=== PATIENT | male | born 1970 | race Caucasian/White ===

== ENCOUNTER 2024-05-25 15:14 | Inpatient (IN) ==
--- NOTE | 2024-05-25 15:32 | ED Triage Note ---
Date of Service May 25, 2024 Provider in Triage Author: Lona Jauregui History of Present Illness This patient was briefly evaluated while in triage. An abbreviated physical exam was performed. This patient is a 53-year-old Male who presents to the ED for evaluation of lightheadedness, and SOB. Pt. feels that his heart is racing. Symptoms started approximately 5 days ago. States symptoms haven't worsened, but haven't gone away. Does have history of HTN. Physical Exam VITALS: Vitals are noted on the nurse's note and reviewed by myself. GENERAL: This is a 53 year old male, in no acute distress, nondiaphoretic, well-developed well-nourished. SKIN: No obvious rashes, edema, erythema HEAD: Normocephalic atraumatic. EYES: Conjunctivae without injection, sclerae without icterus. NECK: No JVD. LUNGS: No retractions or accessory muscle use. MUSCULOSKELETAL: Normal gait. NEURO: Patient was alert and oriented to person place and time. No focal neurological deficits. Initial orders for labs and / or imaging were placed and patient was placed in the waiting area until a bed is available. Please see further documentation for the full ED course.
--- NOTE | 2024-05-25 15:47 | Emergency Department Note ---
Impression & Plan SOB (shortness of breath), CHF (congestive heart failure), Atrial fibrillation with rapid ventricular response, Acute hyperglycemia, Elevated troponin ED Provider Note NAME: CORDELL WINCHESTER AGE: 53 SEX: M : 1970 ARRIVES VIA: Walk-In INFORMANT: [Patient] ED PROVIDER(S): [Reynold Chávez MD] CHIEF COMPLAINT: Short of breath HISTORY OF PRESENT ILLNESS: The patient is a 53-year-old male who states for 4 days, he has felt short of breath. He has dyspnea with any exertion. He has some nausea and some epigastric upset. The patient has not had cough. No fever. He has no known coronary or lung disease. He has never felt this way before. The patient thinks he may feel his heart racing. PMHx/PSHx/Social Hx: See Below PHYSICAL EXAM: GENERAL: Patient is in no acute distress. HEENT: No acute trauma, normocephalic atraumatic, mucous membranes moist, no nasal congestion. NECK: No stridor, no adenopathy, no meningismus, trachea is midline. LUNGS: Clear to auscultation bilaterally, no wheeze, no rhonchi, breath sounds equal. HEART: Tachycardic, irregular rhythm, no obvious murmur. ABDOMEN: Soft, somewhat tender in the epigastrium, there is some abdominal distention noted. EXTREMITIES: No cyanosis, full range of motion of all the joints without pain or difficulty. NEUROLOGIC: Oriented x 3, no acute motor or sensory deficits, no focal weakness. SKIN: No jaundice, no diaphoresis. DIFFERENTIAL DIAGNOSIS: Dysrhythmia, A-fib or a flutter, SVT, UT, angina, pneumonia, CHF, among others. EMERGENCY DEPARTMENT PROCEDURES: MEDICAL DECISION MAKING: There is no leukocytosis or worrisome anemia. There is a normal platelet count. No coagulopathy. VBG does not show acidosis or significant CO2 retention. Renal panel testing shows a high sugar at 322. No worrisome liver enzyme elevation. BNP was elevated consistent with fluid overload/CHF. No evidence for pancreatitis by our testing. The patient appeared to be in a euthyroid state. ECG showed rapid atrial fibrillation without acute ST elevation. Cardiac enzyme testing x 1 is slightly elevated. This troponin elevation could be secondary to cardiac injury or potentially just mismatch from his tachycardia and dyspnea. Urinalysis shows glucose, no obvious infection. Chest x-ray shows some mild CHF, no pneumonia. On exam, patient was not toxic, he was not tachycardic. The patient was aggressively managed given his presentation and findings. He was given IV Phenergan, IV insulin. He received IV Lasix, 40 mg. He was given IV Pepcid. He received an IV diltiazem bolus and was placed on a diltiazem drip. Patient's heart rate has decreased with the above interventions. He does seem a bit more comfortable. Given his findings, given his presentation, hospitalization is warranted. I spoke with the patient and case management, the on-call hospitalist was consulted. Prior/Outside records/notes reviewed: None ECG per my interpretation: Indication was tachycardia. The ECG shows atrial fibrillation with a rate of 147. There is diffuse nonspecific ST change. No ST elevation, no PVCs. The QTc is 532. Continuous Cardiac Monitoring per my interpretation: An order was placed for continuous cardiac monitoring. The monitor shows a rate of 151 with atrial fibrillation. Imaging/x-ray results per my interpretation: Chest x-ray shows some mild CHF, no pneumonia. Chronic Medical/Social conditions affecting care: None Care/Management discussed with: Case management, the on-call hospitalist. Level of care consideration(s): After review of the information above and other included data: --I believe the patient requires escalation of care to admission Critical Care Note: I have personally spent 53 minutes of critical care time in the direct management of this patient. This includes bedside care, interpretation of diagnostic studies, and testing, discussion with consultants, patient, and family members, and other required patient management activities. This 53 minutes is in excess of all separately billable procedures. DISPOSITION: Admission Past Med/Surg History Problem List Elevated troponin (Acute) Acute hyperglycemia (Acute) Atrial fibrillation with rapid ventricular response (Acute) CHF (congestive heart failure) (Acute) SOB (shortness of breath) (Acute) Atrial fibrillation Depression (Chronic) Chest pain (Acute 05/20/13) Elevated troponin I level (Acute) Mood disorder (Acute) Medical History Hypertension Social History Smoking Status: Current every day smoker Tobacco Type: Cigarettes Cigarettes Per Day: 15; Second Hand Exposure: No; Do You Dip or Chew Tobacco: No; Hx Alcohol Use: Yes Alcohol type: beer and hard liquor Hx Substance Use: No Preferred Language: German Communication Ability: Effective Nuclear Operations Specialist Required: No Beliefs That Will Affect Care: None Current Living Situation: Alone Current Living Situation Comment: lives at home alone Feels Safe at Home: Yes Assistive Devices: Glasses Allergies Allergies Allergy/AdvReac Type Severity Reaction Status Date / Time No Known Allergies Allergy Unverified 05/19/13 23:19 Home Meds Home Medications Medication Instructions Recorded Confirmed hydralazine 25 mg tablet 25 mg PO TID 05/25/24 05/25/24 losartan 100 mg tablet 100 mg PO DAILY 05/25/24 05/25/24 metformin 1,000 mg tablet 1,000 mg PO BID 05/25/24 05/25/24 semaglutide 2 mg/dose (8 mg/3 mL) 2 mg subcut USEASDIRECTD 05/25/24 05/25/24 subcutaneous pen injector (Ozempic) Previous Rx's Medication Instructions Recorded AMLODIPINE BESYLATE (NORVASC) 7.5 mg PO QAM 30 days #0 tabs 05/24/13 HYDROCHLOROTHIAZIDE (HCTZ) 12.5 mg PO QAM 30 days #0 tabs 05/24/13 Metoprolol Tartrate (Lopressor) 50 mg PO BID 30 days #0 tabs 05/24/13 (Lopressor) Results & Data (ED) Vital Signs Vital Signs - 24 hr 05/25/24 15:30 05/25/24 15:32 05/25/24 15:42 Temperature 36.9 C Temperature Source Temporal Artery Scan Pulse Rate 76 159 H Pulse Rate [Apical] Pulse Rate from SpO2 Sensor Respiratory Rate 24 Respiratory Effort / Characteristics Non-Labored Spontaneous Respiratory Depth Normal Blood Pressure 198/123 H Blood Pressure [Left Arm] Blood Pressure Mean 148 Blood Pressure Mean [Left Arm] Blood Pressure Position [Left Arm] Pulse Oximetry 97 Oxygen Delivery Method Room Air Room Air Sepsis Recent Fever Within 48 Hours No Sepsis New/Unexplained Change in Mental Status No Sepsis Action Taken by Nursing No Action Required 05/25/24 15:44 05/25/24 16:10 05/25/24 16:14 Temperature Temperature Source Pulse Rate 142 H Pulse Rate [Apical] Pulse Rate from SpO2 Sensor 103 H Respiratory Rate 25 H Respiratory Effort / Characteristics Short of Breath Respiratory Depth Blood Pressure 133/99 Blood Pressure [Left Arm] Blood Pressure Mean 109 Blood Pressure Mean [Left Arm] Blood Pressure Position [Left Arm] Pulse Oximetry 93 Oxygen Delivery Method Room Air Room Air Sepsis Recent Fever Within 48 Hours Sepsis New/Unexplained Change in Mental Status Sepsis Action Taken by Nursing 05/25/24 16:25 Temperature Temperature Source Pulse Rate Pulse Rate [Apical] 119 H Pulse Rate from SpO2 Sensor Respiratory Rate 27 H Respiratory Effort / Characteristics Respiratory Depth Blood Pressure Blood Pressure [Left Arm] 135/89 Blood Pressure Mean Blood Pressure Mean [Left Arm] 104 Blood Pressure Position [Left Arm] Semi-fowlers Pulse Oximetry 96 Oxygen Delivery Method Room Air Sepsis Recent Fever Within 48 Hours Sepsis New/Unexplained Change in Mental Status Sepsis Action Taken by Skilled Nursing Medications Current Medication List: was personally reviewed by me Laboratory Data Attestation: I reviewed the patient's lab results. 05/25/24 15:45 05/25/24 15:45 Lab Results 05/25/24 05/25/24 05/25/24 Range/Units 15:45 15:51 16:54 WBC 9.30 (4.8-10.8) K/ul RBC 4.53 L (4.70-6.10) M/uL Hgb 14.6 (14.0-18.0) g/dl Hct 39.1 L (42.0-52.0) % MCV 86.3 (80.0-100.0) fL MCH 32.2 (25.0-34.0) pg MCHC 37.3 H (32.0-36.0) g/dL RDW Std Deviation 38.5 (36.4-46.3) fL RDW Coeff of Katherine 12.4 (11.5-14.5) % Plt Count 243 (130-400) K/uL MPV 10.5 (9.4-12.4) fL Immature Gran % (Auto) 0.6 % Neut % (Auto) 75.2 % Lymph % (Auto) 16.6 % [place] % (Auto) 5.3 % Eos % (Auto) 1.9 % Baso % (Auto) 0.4 % Neut # (Auto) 6.99 H (1.40-6.50) K/uL Lymph # (Auto) 1.54 (1.20-3.40) K/uL [place] # (Auto) 0.49 (0.11-0.59) K/uL Eos # (Auto) 0.18 (0.00-0.50) K/uL Baso # (Auto) 0.04 (0.00-0.20) K/uL Immature Gran # (Auto) 0.06 (0.01-0.20) K/uL PT 11.6 (9.0-12.0) Seconds INR 1.1 (0.9-1.1) APTT 27 (21-31) Seconds PTT Ratio 1.0 VBG pH 7.47 H (7.36-7.41) VBG pCO2 34 L (38-50) mmHg VBG pO2 44 mmHg VBG HCO3 25 mmol/L VBG O2 Saturation 78.0 % VBG Base Excess 1.5 mEq/L Sodium 139 (136-145) mmol/L Potassium 3.6 (3.5-5.1) mmol/L Chloride 106 (98-107) mmol/L Carbon Dioxide 23 (21-32) mmol/L Anion Gap 10 (3-11) BUN 9 (6-23) mg/dl Creatinine 1.03 (0.6-1.4) mg/dl Est Cr Clr Drug Dosing 112.5 ml/min eGFR 87.95 BUN/Creatinine Ratio 8.7 L (10-20) Glucose 322 H* (70-99(Fasting)) mg/dl Calcium 9.3 (8.6-10.3) mg/dl Magnesium 1.8 (1.7-2.4) mg/dl Total Bilirubin 1.6 H (0.2-1.0) mg/dl AST 19 (13-39) U/L ALT 33 (7-52) U/L Alkaline Phosphatase 50 (34-104) U/L Troponin I High Sens 23.2 H (0-20) pg/ml B-Natriuretic Peptide 229 H (0-100) pg/ml Total Protein 6.9 (6.0-8.3) gm/dl Albumin 3.9 (3.4-5.0) gm/dl Globulin 3.0 (2.5-4.0) gm/dl Albumin/Globulin Ratio 1.3 (0.9-2) Lipase 18 (11-82) U/L TSH 1.573 (0.300-4.500) uIu/ml Urine Color Yellow Urine Appearance Clear (Clear) Urine pH 6.5 (4.5-7.5) Ur Specific [place] 1.009 (1.000-1.030) Urine Protein Negative (Negative) Urine Glucose (UA) 3+ H (Negative) Urine Ketones Negative (Negative) Urine Blood 1+ H (Negative) Urine Nitrite Negative (Negative) Urine Bilirubin Negative (Negative) Urine Urobilinogen Negative (Negative) Ur Leukocyte Esterase Negative (Negative) Urine WBC (Auto) 0-5 (0-5) /hpf Urine RBC (Auto) 6-10 H (0-2) /hpf U Hyaline Cast (Auto) 0-2 (0-2) /lpf U Epithel Cells (Auto) 0-2 (0-2) /hpf Urine Bacteria (Auto) None Seen (None Seen) 05/25/24 Range/Units 17:33 WBC (4.8-10.8) K/ul RBC (4.70-6.10) M/uL Hgb (14.0-18.0) g/dl Hct (42.0-52.0) % MCV (80.0-100.0) fL MCH (25.0-34.0) pg MCHC (32.0-36.0) g/dL RDW Std Deviation (36.4-46.3) fL RDW Coeff of Katherine (11.5-14.5) % Plt Count (130-400) K/uL MPV (9.4-12.4) fL Immature Gran % (Auto) % Neut % (Auto) % Lymph % (Auto) % [place] % (Auto) % Eos % (Auto) % Baso % (Auto) % Neut # (Auto) (1.40-6.50) K/uL Lymph # (Auto) (1.20-3.40) K/uL [place] # (Auto) (0.11-0.59) K/uL Eos # (Auto) (0.00-0.50) K/uL Baso # (Auto) (0.00-0.20) K/uL Immature Gran # (Auto) (0.01-0.20) K/uL PT (9.0-12.0) Seconds INR (0.9-1.1) APTT (21-31) Seconds PTT Ratio VBG pH (7.36-7.41) VBG pCO2 (38-50) mmHg VBG pO2 mmHg VBG HCO3 mmol/L VBG O2 Saturation % VBG Base Excess mEq/L Sodium (136-145) mmol/L Potassium (3.5-5.1) mmol/L Chloride (98-107) mmol/L Carbon Dioxide (21-32) mmol/L Anion Gap (3-11) BUN (6-23) mg/dl Creatinine (0.6-1.4) mg/dl Est Cr Clr Drug Dosing ml/min eGFR BUN/Creatinine Ratio (10-20) Glucose (70-99(Fasting)) mg/dl Calcium (8.6-10.3) mg/dl Magnesium (1.7-2.4) mg/dl Total Bilirubin (0.2-1.0) mg/dl AST (13-39) U/L ALT (7-52) U/L Alkaline Phosphatase (34-104) U/L Troponin I High Sens 24.2 H (0-20) pg/ml B-Natriuretic Peptide (0-100) pg/ml Total Protein (6.0-8.3) gm/dl Albumin (3.4-5.0) gm/dl Globulin (2.5-4.0) gm/dl Albumin/Globulin Ratio (0.9-2) Lipase (11-82) U/L TSH (0.300-4.500) uIu/ml Urine Color Urine Appearance (Clear) Urine pH (4.5-7.5) Ur Specific [place] (1.000-1.030) Urine Protein (Negative) Urine Glucose (UA) (Negative) Urine Ketones (Negative) Urine Blood (Negative) Urine Nitrite (Negative) Urine Bilirubin (Negative) Urine Urobilinogen (Negative) Ur Leukocyte Esterase (Negative) Urine WBC (Auto) (0-5) /hpf Urine RBC (Auto) (0-2) /hpf U Hyaline Cast (Auto) (0-2) /lpf U Epithel Cells (Auto) (0-2) /hpf Urine Bacteria (Auto) (None Seen) Administered Medications Diltiazem HCl 125 mg/ Dextrose 125 mls @ 15 mls/hr IV .[id number] JADEN; Protocol Stop: 06/24/24 15:44 Last Titration: 05/25/24 19:01 Dose: 15 mg/hr, 15 mls/hr Documented By: EP Co-signed By: LAVERNE Titration: 05/25/24 17:30 Dose: 10 mg/hr, 10 mls/hr Documented By: CEF Co-signed By: GENE Admin: 05/25/24 16:10 Dose: 5 mg/hr, 5 mls/hr Documented By: COLLEEN Co-signed By: OTTO Heparin Sodium/Dextrose (Heparin Sodium/Dextrose) 25,000 units in 500 mls @ 33 mls/hr IV .[id number] [facility]; Protocol Stop: 06/24/24 20:44 Last Admin: 05/25/24 21:03 Dose: 1,650 units/hr, 33 mls/hr Documented By: LAVERNE Co-signed By: DENIS Insulin Aspart (Insulin Aspart Per Unit Charge) 0 units SC ACHS [facility] Stop: 06/24/24 20:59 Last Admin: 05/25/24 21:02 Dose: 4 units Documented By: LAVERNE Co-signed By: DENIS Metoprolol Tartrate (Metoprolol Tartrate 25 Mg Tab) 25 mg PO QID [facility] Stop: 06/24/24 20:59 Last Admin: 05/25/24 21:01 Dose: 25 mg Documented By: LAVERNE Discontinued Medications Diltiazem HCl (Diltiazem Hcl 5 Mg/Ml 5 Ml Vial) 15 mg IV NOW STA Stop: 05/25/24 15:43 Last Admin: 05/25/24 15:49 Dose: 15 mg Documented By: GENE Co-signed By: CEF Furosemide (Furosemide 40 Mg/4 Ml Vial) 40 mg IV ONE ONE Stop: 05/25/24 16:33 Last Admin: 05/25/24 16:37 Dose: 40 mg Documented By: CEF Famotidine (Pepcid 20mg Iv Push) 20 mg in 5 mls @ 2.5 mls/min IV NOW STA Stop: 05/25/24 15:43 Last Admin: 05/25/24 15:49 Dose: 2.5 mls/min Documented By: GENE Promethazine HCl (Phenergan) 6.25 mg in 50.25 mls @ 201 mls/hr IV NOW STA Stop: 05/25/24 15:56 Last Infusion: 05/25/24 16:21 Dose: Infused Documented By: Admin: 05/25/24 15:48 Dose: 201 mls/hr Documented By: GENE Insulin Human Regular (Novolin-R Insulin Per Unit Charge) 8 units IV NOW STA Stop: 05/25/24 16:39 Last Admin: 05/25/24 16:47 Dose: 8 units Documented By: JOSEF Co-signed By: Ioversol (Optiray 320 100ml) 94 ml IV ONCE ONE Stop: 05/25/24 18:40 Last Admin: 05/25/24 18:39 Dose: 94 ml Documented By: GES Imaging Data Radiologist's Impression: Chest X-Ray 05/25/24 15:32 Clinical History: Chest pain and shortness of breath Technique: A frontal view of the chest was obtained Findings: There is diffuse interstitial prominence, concerning for pulmonary edema. The heart size is at the upper limit of normal. No pleural effusion or pneumothorax is seen. There is linear to let us is in the left upper lobe No fracture is noted. No foreign body is seen Impression: Suspected mild pulmonary edema Electronically signed by Santosh Rose 05-25-2024 4:10 PM Discharge Plan Visit Data Chief Complaint: Shortness of Breath/Dyspnea Stated Complaint: SOB, DIZZY, ABD PAIN ED Provider: Reynold Chávez Discharge Problem: SOB (shortness of breath), CHF (congestive heart failure), Atrial fibrillation with rapid ventricular response, Acute hyperglycemia, Elevated troponin Patient Disposition: Admitted As Inpatient Condition: Serious Discharge Instructions Interventions: ED Discharge Assessment Last Done: 05/25/24 18:30 Discharge Problem: CHF (congestive heart failure) Qualifiers: Heart failure type: unspecified Heart failure chronicity: acute Qualified Code(s): I50.9 - Heart failure, unspecified
[2024-05-25] MEDS: PROMETHAZINE 6.25 MG/50.25 ML BAG IV STA (15:48)
[2024-05-25] MEDS: dilTIAZem HCl 5 MG/ML 5 ML VIAL IV STA (15:49)
[2024-05-25] MEDS: FAMOTIDINE 20MG IV PUSH 20 MG/5 ML SYR IV STA (15:49)
[2024-05-25] MEDS: dilTIAZem HCL 125 MG in DEXTROSE 5% 100 ML IV SCH (16:10)
--- NOTE | 2024-05-25 16:11 | XRay Report ---
Clinical History: Chest pain and shortness of breath Technique: A frontal view of the chest was obtained Findings: There is diffuse interstitial prominence, concerning for pulmonary edema. The heart size is at the upper limit of normal. No pleural effusion or pneumothorax is seen. There is linear to let us is in the left upper lobe No fracture is noted. No foreign body is seen Impression: Suspected mild pulmonary edema Electronically signed by Santosh Rose 05-25-2024 4:10 PM
[2024-05-25 16:14] LABS: Base Excess VBG 1.5 mEq/L; HCO3 VBG 25 mmol/L; PCO2 VBG 34 mmHg (38-50); PO2 VBG 44 mmHg; pH VBG 7.47 (7.36-7.41)
[2024-05-25 16:18] LABS: Basophils # (auto) 0.04 K/uL (0.00-0.20); Basophils % (auto) 0.4 %; Eosinophils # (auto) 0.18 K/uL (0.00-0.50); Eosinophils % (auto) 1.9 %; Hematocrit (blood only) 39.1 % (42.0-52.0); Hemoglobin 14.6 g/dl (14.0-18.0); Immature Granulocytes # (auto) 0.06 K/uL (0.01-0.20); Immature Granulocytes % (auto) 0.6 %; Lymphocytes # (auto) 1.54 K/uL (1.20-3.40); Lymphocytes % (auto) 16.6 %; Mean Corpuscular Hemoglobin 32.2 pg (25.0-34.0); Mean Corpuscular Hgb Conc 37.3 g/dL (32.0-36.0); Mean Corpuscular Volume 86.3 fL (80.0-100.0); Mean Platelet Volume 10.5 fL (9.4-12.4); Monocytes # (auto) 0.49 K/uL (0.11-0.59); Monocytes % (auto) 5.3 %; Neutrophils # (auto) 6.99 K/uL (1.40-6.50); Neutrophils % (auto) 75.2 %; Platelet Count 243 K/uL (130-400); RDW Coefficient of Variation 12.4 % (11.5-14.5); RDW Standard Deviation 38.5 fL (36.4-46.3); Red Blood Count 4.53 M/uL (4.70-6.10)
[2024-05-25 16:32] LABS: Albumin Globulin Ratio 1.3 (0.9-2); Albumin Level 3.9 gm/dl (3.4-5.0); BUN Creatinine Ratio 8.7 (10-20); Bilirubin,Total 1.6 mg/dl (0.2-1.0); Calcium 9.3 mg/dl (8.6-10.3); Creatinine Clr Calc Pharmacy 112.5 ml/min; Magnesium 1.8 mg/dl (1.7-2.4); Potassium 3.6 mmol/L (3.5-5.1); Total Protein 6.9 gm/dl (6.0-8.3); Troponin I High Sensitivity 23.2 pg/ml (0-20)
[2024-05-25 16:34] LABS: INR 1.1 (0.9-1.1); Partial Thromboplastin Time 27 Seconds (21-31); Prothrombin Time 11.6 Seconds (9.0-12.0)
[2024-05-25] MEDS: FUROSEMIDE 40 MG/4 ML VIAL IV ONE (16:37)
[2024-05-25 16:38] LABS: Thyroid Stimulating Hormone 1.573 uIu/ml (0.300-4.500)
[2024-05-25] MEDS: NovoLIN-R INSULIN PER UNIT CHARGE IV STA (16:47)
--- NOTE | 2024-05-25 17:47 | History & Physical Report ---
Date of Service May 25, 2024 Assessment & Plan (1) Hypertension: (2) Depression: (3) Hypertensive crisis: (4) Mood disorder: (5) Atrial fibrillation: Plan Assessment and plan: Rapid atrial fibrillation: Initial rates in the 140s on arrival to the ED, now in the 120s Continue to titrate Cardizem as able, consult cardiology Start IV heparin drip, telemetry monitoring, check echo LUQ abdominal pain: Stat CT A/P ordered to rule out acute infectious process Hold off starting IV heparin until CT scan results Differential Dx: Colitis, diverticulitis, appendicitis, ascites/fluid overload Pulmonary congestion, suspected CHF: Received 1 dose of IV Lasix in ED, no hypoxia noted Daily weights strict I&O, hold off on further Lasix at this time Hx HTN: Hold metoprolol/losartan/HCTZ/hydralazine while on diltiazem drip May resume as needed Tobacco use: Smoking cessation strongly recommended A total of 60 minutes was spent on chart review/reviewing diagnostic data/facilitating plan of care/discussion with consultants Full code DVT prophylaxis: Heparin drip History of Present Illness Chief Complaint: Shortness of breath, fatigue Primary Care Provider: Monster Payne The patient is a 53-year-old male with a past medical history of HTN, current smoker, depression who presents to the ED on 05/15/2024 with complaints of shortness of breath and feeling fatigued. Reports feeling like "he was running a marathon while resting "no known history of atrial fibrillation. 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 He reports his job is strenuous. He reports barely being able to get up and move the past few days because his stomach is so distended. Also reports some shortness of breath. And feeling like his heart is beating out of his chest. Does also report diarrhea. Denies any nausea/vomiting. Reports that shortness of breath has not improved On arrival to the ED, labs remarkable for pH 7.47, CO2 34, glucose 322, total bili 1.6, BNP 229, initial troponin mildly elevated at 23 Patient reports being recently diagnosed with possible diabetes and following his PCP for this. Chest x-ray showed pulmonary congestion EKG on arrival showed A-fib with RVR rates in the 140s The patient be admitted for further management Allergies Allergy/AdvReac Type Severity Reaction Status Date / Time No Known Allergies Allergy Unverified 11/12/13 23:19 Home Medications Medication Instructions Recorded Confirmed Type AMLODIPINE BESYLATE (NORVASC) 7.5 mg PO QAM 30 days #0 tabs 05/24/13 05/25/24 Rx HYDROCHLOROTHIAZIDE (HCTZ) 12.5 mg PO QAM 30 days #0 tabs 05/24/13 05/25/24 Rx Metoprolol Tartrate (Lopressor) 50 mg PO BID 30 days #0 tabs 05/24/13 05/25/24 Rx (Lopressor) hydralazine 25 mg tablet 25 mg PO TID 05/25/24 05/25/24 History losartan 100 mg tablet 100 mg PO DAILY 05/25/24 05/25/24 History metformin 1,000 mg tablet 1,000 mg PO BID 05/25/24 05/25/24 History semaglutide 2 mg/dose (8 mg/3 mL) 2 mg subcut USEASDIRECTD 05/25/24 05/25/24 History subcutaneous pen injector (Ozempic) Past Med/Surg History Problem List (Updated 05/25/24 @ 17:42 by BONI Arroyo) Atrial fibrillation Hypertension (Chronic) Depression (Chronic) Chest pain (Acute 05/20/13) Elevated troponin I level (Acute) Mood disorder (Acute) Social History Smoking Status: Current every day smoker Tobacco Type: Cigarettes Cigarettes Per Day: 15; Second Hand Exposure: No; Do You Dip or Chew Tobacco: No; Tobacco Cessation Education Requested by Patient: No Hx Alcohol Use: Yes Alcohol type: beer and hard liquor Hx Substance Use: No Preferred Language: Wolof Communication Ability: Effective Leaf Tinner Required: No Beliefs That Will Affect Care: None Current Living Situation: Alone Current Living Situation Comment: lives at home alone Other Information That Helps Us Care for You: No Feels Safe at Home: Yes Safety Concerns: Feels Safe At This Time Assistive Devices: Glasses Physical Exam Constitutional: WD/WN, vitals as above Eyes: PERRL, conjunctivae normal, anicteric sclerae ENMT: external ear and nose normal, oropharynx normal Neck: trachea midline, no thyromegaly Respiratory: normal respiratory effort, lungs clear to auscultation Cardiovascular: RRR, no murmur, no edema Gastrointestinal (Abdomen): normal bowel sounds, soft, nontender, no hepatosplenomegaly Inspection/Auscultation: + abdomen distended and + abdominal edema Percussion/Palpation: + abdomen tender and + guarding Musculoskeletal: no cyanosis or clubbing, extremities motor strength 5/5 Skin: no rashes, warm and dry Neurologic: PERRL, EOMI, accommodation nl, no face palsy, no dysarthria Psychiatric: A+Ox3, euthymic affect Lymphatic: no cervical or axillary lymphadenopathy Results & Data Results & Data Vital Signs (Past 12 Hours) Vital Signs Temp Pulse Pulse Resp BP BP Pulse Ox 05/25/24 16:25 119 H 27 H 135/89 96 05/25/24 16:14 05/25/24 16:10 142 H 25 H 133/99 93 05/25/24 15:42 159 H 05/25/24 15:32 05/25/24 15:30 36.9 C 76 24 198/123 H 97 O2 Del Method 05/25/24 16:25 Room Air 05/25/24 16:14 Room Air 05/25/24 16:10 Room Air 05/25/24 15:42 05/25/24 15:32 Room Air 05/25/24 15:30 Room Air Diagnostic Findings Laboratory Results WBC 9.30 K/ul (4.8-10.8) 05/25/24 15:45 RBC 4.53 M/uL (4.70-6.10) L 05/25/24 15:45 Hgb 14.6 g/dl (14.0-18.0) 05/25/24 15:45 Hct 39.1 % (42.0-52.0) L 05/25/24 15:45 MCV 86.3 fL (80.0-100.0) 05/25/24 15:45 MCH 32.2 pg (25.0-34.0) 05/25/24 15:45 MCHC 37.3 g/dL (32.0-36.0) H 05/25/24 15:45 RDW Std Deviation 38.5 fL (36.4-46.3) 05/25/24 15:45 RDW Coeff of Katherine 12.4 % (11.5-14.5) 05/25/24 15:45 Plt Count 243 K/uL (130-400) 05/25/24 15:45 MPV 10.5 fL (9.4-12.4) 05/25/24 15:45 Immature Gran % (Auto) 0.6 % 05/25/24 15:45 Neut % (Auto) 75.2 % 05/25/24 15:45 Lymph % (Auto) 16.6 % 05/25/24 15:45 Crockett % (Auto) 5.3 % 05/25/24 15:45 Eos % (Auto) 1.9 % 05/25/24 15:45 Baso % (Auto) 0.4 % 05/25/24 15:45 Neut # (Auto) 6.99 K/uL (1.40-6.50) H 05/25/24 15:45 Lymph # (Auto) 1.54 K/uL (1.20-3.40) 05/25/24 15:45 Crockett # (Auto) 0.49 K/uL (0.11-0.59) 05/25/24 15:45 Eos # (Auto) 0.18 K/uL (0.00-0.50) 05/25/24 15:45 Baso # (Auto) 0.04 K/uL (0.00-0.20) 05/25/24 15:45 Immature Gran # (Auto) 0.06 K/uL (0.01-0.20) 05/25/24 15:45 PT 11.6 Seconds (9.0-12.0) 05/25/24 15:45 INR 1.1 (0.9-1.1) 05/25/24 15:45 APTT 27 Seconds (21-31) 05/25/24 15:45 PTT Ratio 1.0 05/25/24 15:45 VBG pH 7.47 (7.36-7.41) H 05/25/24 15:51 VBG pCO2 34 mmHg (38-50) L 05/25/24 15:51 VBG pO2 44 mmHg 05/25/24 15:51 VBG HCO3 25 mmol/L 05/25/24 15:51 VBG O2 Saturation 78.0 % 05/25/24 15:51 VBG Base Excess 1.5 mEq/L 05/25/24 15:51 Sodium 139 mmol/L (136-145) 05/25/24 15:45 Potassium 3.6 mmol/L (3.5-5.1) 05/25/24 15:45 Chloride 106 mmol/L (98-107) 05/25/24 15:45 Carbon Dioxide 23 mmol/L (21-32) 05/25/24 15:45 Anion Gap 10 (3-11) 05/25/24 15:45 BUN 9 mg/dl (6-23) 05/25/24 15:45 Creatinine 1.03 mg/dl (0.6-1.4) 05/25/24 15:45 Est Cr Clr Drug Dosing 112.5 ml/min 05/25/24 15:45 eGFR 87.95 05/25/24 15:45 BUN/Creatinine Ratio 8.7 (10-20) L 05/25/24 15:45 Glucose 322 mg/dl (70-99(Fasting)) H* 05/25/24 15:45 Calcium 9.3 mg/dl (8.6-10.3) 05/25/24 15:45 Magnesium 1.8 mg/dl (1.7-2.4) 05/25/24 15:45 Total Bilirubin 1.6 mg/dl (0.2-1.0) H 05/25/24 15:45 AST 19 U/L (13-39) 05/25/24 15:45 ALT 33 U/L (7-52) 05/25/24 15:45 Alkaline Phosphatase 50 U/L (34-104) 05/25/24 15:45 Troponin I High Sens 23.2 pg/ml (0-20) H 05/25/24 15:45 B-Natriuretic Peptide 229 pg/ml (0-100) H 05/25/24 15:45 Total Protein 6.9 gm/dl (6.0-8.3) 05/25/24 15:45 Albumin 3.9 gm/dl (3.4-5.0) 05/25/24 15:45 Globulin 3.0 gm/dl (2.5-4.0) 05/25/24 15:45 Albumin/Globulin Ratio 1.3 (0.9-2) 05/25/24 15:45 Lipase 18 U/L (11-82) 05/25/24 15:45 TSH 1.573 uIu/ml (0.300-4.500) 05/25/24 15:45 Impressions Chest X-Ray 05/25/24 15:32 Clinical History: Chest pain and shortness of breath Technique: A frontal view of the chest was obtained Findings: There is diffuse interstitial prominence, concerning for pulmonary edema. The heart size is at the upper limit of normal. No pleural effusion or pneumothorax is seen. There is linear to let us is in the left upper lobe No fracture is noted. No foreign body is seen Impression: Suspected mild pulmonary edema Electronically signed by Santosh Rose 05-25-2024 4:10 PM Code Status & VTE Plan VTE Prophylaxis Plan VTE Prophylaxis will be ordered: Yes Supervising Physician Co-Signing Physician Notes Chart and data reviewed. Pt seen at bedside in his hospital room. Nursing is present. Patient presents with abdominal pain and new onset atrial fibrillation with rapid ventricular response. Cardiology consulted, continue IV heparin and IV diltiazem. Trend troponins. CT scan of the abdomen has been ordered. Results are pending. Most of his pain is epigastric. Will add a PPI. Lipase is normal. I agree with the MILANA's assessment and plan of care. A total of 25 minutes spent in the care and care collaboration for this patient.
[2024-05-25] MEDS: OPTIRAY 320 100ml IV ONE (18:39)
[2024-05-25 18:47] LABS: Appearance Urine Clear (Clear); Bacteria Urine Automated None Seen (None Seen); Bilirubin Urine Negative (Negative); Blood Urine 1+ (Negative); Cast Urine Automated 0-2 /lpf (0-2); Color Urine Yellow; Epithelial Cell Urine Auto 0-2 /hpf (0-2); Glucose Urine UA 3+ (Negative); Ketones Urine Negative (Negative); Leukocyte Esterase Urine Negative (Negative); Nitrite Urine Negative (Negative); Protein Urine Negative (Negative); Specific Gravity Urine 1.009 (1.000-1.030); Urobilinogen Urine Negative (Negative); WBC Urine Automated 0-5 /hpf (0-5); pH Urine 6.5 (4.5-7.5)
[2024-05-25] MEDS ORDERED: GLUCOSE 10 TAB/TUBE PO PRN (18:53)
[2024-05-25] MEDS ORDERED: GLUCOSE 40% GEL 15 GM TUBE PO PRN (18:53)
[2024-05-25] MEDS ORDERED: PHARMACY GLYCEMIC MGMT CONSULT PRN (18:53)
[2024-05-25] MEDS ORDERED: GLUCAGON FOR INJ 1 MG VIAL SQ PRN (18:53)
[2024-05-25] MEDS ORDERED: CARBOHYDRATES FOR HYPOGLYCEMIA PO PRN (18:53)
[2024-05-25] MEDS ORDERED: DEXTROSE 50% 50 ML SYRINGE IV PRN (18:53)
--- NOTE | 2024-05-25 19:53 | CT Scan Report ---
EXAM: CT abd pelvis IV con only CLINICAL HISTORY: tenderness - guarding on exam 94 cc opti 320 TECHNIQUE: Contrast-enhanced CT of the abdomen and pelvis was performed, with the following protocol: axial images with, and reconstructed coronal and sagittal images. Intravenous contrast 94 cc Optiray 320 was administered. One of the following dose reduction techniques was utilized for this exam: Automated exposure control, adjustment of the mA and/or kV according to patient size, and use of iterative reconstruction. COMPARISON: Prior 04/27/2024. FINDINGS: Abdomen: Liver: Stable enlarged liver with fatty CT density. No focal lesions, cysts, or masses were identified. Hepatic vasculature and biliary ducts are unremarkable. Gallbladder and Biliary System: Post cholecystectomy status. Pancreas: Pancreatic head, body, and tail are visualized and appear normal in size and density. No pancreatic masses or calcifications were noted. The pancreatic duct is not dilated. Spleen: Stable enlarged homogeneous spleen. Kidneys and Adrenal Glands: OBX.5.1OBX.5.1.1 Still seen left hydroureteronephrosis owing to left mid ureteric stone measuring 5.5 mm /OBX.5.1.1OBX.5.1.2 354 HU which is seen at a lower level than the last study./OBX.5.1.2/OBX.5.1 Right lower calyceal gravel, measures 2 mm. The rest of the bilateral renal stones are no longer demonstrated. Both kidneys are normal in size, shape, and position. Cortical thickness is within normal limits. No right renal hydronephrosis. Adrenal glands are unremarkable with no evidence of masses or hyperplasia. Pelvis: Urinary Bladder: Normal in contour and wall thickness. No intraluminal lesions identified. Prostate: Enlarged in size with calcific foci and preserved contour. No focal lesions or masses identified. Rectum and Sigmoid Colon: Normal wall thickness and no evidence of mass. Peritoneal and Retroperitoneal Structures: Stable mild mesenteric fat planes smudging with reactionary lymphadenopathies, likely mild inflammatory sequel. No free fluid or abnormal fluid collections were identified within the abdomen or pelvis. No lymphadenopathy was noted. Bowel: The visualized bowel loops are normal in caliber and appearance. No evidence of bowel obstruction or wall thickening. Bones and Soft Tissues: Stable pelvic phleboli. Pelvic bones and soft tissues are unremarkable. No fractures or abnormal masses were identified. Bilateral mild pleural effusions, more on the right side. (new finding) IMPRESSION: OBX.5.1OBX.5.1.11. Still seen left hydroureteronephrosis owing to left mid ureteric stone measures 5.5 mm /OBX.5.1.1OBX.5.1.2 354 HU which is seen at lower level than the last study./OBX.5.1.2/OBX.5.1 2. Right lower calyceal gravel, measures 2 mm. The rest of the bilateral renal stones are no longer demonstrated. 3. Stable fatty hepatomegaly and splenomegaly. 4. Stable mild mesenteric fat planes smudging with reactionary lymphadenopathies, likely mild inflammatory sequel. 5. Stable enlarged prostate with calcific foci and no suspicious focal lesions. 6. Bilateral mild pleural effusions, more on the right side. (new finding) Electronically signed by Martínez Peterson 05-25-2024 7:52 PM
[2024-05-25] MEDS ORDERED: ALUMINUM/MAGNESIUM/SIMETH (MAALOX MAX) 30 ML UDC PO PRN (20:04)
[2024-05-25] MEDS: METOPROLOL TARTRATE 25 MG TAB PO SCH (21:01)
[2024-05-25] MEDS: INSULIN ASPART PER UNIT CHARGE SC SCH (21:02)
[2024-05-25] MEDS: HEPARIN SODIUM/DEXTROSE 25,000 UNITS/500 ML BAG IV SCH (21:03)
--- NOTE | 2024-05-25 21:20 | Electrocardiogram Report ---
Test Reason : Blood Pressure : */* mmHG Vent. Rate : 147 BPM Atrial Rate : * BPM P-R Int : * ms QRS Dur : 114 ms QT Int : 340 ms P-R-T Axes : * -33 -14 degrees QTcB Int : 532 ms Atrial fibrillation with rapid ventricular response Left axis deviation Abnormal ECG When compared with ECG of 21-May-2013 07:20, Atrial fibrillation has replaced Sinus rhythm Vent. rate has increased by 59 bpm Confirmed by Song Ruth ([id number]) on 05/25/2024 9:20:03 PM Referred By: Confirmed By: Song Ruth
--- NOTE | 2024-05-25 21:46 | Communication Note ---
Date of Service: May 25, [address] abdomen pelvis result. 1. Still seen left hydroureteronephrosis owing to left mid ureteric stone measures 5.5 mm /OBX.5.1.1OBX.5.1.2 354 HU which is seen at lower level than the last study./OBX.5.1.2/OBX.5.1 2. Right lower calyceal gravel, measures 2 mm. The rest of the bilateral renal stones are no longer demonstrated. 3. Stable fatty hepatomegaly and splenomegaly. 4. Stable mild mesenteric fat planes smudging with reactionary lymphadenopathies, likely mild inflammatory sequel. 5. Stable enlarged prostate with calcific foci and no suspicious focal lesions. 6. Bilateral mild pleural effusions, more on the right side. (new finding) AP Urolithiasis, obstructive uropathy No sepsis for now, kidney function stable Flomax Strain urine Urology consult
[2024-05-25] MEDS: TAMSULOSIN HCL 0.4 MG CAP PO SCH (23:12)
[2024-05-25] MEDS: STAT IV Infusion **Titration per Protocol STA (23:13)
[2024-05-25] MEDS: Heparin IV Adult Wt-Based Standard *NO* INITIAL Bolus Protocol IV STA (23:13)
--- NOTE | 2024-05-25 23:16 | Urology Consultation ---
Date of Consultation May 25, 2024 Assessment & Plan (1) Nephrolithiasis: Patient has been admitted on the hospitalist service: The patient is currently being managed for new onset atrial fibrillation along with suspected congestive heart failure we will defer management of these conditions to the primary service Patient does have right-sided abdominal pain at the time I examined the CT scan of his abdomen pelvis does not have any findings that would delineate the cause of this pain From urologic perspective we recommend the following: Provide analgesics as needed At the present time the patient is nontoxic-appearing. He is afebrile and noted be normotensive. He does not have acute kidney injury and his urinalysis is not indicative of infection Would recommend continued observation patient's kidney stone for the present time Would be preferable to have patient's underlying cardiovascular issues optimized prior to entertaining any intervention for his kidney stone Consideration to be given to initiating Flomax for maximal expulsive therapy Would monitor the patient for signs of urinary retention and if so straight catheterization can be employed Additional recommendations be forthcoming based on his clinical course as it unfolds History of Present Illness Reason for Consultation: Obstructive uropathy Attending Physician: Laci Phillips DO History of Present Illness This is a 53-year-old male who presented to the emergency department today secondary to shortness of breath. Patient says that he has been having dyspnea exertion. He also notes that he has been having nausea and some epigastric upset. He notes that his nausea and epigastric symptoms have been markedly limiting his oral activity and he also notes that he feels as though he has to belch after he eats. He notes that this is only been going on for several days. He denies any fevers, shakes, or chills. He currently denies any left flank pain or any back pain. He denies any dysuria but has noted some intermittent hematuria. He notes that he can empty his bladder completely. He notes that he currently does not follow with a urologist. Today in the emergency department the patient did have labs and imaging which I independently reviewed. The patient did have a CT scan of the abdomen pelvis performed today which showed the patient had a 5 mm kidney stone in the left mid ureter resulting in left hydronephrosis. The interpreting radiologist felt that this was at a lower level than what was noted during study he had on 04/27/2024 (this will be delineated below). A chest x-ray today showed patient had mild pulmonary edema. Labs today include a CBC with a white blood cell count and hemoglobin were normal. His platelet count was normal and his hematocrit was 39.1. Coagulation studies were normal. Chemistry profile showed sodium and potassium as well as the BUN and creatinine were normal. Lactic acid level was not elevated. A urinalysis was not indicative of infection. This patient was seen in the emergency department on 04/27/2024 secondary to left flank pain. With this pain he was having some intermittent nausea but he was not having any urinary symptoms at that time. This during the patient's visit on 04/27/[address] he [address] a [address] scan of the abdomen pelvis. This showed the patient had a 5 mm obstructing kidney stone in the mid to distal ureter resulting in left hydronephrosis. During this visit the patient also had labs where CBC revealed white blood cell count and h emoglobin as well as the platelet count were normal. His hematocrit is 40.5. Chemistry profile showed sodium and potassium as well as the BUN and creatinine were normal. Urinalysis at that time was not indicative of infection. Allergies Allergy/AdvReac Type Severity Reaction Status Date / Time No Known Allergies Allergy Unverified 05/19/13 23:19 Home Medications Medication Instructions Recorded Confirmed Type AMLODIPINE BESYLATE (NORVASC) 7.5 mg PO QAM 30 days #0 tabs 05/24/13 05/25/24 Rx HYDROCHLOROTHIAZIDE (HCTZ) 12.5 mg PO QAM 30 days #0 tabs 05/24/13 05/25/24 Rx Metoprolol Tartrate (Lopressor) 50 mg PO BID 30 days #0 tabs 05/24/13 05/25/24 Rx (Lopressor) hydralazine 25 mg tablet 25 mg PO TID 05/25/24 05/25/24 History losartan 100 mg tablet 100 mg PO DAILY 05/25/24 05/25/24 History metformin 1,000 mg tablet 1,000 mg PO BID 05/25/24 05/25/24 History semaglutide 2 mg/dose (8 mg/3 mL) 2 mg subcut USEASDIRECTD 05/25/24 05/25/24 History subcutaneous pen injector (Ozempic) Patient History Medical History Hypertension Social History Smoking Status: Current every day smoker Tobacco Type: Cigarettes Cigarettes Per Day: 15; Second Hand Exposure: No; Do You Dip or Chew Tobacco: No; Hx Alcohol Use: Yes Alcohol type: beer and hard liquor Hx Substance Use: No Preferred Language: Kiswahili Communication Ability: Effective Speech Writer Required: No Beliefs That Will Affect Care: None Current Living Situation: Alone Current Living Situation Comment: lives at home alone Feels Safe at Home: Yes Assistive Devices: Glasses Review of Systems Review of Systems: All systems reviewed & are unremarkable except as noted in HPI & below Physical Exam Constitutional: WD/WN, vitals as above Eyes: no conjunctival abnormality ENMT: Ears: no hearing impairment and no external ear abnormality Mouth: no oropharynx abnormality Neck: trachea midline Respiratory: normal respiratory effort; no respiratory distress and no labored breathing Cardiovascular: Rate/Rhythm: regular rate and regular rhythm Gastrointestinal (Abdomen): Abdomen is soft and nonrigid. Patient did have pain with palpation on the right side of his abdomen without rebound tenderness or guarding. There is no pain noted on the left. Musculoskeletal: No calf tenderness Skin: no rashes Neurologic: moves all extremities Psychiatric: A+Ox3, euthymic affect Genitourinary: No CVA tenderness noted with percussion bilaterally Results & Data Vital Signs (Past 12 Hours) Vital Signs Temp Pulse Pulse Resp BP BP Pulse Ox 05/25/24 23:04 37.0 C 68 20 125/79 95 05/25/24 22:42 131 H 19 98 05/25/24 20:30 113 H 26 H 05/25/24 19:33 36.4 C L 136 H 20 130/76 93 05/25/24 18:17 137 H 27 H 111/80 91 05/25/24 16:25 119 H 27 H 135/89 96 05/25/24 16:14 05/25/24 16:10 142 H 25 H 133/99 93 05/25/24 15:42 159 H 05/25/24 15:32 05/25/24 15:30 36.9 C 76 24 198/123 H 97 O2 Del Method 05/25/24 23:04 CPAP 05/25/24 22:42 05/25/24 20:30 05/25/24 19:33 Room Air 05/25/24 18:17 Room Air 05/25/24 16:25 Room Air 05/25/24 16:14 Room Air 05/25/24 16:10 Room Air 05/25/24 15:42 05/25/24 15:32 Room Air 05/25/24 15:30 Room Air PG Care Time/CCT Total # of Minutes Spent Total Time Spent with Patient: Total time spent is greater than 50% in coordination of care (as documented) at patient's floor/unit and/or counseling patient: Coding Level of Care Code 79649 IN/OBS CONSULT LVL 5,80M Diagnoses Nephrolithiasis N20.0
[2024-05-26] MEDS: MAGNESIUM SULFATE / D5W 1 GM/100 ML BAG IV ONE (00:58)
[2024-05-26] MEDS: INSULIN ASPART PER UNIT CHARGE SC ONE (02:22)
[2024-05-26 03:56] LABS: Hematocrit (blood only) 38.3 % (42.0-52.0); Hemoglobin 13.8 g/dl (14.0-18.0); Mean Corpuscular Hemoglobin 31.1 pg (25.0-34.0); Mean Corpuscular Volume 86.3 fL (80.0-100.0); Mean Platelet Volume 10.1 fL (9.4-12.4); Platelet Count 239 K/uL (130-400); RDW Coefficient of Variation 12.8 % (11.5-14.5); RDW Standard Deviation 39.7 fL (36.4-46.3); Red Blood Count 4.44 M/uL (4.70-6.10); White Blood Count 7.41 K/ul (4.8-10.8)
[2024-05-26 04:13] LABS: Albumin Globulin Ratio 1.3 (0.9-2); Albumin Level 3.8 gm/dl (3.4-5.0); Bilirubin,Total 1.3 mg/dl (0.2-1.0); Creatinine Clr Calc Pharmacy 123.9 ml/min; Globulin 2.9 gm/dl (2.5-4.0); Potassium 3.2 mmol/L (3.5-5.1); Total Protein 6.7 gm/dl (6.0-8.3)
[2024-05-26 04:19] LABS: Troponin I High Sensitivity 23.5 pg/ml (0-20)
[2024-05-26 04:21] LABS: ANTI-Xa, UFH(UnfractionatedHep < 0.10 IU/ml (0.3-0.7)
[2024-05-26] MEDS: HEPARIN SOD (PORCINE) 1000 UNIT/ML IV ONE ×3 (04:45→21:04)
[2024-05-26] MEDS: INSULIN ASPART PER UNIT CHARGE SC SCH ×2 (05:56→17:09)
[2024-05-26] MEDS: LANTUS PER UNIT CHARGE SC ONE (05:57)
[2024-05-26] MEDS: PANTOprazole 40 MG TAB PO SCH (08:04)
--- NOTE | 2024-05-26 08:38 | Electrocardiogram Report ---
Test Reason : Blood Pressure : */* mmHG Vent. Rate : 106 BPM Atrial Rate : 91 BPM P-R Int : * ms QRS Dur : 122 ms QT Int : 436 ms P-R-T Axes : * 96 6 degrees QTcB Int : 579 ms Atrial fibrillation with rapid ventricular response Rightward axis Non-specific intra-ventricular conduction delay Abnormal ECG When compared with ECG of 25-May-2024 15:38, QRS axis Shifted right Nonspecific T wave abnormality now evident in Lateral leads Confirmed by Song Ruth ([id number]) on 05/26/2024 8:38:21 AM Referred By: REFERRED SELF Confirmed By: Song Ruth
--- NOTE | 2024-05-26 08:57 | Urology Progress Note ---
Date of Service May 26, 2024 Assessment & Plan (1) Left ureteral stone: Plan 53-year-old male admitted for new onset atrial fibrillation and CHF. He was recently diagnosed with a left ureteral stone on 04/27/24. CTAP 05/25/2024 shows left hydroureteronephrosis secondary to left mid ureteral stone measuring approximately 5.5 mm, which has migrated distally when compared to previous study. Patient afebrile Lab work reviewedcreatinine 0.92, no leukocytosis Urinalysis on arrival was not suggestive of infection CT reviewed and shows persistent left ureteral stone measuring approximately 5 mm, which has migrated distally since previous imaging He is currently asymptomatic from stone standpoint Given new onset of atrial fibrillation and CHF, will defer intervention at this time while acute issues are optimized Okay to have diet today from perspective Recommend medical expulsive therapy for now, addition of Tamsulosin if okay from medical/cardiology standpoint Will arrange outpatient follow-up with our service to discuss definitive stone management Continue supportive care medical management per hospital medicine service Please consult our service urgently if patient develops fever >101F, intractable pain or nausea, as this will necessitate urgent surgical intervention will follow peripherally, please contact our service with any questions or changes in status Admission and Anticipated Discharge Date Admission Date: May 25, 2024 Subjective Patient seen and examined at bedside this morning. He is resting in bed, arouses easily to speech. Denies flank pain. No nausea, vomiting, fever or chills. Voiding spontaneously without difficulty. No dysuria or hematuria. Review of Systems Constitutional: as per Subjective / HPI Genitourinary: + as per Subjective / HPI Physical Exam Constitutional: well developed and well nourished; no acute distress Respiratory: normal respiratory effort; no respiratory distress and no labored breathing Gastrointestinal (Abdomen): Inspection/Auscultation: abdomen normal to inspection Musculoskeletal: Head/Neck/Chest: normocephalic Neurologic: moves all extremities and awake Psychiatric: Orientation: alert and oriented x 3 Results & Data Vital Signs (Past 12 Hours) Vital Signs Temp Pulse Pulse Resp BP Pulse Ox O2 Del Method 05/26/24 07:28 36.6 C 97 H 20 123/72 96 CPAP 05/26/24 07:00 104 H 05/26/24 03:11 36.8 C 84 20 123/87 93 CPAP 05/26/24 02:38 118 H 19 97 05/25/24 23:04 37.0 C 68 20 125/79 95 CPAP 05/25/24 22:42 131 H 19 98 PG Care Time/CCT Total # of Minutes Spent Total Time Spent with Patient: Total time spent is greater than 50% in coordination of care (as documented) at patient's floor/unit and/or counseling patient: Coding Level of Care Code 07791 SUB INP/OBS CARE 08/01MIN Diagnoses Left ureteral stone N20.1
--- NOTE | 2024-05-26 09:35 | Cardiology Consultation ---
Date of Consultation May 26, 2024 Assessment & Plan (1) New onset atrial fibrillation: (2) Elevated troponin: (3) CHF (congestive heart failure): (4) SOB (shortness of breath): (5) Hypertension: (6) Coronary atherosclerosis of [place] coronary artery: Plan New onset symptomatic atrial fibrillation with a rapid ventricular response. Duration probably 4 to 5 days. [id number] Score 4 points (hypertension, CHF, atherosclerosis on CT imaging, diabetes) * Increase metoprolol, switching to succinate formulation * Wean off diltiazem * IV heparin to Eliquis anticoagulation * Resting echocardiography pending * Possible KATERYNA and cardioversion discussed. Elevated troponin. Suspect secondary to the above. Personal review of the abdominal CT this admission notable for multivessel coronary artery atherosclerosis. Recommend addition of statin therapy. Recommend future ref erral for stress testing. Acute decompensated, presumably diastolic, congestive heart failure. Improved following 40 mg of IV furosemide yesterday. Correct hypokalemia prior to prior to additional IV diuresis. Hypertension. Initial blood pressure was 198/123. Blood pressures thereafter have been well-controlled, ranging from 111/82 to a high of 135/89 thus far. Follow Supervising Physician Co-Signing Physician Notes Attending attestation: Case reviewed with the advanced practitioner. I have personally performed a history and physical examination on the patient. I have reviewed the advanced practitioner's documentation on the date of service referenced in note, and I agree with, and take responsibility for the plan of care. Patient remains in atrial fibrillation despite diltiazem infusion and oral metoprolol. Given severity of symptoms, rhythm control strategy preferred. Patient agreeable to KATERYNA guided direct current cardioversion. Will arrange for later today or tomorrow depending on anesthesia availability. Keep NPO until timing determined. Blane Mohamud DO History of Present Illness Reason for Consultation: Atrial fibrillation Requesting Physician: Salvador MckeonistPuneet Attending Physician: Dr. Zechariah Morales MD History of Present Illness Bernabe Melendez is a 53-year-old male who began to feel unwell Saturday afternoon after changing the tires on his [place]. Patient describes sudden onset shortness of breath, fatigue, intermittent palpitations, reduced exercise tolerance, "overall sick and miserable." Saturday when attempting to go up to the bedroom he was significantly dyspneic and near syncopal. Notes nausea and epigastric discomfort resulting in reduced intake, eructation. Ozempic, prescribed about a year ago, was increased two weeks ago. Patient describes sitting around and taking it easy, trying to drink fluids, Saturday and Saturday. On Saturday, he presented to the [facility] ER for further evaluation and treatment. EKG on presentation revealed atrial fibrillation with a rapid ventricular response (147 bpm). High-sensitivity troponin minimally elevated, flat (23.2 -> 24.2-> 23.7 -> 23.5) Chest x-ray was interpreted by the radiologist as suspected mild pulmonary edema. Telemetry reveals atrial fibrillation with heart rates in the 80s to 130s. Resting echocardiography pending. In the ER patient received IV Phenergan, IV insulin, 40 mg IV Lasix, IV Pepcid, was ultimately started on a diltiazem drip. Prior to arrival patient was prescribed metoprolol to tartrate 50 mg twice per day. Up until Saturday patient was feeling well. Prior to Saturday he had no activity related chest discomfort or shortness of breath. No palpitations. No dizziness or syncope. No fevers or chills. No melena or hematochezia. Past Medical and Surgical History Hypertension Dyslipidemia Type 2 diabetes mellitus Obstructive sleep apnea, CPAP therapy Kidney stones Chronic tobacco use Depression Cholecystectomy Right knee reconstruction Family History: Mother with an DE at 74. Father is alive and well without cardiac issue. Sister with spina bifida. Another sister without issues. Social History: Prior smokeless tobacco user until 2019. Smoker, three-quarter pack per day, for the past 5 years. Alcohol: 2 beers per week. + Marijuana. 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 . 3 grown sons. Allergies Allergy/AdvReac Type Severity Reaction Status Date / Time No Known Allergies Allergy Unverified 05/19/13 23:19 Home Medications Medication Instructions Recorded Confirmed Type AMLODIPINE BESYLATE (NORVASC) 7.5 mg PO QAM 30 days #0 tabs 05/24/13 05/25/24 Rx HYDROCHLOROTHIAZIDE (HCTZ) 12.5 mg PO QAM 30 days #0 tabs 05/24/13 05/25/24 Rx Metoprolol Tartrate (Lopressor) 50 mg PO BID 30 days #0 tabs 05/24/13 05/25/24 Rx (Lopressor) hydralazine 25 mg tablet 25 mg PO TID 05/25/24 05/25/24 History losartan 100 mg tablet 100 mg PO DAILY 05/25/24 05/25/24 History metformin 1,000 mg tablet 1,000 mg PO BID 05/25/24 05/25/24 History semaglutide 2 mg/dose (8 mg/3 mL) 2 mg subcut USEASDIRECTD 05/25/24 05/25/24 History subcutaneous pen injector (Ozempic) Patient History Medical History Hypertension Social History Smoking Status: Current every day smoker Tobacco Type: Cigarettes Cigarettes Per Day: 15; Second Hand Exposure: No; Do You Dip or Chew Tobacco: No; Hx Alcohol Use: Yes Alcohol type: beer and hard liquor Hx Substance Use: No Preferred Language: [place] Communication Ability: Effective Oil Field Technician Required: No Beliefs That Will Affect Care: None Current Living Situation: Alone Current Living Situation Comment: lives at home alone Feels Safe at Home: Yes Assistive Devices: None Review of Systems Review of Systems: Complete Review of Systems is as stated above, negative, or noncontributory. Physical Exam Physical Exam: General: A&Ox3. NAD. Elevated BMI HENT: Normocephalic. Atraumatic. Eyes: PER. Conjunctiva pink, sclera clear. Neck: No JVD. Heart: Irregularly irregular. No murmur. Lungs: Clear to auscultation. Abdomen: +BS. Soft. Nontender. No masses or organomegaly. Extremities: No clubbing, cyanosis, or significant edema. Limited neurological examination is without focal deficits. Pulses: radial=2/4, posterior tibial=2/4. Results & Data Vital Signs (Past 12 Hours) Vital Signs Temp Pulse Pulse Resp BP Pulse Ox O2 Del Method 05/26/24 08:15 Room Air 05/26/24 07:28 36.6 C 97 H 20 123/72 96 CPAP 05/26/24 07:00 104 H 05/26/24 03:11 36.8 C 84 20 123/87 93 CPAP 05/26/24 02:38 118 H 19 97 05/25/24 23:04 37.0 C 68 20 125/79 95 CPAP 05/25/24 22:42 131 H 19 98 Laboratory Results Cardiac Enzymes 05/25/24 05/25/24 05/25/24 Range/Units 15:45 17:33 19:10 AST 19 (13-39) U/L Troponin I High Sens 23.2 H 24.2 H 23.7 H (0-20) pg/ml B-Natriuretic Peptide 229 H (0-100) pg/ml 05/26/24 Range/Units 03:28 AST 15 (13-39) U/L Troponin I High Sens 23.5 H (0-20) pg/ml B-Natriuretic Peptide (0-100) pg/ml Coagulation 05/25/24 Range/Units 15:45 PT 11.6 (9.0-12.0) Seconds APTT 27 (21-31) Seconds B-Natriuretic Peptide 229 H (0-100) pg/ml Lipids 05/26/24 Range/Units 03:28 Triglycerides 112 (0-150) mg/dl Cholesterol 127 (0-200) mg/dl HDL Cholesterol 32 mg/dl Cholesterol/HDL Ratio 4.0 (0-5) CBC 05/25/24 05/26/24 Range/Units 15:45 03:28 WBC 9.30 7.41 (4.8-10.8) K/ul RBC 4.53 L 4.44 L (4.70-6.10) M/uL Hgb 14.6 13.8 L (14.0-18.0) g/dl Hct 39.1 L 38.3 L (42.0-52.0) % Plt Count 243 239 (130-400) K/uL Neut # (Auto) 6.99 H (1.40-6.50) K/uL Lymph # (Auto) 1.54 (1.20-3.40) K/uL [place] # (Auto) 0.49 (0.11-0.59) K/uL Eos # (Auto) 0.18 (0.00-0.50) K/uL Baso # (Auto) 0.04 (0.00-0.20) K/uL Comprehensive Metabolic Panel 05/25/24 05/26/24 Range/Units 15:45 03:28 Sodium 139 137 (136-145) mmol/L Potassium 3.6 3.2 L (3.5-5.1) mmol/L Chloride 106 104 (98-107) mmol/L Carbon Dioxide 23 25 (21-32) mmol/L BUN 9 11 (6-23) mg/dl Creatinine 1.03 0.92 (0.6-1.4) mg/dl Glucose 322 H* 204 H (70-99(Fasting)) mg/dl Calcium 9.3 9.0 (8.6-10.3) mg/dl AST 19 15 (13-39) U/L ALT 33 29 (7-52) U/L Alkaline Phosphatase 50 45 (34-104) U/L Total Protein 6.9 6.7 (6.0-8.3) gm/dl Albumin 3.9 3.8 (3.4-5.0) gm/dl Intake and Output 05/25/24 05/26/24 05/26/24 22:59 06:59 14:59 Intake Total 222.084 / 663.184 441.10 / 663.184 187.30 / 187.30 Output Total 300 / 300 550 / 550 Balance -77.916 / 363.184 441.10 / 363.184 -362.70 / -362.70 Intake: IV 72.084 / 513.184 441.10 / 513.184 187.30 / 187.30 Heparin Sodium/Dextrose 25,000 251.35 / 251.35 95.55 / 95.55 units In 500 ml @ 1,950 UNITS/ HR 39 mls/hr IV .[id number] [facility] Rx #:[id number] Magnesium Sulfate / D5w 1 gm In 100 / 100 100 ml @ 50 mls/hr IV ONE ONE Rx#:[id number] Promethazine 6.25 mg In 50.25 50.25 / 50.25 ml @ 201 mls/hr IV NOW [facility] Rx#: [id number] dilTIAZem HCL 125 mg In 21.834 / 111.584 89.75 / 111.584 91.75 / 91.75 Dextrose 5% 100 ml @ 15 MG/HR 15 mls/hr IV .[id number] [facility] Rx#: [id number] Oral 150 / 150 Output: Urine 300 / 300 550 / 550 Other: Other Intake Source Patient is NPO Weight 128 kg 128.3 kg Weight Measurement Method [facility] (3) CHF (congestive heart failure) Heart failure chronicity: acute Heart failure type: unspecified Qualified Code(s): I50.9 - Heart failure, unspecified
[2024-05-26] MEDS: POTASSIUM CHLORIDE CRTAB 20 MEQ TABCR PO STA (10:38)
[2024-05-26 11:16] LABS: ANTI-Xa, UFH(UnfractionatedHep 0.27 IU/ml (0.3-0.7)
[2024-05-26 11:55] LABS: Adenovirus PCR Not Detected (NotDetected); Bordetella parapertussis PCR Not Detected (NotDetected); Bordetella pertussis PCR Not Detected (NotDetected); Chlamydia pneumoniae PCR Not Detected (NotDetected); Coronavirus 229E PCR Not Detected (NotDetected); Coronavirus CoV-2 (COVID19)PCR Not Detected (NotDetected); Coronavirus HKU1 PCR Not Detected (NotDetected); Coronavirus NL63 PCR Not Detected (NotDetected); Coronavirus OC43PCR Not Detected (NotDetected); Human Metapneumovirus PCR Not Detected (NotDetected); Influenza A PCR Not Detected (NotDetected); Influenza B PCR Not Detected (NotDetected); Mycoplasma pneumoniae PCR Not Detected (NotDetected); Parainfluenza Virus 1 PCR Not Detected (NotDetected); Parainfluenza Virus 2 PCR Not Detected (NotDetected); Parainfluenza Virus 3 PCR Not Detected (NotDetected); Parainfluenza Virus 4 PCR Not Detected (NotDetected); Respiratory Syncytial VirusPCR Not Detected (NotDetected); Rhinovirus/Enterovirus PCR Not Detected (NotDetected)
[2024-05-26 12:12] LABS: Partial Thromboplastin Ratio 1.3; Partial Thromboplastin Time 36 Seconds (21-31)
--- NOTE | 2024-05-26 12:25 | Anesthesiology Consultation ---
Date of Service May 26, 2024 Assessment & Plan Chart Review Chart Review: Acceptable Risk for Surgery and Patient NOT seen in Pre Admission Testing Consults Requested none History Surgery Operation Date: 05/26/24 12:00 Proposed Procedures p Transesophageal Echo - Blane Mohamud DO s Cardioversion - Blane Mohamud DO Height/Weight Height: 5 ft 8 in Weight: 128.3 kg Allergies Allergy/AdvReac Type Severity Reaction Status Date / Time No Known Allergies Allergy Unverified 05/19/13 23:19 Medications Home Medications Medication Instructions Recorded Confirmed Last Taken AMLODIPINE BESYLATE (NORVASC) 7.5 mg PO QAM 30 days #0 tabs 05/24/13 05/25/24 Unknown HYDROCHLOROTHIAZIDE (HCTZ) 12.5 mg PO QAM 30 days #0 tabs 05/24/13 05/25/24 Unknown Metoprolol Tartrate (Lopressor) 50 mg PO BID 30 days #0 tabs 05/24/13 05/25/24 Unknown (Lopressor) hydralazine 25 mg tablet 25 mg PO TID 05/25/24 05/25/24 Unknown losartan 100 mg tablet 100 mg PO DAILY 05/25/24 05/25/24 Unknown metformin 1,000 mg tablet 1,000 mg PO BID 05/25/24 05/25/24 Unknown semaglutide 2 mg/dose (8 mg/3 mL) 2 mg subcut USEASDIRECTD 05/25/24 05/25/24 Unknown subcutaneous pen injector (Ozempic) Active Medications Generic Name Dose Route Start Last Admin Trade Name Freq PRN Reason Stop Dose Admin Diltiazem HCl 125 mg/ Dextrose 125 mls @ 10 mls/hr 05/25/24 15:45 05/26/24 10:38 IV 06/24/24 15:44 10 mg/hr .[id number] JADEN 10 mls/hr Administration Protocol 10 MG/HR Heparin Sodium/Dextrose 25,000 units in 500 mls @ 41 mls/hr 05/25/24 20:45 05/26/24 11:26 Heparin Sodium/Dextrose IV 06/24/24 20:44 2,050 units/hr .[id number] JADEN 41 mls/hr Titration Protocol 2,050 UNITS/HR Insulin Aspart 0 units 05/26/24 06:00 05/26/24 11:53 Insulin Aspart Per Unit Charge SC 12/19/24 05:59 4 units Q6 JADEN Administration Metoprolol Tartrate 25 mg 05/25/24 21:00 05/26/24 08:04 Metoprolol Tartrate 25 Mg Tab PO 06/24/24 20:59 25 mg QID JADEN Administration Pantoprazole Sodium 40 mg 05/26/24 09:00 05/26/24 08:04 Pantoprazole 40 Mg Tab PO 06/25/24 08:59 40 mg DAILY JADEN Administration Tamsulosin HCl 0.4 mg 05/25/24 21:50 05/25/24 23:12 Tamsulosin Hcl 0.4 Mg Cap PO 06/24/24 21:49 0.4 mg HS JADEN Administration Past Medical History Medical History Hypertension Social History Smoking Status: Current every day smoker Smoking cigarettes per day: 15 Do You Dip or Chew Tobacco: No Hx Alcohol Use: Yes Alcohol type: beer and hard liquor alcohol intake frequency: a few times a week Alcohol Intake Frequency Comment: drinks 2x/week Hx Substance Use: No substance use type: does not use Physical Exam Vital Signs Last Vital Signs Temp 36.2 C L 05/26/24 11:29 Pulse 73 05/26/24 11:29 Resp 20 05/26/24 11:29 BP 124/89 05/26/24 11:29 Pulse Ox 92 05/26/24 11:29 O2 Del Method Room Air 05/26/24 11:29 Testing Laboratory Results 05/26/24 03:28 05/26/24 03:28 PT 11.6 Seconds (9.0-12.0) 05/25/24 15:45 INR 1.1 (0.9-1.1) 05/25/24 15:45 APTT 36 Seconds (21-31) H 05/26/24 10:40 Urine Color Yellow 05/25/24 16:54 Urine Appearance Clear (Clear) 05/25/24 16:54 Urine pH 6.5 (4.5-7.5) 05/25/24 16:54 Ur Specific [place] 1.009 (1.000-1.030) 05/25/24 16:54 Urine Protein Negative (Negative) 05/25/24 16:54 Urine Glucose (UA) 3+ (Negative) H 05/25/24 16:54 Urine Ketones Negative (Negative) 05/25/24 16:54 Urine Nitrite Negative (Negative) 05/25/24 16:54 Ur Leukocyte Esterase Negative (Negative) 05/25/24 16:54 Urine WBC (Auto) 0-5 /hpf (0-5) 05/25/24 16:54 Urine RBC (Auto) 6-10 /hpf (0-2) H 05/25/24 16:54 U Hyaline Cast (Auto) 0-2 /lpf (0-2) 05/25/24 16:54 U Epithel Cells (Auto) 0-2 /hpf (0-2) 05/25/24 16:54 Urine Bacteria (Auto) None Seen (None Seen) 05/25/24 16:54 05/26/24 05/26/24 05/26/24 11:26 07:26 05:49 POC Glucose 202 H 174 H 210 H 05/26/24 02:16 POC Glucose 205 H
[2024-05-26 12:35] LABS: INR 1.1 (0.9-1.1); Prothrombin Time 11.8 Seconds (9.0-12.0)
[2024-05-26] MEDS: BENZOCAINE/TETRACAIN/BUTAM 50 APPLN/5 GM CAN EXT ONE (12:42)
--- NOTE | 2024-05-26 12:56 | Post Operative Brief Note ---
Cardiology Brief Post Op Date of Surgery May 26, 2024 Pre & Post Diagnosis Operation Date: 05/26/24 12:00 Procedure Preprocedure diagnosis: Rule out left atrial appendage thrombus, symptomatic atrial fibrillation Postprocedure diagnosis: No left atrial appendage thrombus, successful conversion to sinus rhythm Direct-current cardioversion procedure: The patient's vital signs were monitored according to the standard fashion. After informed consent was obtained and a timeout was performed the patient was sedated with the assistance of the anesthesia service. A focused, goal-directed transesophageal echocardiogram was performed for restratification revealing no left atrial appendage thrombus. The patient then underwent direct-current cardioversion receiving 200 J biphasic energy x 1 with successful conversion to sinus rhythm. Plan: Continue heparin. Await repeat PTT results. Future considerations include transitioning to Eliquis Continue metoprolol. Discontinue diltiazem infusion. Rn Peritoneal Dialysis Blane Mohamud DO Library Director CELESTINO Aguila, Mery Carson, BHARGAV Estimated Blood Loss 0 Findings Consistent with Post-Op Diagnosis as noted Anesthesia Type MAC Complications none
--- NOTE | 2024-05-26 12:56 | Anesthesiology Progress Note ---
Date of Service May 26, 2024 Anesthesia Post Procedure Vital Signs Vital Signs: Temp Pulse Pulse Resp BP BP Pulse Ox 05/26/24 11:29 36.2 C L 73 20 124/89 92 05/26/24 08:15 05/26/24 07:28 36.6 C 97 H 20 123/72 96 05/26/24 07:00 104 H 05/26/24 03:11 36.8 C 84 20 123/87 93 05/26/24 02:38 118 H 19 97 05/25/24 23:04 37.0 C 68 20 125/79 95 05/25/24 22:42 131 H 19 98 05/25/24 20:30 113 H 26 H 05/25/24 20:00 05/25/24 19:33 36.4 C L 136 H 20 130/76 93 05/25/24 18:17 137 H 27 H 111/80 91 05/25/24 16:25 119 H 27 H 135/89 96 05/25/24 16:14 05/25/24 16:10 142 H 25 H 133/99 93 05/25/24 15:42 159 H 05/25/24 15:32 05/25/24 15:30 36.9 C 76 24 198/123 H 97 O2 Del Method 05/26/24 11:29 Room Air 05/26/24 08:15 Room Air 05/26/24 07:28 CPAP 05/26/24 07:00 05/26/24 03:11 CPAP 05/26/24 02:38 05/25/24 23:04 CPAP 05/25/24 22:42 05/25/24 20:30 05/25/24 20:00 Room Air 05/25/24 19:33 Room Air 05/25/24 18:17 Room Air 05/25/24 16:25 Room Air 05/25/24 16:14 Room Air 05/25/24 16:10 Room Air 05/25/24 15:42 05/25/24 15:32 Room Air 05/25/24 15:30 Room Air Pain Intensity Upper Abdomen: Pain Intensity: 6 Transfer of Care Handoff Completed per policy Notes Mental Status: alert / awake / arousable Patient Amnestic to Procedure: Yes Nausea / Vomiting: adequately controlled Pain: adequately controlled Airway Patency, RR, SpO2: stable & adequate BP & HR: stable & adequate Hydration State: stable & adequate Anesthetic Complications: no major complications apparent and Pt Satisfied with anesthetic care
[2024-05-26 13:09] LABS: ANTI-Xa, UFH(UnfractionatedHep 0.19 IU/ml (0.3-0.7)
--- NOTE | 2024-05-26 13:16 | Communication Note ---
Date of Service: May 26, 2024 Post procedure EKG reveals sinus rhythm at 62 bpm with first-degree AV block, AK interval 220 ms, occasional PACs, nonspecific T wave abnormality in the lateral leads I, aVL, and V5 and V6. Compared to the previous tracing performed when the patient was in sinus rhythm dated 05/21/2013, nonspecific T wave abnormality was present in leads I and aVL at that time, slightly more prominent in V5 and V6.
[2024-05-26] MEDS: LIDOCAINE 2% 2 ML VIAL/AMP(20MG/ML) INFIL ONE ×2 (14:21→14:22)
[2024-05-26] MEDS: PROPOFOL IV EMULSION 10 MG/ML 20 ML VIAL IV ONE (14:22)
--- NOTE | 2024-05-26 14:22 | Communication Note ---
Date of Service: May 26, 2024 Patient's Anti-Xa levels are below goal. Discussed with nursing. Increase heparin infusion per protocol. Will plan to transition to Eliquis this evening at 2100. Remain in hospital for medication adjustment (metoprolol adjustment and heparin to Eliquis).
--- NOTE | 2024-05-26 15:30 | Hospitalist Progress Note ---
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 He denied sore throat or cough or nausea or vomiting or diarrhea or pain or burning while passing urine. He reports appetite being his usual and good. He denies any fever. He denies any new skin rashes. He is being managed for the following: A-fib RVR: New onset, TSH WNL. Initially on Cardizem drip, currently on metoprolol, status post cardioversion with successful conversion to sinus rhythm 05/26. Plan to transition IV heparin to Eliquis tonight per cardiology. Patient was given education regarding different forms of anticoagulation, he chose to go with Eliquis if his insurance supports. Eliquis has been sent for cost assessment. currently heart rate under control. Monitor and replete electrolytes. Myalgia: Patient complains of weakness/fatigue and muscle pain over the calf and thigh and abdomen. CPK WNL, respiratory pathogen panel negative. Tickborne serology pending. Admitting CTAP reviewed, no acute finding. Prior left mid ureteric stone noted. Likely viral illness, continue to monitor. Patient reports already improving pain. Pulmonary congestion: Admitting CXR positive for pulmonary congestion, echo with EF of 55%/left ventricular wall motion is normal/no regional wall motion abnormality and LV. Likely secondary to A-fib RVR, expect to improve with improvement in heart rate control. Patient with improving shortness of breath. Left ureteral stone: Urology was consulted given patient's complaint of severe abdominal pain at presentation iso admitting CTAP suggestive of left renal stone. Patient denies any pain or burning while passing urine. UA negative for UTI. No plan for intervention for now, patient to follow-up with urology as an outpatient. Hx HTN: Resume blood pressure medications, continue to monitor. Tobacco use: Smoking cessation strongly recommended, smokes 1 packs a day, nicotine patch while in hospital. A total of 55 minutes was spent on chart review/reviewing diagnostic data/facilitating plan of care/discussion with consultants Full code DVT prophylaxis: Heparin drip, eliquis from evening. Admission and Anticipated Discharge Date Admission Date: May 25, 2024 Subjective Patient was seen and examined at bedside. Patient was lying in bed, on room air, NAD, resting comfortably. Patient reports generalized muscle pain including muscles over the calf and thi gh and abdomen. Patient reports improving muscle pain. Patient denies sore throat or cough or flulike illness in the recent past. Patient is n.p.o. today until cardiology eval, can resume diet after cardioversion. Patient denies any nausea/vomiting/diarrhea. Patient reports appetite being at his baseline until last evening. Patient denies any new skin rashes. 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 Patient denies any pain or burning with passing urine. Physical Exam Physical Exam: GENERAL: Alert and oriented x3. NAD, on RA. Obese class III. HEENT: No pallor, no icterus. Pupils equal, round and reactive to light. Oral mucosa moist. NECK: No JVD, no neck masses. HEART: S1 and S2 heard. irregular rate and rhythm. HR in 80s. No murmur, no gallop. RESPIRATORY SYSTEM: Normal AP diameter. No accessory muscle use. No wheezing, no crackles. ABDOMEN: Soft, bowel sounds present, generalized tenderness x mild, no distention. CENTRAL NERVOUS SYSTEM: No facial droop. Speech is clear. Obeys simple commands. Moves extremities. EXTREMITIES: No edema, no erythema seen. Results & Data Results & Data Vital Signs (Past 12 Hours) Vital Signs Temp Pulse Pulse Resp BP Pulse Ox O2 Del Method 05/26/24 13:53 36.5 C 68 18 141/94 H 93 Room Air 05/26/24 13:10 58 L 16 128/93 91 Room Air 05/26/24 12:55 68 16 134/89 91 Room Air 05/26/24 11:29 36.2 C L 73 20 124/89 92 Room Air 05/26/24 08:15 Room Air 05/26/24 07:28 36.6 C 97 H 20 123/72 96 CPAP 05/26/24 07:00 104 H
[2024-05-26] MEDS: NICOTINE 21 MG/24 HR TDSY TD SCH (16:24)
[2024-05-26] MEDS ORDERED: Nursing to Pharmacy Communication SCH (16:30)
--- NOTE | 2024-05-26 18:14 | Electrocardiogram Report ---
Test Reason : Blood Pressure : */* mmHG Vent. Rate : 62 BPM Atrial Rate : 62 BPM P-R Int : 220 ms QRS Dur : 122 ms QT Int : 468 ms P-R-T Axes : 18 -32 106 degrees QTcB Int : 475 ms Sinus rhythm with 1st degree A-V block with Premature supraventricular complexes Left axis deviation Non-specific intra-ventricular conduction delay T wave abnormality, consider lateral ischemia Abnormal ECG When compared with ECG of 26-May-2024 04:17, Sinus rhythm has replaced Atrial fibrillation T wave inversion now evident in Lateral leads Confirmed by Song Ruth ([id number]) on 05/26/2024 6:13:50 PM Referred By: REFERRED SELF Confirmed By: Song Ruth
[2024-05-26 18:16] LABS: Estimated Average Glucose 189 mg/dl; Hemoglobin A1C 8.2 % (4.5-5.6)
[2024-05-26 18:23] LABS: ANTI-Xa, UFH(UnfractionatedHep 0.19 IU/ml (0.3-0.7)
[2024-05-26] MEDS: METOPROLOL SUCC 25MG EXT REL TAB PO SCH (20:46)
[2024-05-26] MEDS: APIXABAN 5 MG TABLET PO SCH (20:47)
[2024-05-26] MEDS: STOP HEPARIN ONE (20:51)
[2024-05-27 07:08] LABS: Hematocrit (blood only) 37.5 % (42.0-52.0); Hemoglobin 13.5 g/dl (14.0-18.0); Mean Corpuscular Hemoglobin 31.3 pg (25.0-34.0); Mean Corpuscular Volume 86.8 fL (80.0-100.0); Mean Platelet Volume 10.1 fL (9.4-12.4); Platelet Count 247 K/uL (130-400); RDW Coefficient of Variation 12.5 % (11.5-14.5); Red Blood Count 4.32 M/uL (4.70-6.10); White Blood Count 6.53 K/ul (4.8-10.8)
[2024-05-27 07:19] LABS: BUN Creatinine Ratio 13.6 (10-20); Creatinine Clr Calc Pharmacy 129.7 ml/min; Magnesium 1.9 mg/dl (1.7-2.4); Phosphorus 3.8 mg/dl (2.5-4.9); Potassium 3.6 mmol/L (3.5-5.1)
--- NOTE | 2024-05-27 07:39 | Electrocardiogram Report ---
Test Reason : Blood Pressure : */* mmHG Vent. Rate : 68 BPM Atrial Rate : 68 BPM P-R Int : 226 ms QRS Dur : 124 ms QT Int : 478 ms P-R-T Axes : 76 -2 56 degrees QTcB Int : 508 ms Sinus rhythm with 1st degree A-V block Non-specific intra-ventricular conduction delay Nonspecific T wave abnormality Prolonged QT Abnormal ECG When compared with ECG of 26-May-2024 13:04, Premature supraventricular complexes are no longer Present Confirmed by Song Ruth ([id number]) on 05/27/2024 7:39:28 AM Referred By: REFERRED SELF Confirmed By: Song Ruth
[2024-05-27 07:47] VITALS: BP 150/100; RESP 20; TEMP 97.7; O2SAT 97
[2024-05-27] MEDS: LOSARTAN POTASSIUM 50 MG TAB PO SCH (08:37)
[2024-05-27] MEDS: hydroCHLOROthiazide 25 MG TAB PO SCH (08:37)
--- NOTE | 2024-05-27 08:53 | Cardiology Progress Note ---
Date of Service May 27, 2024 Assessment & Plan (1) New onset atrial fibrillation: (2) Elevated troponin: (3) CHF (congestive heart failure): (4) SOB (shortness of breath): (5) Hypertension: (6) Coronary atherosclerosis of [place] coronary artery: Plan Presentation with new onset symptomatic atrial fibrillation with a rapid ventricular response [id number] Score 4 points (hypertension, CHF, atherosclerosis on CT imaging, diabetes) Status post May 26, 2024 KATERYNA guided direct-current cardioversion, receiving 200 J biphasic shock with successful conversion to sinus rhythm by Dr. Mohamud without clinical sequelae. May 27, 2024 EKG: Sinus rhythm at 68 bpm with a first-degree AV block, nonspecific interventricular conduction delay, nonspecific T wave abnormality. QTc 508 ms. Metoprolol tartrate (50 mg BID) changed to metoprolol succinate 75 mg twice per day this admission. IV heparin transitioned to Eliquis anticoagulation 5 mg twice per day. Anticoagulation must be continued without interruption for at least the next 4 weeks noting cardioversion on May 26, 2024. Acute decompensated, presumably diastolic, congestive heart failure on presentation. Received 40 mg of IV furosemide on 05/26/2024 with improvement. Volume status is compensated. Potassium borderline low today; oral supplementation ordered. Elevated troponin. Suspect secondary atrial fibrillation with RVR. CT imaging this admission notable for multivessel coronary artery atherosclerosis. Recommend outpatient ischemic workup; this should not delay kidney stone treatment if needed however Eliquis must be continued without interruption for at least the next 4 weeks. Dyslipidemia. Recommend targeting an LDL cholesterol goal of less than 55 mg/dL given the type 2 diabetes mellitus and observed atherosclerosis. Atorvastatin 10 mg/day discussed. Hypertension. Initial blood pressure was 198/123. Improved. Beta-jaime dosing increased as above. Resume amlodipine. Continue losartan and hydrochlorothiazide. Outpatient cardiology follow-up within the next month. Office aware, will contact patient. Admission and Anticipated Discharge Date Admission Date: May 25, 2024 Supervising Physician Co-Signing Physician Notes Attending attestation: Case reviewed with the advanced practitioner. I have personally performed a history and physical examination on the patient. I have reviewed the advanced practitioner's documentation on the date of service referenced in note, and I agree with, and take responsibility for the plan of care. Request for outpatient cardiology appointment made in [facility] chart. Patient feeling well. Eager for discharge. Pt counseled with regards to the importance of not missing Eliquis. Received rebate card. Blane Mohamud, Subjective Patient seen and examined. Chart, medications, and telemetry reviewed. Status post May 26, 2024 KATERYNA revealing no left atrial appendage thrombus, undergoing direct-current cardioversion thereafter, receiving 200 J biphasic shock with successful conversion to sinus rhythm by Dr. Mohamud without clinical sequelae. Patient feels significantly improved this morning. No shortness of breath. No chest pain. No palpitations. No unilateral complaints to suggest TIA. Review of Systems Review of Systems: Complete Review of Systems is as stated above, negative, or noncontributory. Physical Exam Physical Exam: General: A&Ox3. NAD. Elevated BMI HENT: Normocephalic. Atraumatic. Eyes: PER. Conjunctiva pink, sclera clear. Neck: No JVD. Heart: Irregularly irregular. No murmur. Lungs: Clear to auscultation. Abdomen: +BS. Soft. Nontender. No masses or organomegaly. Extremities: No clubbing, cyanosis, or significant edema. Limited neurological examination is without focal deficits. Pulses: radial=2/4, posterior tibial=2/4. Results & Data Vital Signs (Past 12 Hours) Vital Signs Temp Pulse Pulse Resp BP Pulse Ox O2 Del Method 05/27/24 07:46 36.5 C 78 20 150/100 H 97 Room Air 05/27/24 07:00 67 05/27/24 03:10 103 H 19 96 05/27/24 03:06 36.6 C 61 16 132/89 96 CPAP 05/26/24 23:45 16 97 05/26/24 22:50 36.7 C 71 16 148/87 H 98 CPAP 05/26/24 22:12 71 Laboratory Results Coagulation 05/26/24 Range/Units 10:40 PT 11.8 (9.0-12.0) Seconds APTT 36 H (21-31) Seconds CBC 05/27/24 Range/Units 06:11 WBC 6.53 (4.8-10.8) K/ul RBC 4.32 L (4.70-6.10) M/uL Hgb 13.5 L (14.0-18.0) g/dl Hct 37.5 L (42.0-52.0) % Plt Count 247 (130-400) K/uL Comprehensive Metabolic Panel 05/27/24 Range/Units 06:11 Sodium 139 (136-145) mmol/L Potassium 3.6 (3.5-5.1) mmol/L Chloride 105 (98-107) mmol/L Carbon Dioxide 26 (21-32) mmol/L BUN 12 (6-23) mg/dl Creatinine 0.88 (0.6-1.4) mg/dl Glucose 157 H (70-99(Fasting)) mg/dl Calcium 9.0 (8.6-10.3) mg/dl Intake and Output 05/26/24 05/27/24 05/27/24 22:59 06:59 14:59 Intake Total 693.850 / 1773.783 300 / 1773.783 Output Total 300 / 850 Balance 393.850 / 923.783 300 / 923.783 Intake: IV 393.850 / 813.783 Heparin Sodium/Dextrose 25,000 393.850 / 650.950 units In 500 ml @ 2,250 UNITS/ HR 45 mls/hr IV .[id number] FORMERLY [facility], 1928–1983 Rx# :[id number] Oral 300 / 960 300 / 960 Output: Urine 300 / 850 Other: Weight 128.3 kg Weight Measurement Method Built in [facility] Diagnostic Findings May 27, 2024 EKG: Sinus rhythm at 68 bpm with a first-degree AV block, nonspecific interventricular conduction delay, nonspecific T wave abnormality. QTc 408 ms. Telemetry: Maintaining sinus rhythm since cardioversion, heart rates in the 60s and 70s. (3) CHF (congestive heart failure) Heart failure chronicity: acute Heart failure type: unspecified Qualified Code(s): I50.9 - Heart failure, unspecified
[2024-05-27] MEDS: LANTUS PER UNIT CHARGE SC SCH (08:57)
[2024-05-27] MEDS: POTASSIUM CHLORIDE 10 MEQ TABCR PO STA (09:46)
[2024-05-27 11:47] VITALS: PULSE 68
--- NOTE | 2024-05-27 13:09 | Pharmacy Report ---
Pharmacy Glycemic Short Note 2 - Date of Service May 27, 2024 - Glycemic Short BSG Results (Last 24 hours): 05/26/24 05/26/24 05/26/24 13:49 16:11 20:31 Glucose POC Glucose 172 H 169 H 128 H 05/27/24 05/27/24 05/27/24 06:11 07:19 11:13 Glucose 157 H POC Glucose 152 H 166 H OUTPATIENT ANTIDIABETIC REGIMEN: * METFORMIN 100MG BID * OZEMPIC ASSESSMENT: * 05/27 Lantus 15 units sq daily NovoLog CF 15 mg/dl/unit, carb ratio 8g/unit * 05/26 patient received a total of 26 units of insulin ( 15 basal and 11 bolus) PLAN FOR INPATIENT GLYCEMIC CONTROL: * Hold outpatient oral diabetes medications * Basal insulin * Lantus 15 units SQ daily * Bolus insulin * NovoLog per scale ACHS or Q6hrs while NPO * Goal Range: Low 110 mg/dL - High 140 mg/dL * Correction Factor: 15 mg/dL/unit * Nutritional / Prandial insulin per carb ratio of 1 unit per 8 grams CHO consumed
--- NOTE | 2024-05-28 15:58 | Discharge Summary ---
Date of Service May 27, 2024 Admission HPI Per Admitting Provider The patient is a 53-year-old male with a past medical history of HTN, current smoker, depression who presents to the ED on 05/15/2024 with complaints of shortness of breath and feeling fatigued. Reports feeling like "he was running a marathon while resting "no known history of atrial fibrillation. 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 He reports his job is strenuous. He reports barely being able to get up and move the past few days because his stomach is so distended. Also reports some shortness of breath. And feeling like his heart is beating out of his chest. Does also report diarrhea. Denies any nausea/vomiting. Reports that shortness of breath has not improved On arrival to the ED, labs remarkable for pH 7.47, CO2 34, glucose 322, total bili 1.6, BNP 229, initial troponin mildly elevated at 23 Patient reports being recently diagnosed with possible diabetes and following his PCP for this. Chest x-ray showed pulmonary congestion EKG on arrival showed A-fib with RVR rates in the 140s The patient be admitted for further management Admission Exam Per Admitting Provider Constitutional: WD/WN, vitals as above Eyes: PERRL, conjunctivae normal, anicteric sclerae ENMT: external ear and nose normal, oropharynx normal Neck: trachea midline, no thyromegaly Respiratory: normal respiratory effort, lungs clear to auscultation Cardiovascular: RRR, no murmur, no edema Gastrointestinal (Abdomen): normal bowel sounds, soft, nontender, no hepatosplenomegaly Inspection/Auscultation: + abdomen distended and + abdominal edema Percussion/Palpation: + abdomen tender and + guarding Musculoskeletal: no cyanosis or clubbing, extremities motor strength 5/5 Skin: no rashes, warm and dry Neurologic: PERRL, EOMI, accommodation nl, no face palsy, no dysarthria Psychiatric: A+Ox3, euthymic affect Lymphatic: no cervical or axillary lymphadenopathy Principal Diagnosis A.fib with RVR Discharge Exam Constitutional: Alert oriented x 3; not in distress. Respiratory: Bilateral vesicular breath sound Cardiovascular: RRR, no murmur, no edema Vessels: no JVD or carotid bruit Chest: normal inspection of chest Abdomen: normal bowel sounds, soft, nontender, no hepatosplenomegaly Musculoskeletal: no cyanosis or clubbing, extremities motor strength 5/5 Skin: no rashes, warm and dry normal turgor Neurologic: PERRL, EOMI, accommodation nl, no face palsy, no dysarthria CN's II- XI intact bilaterally and moves all extremities Psychiatric: A+Ox3, euthymic affect Discharge Data Allergies Allergy/AdvReac Type Severity Reaction Status Date / Time No Known Allergies Allergy Unverified 05/19/13 23:19 Consultations 05/25/24 17:35 ED Decision to Admit Stat 05/25/24 18:53 Consult Cardiology Routine 05/25/24 22:51 Consult Urology Routine 05/26/24 11:20 Consult Anesthesiology Routine Procedures Performed Operation Date: 05/26/24 12:00 Actual Procedures p Echo Transesophageal - DO brianna Barclay Cardioversion - DO brianna Barclay Doppler Echo Limited/Follow Up - Blane Mohamud DO Ordered Studies 05/25/24 18:22 CT Abd and Pelvis [CT abd pelvis IV con only] Stat Hospital Course (1) New onset atrial fibrillation: Plan 53-year-old male with PMH of HTN, current smoker [1 packs a day], depression presented to the ED 05/25 with complaint of feeling fatigued/tired/weak and shortness of breath since 3 days ago [employer]. A-fib RVR: New onset, TSH WNL. Initially on Cardizem drip and transition off to metopolol status post cardioversion with successful conversion to sinus rhythm 05/26. Echocardiogram showed EF of 55%; no regional wall motion abnormalities. Concentric LVH Patient was discharged on metoprolol and Eliquis. Discussed importance of compliance with the patient; patient verbalized understanding. Patient to follow-up with PCP and cardiology as outpatient Left ureteral stone: Urology was consulted given patient's complaint of severe abdominal pain at presentation iso admitting CTAP suggestive of left renal stone. Patient denies any pain or burning while passing urine. UA negative for UTI. No plan for intervention for now, patient to follow-up with urology as an outpatient. Prescribed tamsulosin and oxycodone at discharge Please note the above document was generated using voice recognition software. It may contain grammatical, syntax or spelling errors. Any formal questions or concerns about the content, text or information contained within the body of this dictation should be directly addressed to the provider for clarification Total Time Total Time Spent Total Time Spent (In Minutes): 45 Total Time Includes: Examination of the Patient, Discharge Planning, Medication Reconciliation, Communication With Other Providers and Other Discharge Plan Discharge Items Patient Disposition: Home - Self-Care Reason For Visit: RAPID AF Discharge Diagnosis: A-fib with RVR Left ureteral stone Condition on Discharge: Good Activity: Resume your previous activity Non-emergency contact: Primary Care Provider Call non-emergency contact if: you have any medication questions and your symptoms worsen Follow-up/Referrals: Monster Payne D.O. [Primary Care Provider] - 06/02/24 2:45 pm (Hospital follow up scheduled June 02 at 2:45) Diet: Regular Addtl Attending Provider Instructions: You were admitted to the hospital due to irregular heart rhythm called atrial fibrillation. You underwent cardioversion by cardiology on 05/26. They recommend following medications; Take metoprolol succinate 75 mg twice a day Take Eliquis 5 mg twice a day Take Lipitor 10 mg once a day. Stop taking hydralazine, metoprolol tartrate. You are also found to have left-sided ureteral stone. You were seen by urology during the hospitalization; they recommend you to start taking tamsulosin 0.4 mg at night. Keep yourself hydrated with 2 L of water every day. For pain control, take Tylenol 650 mg every 6 hours as needed. If the pain is very severe, you can take oxycodone. Follow-up with urology as outpatient. Follow-up with cardiology and primary care doctor. Pending Studies at Discharge: No Stand-Alone Forms: My [facility] [employer], Work/School Release, Smoking Cessation Medications and DC Order Prescriptions: New Eliquis 5 mg Tablet 5 mg PO BID Qty: 60 0RF tamsulosin 0.4 mg Capsule 0.4 mg PO HS Qty: 30 0RF metoprolol succinate 50 mg tablet extended release 24 hr 75 mg PO BID Qty: 90 0RF atorvastatin [Lipitor] 10 mg tablet 10 mg PO DAILY Qty: 60 0RF oxycodone 5 mg tablet 5 mg PO DAILY PRN (Reason: pain) Qty: 10 0RF Continued AMLODIPINE BESYLATE (NORVASC) 5 MG tablet 7.5 mg PO QAM 30 Days Qty: 0 0RF HYDROCHLOROTHIAZIDE (HCTZ) 25 MG tablet 12.5 mg PO QAM 30 Days Qty: 0 0RF metformin 1,000 mg Tablet 1,000 mg PO BID losartan 100 mg Tablet 100 mg PO DAILY Ozempic 2 mg/dose (8 mg/3 mL) Pen Injector 2 mg SUBCUT USEASDIRECTD Discontinued Metoprolol Tartrate (Lopressor) (Lopressor) 50 MG tablet 50 mg PO BID 30 Days Qty: 0 0RF hydralazine 25 mg Tablet 25 mg PO TID Discharge Orders: Discharge Order (Routine); Ordered 05/27/24 Ordered By: Damien Sommers Admission Data Admit Date/Time: 05/25/24 17:34 Attending Provider: Damien Sommers Admit Provider: Laci Phillips Primary Care Provider: Monster Payne Other Providers: Blane Mohamud; Giancarlo Blackman. Other Interventions: Discharge Summary Assessment (RN) Last Done: 05/27/24 13:27
== END 2024-05-27 13:15 | disposition home or self-care (01) | DRG 308 ==
LOC: ED 15:14 → SUATTDRO 17:34 → 2S 17:34
DX: Z79.85 Long-term (current) use of injectable non-insulin antidiabetic drugs; I44.0 Atrioventricular block, first degree; N13.2 Hydronephrosis with renal and ureteral calculous obstruction; I48.91 Unspecified atrial fibrillation; F17.210 Nicotine dependence, cigarettes, uncomplicated; R10.12 Left upper quadrant pain; E11.65 Type 2 diabetes mellitus with hyperglycemia; R79.89 Other specified abnormal findings of blood chemistry; M79.18 Myalgia, other site; I50.33 Acute on chronic diastolic (congestive) heart failure; Z79.84 Long term (current) use of oral hypoglycemic drugs; Z82.49 Family history of ischemic heart disease and other diseases of the circulatory system; I16.9 Hypertensive crisis, unspecified; I25.10 Atherosclerotic heart disease of native coronary artery without angina pectoris; I11.0 Hypertensive heart disease with heart failure; F32.A Depression, unspecified

== ENCOUNTER 2025-04-06 00:18 | Inpatient (IN) ==
--- NOTE | 2025-04-06 01:15 | Emergency Department Note ---
Impression & Plan Rapid atrial fibrillation Admission ED Provider Note HPI: History obtained from patient. The patient is a 55-year-old gentleman who presents to the emergency department with chief complaint of diffuse abdominal pain, noted to be in atrial fibrillation with RVR on arrival.Patient states that he has had severe pain all over his abdomen but it seems to be a little bit worse on the right side. Patient states the pain has been getting worse since last night. Patient states he has also had some vomiting. Patient denies any chest pain, states he does have some mild shortness of breath. On arrival here to the ED the patient is tachycardic on my initial assessment in the 160s, blood pressure stable, patient is saturating well on room air. ROS: - Per HPI Differential Diagnosis: Acute gastritis, acute pancreatitis, choledocholithiasis, duodenitis, small bowel obstruction, diverticulitis flare, perforated viscus, intra-abdominal abscess, amongst other potential pathologies. *Outpatient medications and allergy history reviewed. 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: (As interpreted by myself): - An order was placed for continuous cardiac monitoring - Patient was noted to be in Atrial fibrillation with a rate of 158 EKG: (As interpreted by myself): Rate: 168 Rhythm: Atrial fibrillation with RVR Intervals: Within normal limits ST changes: No ST elevation Time: 0100 Chest x-ray: (As interpreted by myself): No acute disease Interventions provided in ED: -IV diltiazem, IV fluid bolus, IV metoprolol, IV diltiazem drip, IV morphine Medical Decision Making: IV was established and lab work obtained, patient was placed on cardiac technologist.Lab work shows no leukocytosis, hemoglobin is normal, platelet count is normal, CMP does not show any evidence of any critical findings. Glucose is moderately elevated at 341. Magnesium is normal, troponin is elevated at 73.8, patient denies any chest pain, EKG shows atrial fibrillation with RVR without any obvious acute ischemic changes.Chest x-ray does not show any evidence of any acute disease. CT imaging of the abdomen pelvis was obtained and there is some nonspecific fat stranding noted to the right side of the abdomen and surrounding the duodenum without duodenal wall thickening. Unclear source for the patient's discomfort at this time, lipase is normal therefore low suspicion for acute pancreatitis. Patient's pain is mostly in the upper abdomen on my exam therefore he was placed on Protonix bolus and drip in case this does represent gastritis. In regards to his atrial fibrillation with RVR, he has a history of atrial fibrillation that previously required a cardioversion, he is not currently on any anticoagulation. Patient was placed on a diltiazem drip. Rates were improved from previous in the 120s but he did remain tachycardic. I discussed admission with the patient, he is in agreement for admission, case was discussed with the on-call hospitalist, Dr. Osorio, and the patient was placed for admission in stable condition for cardiology consultation and further care. Consultants/Discussions held with other healthcare providers: -Hospitalist, Dr. Osorio Disposition discussion held by myself with: -Patient * CRITICAL CARE TIME: ( 39 ) minutes -Management of patient with tachyarrhythmia/atrial fibrillation with RVR ultimately requiring IV diltiazem drip for rate control, time spent at the bedside, interpretation of diagnostic studies, discussion with other physicians and arrangement of admission. Diagnosis: 1.Atrial fibrillation with RVR, acute 2.Upper abdominal pain, acute, nonspecific 2.Elevated high-sensitivity troponin, acute Disposition: Admission Jaison Hyde DO Emergency Medicine Past Med/Surg History Problem List (Updated 04/06/25 @ 05:27 by Jaison Hyde DO) Rapid atrial fibrillation (Acute) New onset atrial fibrillation Nephrolithiasis Elevated troponin (Acute) Acute hyperglycemia (Acute) SOB (shortness of breath) (Acute) Atrial fibrillation Chest pain (Acute 05/20/13) Elevated troponin I level (Acute) Medical History Coronary atherosclerosis of [place] coronary artery Atrial fibrillation with rapid ventricular response CHF (congestive heart failure) Mood disorder Depression Left ureteral stone Hypertension Surgical History History of cholecystectomy Social History Smoking Status: Current every day smoker Tobacco Type: Cigarettes Cigarettes Per Day: 15; Second Hand Exposure: No; Do You Dip or Chew Tobacco: No; Hx Alcohol Use: Yes Alcohol type: beer and hard liquor Hx Substance Use: No Preferred Language: [place] African Communication Ability: Effective Promotion Officer Required: No Beliefs That Will Affect Care: None Current Living Situation: Alone Current Living Situation Comment: lives at home alone Feels Safe at Home: Yes Assistive Devices: None Allergies Allergies Allergy/AdvReac Type Severity Reaction Status Date / Time No Known Allergies Allergy Unverified 04/06/25 00:58 Home Meds Home Medications Medication Instructions Recorded Confirmed losartan 100 mg tablet 100 mg PO QPM 05/25/24 04/06/25 metformin 1,000 mg tablet 1,000 mg PO BID 05/25/24 04/06/25 amlodipine 5 mg tablet 5 mg PO QAM 04/06/25 04/06/25 benzonatate 200 mg capsule 200 mg PO TID PRN Cough 04/06/25 04/06/25 hydrochlorothiazide 12.5 mg tablet 12.5 mg PO QAM 04/06/25 04/06/25 metoprolol succinate 50 mg 50 mg PO AMHS 04/06/25 04/06/25 tablet,extended release 24 hr sildenafil 100 mg tablet 100 mg PO DAILY PRN Erectile 04/06/25 04/06/25 Dysfunction Results & Data (ED) Vital Signs Vital Signs - 24 hr 04/06/25 00:24 04/06/25 00:29 04/06/25 00:54 Temperature 36.9 C 36.8 C Temperature Source Temporal Artery Scan Oral Pulse Rate 73 166 H Pulse Rate [Right Finger] 72 Pulse Rate from SpO2 Sensor 88 Pulse Rhythm Regular Pulse Rhythm [Right Finger] Regular Pulse Strength Normal Pulse Strength [Right Finger] Normal Respiratory Rate 20 18 25 H Respiratory Effort / Characteristics Non-Labored Spontaneous Non-Labored Spontaneous Respiratory Depth Normal Normal Respiratory Pattern Regular Blood Pressure 127/92 Blood Pressure [Right Arm] 144/101 H Blood Pressure Mean 103 Blood Pressure Mean [Right Arm] 115 Blood Pressure Position Sitting Blood Pressure Position [Right Arm] Lying Pulse Oximetry 95 98 94 Oxygen Delivery Method Room Air Room Air Sepsis Recent Fever Within 48 Hours No Sepsis New/Unexplained Change in Mental Status No Sepsis Action Taken by Nursing No Action Required 04/06/25 01:11 04/06/25 01:16 04/06/25 01:25 Temperature Temperature Source Pulse Rate 166 H Pulse Rate [Right Finger] 133 H Pulse Rate from SpO2 Sensor Pulse Rhythm Pulse Rhythm [Right Finger] Irregular Pulse Strength Pulse Strength [Right Finger] Respiratory Rate 24 Respiratory Effort / Characteristics Non-Labored Respiratory Depth Normal Respiratory Pattern Regular Blood Pressure 121/98 Blood Pressure [Right Arm] 121/98 Blood Pressure Mean 102 Blood Pressure Mean [Right Arm] 105 Blood Pressure Position Blood Pressure Position [Right Arm] Lying Pulse Oximetry 94 Oxygen Delivery Method Room Air Sepsis Recent Fever Within 48 Hours Sepsis New/Unexplained Change in Mental Status Sepsis Action Taken by Nursing 04/06/25 01:47 04/06/25 01:47 04/06/25 01:57 Temperature Temperature Source Pulse Rate 143 H Pulse Rate [Right Finger] Pulse Rate from SpO2 Sensor Pulse Rhythm Pulse Rhythm [Right Finger] Pulse Strength Pulse Strength [Right Finger] Respiratory Rate Respiratory Effort / Characteristics Respiratory Depth Respiratory Pattern Blood Pressure 136/100 136/100 136/100 Blood Pressure [Right Arm] Blood Pressure Mean 104 104 Blood Pressure Mean [Right Arm] Blood Pressure Position Blood Pressure Position [Right Arm] Pulse Oximetry Oxygen Delivery Method Sepsis Recent Fever Within 48 Hours Sepsis New/Unexplained Change in Mental Status Sepsis Action Taken by Nursing 04/06/25 02:00 04/06/25 02:00 04/06/25 02:00 Temperature Temperature Source Pulse Rate 149 H Pulse Rate [Right Finger] Pulse Rate from SpO2 Sensor 116 H Pulse Rhythm Pulse Rhythm [Right Finger] Pulse Strength Pulse Strength [Right Finger] Respiratory Rate Respiratory Effort / Characteristics Respiratory Depth Respiratory Pattern Blood Pressure 129/88 129/88 Blood Pressure [Right Arm] Blood Pressure Mean 93 93 Blood Pressure Mean [Right Arm] Blood Pressure Position Blood Pressure Position [Right Arm] Pulse Oximetry 94 Oxygen Delivery Method Sepsis Recent Fever Within 48 Hours Sepsis New/Unexplained Change in Mental Status Sepsis Action Taken by Nursing 04/06/25 02:12 04/06/25 02:20 04/06/25 02:20 Temperature Temperature Source Pulse Rate 121 H Pulse Rate [Right Finger] Pulse Rate from SpO2 Sensor 92 H Pulse Rhythm Pulse Rhythm [Right Finger] Pulse Strength Pulse Strength [Right Finger] Respiratory Rate Respiratory Effort / Characteristics Respiratory Depth Respiratory Pattern Blood Pressure 110/77 110/77 Blood Pressure [Right Arm] Blood Pressure Mean 95 95 Blood Pressure Mean [Right Arm] Blood Pressure Position Blood Pressure Position [Right Arm] Pulse Oximetry 95 Oxygen Delivery Method Sepsis Recent Fever Within 48 Hours Sepsis New/Unexplained Change in Mental Status Sepsis Action Taken by Nursing 04/06/25 02:24 04/06/25 02:36 04/06/25 02:42 Temperature Temperature Source Pulse Rate 131 H 140 H 128 H Pulse Rate [Right Finger] Pulse Rate from SpO2 Sensor 86 85 66 Pulse Rhythm Pulse Rhythm [Right Finger] Pulse Strength Pulse Strength [Right Finger] Respiratory Rate 26 H 27 H 22 Respiratory Effort / Characteristics Respiratory Depth Respiratory Pattern Blood Pressure Blood Pressure [Right Arm] Blood Pressure Mean Blood Pressure Mean [Right Arm] Blood Pressure Position Blood Pressure Position [Right Arm] Pulse Oximetry 96 97 91 Oxygen Delivery Method Sepsis Recent Fever Within 48 Hours Sepsis New/Unexplained Change in Mental Status Sepsis Action Taken by Nursing 04/06/25 03:00 04/06/25 03:13 04/06/25 05:00 Temperature Temperature Source Pulse Rate 134 H Pulse Rate [Right Finger] 135 H 134 H Pulse Rate from SpO2 Sensor Pulse Rhythm Pulse Rhythm [Right Finger] Irregular Irregular Pulse Strength Pulse Strength [Right Finger] Normal Respiratory Rate 18 16 Respiratory Effort / Characteristics Non-Labored Spontaneous Non-Labored Spontaneous Respiratory Depth Normal Normal Respiratory Pattern Regular Regular Blood Pressure 118/85 Blood Pressure [Right Arm] 118/85 129/89 Blood Pressure Mean Blood Pressure Mean [Right Arm] 96 102 Blood Pressure Position Blood Pressure Position [Right Arm] Lying Pulse Oximetry 95 95 Oxygen Delivery Method Room Air Room Air Sepsis Recent Fever Within 48 Hours Sepsis New/Unexplained Change in Mental Status Sepsis Action Taken by Nursing 04/06/25 05:03 Temperature Temperature Source Pulse Rate 115 H Pulse Rate [Right Finger] Pulse Rate from SpO2 Sensor Pulse Rhythm Pulse Rhythm [Right Finger] Pulse Strength Pulse Strength [Right Finger] Respiratory Rate Respiratory Effort / Characteristics Respiratory Depth Respiratory Pattern Blood Pressure Blood Pressure [Right Arm] Blood Pressure Mean Blood Pressure Mean [Right Arm] Blood Pressure Position Blood Pressure Position [Right Arm] Pulse Oximetry Oxygen Delivery Method Sepsis Recent Fever Within 48 Hours Sepsis New/Unexplained Change in Mental Status Sepsis Action Taken by Nursing Laboratory Data 04/06/25 01:04 04/06/25 01:04 Lab Results 04/06/25 04/06/25 04/06/25 Range/Units 01:04 01:07 03:02 WBC 9.98 (4.8-10.8) K/ul RBC 4.97 (4.70-6.10) M/uL Hgb 15.2 (14.0-18.0) g/dl POC Hgb 15.0 (14.0-18.0) g/dl Hct 42.7 (42.0-52.0) % POC Hct 44 (42-52) % MCV 85.9 (80.0-100.0) fL MCH 30.6 (25.0-34.0) pg MCHC 35.6 (32.0-36.0) g/dL RDW Std Deviation 38.6 (36.4-46.3) fL RDW Coeff of Katherine 12.6 (11.5-14.5) % Plt Count 296 (130-400) K/uL MPV 9.8 (9.4-12.4) fL Immature Gran % (Auto) 0.4 % Neut % (Auto) 65.6 % Lymph % (Auto) 24.7 % [place] % (Auto) 6.5 % Eos % (Auto) 2.5 % Baso % (Auto) 0.3 % Neut # (Auto) 6.54 H (1.40-6.50) K/uL Lymph # (Auto) 2.47 (1.20-3.40) K/uL [place] # (Auto) 0.65 H (0.11-0.59) K/uL Eos # (Auto) 0.25 (0.00-0.50) K/uL Baso # (Auto) 0.03 (0.00-0.20) K/uL Immature Gran # (Auto) 0.04 (0.01-0.20) K/uL POC Sodium 134 L (135-144) mmol/L Sodium 133 L (136-145) mmol/L POC Potassium 3.3 (3.3-5.0) mmol/L Potassium 3.4 L (3.5-5.1) mmol/L POC Chloride 97 L (101-112) mmol/L Chloride 98 (98-107) mmol/L Carbon Dioxide 25 (21-32) mmol/L POC Total CO2 24 (24-31) mmol/L Anion Gap 10 (3-11) POC Anion Gap 17.0 (16-25) mmol/L POC BUN 15 (7-18) mg/dl BUN 16 (6-23) mg/dl Creatinine 0.83 (0.6-1.4) mg/dl POC Creatinine 0.8 (0.6-1.3) mg/dl Est Cr Clr Drug Dosing 132.2 ml/min eGFR 105.31 BUN/Creatinine Ratio 19.3 (10-20) Glucose 341 H* (70-99(Fasting)) mg/dl POC Glucose (other) 336 H (70-99) mg/dl Calcium 9.0 (8.6-10.3) mg/dl POC Ioniz Calcium Trang 1.12 (1.12-1.32) mmol/l Phosphorus 3.2 (2.5-4.9) mg/dl Magnesium 1.8 (1.7-2.4) mg/dl Total Bilirubin 1.2 H (0.2-1.0) mg/dl AST 23 (13-39) U/L ALT 43 (7-52) U/L Alkaline Phosphatase 52 (34-104) U/L Troponin I High Sens 73.8 H* 79.1 H* (0-20) pg/ml Total Protein 6.6 (6.0-8.3) gm/dl Albumin 3.7 (3.4-5.0) gm/dl Globulin 2.9 (2.5-4.0) gm/dl Albumin/Globulin Ratio 1.3 (0.9-2) Lipase 14 (11-82) U/L TSH 2.122 (0.300-4.500) uIu/ml Adenovirus (PCR) Not Detected (NotDetected) B. pertussis DNA (PCR) Not Detected (NotDetected) B.parapertussis DNA PCR Not Detected (NotDetected) C. pneumoniae DNA (PCR) Not Detected (NotDetected) Coronavirus OC43 (PCR) Not Detected (NotDetected) Coronavirus HKU1 (PCR) Not Detected (NotDetected) Coronavirus 229E (PCR) Not Detected (NotDetected) SARS-CoV-2 (PCR) Not Detected (NotDetected) Coronavirus NL63 (PCR) Not Detected (NotDetected) Human Metapneumovir PCR Not Detected (NotDetected) Influenza Type A (PCR) Not Detected (NotDetected) Influenza Type B (PCR) Not Detected (NotDetected) M. pneumoniae (PCR) Not Detected (NotDetected) Parainfluenza 1 (PCR) Not Detected (NotDetected) Parainfluenza 2 (PCR) Not Detected (NotDetected) Parainfluenza 3 (PCR) Not Detected (NotDetected) Parainfluenza 4 (PCR) Not Detected (NotDetected) RSV (PCR) Not Detected (NotDetected) Entero/Rhino (PCR) Not Detected (NotDetected) Administered Medications Diltiazem HCl 125 mg/ Dextrose 125 mls @ 10 mls/hr IV .[id number] JADEN; Protocol Stop: 05/06/25 02:59 Last Titration: 04/06/25 05:11 Dose: 15 mg/hr, 15 mls/hr Documented By: JUDSON Co-signed By: LÓPEZ Titration: 04/06/25 04:30 Dose: 10 mg/hr, 10 mls/hr Documented By: ERNESTO Co-signed By: TIM Admin: 04/06/25 03:20 Dose: 5 mg/hr, 5 mls/hr Documented By: JAXSON Co-signed By: MATT Pantoprazole Sodium 40 mg/ (Dextrose) 100 mls @ 20 mls/hr IV Q5H JADEN Stop: 05/06/25 03:14 Last Admin: 04/06/25 03:46 Dose: 8 mg/hr, 20 mls/hr Documented By: ERNESTO Discontinued Medications Diltiazem HCl (Diltiazem Hcl 5 Mg/Ml 5 Ml Vial) 10 mg IV NOW STA Stop: 04/06/25 01:16 Last Admin: 04/06/25 01:17 Dose: 10 mg Documented By: JAXSON Co-signed By: MATT Sodium Chloride (Nss) 1,000 mls @ 999 mls/hr IV .[id number] ONE Stop: 04/06/25 02:14 Last Infusion: 04/06/25 01:45 Dose: Infused Documented By: Admin: 04/06/25 01:18 Dose: 999 mls/hr Documented By: JAXSON Pantoprazole Sodium 80 mg/ (Dextrose) 120 mls @ 480 mls/hr IV NOW ONE Stop: 04/06/25 03:09 Last Infusion: 04/06/25 03:46 Dose: Infused Documented By: Admin: 04/06/25 03:21 Dose: 480 mls/hr Documented By: JAXSON Ioversol (Optiray 320 100ml) 92 ml IV ONCE ONE Stop: 04/06/25 01:41 Last Admin: 04/06/25 01:40 Dose: 92 ml Documented By: LEOLA Metoprolol Tartrate (Metoprolol Tartrate 1 Mg/Ml Vial) 5 mg IV NOW STA Stop: 04/06/25 01:53 Last Admin: 04/06/25 01:57 Dose: 5 mg Documented By: JAXSON Miscellaneous (Stat Iv Infusion Titration Per Protocol) 1 each N/A NOW STA Stop: 04/06/25 02:55 Last Admin: 04/06/25 05:07 Dose: Not Given Documented By: JUDSON Morphine Sulfate (Morphine Sulfate 4 Mg/Ml 1 Ml Carp\Vial) 4 mg IV NOW STA Stop: 04/06/25 02:41 Last Admin: 04/06/25 02:57 Dose: 4 mg Documented By: JAXSON Pantoprazole Sodium (Pantoprazole Bolus/Drip) 1 each IV NOW STA Stop: 04/06/25 02:56 Last Admin: 04/06/25 05:07 Dose: Not Given Documented By: JUDSON Imaging Data Radiologist's Impression: Abdomen/Pelvis CT 04/06/25 01:13 EXAM: CT abd pelvis IV con only CLINICAL HISTORY: mid abd pain. TECHNIQUE: Multiple contiguous axial images were obtained from the level of the diaphragm to the pubic symphysis. This study was acquired after the IV administration of iodinated contrast material, given the patient's indications for the examination. If IV contrast material had not been administered, the likelihood of detecting abnormalities relevant to the patient's condition would have been substantially decreased. Coronal and sagittal reformatted images were generated and reviewed to improve anatomic localization and optimize lesion detection. CT scan was performed according to ALARA (as low as reasonably achievable). COMPARISON: 06/07/2024. FINDINGS: ABDOMEN/PELVIS: The liver is normal in size and attenuation. No focal liver lesions are seen. There is no intrahepatic or extrahepatic biliary ductal dilatation. Hepatic vasculature is patent. The gallbladder is surgically absent, with mild prominence of the common bile duct, which is stable. The spleen, pancreas, and adrenal glands are unremarkable. There is a 12 mm nodule near the splenic hilum, likely a splenule, which is stable. The kidneys are normal in size and attenuation. There is no hydronephrosis or perinephric fat stranding. There is a stable right lower pole microlith. The ureters are normal in caliber, and no ureteral calculi are seen. The bladder is normal in contour. No evidence of focal or diffuse bowel wall thickening or evidence of bowel obstruction is seen. The appendix is visualized in the right lower quadrant and appears within normal limits. No adenopathy. Minimal free fluid in the pelvis. The aorta is normal in caliber. Mesenteric fat stranding is seen in the right quadrants, starting near the duodenum, along the right paraaortic area, and continuing to the aortic bifurcation. No duodenal thickening. No aggressive-appearing osseous lesions are identified. Minimal right pleural effusion. IMPRESSION: 1. Mesenteric fat stranding is seen in the right upper quadrant, around the duodenum, along the right paraaortic area, continuing to the aortic bifurcation; new onset, likely mesenteric panniculitis. 2. Stable right renal calculus. 3. Stable fatty hepatomegaly and splenomegaly. 4. Minimal right pleural effusion; new onset. Electronically signed by Juan Daniel Morse 04-06-2025 02:47 AM Chest X-Ray 04/06/25 02:54 EXAM: XR chest 1V portable CLINICAL HISTORY: Cough. TECHNIQUE: An X-ray image of the chest was obtained in the AP projection. COMPARISON: 05/25/2024. FINDINGS: Pulmonary Parenchyma: The lungs are clear bilaterally. There is no evidence of consolidation, collapse, or focal opacities. No pulmonary nodules are identified. There is no evidence of pleural effusion or pleural thickening. Heart and Mediastinum: The heart size and shape are normal. There is no mediastinal widening or masses. No hilar or mediastinal lymphadenopathy is identified. Bony Thorax: The bony thorax appears intact without fractures or deformities. Soft Tissues: The soft tissues overlying the chest wall are unremarkable. IMPRESSION: 1. No acute cardiopulmonary abnormalities are identified. 2. No significant changes compared to 05/25/2024 Electronically signed by Billy Buenrostro 04-06-2025 04:12 AM Discharge Plan Visit Data Chief Complaint: Abdominal Pain Stated Complaint: ABD PAIN, SOB ED Provider: Jaison Hyde Discharge Problem: Rapid atrial fibrillation Patient Disposition: Admitted As Inpatient Condition: Fair Forms Stand Alone Forms: My [facility] Prescriptions Prescriptions: No Action metformin 1,000 mg Tablet 1,000 mg PO BID losartan 100 mg Tablet 100 mg PO QPM amlodipine 5 mg tablet 5 mg PO QAM Rx Instructions: ordered 7.5mg but pt take only 5mg sildenafil 100 mg tablet 100 mg PO DAILY PRN (Reason: Erectile Dysfunction) hydrochlorothiazide 12.5 mg tablet 12.5 mg PO QAM benzonatate 200 mg capsule 200 mg PO TID PRN (Reason: Cough) metoprolol succinate 50 mg tablet extended release 24 hr 50 mg PO AMHS Referrals Referrals: Monster Payne D.O. [Primary Care Provider] -
[2025-04-06 01:18] LABS: Hematocrit (blood only) 42.7 % (42.0-52.0); Hemoglobin 15.2 g/dl (14.0-18.0); Immature Granulocytes # (auto) 0.04 K/uL (0.01-0.20); Immature Granulocytes % (auto) 0.4 %; Mean Corpuscular Hemoglobin 30.6 pg (25.0-34.0); Mean Corpuscular Volume 85.9 fL (80.0-100.0); Platelet Count 296 K/uL (130-400); RDW Standard Deviation 38.6 fL (36.4-46.3); Red Blood Count 4.97 M/uL (4.70-6.10); White Blood Count 9.98 K/ul (4.8-10.8)
[2025-04-06] MEDS: SODIUM CHLORIDE 0.9% 1,000 ML IV ONE (01:18)
[2025-04-06] MEDS: OPTIRAY 320 100ml IV ONE (01:40)
[2025-04-06 01:47] LABS: Alanine Aminotransferase 43.0 U/L (7-52); Albumin Globulin Ratio 1.3 (0.9-2); Albumin Level 3.7 gm/dl (3.4-5.0); Alkaline Phosphatase 52.0 U/L (34-104); Anion Gap 10.0 (3-11); Bilirubin,Total 1.2 mg/dl (0.2-1.0); Blood Urea Nitrogen 16.0 mg/dl (6-23); Calcium 9.0 mg/dl (8.6-10.3); Carbon Dioxide 25.0 mmol/L (21-32); Chloride 98.0 mmol/L (98-107); Creatinine Clr Calc Pharmacy 132.2 ml/min; Globulin 2.9 gm/dl (2.5-4.0); Glucose 341.0 mg/dl (70-99(Fasting)); Magnesium 1.8 mg/dl (1.7-2.4); Potassium 3.4 mmol/L (3.5-5.1); Sodium 133.0 mmol/L (136-145); Total Protein 6.6 gm/dl (6.0-8.3)
[2025-04-06 01:55] LABS: Thyroid Stimulating Hormone 2.122 uIu/ml (0.300-4.500)
[2025-04-06] MEDS: METOPROLOL TARTRATE 1 MG/ML VIAL IV STA ×2 (01:57→20:18)
--- NOTE | 2025-04-06 02:47 | CT Scan Report ---
EXAM: CT abd pelvis IV con only CLINICAL HISTORY: mid abd pain. TECHNIQUE: Multiple contiguous axial images were obtained from the level of the diaphragm to the pubic symphysis. This study was acquired after the IV administration of iodinated contrast material, given the patient's indications for the examination. If IV contrast material had not been administered, the likelihood of detecting abnormalities relevant to the patient's condition would have been substantially decreased. Coronal and sagittal reformatted images were generated and reviewed to improve anatomic localization and optimize lesion detection. CT scan was performed according to ALARA (as low as reasonably achievable). COMPARISON: 06/07/2024. FINDINGS: ABDOMEN/PELVIS: The liver is normal in size and attenuation. No focal liver lesions are seen. There is no intrahepatic or extrahepatic biliary ductal dilatation. Hepatic vasculature is patent. The gallbladder is surgically absent, with mild prominence of the common bile duct, which is stable. The spleen, pancreas, and adrenal glands are unremarkable. There is a 12 mm nodule near the splenic hilum, likely a splenule, which is stable. The kidneys are normal in size and attenuation. There is no hydronephrosis or perinephric fat stranding. There is a stable right lower pole microlith. The ureters are normal in caliber, and no ureteral calculi are seen. The bladder is normal in contour. No evidence of focal or diffuse bowel wall thickening or evidence of bowel obstruction is seen. The appendix is visualized in the right lower quadrant and appears within normal limits. No adenopathy. Minimal free fluid in the pelvis. The aorta is normal in caliber. Mesenteric fat stranding is seen in the right quadrants, starting near the duodenum, along the right paraaortic area, and continuing to the aortic bifurcation. No duodenal thickening. No aggressive-appearing osseous lesions are identified. Minimal right pleural effusion. IMPRESSION: 1. Mesenteric fat stranding is seen in the right upper quadrant, around the duodenum, along the right paraaortic area, continuing to the aortic bifurcation; new onset, likely mesenteric panniculitis. 2. Stable right renal calculus. 3. Stable fatty hepatomegaly and splenomegaly. 4. Minimal right pleural effusion; new onset. Electronically signed by Juan Daniel Morse 04-06-2025 02:47 AM
[2025-04-06] MEDS: MoRPHine SULFATE 4 MG/ML 1 ML CARP\\VIAL IV STA (02:57)
[2025-04-06 03:01] LABS: Lipase 14.0 U/L (11-82)
[2025-04-06] MEDS: PANTOprazole 40 MG in DEXTROSE 5% MINI-B 100 ML IV SCH (03:46)
--- NOTE | 2025-04-06 04:13 | XRay Report ---
EXAM: XR chest 1V portable CLINICAL HISTORY: Cough. TECHNIQUE: An X-ray image of the chest was obtained in the AP projection. COMPARISON: 05/25/2024. FINDINGS: Pulmonary Parenchyma: The lungs are clear bilaterally. There is no evidence of consolidation, collapse, or focal opacities. No pulmonary nodules are identified. There is no evidence of pleural effusion or pleural thickening. Heart and Mediastinum: The heart size and shape are normal. There is no mediastinal widening or masses. No hilar or mediastinal lymphadenopathy is identified. Bony Thorax: The bony thorax appears intact without fractures or deformities. Soft Tissues: The soft tissues overlying the chest wall are unremarkable. IMPRESSION: 1. No acute cardiopulmonary abnormalities are identified. 2. No significant changes compared to 05/25/2024 Electronically signed by Billy Buenrostro 04-06-2025 04:12 AM
--- NOTE | 2025-04-06 04:18 | History & Physical Report ---
Date of Service April 06, 2025 Assessment & Plan (1) Rapid atrial fibrillation: Plan: 54-year-old male with past medical history significant for hypertension, depression, ongoing tobacco use, history of atrial fibrillation, history of kidney stones comes because of abdominal pain and also in the ER found to be in rapid A-fib. Patient says since last Saturday is having abdominal pain mostly in the right upper side. Associated with nausea. Tonight he had episode of vomiting.. He was also sweating, feeling hot and cold which made him come to the hospital. In the ER he went into rapid A-fib. received IV Lopressor and Currently started on Cardizem drip. Denies any chest pain. Yesterday was feeling short of breath but currently no shortness of breath. No headache. No runny nose or sore throat. Since last 1 week he is having cough. In May 2024 was admitted for new onset rapid A-fib and left ureteral stone. He was discharged on metoprolol succinate and Eliquis. Patient says he no longer taking Eliquis and didn't followed up with cardiology. Rapid atrial fibrillation ER gave IV Lopressor and started on Cardizem drip Will place him on IV Lopressor prn. Continue home metoprolol succinate IV heparin N.p.o. 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 Elevated troponin Initial troponin 73 and repeat is 79 Mostly demand ischemia Will follow serial enzymes and echo Hyperglycemia Diabetes Hold metformin sliding scale glycemic pharmacy consult Will monitor Will follow HbA1c levels Obstructive sleep apnea CPAP nightly Hypertension On hydrochlorothiazide, amlodipine, losartan and metoprolol succinate Will monitor DVT prophylaxis IV heparin Disposition Telemetry Full code. History of Present Illness Chief Complaint: Abdominal pain and rapid A-fib Primary Care Provider: Monster Payne 54-year-old male with past medical history significant for hypertension, depression, ongoing tobacco use, history of atrial fibrillation, history of kidney stones comes because of abdominal pain and also in the ER found to be in rapid A-fib. Patient says since last Saturday is having abdominal pain mostly in the right upper side. Associated with nausea. Tonight he had episode of vomiting.. He was also sweating, feeling hot and cold which made him come to the hospital. In the ER he went into rapid A-fib. received IV Lopressor and Currently started on Cardizem drip. Denies any chest pain. Yesterday was feeling short of breath but currently no shortness of breath. No headache. No runny nose or sore throat. Since last 1 week he is having cough. In May 2024 was admitted for new onset rapid A-fib and left ureteral stone. He was discharged on metoprolol succinate and Eliquis. Patient says he no longer taking Eliquis and didn't followed up with cardiology. Past medical history. As mentioned above Past surgical history. Cholecystectomy. Knee repair. Social history. Smokes half pack a day for many years. Alcohol occasional. Occasional marijuana. Family history. Significant for diabetes, heart disease and cancer Allergies Allergy/AdvReac Type Severity Reaction Status Date / Time No Known Allergies Allergy Unverified 04/06/25 00:58 Home Medications Medication Instructions Recorded Confirmed Type losartan 100 mg tablet 100 mg PO QPM 05/25/24 04/06/25 History metformin 1,000 mg tablet 1,000 mg PO BID 05/25/24 04/06/25 History amlodipine 5 mg tablet 5 mg PO QAM 04/06/25 04/06/25 History benzonatate 200 mg capsule 200 mg PO TID PRN Cough 04/06/25 04/06/25 History hydrochlorothiazide 12.5 mg tablet 12.5 mg PO QAM 04/06/25 04/06/25 History metoprolol succinate 50 mg 50 mg PO AMHS 04/06/25 04/06/25 History tablet,extended release 24 hr sildenafil 100 mg tablet 100 mg PO DAILY PRN Erectile 04/06/25 04/06/25 History Dysfunction Past Med/Surg History Problem List (Updated 04/06/25 @ 05:27 by Jaison Hyde DO) Rapid atrial fibrillation (Acute) New onset atrial fibrillation Nephrolithiasis Elevated troponin (Acute) Acute hyperglycemia (Acute) SOB (shortness of breath) (Acute) Atrial fibrillation Chest pain (Acute 05/20/13) Elevated troponin I level (Acute) Medical History Coronary atherosclerosis of [place] coronary artery Atrial fibrillation with rapid ventricular response CHF (congestive heart failure) Mood disorder Depression Left ureteral stone Hypertension Surgical History History of cholecystectomy Social History Smoking Status: Current every day smoker Tobacco Type: Cigarettes Cigarettes Per Day: 1/2 pack day; Second Hand Exposure: No; Do You Dip or Chew Tobacco: No; Hx Alcohol Use: Yes Alcohol type: beer and hard liquor Hx Substance Use: Yes Preferred Language: Faroese Communication Ability: Effective Sales And Leasing Agent Required: No Beliefs That Will Affect Care: None Current Living Situation: Alone Current Living Situation Comment: lives at home alone Feels Safe at Home: Yes Safety Concerns: Feels Safe At This Time Assistive Devices: CPAP and Glasses Review of Systems Review of Systems: All systems reviewed & are unremarkable except as noted in HPI & below Physical Exam Physical Exam: General- Not in distress Head- atraumatic Eyes- PERRL. ENT- oropharynx clear Neck- supple, no JVD. Lungs- clear to auscultation no wheezing or crackles Heart- irregular rhythm;tachycardia, no murmur, no gallop. Abdomen- normal bowel sounds, soft, diffuse tenderness and guarding present, no distension Extremities- no pretibial edema, no erythema seen. Neuro- alert, oriented ; PERRL, no facial palsy; no dysarthria; moves extremities Results & Data Results & Data Vital Signs (Past 12 Hours) Vital Signs Temp Pulse Pulse Resp BP BP Pulse Ox 04/06/25 03:13 134 H 118/85 04/06/25 03:00 135 H 18 118/85 95 04/06/25 02:42 128 H 22 91 04/06/25 02:36 140 H 27 H 97 04/06/25 02:24 131 H 26 H 96 04/06/25 02:20 110/77 04/06/25 02:20 110/77 04/06/25 02:12 121 H 95 04/06/25 02:00 149 H 94 04/06/25 02:00 129/88 04/06/25 02:00 129/88 04/06/25 01:57 143 H 136/100 04/06/25 01:47 136/100 04/06/25 01:47 136/100 04/06/25 01:25 133 H 24 121/98 94 04/06/25 01:16 121/98 04/06/25 01:11 166 H 04/06/25 00:54 166 H 25 H 94 04/06/25 00:29 36.8 C 72 18 144/101 H 98 04/06/25 00:24 36.9 C 73 20 127/92 95 O2 Del Method 04/06/25 03:13 04/06/25 03:00 Room Air 04/06/25 02:42 04/06/25 02:36 04/06/25 02:24 04/06/25 02:20 04/06/25 02:20 04/06/25 02:12 04/06/25 02:00 04/06/25 02:00 04/06/25 02:00 04/06/25 01:57 04/06/25 01:47 04/06/25 01:47 04/06/25 01:25 Room Air 04/06/25 01:16 04/06/25 01:11 04/06/25 00:54 04/06/25 00:29 Room Air 04/06/25 00:24 Room Air Diagnostic Findings Laboratory Results WBC 9.98 K/ul (4.8-10.8) 04/06/25 01:04 RBC 4.97 M/uL (4.70-6.10) 04/06/25 01:04 Hgb 15.2 g/dl (14.0-18.0) 04/06/25 01:04 POC Hgb 15.0 g/dl (14.0-18.0) 04/06/25 01:07 Hct 42.7 % (42.0-52.0) 04/06/25 01:04 POC Hct 44 % (42-52) 04/06/25 01:07 MCV 85.9 fL (80.0-100.0) 04/06/25 01:04 MCH 30.6 pg (25.0-34.0) 04/06/25 01:04 MCHC 35.6 g/dL (32.0-36.0) 04/06/25 01:04 RDW Std Deviation 38.6 fL (36.4-46.3) 04/06/25 01:04 RDW Coeff of Katherine 12.6 % (11.5-14.5) 04/06/25 01:04 Plt Count 296 K/uL (130-400) 04/06/25 01:04 MPV 9.8 fL (9.4-12.4) 04/06/25 01:04 Immature Gran % (Auto) 0.4 % 04/06/25 01:04 Neut % (Auto) 65.6 % 04/06/25 01:04 Lymph % (Auto) 24.7 % 04/06/25 01:04 Lake % (Auto) 6.5 % 04/06/25 01:04 Eos % (Auto) 2.5 % 04/06/25 01:04 Baso % (Auto) 0.3 % 04/06/25 01:04 Neut # (Auto) 6.54 K/uL (1.40-6.50) H 04/06/25 01:04 Lymph # (Auto) 2.47 K/uL (1.20-3.40) 04/06/25 01:04 Lake # (Auto) 0.65 K/uL (0.11-0.59) H 04/06/25 01:04 Eos # (Auto) 0.25 K/uL (0.00-0.50) 04/06/25 01:04 Baso # (Auto) 0.03 K/uL (0.00-0.20) 04/06/25 01:04 Immature Gran # (Auto) 0.04 K/uL (0.01-0.20) 04/06/25 01:04 POC Sodium 134 mmol/L (135-144) L 04/06/25 01:07 Sodium 133 mmol/L (136-145) L 04/06/25 01:04 POC Potassium 3.3 mmol/L (3.3-5.0) 04/06/25 01:07 Potassium 3.4 mmol/L (3.5-5.1) L 04/06/25 01:04 POC Chloride 97 mmol/L (101-112) L 04/06/25 01:07 Chloride 98 mmol/L (98-107) 04/06/25 01:04 Carbon Dioxide 25 mmol/L (21-32) 04/06/25 01:04 POC Total CO2 24 mmol/L (24-31) 04/06/25 01:07 Anion Gap 10 (3-11) 04/06/25 01:04 POC Anion Gap 17.0 mmol/L (16-25) 04/06/25 01:07 POC BUN 15 mg/dl (7-18) 04/06/25 01:07 BUN 16 mg/dl (6-23) 04/06/25 01:04 Creatinine 0.83 mg/dl (0.6-1.4) 04/06/25 01:04 POC Creatinine 0.8 mg/dl (0.6-1.3) 04/06/25 01:07 Est Cr Clr Drug Dosing 132.2 ml/min 04/06/25 01:04 eGFR 105.31 04/06/25 01:04 BUN/Creatinine Ratio 19.3 (10-20) 04/06/25 01:04 Glucose 341 mg/dl (70-99(Fasting)) H* 04/06/25 01:04 POC Glucose (other) 336 mg/dl (70-99) H 04/06/25 01:07 Calcium 9.0 mg/dl (8.6-10.3) 04/06/25 01:04 POC Ioniz Calcium Trang 1.12 mmol/l (1.12-1.32) 04/06/25 01:07 Phosphorus 3.2 mg/dl (2.5-4.9) 04/06/25 01:04 Magnesium 1.8 mg/dl (1.7-2.4) 04/06/25 01:04 Total Bilirubin 1.2 mg/dl (0.2-1.0) H 04/06/25 01:04 AST 23 U/L (13-39) 04/06/25 01:04 ALT 43 U/L (7-52) 04/06/25 01:04 Alkaline Phosphatase 52 U/L (34-104) 04/06/25 01:04 Troponin I High Sens 79.1 pg/ml (0-20) H* 04/06/25 03:02 Total Protein 6.6 gm/dl (6.0-8.3) 04/06/25 01:04 Albumin 3.7 gm/dl (3.4-5.0) 04/06/25 01:04 Globulin 2.9 gm/dl (2.5-4.0) 04/06/25 01:04 Albumin/Globulin Ratio 1.3 (0.9-2) 04/06/25 01:04 Lipase 14 U/L (11-82) 04/06/25 01:04 TSH 2.122 uIu/ml (0.300-4.500) 04/06/25 01:04 Impressions Abdomen/Pelvis CT 04/06/25 01:13 EXAM: CT abd pelvis IV con only CLINICAL HISTORY: mid abd pain. TECHNIQUE: Multiple contiguous axial images were obtained from the level of the diaphragm to the pubic symphysis. This study was acquired after the IV administration of iodinated contrast material, given the patient's indications for the examination. If IV contrast material had not been administered, the likelihood of detecting abnormalities relevant to the patient's condition would have been substantially decreased. Coronal and sagittal reformatted images were generated and reviewed to improve anatomic localization and optimize lesion detection. CT scan was performed according to ALARA (as low as reasonably achievable). COMPARISON: 06/07/2024. FINDINGS: ABDOMEN/PELVIS: The liver is normal in size and attenuation. No focal liver lesions are seen. There is no intrahepatic or extrahepatic biliary ductal dilatation. Hepatic vasculature is patent. The gallbladder is surgically absent, with mild prominence of the common bile duct, which is stable. The spleen, pancreas, and adrenal glands are unremarkable. There is a 12 mm nodule near the splenic hilum, likely a splenule, which is stable. The kidneys are normal in size and attenuation. There is no hydronephrosis or perinephric fat stranding. There is a stable right lower pole microlith. The ureters are normal in caliber, and no ureteral calculi are seen. The bladder is normal in contour. No evidence of focal or diffuse bowel wall thickening or evidence of bowel obstruction is seen. The appendix is visualized in the right lower quadrant and appears within normal limits. No adenopathy. Minimal free fluid in the pelvis. The aorta is normal in caliber. Mesenteric fat stranding is seen in the right quadrants, starting near the duodenum, along the right paraaortic area, and continuing to the aortic bifurcation. No duodenal thickening. No aggressive-appearing osseous lesions are identified. Minimal right pleural effusion. IMPRESSION: 1. Mesenteric fat stranding is seen in the right upper quadrant, around the duodenum, along the right paraaortic area, continuing to the aortic bifurcation; new onset, likely mesenteric panniculitis. 2. Stable right renal calculus. 3. Stable fatty hepatomegaly and splenomegaly. 4. Minimal right pleural effusion; new onset. Electronically signed by Juan Daniel Morse 04-06-2025 02:47 AM Chest X-Ray 04/06/25 02:54 EXAM: XR chest 1V portable CLINICAL HISTORY: Cough. TECHNIQUE: An X-ray image of the chest was obtained in the AP projection. COMPARISON: 05/25/2024. FINDINGS: Pulmonary Parenchyma: The lungs are clear bilaterally. There is no evidence of consolidation, collapse, or focal opacities. No pulmonary nodules are identified. There is no evidence of pleural effusion or pleural thickening. Heart and Mediastinum: The heart size and shape are normal. There is no mediastinal widening or masses. No hilar or mediastinal lymphadenopathy is identified. Bony Thorax: The bony thorax appears intact without fractures or deformities. Soft Tissues: The soft tissues overlying the chest wall are unremarkable. IMPRESSION: 1. No acute cardiopulmonary abnormalities are identified. 2. No significant changes compared to 05/25/2024 Electronically signed by Billy Buenrostro 04-06-2025 04:12 AM ECG Additional Comments: ECG. Atrial fibrillation with rapid ventricular response rate 168. Rightward axis. QTc 484 Code Status & VTE Plan VTE Prophylaxis Plan VTE Prophylaxis will be ordered: Yes
[2025-04-06 04:19] LABS: Chlamydia pneumoniae PCR Not Detected (NotDetected); Coronavirus 229E PCR Not Detected (NotDetected); Coronavirus CoV-2 (COVID19)PCR Not Detected (NotDetected); Coronavirus HKU1 PCR Not Detected (NotDetected); Coronavirus NL63 PCR Not Detected (NotDetected); Coronavirus OC43PCR Not Detected (NotDetected); Human Metapneumovirus PCR Not Detected (NotDetected); Parainfluenza Virus 1 PCR Not Detected (NotDetected); Parainfluenza Virus 2 PCR Not Detected (NotDetected); Parainfluenza Virus 3 PCR Not Detected (NotDetected); Parainfluenza Virus 4 PCR Not Detected (NotDetected); Respiratory Syncytial VirusPCR Not Detected (NotDetected); Rhinovirus/Enterovirus PCR Not Detected (NotDetected)
[2025-04-06] MEDS: PANTOPRAZOLE BOLUS/DRIP IV STA (05:07)
[2025-04-06] MEDS: STAT IV Infusion **Titration per Protocol STA (05:07)
[2025-04-06] MEDS ORDERED: GLUCOSE 10 TAB/TUBE PO PRN (06:14)
[2025-04-06] MEDS ORDERED: CARBOHYDRATES FOR HYPOGLYCEMIA PO PRN (06:14)
[2025-04-06] MEDS ORDERED: NITROGLYCERIN SL 0.4 MG/TAB TAB SL PRN (06:14)
[2025-04-06] MEDS ORDERED: GLUCOSE 40% GEL 15 GM TUBE PO PRN (06:14)
[2025-04-06] MEDS ORDERED: GLUCAGON FOR INJ 1 MG VIAL SQ PRN (06:14)
[2025-04-06] MEDS ORDERED: PHARMACY GLYCEMIC MGMT CONSULT PRN (06:14)
[2025-04-06] MEDS ORDERED: HYDROmorphone INJ 0.5 MG/0.5 ML SYR IV PRN (06:14)
[2025-04-06] MEDS: SODIUM CHLORIDE 0.9% 1,000 ML IV SCH (06:51)
[2025-04-06] MEDS: Heparin IV Adult Wt-Based Standard *NO* INITIAL Bolus Protocol IV STA (06:52)
[2025-04-06 07:12] LABS: Hematocrit (blood only) 41.5 % (42.0-52.0); Hemoglobin 15.5 g/dl (14.0-18.0); Immature Granulocytes # (auto) 0.05 K/uL (0.01-0.20); Immature Granulocytes % (auto) 0.5 %; Mean Corpuscular Hemoglobin 31.9 pg (25.0-34.0); Mean Corpuscular Volume 85.4 fL (80.0-100.0); Platelet Count 275 K/uL (130-400); RDW Standard Deviation 38.1 fL (36.4-46.3); Red Blood Count 4.86 M/uL (4.70-6.10); White Blood Count 9.58 K/ul (4.8-10.8)
[2025-04-06] MEDS ORDERED: INSULIN ASPART PER UNIT CHARGE SC SCH (07:30)
[2025-04-06 07:35] LABS: Anion Gap 9.0 (3-11); Blood Urea Nitrogen 16.0 mg/dl (6-23); Calcium 8.7 mg/dl (8.6-10.3); Carbon Dioxide 24.0 mmol/L (21-32); Chloride 100.0 mmol/L (98-107); Creatinine Clr Calc Pharmacy 161.4 ml/min; Glucose 302.0 mg/dl (70-99(Fasting)); Magnesium 1.8 mg/dl (1.7-2.4); Potassium 3.4 mmol/L (3.5-5.1); Sodium 133.0 mmol/L (136-145)
[2025-04-06] MEDS: HEPARIN 25000 UNIT/500 ML D5W 25,000 UNITS/500 ML BAG IV SCH (07:37)
[2025-04-06 07:39] LABS: INR 1.1 (0.9-1.1); Partial Thromboplastin Time 27 Seconds (21-31); Prothrombin Time 11.8 Seconds (9.0-12.0)
[2025-04-06] MEDS: PANTOprazole 40 MG/10 ML SYR IV SCH (08:08)
[2025-04-06] MEDS: METOPROLOL SUCC 50MG EXT REL TAB PO SCH (08:08)
[2025-04-06] MEDS: POTASSIUM CHLORIDE CRTAB 20 MEQ TABCR PO STA ×2 (08:08→23:33)
[2025-04-06] MEDS: hydroCHLOROthiazide 25 MG TAB PO SCH (08:09)
[2025-04-06] MEDS: INSULIN ASPART PER UNIT CHARGE SC SCH (08:09)
[2025-04-06] MEDS: NICOTINE 14 MG/24 HR PATCH TD SCH (08:14)
--- NOTE | 2025-04-06 09:17 | Cardiology Consultation ---
Date of Consultation April 06, 2025 Assessment & Plan (1) Rapid atrial fibrillation: (2) Abdominal pain: (3) Elevated troponin I level: (4) Acute hyperglycemia: Plan Patient is a 54 year old male who was admitted for acute abdominal pain, starting yesterday with associated nausea and vomting. 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 Also found to have recurrent afib RVR in the 160's on admission. Afib RVR -initially started on IV diltiazem with mildly improved rates -Transitioned to oral metoprolol 50 mg BID this morning. (Patient reports he was likely NOT taking this at home) -Rates remain elevated and dose increased to 75 mg BID this morning -Continue IV heparin for anticoagulation/stroke prophylaxis -Duration of afib is uncertain -Ongoing rate control recommended for now -Once abdominal pain/GI workup is complete - could consider KATERYNA/CV if rates are difficult to manage VS outpatient cardioversion after 4 weeks of anticoagulation therapy -Supplement magnesium and potassium Mildly elevated troponin in setting afib RVR -73 on admission - Peaked at 79 and then 61 this morning -Type II demand ischemia secondary to afib and acute GI illness. -EKG on admission without ischemic changes -No chest pain/SOB reported -Repeat EKG this morning - ordered and pending -Echo pending -continue IV heparin and beta jaime -Lipid panel in AM - will need statin -Consider outpatient stress test once acute GI illness and afib improves Hypertension -Continue home dose amlodipine, losartan, and hctz -Metoprolol added at 75 mg BID Mesenteric Panniculitis and ongoing abdominal pain. -GI consulted -remains NPO currently Case discussed with Dr. Abreu I spent a total of 60 minutes on the date of service in preparation, delivery, and documentation of the care provided to this patient, excluding any time spent in the performance of separately billed services. Mel Curtis PA-C Department of Cardiology, [facility] This chart was completed in part utilizing Speech Voice Recognition Software. Grammatical errors, random word insertions, pronoun errors, and incomplete sentences are an occasional consequence of this system due to software limitations, ambient noise, and hardware issues. Any formal questions or concerns about the content, text, or information contained within the body of this dictation should be directly addressed to the provider for clarification. Supervising Physician Co-Signing Physician Notes Patient was seen and personally examined. Care and management as outlined by advanced provider as above. Personally discussed and endorsed. 54-year-old male with paroxysmal atrial fibrillation presenting with 2 to 3 days of abdominal pain and distention. Found to be in atrial fibrillation on ER visit with elevated ventricular sponsor rate. Patient uncertain as to the total duration of atrial arrhythmias. Heart rate is slowing on medication since admission. Abdominal pain still present Not on anticoagulation chronically. Exam: Thick neck but no distinct jugular venous distention. Lungs are clear to auscultation Irregular irregular with rapid response but no audible murmur Abdominal distention with tenderness and guarding right upper quadrant extremities with trace edema Echocardiogram Borderline left hypertrophy with mild to moderate diffuse hypokinesis EF 40%, moderate mitral insufficiency No evidence of pulmonary hypertension Impression: Paroxysmal atrial fibrillation with lapsed into atrial fibrillation with rapid response possibly incited by acute abdominal complaints. Continue anticoagulation with heparin Increase metoprolol succinate to 75 mg twice per day Cardiology will follow-up with ultimate plans for management of arrhythmia as well as newly observed cardiomyopathy History of Present Illness Reason for Consultation: Afib RVR; Abdominal pain Requesting Physician: Salvador Jacobs Attending Physician: Dr. Abreu History of Present Illness Patient is a 54 year old male who presented to [facility] yesterday morning with complaints of abdominal pain, nausea, vomiting starting yesterday morning. Also found to have afib RVR. He believes afib started yesterday morning as well, but duration is uncertain. EKG demonstrating afib with rapid ventricular response in the 160's. He was started on IV diltiazem and IV metoprolol for rate control. Started on IV heparin for anticoagulation therapy Patient has a history of PAF requiring KATERYNA/CV in May 2024 in setting of left ureteral stone. He failed to keep cardiology f/u appt as outpatient and stopped his metoprolol and eliquis after "refills ran out". He had abdominal CT scan completed in ER demonstrating possible mesenteric panniculitis. GI consulted. At time of consult, patient resting in bed. He reports ongoing diffuse abdominal pain, but improved from admission. No recurrent nausea or vomiting. No chest pain or SOB. He is unaware of the palpitations. Remains in afib with elevated rates this morning. IV diltiazem was discontinued. Started on metoprolol succinate 50 mg BID this morning. Echo pending. History includes: 1. HTN 2. SOLO 3. PAF s/p KATERYNA/CV in May 2024 4. Chronic tobacco abuse 5. DM Allergies Allergy/AdvReac Type Severity Reaction Status Date / Time No Known Allergies Allergy Unverified 04/06/25 00:58 Home Medications Medication Instructions Recorded Confirmed Type losartan 100 mg tablet 100 mg PO QPM 05/25/24 04/06/25 History metformin 1,000 mg tablet 1,000 mg PO BID 05/25/24 04/06/25 History amlodipine 5 mg tablet 5 mg PO QAM 04/06/25 04/06/25 History benzonatate 200 mg capsule 200 mg PO TID PRN Cough 04/06/25 04/06/25 History hydrochlorothiazide 12.5 mg tablet 12.5 mg PO QAM 04/06/25 04/06/25 History metoprolol succinate 50 mg 50 mg PO AMHS 04/06/25 04/06/25 History tablet,extended release 24 hr sildenafil 100 mg tablet 100 mg PO DAILY PRN Erectile 04/06/25 04/06/25 History Dysfunction Patient History Medical History Coronary atherosclerosis of [place] coronary artery Atrial fibrillation with rapid ventricular response CHF (congestive heart failure) Mood disorder Depression Left ureteral stone Hypertension Surgical History History of cholecystectomy Social History Smoking Status: Current every day smoker Tobacco Type: Cigarettes Cigarettes Per Day: 1/2 pack day; Second Hand Exposure: No; Do You Dip or Chew Tobacco: No; Hx Alcohol Use: Yes Alcohol type: beer and hard liquor Hx Substance Use: Yes Preferred Language: Croatian Communication Ability: Effective Sales And Marketing Intern Required: No Beliefs That Will Affect Care: None Current Living Situation: Alone Current Living Situation Comment: lives at home alone Feels Safe at Home: Yes Safety Concerns: Feels Safe At This Time Assistive Devices: CPAP Review of Systems Review of Systems: All systems reviewed & are unremarkable except as noted in HPI & below Physical Exam Constitutional: WD/WN, vitals as above + obese; no acute distress Neck: trachea midline, no thyromegaly + thick neck Respiratory: normal respiratory effort, lungs clear to auscultation Cardiovascular: Rate/Rhythm: + tachycardic and + irregularly irregular Heart Sounds: no murmur Vessels: no JVD Extremities: + edema (trace b/l edema) Gastrointestinal (Abdomen): Inspection/Auscultation: + abdomen distended and normal bowel sounds Percussion/Palpation: abdomen soft; abdomen nontender Neurologic: PERRL, EOMI, accommodation nl, no face palsy, no dysarthria Results & Data Vital Signs (Past 12 Hours) Vital Signs Temp Pulse Pulse Resp BP BP Pulse Ox 04/06/25 08:02 100 H 16 94 04/06/25 07:54 36.3 C L 64 18 132/96 94 04/06/25 06:10 36.7 C 119 H 16 124/85 91 04/06/25 05:53 116 H 18 127/89 97 04/06/25 05:03 115 H 04/06/25 05:00 134 H 16 129/89 95 04/06/25 03:13 134 H 118/85 04/06/25 03:00 135 H 18 118/85 95 04/06/25 02:42 128 H 22 91 04/06/25 02:36 140 H 27 H 97 04/06/25 02:24 131 H 26 H 96 04/06/25 02:20 110/77 04/06/25 02:20 110/77 04/06/25 02:12 121 H 95 04/06/25 02:00 149 H 94 04/06/25 02:00 129/88 04/06/25 02:00 129/88 04/06/25 01:57 143 H 136/100 04/06/25 01:47 136/100 04/06/25 01:47 136/100 04/06/25 01:25 133 H 24 121/98 94 04/06/25 01:16 121/98 04/06/25 01:11 166 H 04/06/25 00:54 166 H 25 H 94 04/06/25 00:29 36.8 C 72 18 144/101 H 98 04/06/25 00:24 36.9 C 73 20 127/92 95 O2 Del Method 04/06/25 08:02 04/06/25 07:54 Room Air 04/06/25 06:10 Room Air 04/06/25 05:53 Room Air 04/06/25 05:03 04/06/25 05:00 Room Air 04/06/25 03:13 04/06/25 03:00 Room Air 04/06/25 02:42 04/06/25 02:36 04/06/25 02:24 04/06/25 02:20 04/06/25 02:20 04/06/25 02:12 04/06/25 02:00 04/06/25 02:00 04/06/25 02:00 04/06/25 01:57 04/06/25 01:47 04/06/25 01:47 04/06/25 01:25 Room Air 04/06/25 01:16 04/06/25 01:11 04/06/25 00:54 04/06/25 00:29 Room Air 04/06/25 00:24 Room Air Laboratory Results Cardiac Enzymes 04/06/25 04/06/25 04/06/25 Range/Units 01:04 03:02 06:54 AST 23 (13-39) U/L Troponin I High Sens 73.8 H* 79.1 H* 61.1 H* D (0-20) pg/ml Coagulation 04/06/25 Range/Units 06:58 PT 11.8 (9.0-12.0) Seconds APTT 27 (21-31) Seconds CBC 04/06/25 04/06/25 Range/Units 01:04 06:54 WBC 9.98 9.58 (4.8-10.8) K/ul RBC 4.97 4.86 (4.70-6.10) M/uL Hgb 15.2 15.5 (14.0-18.0) g/dl Hct 42.7 41.5 L (42.0-52.0) % Plt Count 296 275 (130-400) K/uL Neut # (Auto) 6.54 H 6.52 H (1.40-6.50) K/uL Lymph # (Auto) 2.47 2.12 (1.20-3.40) K/uL Lamb # (Auto) 0.65 H 0.58 (0.11-0.59) K/uL Eos # (Auto) 0.25 0.26 (0.00-0.50) K/uL Baso # (Auto) 0.03 0.05 (0.00-0.20) K/uL Comprehensive Metabolic Panel 04/06/25 04/06/25 Range/Units 01:04 06:54 Sodium 133 L 133 L (136-145) mmol/L Potassium 3.4 L 3.4 L (3.5-5.1) mmol/L Chloride 98 100 (98-107) mmol/L Carbon Dioxide 25 24 (21-32) mmol/L BUN 16 16 (6-23) mg/dl Creatinine 0.83 0.68 (0.6-1.4) mg/dl Glucose 341 H* 302 H* (70-99(Fasting)) mg/dl Calcium 9.0 8.7 (8.6-10.3) mg/dl AST 23 (13-39) U/L ALT 43 (7-52) U/L Alkaline Phosphatase 52 (34-104) U/L Total Protein 6.6 (6.0-8.3) gm/dl Albumin 3.7 (3.4-5.0) gm/dl Intake and Output 04/05/25 04/06/25 04/06/25 22:59 06:59 14:59 Intake Total 1132.666 / 1132.666 126.667 / 126.667 Balance 1132.666 / 1132.666 126.667 / 126.667 Intake: IV 1132.666 / 1132.666 126.667 / 126.667 PANTOprazole 40 mg In Dextrose 84.667 / 84.667 5% Mini-B 100 ml @ 8 MG/HR 20 mls/hr IV Q5H [facility] Rx#:[id number] PANTOprazole 80 mg In Dextrose 120 / 120 5% 100 ml @ 480 mls/hr IV NOW ONE Rx#:[id number] Sodium Chloride 0.9% 1,000 ml @ 1000 / 1000 999 mls/hr IV .Q1H1M [facility] Rx#: [id number] dilTIAZem HCL 125 mg In 12.666 / 12.666 42 / 42 Dextrose 5% 100 ml @ 5 MG/HR 5 mls/hr IV .Q24H [facility] Rx#: [id number] Other: Weight 121.9 kg Weight Measurement Method Built in [facility] Diagnostic Findings Telemetry reviewed: Afib with variable rates ranging 100-120's. EKG on admission reviewed: Afib RVR at [address]/T wave abnormality Rightward axis deviation Compared with prior EKG in 2023 - afib has replaced NSR Echo pending from this morning Abdomen/Pelvis CT 04/06/25 01:13 EXAM: CT abd pelvis IV con only CLINICAL HISTORY: mid abd pain. TECHNIQUE: Multiple contiguous axial images were obtained from the level of the diaphragm to the pubic symphysis. This study was acquired after the IV administration of iodinated contrast material, given the patient's indications for the examination. If IV contrast material had not been administered, the likelihood of detecting abnormalities relevant to the patient's condition would have been substantially decreased. Coronal and sagittal reformatted images were generated and reviewed to improve anatomic localization and optimize lesion detection. CT scan was performed according to ALARA (as low as reasonably achievable). COMPARISON: 06/07/2024. FINDINGS: ABDOMEN/PELVIS: The liver is normal in size and attenuation. No focal liver lesions are seen. There is no intrahepatic or extrahepatic biliary ductal dilatation. Hepatic vasculature is patent. The gallbladder is surgically absent, with mild prominence of the common bile duct, which is stable. The spleen, pancreas, and adrenal glands are unremarkable. There is a 12 mm nodule near the splenic hilum, likely a splenule, which is stable. The kidneys are normal in size and attenuation. There is no hydronephrosis or perinephric fat stranding. There is a stable right lower pole microlith. The ureters are normal in caliber, and no ureteral calculi are seen. The bladder is normal in contour. No evidence of focal or diffuse bowel wall thickening or evidence of bowel obstruction is seen. The appendix is visualized in the right lower quadrant and appears within normal limits. No adenopathy. Minimal free fluid in the pelvis. The aorta is normal in caliber. Mesenteric fat stranding is seen in the right quadrants, starting near the duodenum, along the right paraaortic area, and continuing to the aortic bifurcation. No duodenal thickening. No aggressive-appearing osseous lesions are identified. Minimal right pleural effusion. IMPRESSION: 1. Mesenteric fat stranding is seen in the right upper quadrant, around the duodenum, along the right paraaortic area, continuing to the aortic bifurcation; new onset, likely mesenteric panniculitis. 2. Stable right renal calculus. 3. Stable fatty hepatomegaly and splenomegaly. 4. Minimal right pleural effusion; new onset. Electronically signed by Juan Daniel Morse 04-06-2025 02:47 AM Chest X-Ray 04/06/25 02:54 EXAM: XR chest 1V portable CLINICAL HISTORY: Cough. TECHNIQUE: An X-ray image of the chest was obtained in the AP projection. COMPARISON: 05/25/2024. FINDINGS: Pulmonary Parenchyma: The lungs are clear bilaterally. There is no evidence of consolidation, collapse, or focal opacities. No pulmonary nodules are identified. There is no evidence of pleural effusion or pleural thickening. Heart and Mediastinum: The heart size and shape are normal. There is no mediastinal widening or masses. No hilar or mediastinal lymphadenopathy is identified. Bony Thorax: The bony thorax appears intact without fractures or deformities. Soft Tissues: The soft tissues overlying the chest wall are unremarkable. IMPRESSION: 1. No acute cardiopulmonary abnormalities are identified. 2. No significant changes compared to 05/25/2024 Electronically signed by Billy Buenrostro 04-06-2025 04:12 AM Prior studies reviewed: KATERYNA report reviewed dated 05/2024: No evidence of thrombus in the KAY echo report reviewed dated May 2024: Afib with RVR present during the study Moderate concentric LVH No wall motion abnormalities Normal LVEF at 55% Mild to moderate MR Medications Administered Current Inpatient Medications Acetaminophen (Acetaminophen 325 Mg Tab) 650 mg PO Q4H PRN PRN Reason: Pain or Fever Stop: 05/06/25 06:13 Amlodipine Besylate (Amlodipine Besylate 5 Mg Tab) 5 mg PO QAM JADEN Stop: 05/06/25 08:59 Last Admin: 04/06/25 08:08 Dose: 5 mg Benzonatate (Benzonatate 100 Mg Capsule) 200 mg PO TID PRN PRN Reason: Cough Stop: 05/06/25 06:13 Dextrose (Dextrose 50% 50 Ml Syringe) 25 - 50 ml IV UD PRN; Protocol PRN Reason: Hypoglycemia Protocol Stop: 05/06/25 06:13 Glucagon (Glucagon For Inj 1 Mg Vial) 1 mg SQ UD PRN; Protocol PRN Reason: Hypoglycemia Protocol Stop: 05/06/25 06:13 Glucose (Glucose 40% Gel 15 Gm Tube) 15 - 30 gm PO UD PRN; Protocol PRN Reason: Hypoglycemia Protocol Stop: 05/06/25 06:13 Glucose (Glucose 10 Tab/Tube) 4 - 8 tab PO UD PRN; Protocol PRN Reason: Hypoglycemia Protocol Stop: 05/06/25 06:13 Hydrochlorothiazide (Hydrochlorothiazide 25 Mg Tab) 12.5 mg PO QAM [facility] Stop: 05/06/25 08:59 Last Admin: 04/06/25 08:09 Dose: 12.5 mg Hydromorphone HCl (Hydromorphone Inj 0.5 Mg/0.5 Ml Syr) 0.25 mg IV Q4H PRN PRN Reason: Moderate Pain (Scale 4, 5, 6) Stop: 04/20/25 06:13 Hydromorphone HCl (Hydromorphone Inj 0.5 Mg/0.5 Ml Syr) 0.5 mg IV Q4H PRN PRN Reason: Severe Pain (Scale 7, 8, 9,10) Stop: 04/20/25 06:13 Heparin Sodium/Dextrose (Heparin 87125 Unit/500 Ml D5w) 25,000 units in 500 mls @ 32 mls/hr IV .[id number] [facility]; Protocol Stop: 05/06/25 06:13 Last Admin: 04/06/25 07:37 Dose: 1,600 units/hr, 32 mls/hr Sodium Chloride (Nss) 1,000 mls @ 100 mls/hr IV .Q10H [facility] Stop: 04/07/25 02:13 Last Admin: 04/06/25 06:51 Dose: 100 mls/hr Pantoprazole Sodium (Protonix) 40 mg in 10 mls @ 5 mls/min IV BID [facility] Stop: 05/06/25 08:59 Last Admin: 04/06/25 08:08 Dose: 5 mls/min Insulin Aspart (Insulin Aspart Per Unit Charge) 0 units SC Q6 [facility] Stop: 05/06/25 07:29 Last Admin: 04/06/25 08:09 Dose: 8 units Losartan Potassium (Losartan Potassium 50 Mg Tab) 100 mg PO QPM [facility] Stop: 05/06/25 20:59 Metoprolol Succinate (Metoprolol Succ 50mg Ext Rel Tab) 50 mg PO AMHS [facility] Stop: 05/06/25 08:59 Last Admin: 04/06/25 08:08 Dose: 50 mg Metoprolol Tartrate (Metoprolol Tartrate 1 Mg/Ml Vial) 5 mg IV Q6 PRN PRN Reason: Tachycardia Stop: 05/06/25 06:13 Miscellaneous (Carbohydrates For Hypoglycemia ) 15 - 30 gm PO UD PRN PRN Reason: Hypoglycemia Protocol Stop: 05/06/25 06:13 Miscellaneous (Remove Nicoderm Patch) 1 each N/A DAILY@0859 [facility] Stop: 05/06/25 08:58 Miscellaneous Information (Pharmacy Glycemic Mgmt Consult) 1 each N/A UD PRN PRN Reason: Consult Stop: 05/06/25 06:13 Nicotine (Nicotine 14 Mg/24 Hr Patch) 1 patch TD QAM [facility] Stop: 05/06/25 08:59 Last Admin: 04/06/25 08:14 Dose: 1 patch Nitroglycerin (Nitroglycerin Sl 0.4 Mg/Tab Tab) 0.4 mg SL Q5M PRN PRN Reason: Chest Pain Stop: 05/06/25 06:13 Ondansetron HCl (Ondansetron Inj 2 Mg/Ml 2 Ml Vial) 4 mg IV Q6H PRN PRN Reason: Nausea Stop: 05/06/25 06:13 PG Care Time/CCT Total # of Minutes Spent Total Time Spent with Patient: Total time spent is greater than 50% in coordination of care (as documented) at patient's floor/unit and/or counseling patient: 60 minutes Coding Level of Care Code 34503 OFFICE CONSULT LVL M Diagnoses Rapid atrial fibrillation I48.91 Generalized abdominal pain R10.84 Abdominal location: generalized Elevated troponin I level R74.8 Acute hyperglycemia R73.9 (2) Abdominal pain Abdominal location: generalized Qualified Code(s): R10.84 - Generalized abdominal pain
[2025-04-06] MEDS: REMOVE NICODERM PATCH SCH (09:29)
[2025-04-06] MEDS: LANTUS PER UNIT CHARGE SC ONE (09:36)
[2025-04-06] MEDS: MAGNESIUM SULFATE / D5W 1 GM/100 ML BAG IV SCH (09:59)
[2025-04-06] MEDS: METOPROLOL SUCC 25MG EXT REL TAB PO ONE (09:59)
--- NOTE | 2025-04-06 10:42 | Pharmacy Report ---
Pharmacy Glycemic Short Note 2 - Date of Service April 06, 2025 - Glycemic Short BSG Results (Last 24 hours): 04/06/25 04/06/25 04/06/25 01:04 01:07 06:30 Glucose 341 H* POC Glucose 293 H POC Glucose (other) 336 H 04/06/25 06:54 Glucose 302 H* POC Glucose POC Glucose (other) OUTPATIENT ANTIDIABETIC REGIMEN: * metformin 1 gm bid ASSESSMENT: * 54 year old admitted with afib/abdominal pain. NPO this AM - pending GI workup. Started on heparin drip. BSGs>300 this AM - will start novolog SSI for now and 0.2 units/kg (adj bw) Lantus - 15 units x 1. A1c ordered for tomorrow AM. If diet started, may consider additional Lantus this evening. PLAN FOR INPATIENT GLYCEMIC CONTROL: * Hold outpatient oral diabetes medications * Basal insulin * Lantus 15 units x 1 * Bolus insulin * NovoLog per scale ACHS or Q6hrs while NPO * Goal Range: Low 110 mg/dL - High 140 mg/dL * Correction Factor: 20 mg/dL/unit * Nutritional / Prandial insulin per carb ratio of 1 unit per 8 grams CHO consumed
[2025-04-06] MEDS: METOPROLOL TARTRATE 1 MG/ML VIAL IV PRN (12:02)
--- NOTE | 2025-04-06 12:34 | Hospitalist Progress Note ---
Date of Service April 06, 2025 Assessment & Plan (1) Rapid atrial fibrillation: Plan: 54-year-old male with past medical history significant for hypertension, depression, ongoing tobacco use, history of atrial fibrillation, history of kidney stones comes because of abdominal pain and also in the ER found to be in rapid A-fib. Patient says since last Saturday is having abdominal pain mostly in the right upper side. Associated with nausea. Tonight he had episode of vomiting.. He was also sweating, feeling hot and cold which made him come to the hospital. In the ER he went into rapid A-fib. received IV Lopressor and Currently started on Cardizem drip. Denies any chest pain. Yesterday was feeling short of breath but currently no shortness of breath. No headache. No runny nose or sore throat. Since last 1 week he is having cough. In May 2024 was admitted for new onset rapid A-fib and left ureteral stone. He was discharged on metoprolol succinate and Eliquis. Patient says he no longer taking Eliquis and didn't followed up with cardiology. Rapid atrial fibrillation ER gave IV Lopressor and started on Cardizem drip Will place him on IV Lopressor prn. 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 N.p.o., IV fluids, pain control, IV antiemetics as needed Abdominal distention and pain is persisting History of appendix surgery in the past may be the triggering factor for panniculitis The cause of mesenteric panniculitis remains unknown for now and will observe Awaiting GI evaluation Hyperglycemia Diabetes Hold metformin Continue sliding scale Appreciate glycemic pharmacy consult Blood sugar remains elevated Hemoglobin A1c will be checked tomorrow morning Obstructive sleep apnea CPAP nightly Hypertension On hydrochlorothiazide, amlodipine, losartan and metoprolol succinate Blood pressure remains stable DVT prophylaxis IV heparin Disposition Telemetry Full code. Admission and Anticipated Discharge Date Admission Date: April 06, 2025 Subjective 04/06/2025 The patient was seen and examined in telemetry unit He has been complaining of abdominal distention and pain with nausea but no vomiting Denies any palpitation or chest pain Denies any shortness of breath Review of Systems Review of Systems: All systems reviewed and are unremarkable except as noted below Physical Exam Physical Exam: Lying in bed with distress due to abdominal distention and discomfort/pain Constitutional: well developed, well nourished, + ill appearing and + obese Eyes: PERRL, conjunctivae normal, anicteric sclerae ENMT: external ear and nose normal, oropharynx normal Neck: trachea midline, no thyromegaly Respiratory: no respiratory distress Auscultation: lungs clear to auscultation bilaterally Cardiovascular: Rate/Rhythm: + tachycardic and + irregularly irregular Heart Sounds: normal S1 and normal S2; no murmur Extremities: + edema (Trace edema bilaterally) Gastrointestinal (Abdomen): Inspection/Auscultation: + abdomen distended and normal bowel sounds (Decreased) Percussion/Palpation: + abdomen tender (Mildly tender all over and more on the right upper quadrant) and abdomen soft Musculoskeletal: No acute arthritis involving any of the joint Neurologic: normal touch/pain/proprioception and moves all extremities; no focal motor deficits Lymphatic: no cervical or axillary lymphadenopathy Results & Data Results & Data Vital Signs (Past 12 Hours) Vital Signs Temp Pulse Pulse Resp BP BP Pulse Ox 04/06/25 12:02 132 H 131/85 04/06/25 11:17 36.4 C L 79 18 154/107 H 96 04/06/25 09:00 122 H 04/06/25 09:00 04/06/25 08:02 100 H 16 94 04/06/25 07:54 36.3 C L 64 18 132/96 94 04/06/25 06:10 36.7 C 119 H 16 124/85 91 04/06/25 05:53 116 H 18 127/89 97 04/06/25 05:03 115 H 04/06/25 05:00 134 H 16 129/89 95 04/06/25 03:13 134 H 118/85 04/06/25 03:00 135 H 18 118/85 95 04/06/25 02:42 128 H 22 91 04/06/25 02:36 140 H 27 H 97 04/06/25 02:24 131 H 26 H 96 04/06/25 02:20 110/77 04/06/25 02:20 110/77 04/06/25 02:12 121 H 95 04/06/25 02:00 149 H 94 04/06/25 02:00 129/88 04/06/25 02:00 129/88 04/06/25 01:57 143 H 136/100 04/06/25 01:47 136/100 04/06/25 01:47 136/100 04/06/25 01:25 133 H 24 121/98 94 04/06/25 01:16 121/98 04/06/25 01:11 166 H 04/06/25 00:54 166 H 25 H 94 04/06/25 00:29 36.8 C 72 18 144/101 H 98 O2 Del Method 04/06/25 12:02 04/06/25 11:17 Room Air 04/06/25 09:00 04/06/25 09:00 Room Air, CPAP 04/06/25 08:02 04/06/25 07:54 Room Air 04/06/25 06:10 Room Air 04/06/25 05:53 Room Air 04/06/25 05:03 04/06/25 05:00 Room Air 04/06/25 03:13 04/06/25 03:00 Room Air 04/06/25 02:42 04/06/25 02:36 04/06/25 02:24 04/06/25 02:20 04/06/25 02:20 04/06/25 02:12 04/06/25 02:00 04/06/25 02:00 04/06/25 02:00 04/06/25 01:57 04/06/25 01:47 04/06/25 01:47 04/06/25 01:25 Room Air 04/06/25 01:16 04/06/25 01:11 04/06/25 00:54 04/06/25 00:29 Room Air Laboratory Results Short CBC 04/06/25 04/06/25 Range/Units 01:04 06:54 WBC 9.98 9.58 (4.8-10.8) K/ul Hgb 15.2 15.5 (14.0-18.0) g/dl Hct 42.7 41.5 L (42.0-52.0) % Plt Count 296 275 (130-400) K/uL BMP 04/06/25 04/06/25 01:04 06:54 Sodium 133 L 133 L Potassium 3.4 L 3.4 L Chloride 98 100 Carbon Dioxide 25 24 BUN 16 16 Creatinine 0.83 0.68 Glucose 341 H* 302 H* Calcium 9.0 8.7 Liver Function 04/06/25 Range/Units 01:04 Total Bilirubin 1.2 H (0.2-1.0) mg/dl AST 23 (13-39) U/L ALT 43 (7-52) U/L Alkaline Phosphatase 52 (34-104) U/L Albumin 3.7 (3.4-5.0) gm/dl She was already established with her Medications Administered Current Inpatient Medications Acetaminophen (Acetaminophen 325 Mg Tab) 650 mg PO Q4H PRN PRN Reason: Pain or Fever Stop: 05/06/25 06:13 Amlodipine Besylate (Amlodipine Besylate 5 Mg Tab) 5 mg PO [facility] Stop: 05/06/25 08:59 Last Admin: 04/06/25 08:08 Dose: 5 mg Benzonatate (Benzonatate 100 Mg Capsule) 200 mg PO TID PRN PRN Reason: Cough Stop: 05/06/25 06:13 Dextrose (Dextrose 50% 50 Ml Syringe) 25 - 50 ml IV UD PRN; Protocol PRN Reason: Hypoglycemia Protocol Stop: 05/06/25 06:13 Glucagon (Glucagon For Inj 1 Mg Vial) 1 mg SQ UD PRN; Protocol PRN Reason: Hypoglycemia Protocol Stop: 05/06/25 06:13 Glucose (Glucose 40% Gel 15 Gm Tube) 15 - 30 gm PO UD PRN; Protocol PRN Reason: Hypoglycemia Protocol Stop: 05/06/25 06:13 Glucose (Glucose 10 Tab/Tube) 4 - 8 tab PO UD PRN; Protocol PRN Reason: Hypoglycemia Protocol Stop: 05/06/25 06:13 Hydrochlorothiazide (Hydrochlorothiazide 25 Mg Tab) 12.5 mg PO [facility] Stop: 05/06/25 08:59 Last Admin: 04/06/25 08:09 Dose: 12.5 mg Hydromorphone HCl (Hydromorphone Inj 0.5 Mg/0.5 Ml Syr) 0.25 mg IV Q4H PRN PRN Reason: Moderate Pain (Scale 4, 5, 6) Stop: 04/20/25 06:13 Hydromorphone HCl (Hydromorphone Inj 0.5 Mg/0.5 Ml Syr) 0.5 mg IV Q4H PRN PRN Reason: Severe Pain (Scale 7, 8, 9,10) Stop: 04/20/25 06:13 Heparin Sodium/Dextrose (Heparin 97883 Unit/500 Ml D5w) 25,000 units in 500 mls @ 32 mls/hr IV .[id number] [facility]; Protocol Stop: 05/06/25 06:13 Last Admin: 04/06/25 07:37 Dose: 1,600 units/hr, 32 mls/hr Sodium Chloride (Nss) 1,000 mls @ 100 mls/hr IV .Q10H [facility] Stop: 04/07/25 02:13 Last Admin: 04/06/25 06:51 Dose: 100 mls/hr Pantoprazole Sodium (Protonix) 40 mg in 10 mls @ 5 mls/min IV BID [facility] Stop: 05/06/25 08:59 Last Admin: 04/06/25 08:08 Dose: 5 mls/min Magnesium Sulfate/Dextrose (Magnesium Sulfate / D5w) 1 gm in 100 mls @ 50 mls/hr IV Q2H [facility] Stop: 04/06/25 13:44 Last Admin: 04/06/25 12:00 Dose: 50 mls/hr Insulin Aspart (Insulin Aspart Per Unit Charge) 0 units SC Q6 [facility] Stop: 05/06/25 07:29 Last Admin: 04/06/25 08:09 Dose: 8 units Insulin Glargine (Lantus Per Unit Charge) 0 units SC HS [facility]; Protocol Stop: 05/06/25 20:59 Losartan Potassium (Losartan Potassium 50 Mg Tab) 100 mg PO QPM [facility] Stop: 05/06/25 20:59 Metoprolol Succinate (Metoprolol Succ 25mg Ext Rel Tab) 75 mg PO AMHS [facility] Stop: 05/06/25 20:59 Metoprolol Tartrate (Metoprolol Tartrate 1 Mg/Ml Vial) 5 mg IV Q6 PRN PRN Reason: Tachycardia Stop: 05/06/25 06:13 Last Admin: 04/06/25 12:02 Dose: 5 mg Miscellaneous (Carbohydrates For Hypoglycemia ) 15 - 30 gm PO UD PRN PRN Reason: Hypoglycemia Protocol Stop: 05/06/25 06:13 Miscellaneous (Remove Nicoderm Patch) 1 each N/A DAILY@0859 [facility] Stop: 05/06/25 08:58 Last Admin: 04/06/25 09:29 Dose: Not Given Miscellaneous Information (Pharmacy Glycemic Mgmt Consult) 1 each N/A UD PRN PRN Reason: Consult Stop: 05/06/25 06:13 Nicotine (Nicotine 14 Mg/24 Hr Patch) [facility] [place]: 05/06/25 08:59 Last Admin: 04/06/25 08:14 Dose: 1 patch Nitroglycerin (Nitroglycerin Sl 0.4 Mg/Tab Tab) 0.4 mg SL Q5M PRN PRN Reason: Chest Pain Stop: 05/06/25 06:13 Ondansetron HCl (Ondansetron Inj 2 Mg/Ml 2 Ml Vial) 4 mg IV Q6H PRN PRN Reason: Nausea Stop: 05/06/25 06:13
--- NOTE | 2025-04-06 14:54 | Gastrointestinal Consultation ---
Date of Consultation April 06, 2025 Assessment & Plan (1) Abdominal pain: -Continue Pantoprazole -Will try corticosteroids for possible mesenteric panniculitis and monitor response -Further recommendations to be forthcoming Supervising Physician Co-Signing Physician Notes Patient with rapid atrial fibrillation also having abdominal pain. Eating food when evaluated. Does not appear in any acute or severe distress though c ontinues to note midepigastric abdominal pain. Imaging suggested possible mesenteric panniculitis. This was with IV contrast. No suggestion for mesenteric vein thrombosis. He is on IV heparin at present for his atrial fibrillation. Will give him some prednisone. I will review further with radiology tomorrow the diagnosis of mesenteric panniculitis and look for findings to suggest an alternative diagnosis the differential diagnosis of mesenteric panniculitis can include vascular issues, lymphoma carcinoids melanoma tuberculosis Crohn's disease. Other than the vascular issues this would appear less likely due to the sudden onset of action. May consider repeat CT scan tomorrow if symptoms persist or not improving History of Present Illness Reason for Consultation: abd pain, mesenteric panniculitis Attending Physician: Andi Irizarry MD History of Present Illness Patient is a 54 yo male with PMH of HTN, depression, ongoing tobacco use, A fib, & kidney stones who presented to the ED due to sweating and chills. He notes he had an upper respiratory infection earlier in the week and was coughing a lot. He thought he pulled a muscle in his abdomen because it hurt. He developed n/v before coming to the hospital. He was noted in the ED to have an elevated troponin. He was in rapid afib. He received IV Lopressor and was started on a Cardizem drip. A CT scan was performed and findings were as follows: IMPRESSION: 1. Mesenteric fat stranding is seen in the right upper quadrant, around the duodenum, along the right paraaortic area, continuing to the aortic bifurcation; new onset, likely mesenteric panniculitis. 2. Stable right renal calculus. 3. Stable fatty hepatomegaly and splenomegaly. 4. Minimal right pleural effusion; new onset. Allergies Allergy/AdvReac Type Severity Reaction Status Date / Time No Known Allergies Allergy Unverified 04/06/25 00:58 Home Medications Medication Instructions Recorded Confirmed Type losartan 100 mg tablet 100 mg PO QPM 05/25/24 04/06/25 History metformin 1,000 mg tablet 1,000 mg PO BID 05/25/24 04/06/25 History amlodipine 5 mg tablet 5 mg PO QAM 04/06/25 04/06/25 History benzonatate 200 mg capsule 200 mg PO TID PRN Cough 04/06/25 04/06/25 History hydrochlorothiazide 12.5 mg tablet 12.5 mg PO QAM 04/06/25 04/06/25 History metoprolol succinate 50 mg 50 mg PO AMHS 04/06/25 04/06/25 History tablet,extended release 24 hr sildenafil 100 mg tablet 100 mg PO DAILY PRN Erectile 04/06/25 04/06/25 History Dysfunction Patient History Medical History Coronary atherosclerosis of [place] coronary artery Atrial fibrillation with rapid ventricular response CHF (congestive heart failure) Mood disorder Depression Left ureteral stone Hypertension Surgical History History of cholecystectomy Social History Smoking Status: Current every day smoker Tobacco Type: Cigarettes Cigarettes Per Day: 1/2 pack day; Second Hand Exposure: No; Do You Dip or Chew Tobacco: No; Hx Alcohol Use: Yes Alcohol type: beer and hard liquor Hx Substance Use: Yes Preferred Language: [place]ian Communication Ability: Effective Academic Computing Director Required: No Beliefs That Will Affect Care: None Current Living Situation: Alone Current Living Situation Comment: lives at home alone Feels Safe at Home: Yes Safety Concerns: Feels Safe At This Time Assistive Devices: CPAP Review of Systems Constitutional: + chills Respiratory: no cough and no dyspnea Gastrointestinal: + abdominal pain Physical Exam Constitutional: well developed Respiratory: normal respiratory effort Gastrointestinal (Abdomen): Inspection/Auscultation: abdomen normal to inspection Percussion/Palpation: + abdomen tender and abdomen soft Psychiatric: Orientation: alert and oriented x 3 Results & Data Vital Signs (Past 12 Hours) Vital Signs Temp Pulse Pulse Resp BP BP Pulse Ox 04/06/25 12:02 132 H 131/85 04/06/25 11:17 36.4 C L 79 18 154/107 H 96 04/06/25 09:00 122 H 04/06/25 09:00 04/06/25 08:02 100 H 16 94 04/06/25 07:54 36.3 C L 64 18 132/96 94 04/06/25 06:10 36.7 C 119 H 16 124/85 91 04/06/25 05:53 116 H 18 127/89 97 04/06/25 05:03 115 H 04/06/25 05:00 134 H 16 129/89 95 04/06/25 03:13 134 H 118/85 04/06/25 03:00 135 H 18 118/85 95 O2 Del Method 04/06/25 12:02 04/06/25 11:17 Room Air 04/06/25 09:00 04/06/25 09:00 Room Air, CPAP 04/06/25 08:02 04/06/25 07:54 Room Air 04/06/25 06:10 Room Air 04/06/25 05:53 Room Air 04/06/25 05:03 04/06/25 05:00 Room Air 04/06/25 03:13 04/06/25 03:00 Room Air PG Care Time/CCT Total # of Minutes Spent Total Time Spent with Patient: Total time spent is greater than 50% in coordination of care (as documented) at patient's floor/unit and/or counseling patient: Coding Level of Care Code 26872 IN/OBS CONSULT LVL 4,60M Diagnoses Generalized abdominal pain R10.84 Abdominal location: generalized (1) Abdominal pain Abdominal location: generalized Qualified Code(s): R10.84 - Generalized abdominal pain
[2025-04-06 15:18] LABS: ANTI-Xa, UFH(UnfractionatedHep 0.10 IU/ml (0.3-0.7)
[2025-04-06] MEDS: HEPARIN SOD (PORCINE) 1000 UNIT/ML IV STA (17:14)
--- NOTE | 2025-04-06 18:20 | Electrocardiogram Report ---
Test Reason : Blood Pressure : */* mmHG Vent. Rate : 168 BPM Atrial Rate : * BPM P-R Int : * ms QRS Dur : 110 ms QT Int : 290 ms P-R-T Axes : * 103 -26 degrees QTcB Int : 484 ms Atrial fibrillation with rapid ventricular response Rightward axis Low voltage QRS Abnormal ECG When compared with ECG of 05-Jun-2024 14:18, Atrial fibrillation has replaced Sinus rhythm Vent. rate has increased by 101 bpm QRS axis Shifted right Confirmed by Jagdish Coley ([id number]) on 04/06/2025 6:19:56 PM Referred By: REFERRED SELF Confirmed By: Jagdish Coley
[2025-04-06] MEDS: LOSARTAN POTASSIUM 50 MG TAB PO SCH (21:04)
[2025-04-06] MEDS: METOPROLOL SUCC 25MG EXT REL TAB PO SCH (21:04)
[2025-04-06] MEDS: LANTUS PER UNIT CHARGE SC SCH (21:16)
[2025-04-06] MEDS: DIGOXIN 125 MCG in SYRINGE 9.5 ML IV STA (23:31)
[2025-04-06 23:55] LABS: Magnesium 2.1 mg/dl (1.7-2.4); Potassium 3.9 mmol/L (3.5-5.1)
[2025-04-07 00:03] LABS: ANTI-Xa, UFH(UnfractionatedHep 0.23 IU/ml (0.3-0.7)
[2025-04-07] MEDS: DIGOXIN 250 MCG in SYRINGE 9 ML IV STA (00:20)
[2025-04-07] MEDS: DIGOXIN 125 MCG in SYRINGE 9.5 ML IV STA (01:39)
[2025-04-07] MEDS: HYDROmorphone INJ 0.5 MG/0.5 ML SYR IV PRN (06:20)
[2025-04-07] MEDS: BENZONATATE 100 MG CAPSULE PO PRN (06:20)
[2025-04-07 07:10] LABS: Hematocrit (blood only) 43.0 % (42.0-52.0); Hemoglobin 15.4 g/dl (14.0-18.0); Immature Granulocytes # (auto) 0.08 K/uL (0.01-0.20); Immature Granulocytes % (auto) 0.6 %; Mean Corpuscular Hemoglobin 30.7 pg (25.0-34.0); Mean Corpuscular Volume 85.7 fL (80.0-100.0); Platelet Count 279 K/uL (130-400); RDW Standard Deviation 39.0 fL (36.4-46.3); Red Blood Count 5.02 M/uL (4.70-6.10); White Blood Count 12.43 K/ul (4.8-10.8)
[2025-04-07 07:25] LABS: Alanine Aminotransferase 45.0 U/L (7-52); Albumin Globulin Ratio 1.4 (0.9-2); Albumin Level 3.9 gm/dl (3.4-5.0); Alkaline Phosphatase 56.0 U/L (34-104); Anion Gap 8.0 (3-11); Bilirubin,Total 0.8 mg/dl (0.2-1.0); Blood Urea Nitrogen 18.0 mg/dl (6-23); Calcium 9.0 mg/dl (8.6-10.3); Carbon Dioxide 23.0 mmol/L (21-32); Chloride 102.0 mmol/L (98-107); Cholesterol 162.0 mg/dl (0-200); Creatinine Clr Calc Pharmacy 138.9 ml/min; Globulin 2.7 gm/dl (2.5-4.0); Glucose 310.0 mg/dl (70-99(Fasting)); HDL Cholesterol 44.0 mg/dl; Magnesium 2.1 mg/dl (1.7-2.4); Potassium 4.2 mmol/L (3.5-5.1); Sodium 133.0 mmol/L (136-145); Total Protein 6.6 gm/dl (6.0-8.3); Triglycerides 111.0 mg/dl (0-150)
[2025-04-07 07:27] LABS: ANTI-Xa, UFH(UnfractionatedHep 0.22 IU/ml (0.3-0.7)
--- NOTE | 2025-04-07 07:33 | Pharmacy Report ---
Pharmacy Glycemic Short Note 2 - Date of Service April 07, 2025 - Glycemic Short BSG Results (Last 24 hours): 04/06/25 04/06/25 04/06/25 06:54 11:59 16:00 Glucose 302 H* POC Glucose 240 H 187 H 04/06/25 04/06/25 04/07/25 20:20 20:22 00:25 Glucose POC Glucose 367 H* 333 H* 388 H* 04/07/25 04/07/25 06:13 06:38 Glucose 310 H* POC Glucose 349 H* OUTPATIENT ANTIDIABETIC REGIMEN: * metformin 1 gm bid ASSESSMENT: 04/07 * Patient received total of 67 units of insulin yesterday, of which 25 units were basal insulin. BSGs trending up last evening, however was ordered a one time dose of solumedrol last evening. Continues NPO status this AM, will give Lantus 25 units x 1 now and tighten novolog scale 04/06 * 54 year old admitted with afib/abdominal pain. NPO this AM - pending GI workup. Started on heparin drip. BSGs>300 this AM - will start novolog SSI for now and 0.2 units/kg (adj bw) Lantus - 15 units x 1. A1c ordered for tomorrow AM. If diet started, may consider additional Lantus this evening. PLAN FOR INPATIENT GLYCEMIC CONTROL: * Hold outpatient oral diabetes medications * Basal insulin * Lantus 25 units x 1 now * Bolus insulin * NovoLog per scale ACHS or Q6hrs while NPO * Goal Range: Low 110 mg/dL - High 140 mg/dL * Correction Factor: 12 mg/dL/unit * Nutritional / Prandial insulin per carb ratio of 1 unit per 5 grams CHO consumed
[2025-04-07 08:37] LABS: Hemoglobin A1C 10.2 % (4.5-5.6)
[2025-04-07] MEDS: LANTUS PER UNIT CHARGE SC ONE (08:42)
--- NOTE | 2025-04-07 10:38 | Cardiology Progress Note ---
Date of Service April 07, 2025 Assessment & Plan (1) Rapid atrial fibrillation: (2) Abdominal pain: (3) Elevated troponin I level: (4) Acute hyperglycemia: (5) Moderate left ventricular systolic dysfunction (LVSD): (6) Tachycardia induced cardiomyopathy: Plan Patient is a 54 year old male who was admitted for acute abdominal pain, starting yesterday with associated nausea and vomting. 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 Also found to have recurrent afib RVR in the 160's on admission. Afib RVR -Duration unknown but given moderate LV dysfunciton and moderately dilated LA, likely present for several weeks/months. -initially started on IV diltiazem with mildly improved rates -Metoprolol succinate increased to 75 mg BID -Continue IV heparin for anticoagulation/stroke prophylaxis, will then transition to oral anticoagulation with Eliquis 5 mg BID -Once abdominal pain/GI status has improved - will consider KATERYNA/CV, possible / -Supplement magnesium and potassium - improved this morning Mildly elevated troponin in setting afib RVR -73 on admission - Peaked at 79 and then 61 this morning -Type II demand ischemia secondary to afib and acute GI illness. -EKG on admission without ischemic changes -No chest pain/SOB reported -Echo with global hypokinesis - LVEF 35-40%, likely tachyinduced cardiomyopathy -continue IV heparin and beta jaime -add statin given DM and cardiac risk factors - LDL goal is < 70. atorvastatin 20 mg daily added Likely Tachy induced cardiomyopathy with LV systolic dysfunction -EF 35% with global hypokinesis -Continue GDMT - losartan and metoprolol succinate -would benefit from KATERYNA/CV prior to discharge - keep NPO at midnight. -May benefit from outpatient nuclear stress test as well Hypertension -Continue home dose amlodipine, losartan, and hctz -Metoprolol added at 75 mg BID Mesenteric Panniculitis and ongoing abdominal pain. -GI consulted -Corticosteroids added. SOLO - continue CPAP Case discussed with Dr. Brady Caballero spent a total of 40 minutes on the date of service in preparation, delivery, and documentation of the care provided to this patient, excluding any time spent in the performance of separately billed services. Mel Curtis PA-C Department of Cardiology, [facility] This chart was completed in part utilizing Speech Voice Recognition Software. Grammatical errors, random word insertions, pronoun errors, and incomplete sentences are an occasional consequence of this system due to software limitations, ambient noise, and hardware issues. Any formal questions or concerns about the content, text, or information contained within the body of this dictation should be directly addressed to the provider for clarification. Admission and Anticipated Discharge Date Admission Date: April 06, 2025 Supervising Physician Co-Signing Physician Notes Patient was seen and personally examined. Full assessment and plan as outlined by advanced provider. Care management discussed and personally endorsed 54-year-old male presenting with abdominal pain and discomfort. Found to be in atrial fibrillation with rapid response. Heart rates variable since admission with increased beta-jaime therapy. Echocardiogram as noted demonstrates reduced ejection fraction global fashion. Findings did not suggest acute coronary syndrome but suspicious for tachycardia mediated cardiomyopathy. Plan tentative KATERYNA guided cardioversion in a.m., n.p.o. after midnight Subjective Patient resting in bed, feeling slightly better. Still having abdominal pain but not as severe as yesterday. No nausea or vomiting. No chest pain or SOB. Palpitations also improved. He remains in atrial fibrillation with variable rates. Review of Systems Review of Systems: All systems reviewed & are unremarkable except as noted in HPI & below Physical Exam Constitutional: WD/WN, vitals as above + obese; no acute distress Neck: trachea midline, no thyromegaly + thick neck Respiratory: normal respiratory effort, lungs clear to auscultation Cardiovascular: Rate/Rhythm: + tachycardic and + irregularly irregular Heart Sounds: no murmur Vessels: no JVD Extremities: + edema (trace b/l edema) Gastrointestinal (Abdomen): Inspection/Auscultation: + abdomen distended and normal bowel sounds Percussion/Palpation: + abdomen tender (epigastric region) and abdomen soft Neurologic: PERRL, EOMI, accommodation nl, no face palsy, no dysarthria Results & Data Vital Signs (Past 12 Hours) Vital Signs Temp Pulse Pulse Resp BP BP Pulse Ox 04/07/25 09:26 04/07/25 09:25 131 H 04/07/25 06:56 36.7 C 105 H 18 121/86 94 04/07/25 03:30 120 H 133/88 04/07/25 03:15 99 H 22 94 04/07/25 02:48 36.5 C 122 H 22 122/81 96 04/07/25 02:43 130 H 122/81 10/01/25 01:39 132 H 04/06/25 23:47 150 H 04/06/25 23:31 135 H 04/06/25 23:08 36.4 C L 85 20 146/110 H 96 O2 Del Method 04/07/25 09:26 Room Air 04/07/25 09:25 04/07/25 06:56 Room Air 04/07/25 03:30 04/07/25 03:15 04/07/25 02:48 BiPAP 04/07/25 02:43 04/07/25 01:39 04/06/25 23:47 04/06/25 23:31 04/06/25 23:08 BiPAP Laboratory Results Cardiac Enzymes 04/06/25 04/06/25 04/07/25 Range/Units 13:58 19:32 06:38 AST 22 (13-39) U/L Troponin I High Sens 63.0 H* 40.2 H D (0-20) pg/ml Lipids 04/07/25 Range/Units 06:38 Triglycerides 111 (0-150) mg/dl Cholesterol 162 (0-200) mg/dl HDL Cholesterol 44 mg/dl Cholesterol/HDL Ratio 3.7 (0-5) CBC 04/07/25 04/07/25 04/07/25 Range/Units 06:38 06:38 06:38 WBC Cancelled 12.43 H RBC Cancelled 5.02 Hgb Cancelled Hct Plt Count Neut # (Auto) Lymph # (Auto) Grayson # (Auto) Eos # (Auto) Baso # (Auto) 04/07/25 04/07/25 04/07/25 Range/Units 06:38 06:38 06:38 WBC RBC Hgb 15.4 Hct Cancelled 43.0 Plt Count Cancelled 279 Neut # (Auto) Cancelled Lymph # (Auto) Grayson # (Auto) Eos # (Auto) Baso # (Auto) 04/07/25 04/07/25 04/07/25 Range/Units 06:38 06:38 06:38 WBC RBC Hgb Hct Plt Count Neut # (Auto) 10.74 H Lymph # (Auto) Cancelled 1.04 L Grayson # (Auto) Cancelled 0.53 Eos # (Auto) Cancelled Baso # (Auto) 04/07/25 04/07/25 Range/Units 06:38 06:38 WBC RBC Hgb Hct Plt Count Neut # (Auto) Lymph # (Auto) Grayson # (Auto) Eos # (Auto) 0.02 Baso # (Auto) Cancelled 0.02 Comprehensive Metabolic Panel 04/06/25 04/07/25 Range/Units 22:52 06:38 Sodium 133 L (136-145) mmol/L Potassium 3.9 4.2 (3.5-5.1) mmol/L Chloride 102 (98-107) mmol/L Carbon Dioxide 23 (21-32) mmol/L BUN 18 (6-23) mg/dl Creatinine 0.79 (0.6-1.4) mg/dl Glucose 310 H* (70-99(Fasting)) mg/dl Calcium 9.0 (8.6-10.3) mg/dl AST 22 (13-39) U/L ALT 45 (7-52) U/L Alkaline Phosphatase 56 (34-104) U/L Total Protein 6.6 (6.0-8.3) gm/dl Albumin 3.9 (3.4-5.0) gm/dl Intake and Output 04/06/25 04/07/25 04/07/25 22:59 06:59 14:59 Intake Total 1590.0 / 2845.467 1028.8 / 2845.467 276.767 / 276.767 Balance 1590.0 / 2845.467 1028.8 / 2845.467 276.767 / 276.767 Intake: IV 1590.0 / 2345.467 528.8 / 2345.467 276.767 / 276.767 Heparin 81373 Unit/500 ml D5w 500.0 / 528.8 28.8 / 528.8 276.767 / 276.767 25,000 units In 500 ml @ 1,900 UNITS/HR 38 mls/hr IV .[id number] JADEN Rx#:[id number] Magnesium Sulfate / D5w 1 gm In 100 / 200 100 ml @ 50 mls/hr IV Q2H JADEN Rx#:[id number] Sodium Chloride 0.9% 1,000 ml @ 990 / 1490 500 / 1490 100 mls/hr IV .Q10H JADEN Rx#: [id number] Oral 0 / 500 500 / 500 Other: Other Intake Source Patient is NPO Weight 121.8 kg Weight Measurement Method Built in [facility] Diagnostic Findings Telemetry reviewed: Persistent afib with variable rates ranging 90's overnight and now 110-120 while awake EKG reviewed from this morning: Afib with RVR at 130 bmp Non specific T wave abnormality Echo completed yesterday: Mild to moderate global hypokinesis with LVEF 35-40% Mild LVH LA is moderately dilated Moderate MR Medications Administered Current Inpatient Medications Acetaminophen (Acetaminophen 325 Mg Tab) 650 mg PO Q4H PRN PRN Reason: Pain or Fever Stop: 05/06/25 06:13 Amlodipine Besylate (Amlodipine Besylate 5 Mg Tab) 5 mg PO QAM JADEN Stop: 05/06/25 08:59 Last Admin: 04/07/25 08:43 Dose: 5 mg Benzonatate (Benzonatate 100 Mg Capsule) 200 mg PO TID PRN PRN Reason: Cough Stop: 05/06/25 06:13 Last Admin: 04/07/25 06:20 Dose: 200 mg Dextrose (Dextrose 50% 50 Ml Syringe) 25 - 50 ml IV UD PRN; Protocol PRN Reason: Hypoglycemia Protocol Stop: 05/06/25 06:13 Glucagon (Glucagon For Inj 1 Mg Vial) 1 mg SQ UD PRN; Protocol PRN Reason: Hypoglycemia Protocol Stop: 05/06/25 06:13 Glucose (Glucose 40% Gel 15 Gm Tube) 15 - 30 gm PO UD PRN; Protocol PRN Reason: Hypoglycemia Protocol Stop: 05/06/25 06:13 Glucose (Glucose 10 Tab/Tube) 4 - 8 tab PO UD PRN; Protocol PRN Reason: Hypoglycemia Protocol Stop: 05/06/25 06:13 Hydrochlorothiazide (Hydrochlorothiazide 25 Mg Tab) 12.5 mg PO QAM JADEN Stop: 05/06/25 08:59 Last Admin: 04/07/25 08:43 Dose: 12.5 mg Hydromorphone HCl (Hydromorphone Inj 0.5 Mg/0.5 Ml Syr) 0.25 mg IV Q4H PRN PRN Reason: Moderate Pain (Scale 4, 5, 6) Stop: 04/20/25 06:13 Hydromorphone HCl (Hydromorphone Inj 0.5 Mg/0.5 Ml Syr) 0.5 mg IV Q4H PRN PRN Reason: Severe Pain (Scale 7, 8, 9,10) Stop: 04/20/25 06:13 Last Admin: 04/07/25 06:20 Dose: 0.5 mg Heparin Sodium/Dextrose (Heparin 63716 Unit/500 Ml D5w) 25,000 units in 500 mls @ 40 mls/hr IV .[id number] [facility]; Protocol Stop: 05/06/25 06:13 Last Titration: 04/07/25 07:37 Dose: 2,000 units/hr, 40 mls/hr Pantoprazole Sodium (Protonix) 40 mg in 10 mls @ 5 mls/min IV BID [facility] Stop: 05/06/25 08:59 Last Admin: 04/07/25 08:44 Dose: 5 mls/min Methylprednisolone 40 mg/ (Syringe) 0.64 mls @ 1.5 mls/min IV ONE ONE Stop: 04/07/25 11:01 Insulin Aspart (Insulin Aspart Per Unit Charge) 0 units SC ACHS [facility] Stop: 05/07/25 11:29 Insulin Glargine (Lantus Per Unit Charge) 0 units SC HS [facility]; Protocol Stop: 05/06/25 20:59 Last Admin: 04/06/25 21:16 Dose: 10 units Losartan Potassium (Losartan Potassium 50 Mg Tab) 100 mg PO QPM [facility] Stop: 05/06/25 20:59 Last Admin: 04/06/25 21:04 Dose: 100 mg Metoprolol Succinate (Metoprolol Succ 25mg Ext Rel Tab) 75 mg PO AMHS [facility] Stop: 05/06/25 20:59 Last Admin: 04/07/25 08:44 Dose: 75 mg Metoprolol Tartrate (Metoprolol Tartrate 1 Mg/Ml Vial) 5 mg IV Q6 PRN PRN Reason: Tachycardia Stop: 05/06/25 06:13 Last Admin: 04/07/25 02:43 Dose: 5 mg Miscellaneous (Carbohydrates For Hypoglycemia ) 15 - 30 gm PO UD PRN PRN Reason: Hypoglycemia Protocol Stop: 05/06/25 06:13 Miscellaneous (Remove Nicoderm Patch) 1 each N/A DAILY@0859 [facility] Stop: 05/06/25 08:58 Last Admin: 04/07/25 08:43 Dose: 1 each Miscellaneous Information (Pharmacy Glycemic Mgmt Consult) 1 each N/A UD PRN PRN Reason: Consult Stop: 05/06/25 06:13 Nicotine (Nicotine 14 Mg/24 Hr Patch) 1 patch TD QAM JADEN Stop: 05/06/25 08:59 Last Admin: 04/07/25 08:42 Dose: 1 patch Nitroglycerin (Nitroglycerin Sl 0.4 Mg/Tab Tab) 0.4 mg SL Q5M PRN PRN Reason: Chest Pain Stop: 05/06/25 06:13 Ondansetron HCl (Ondansetron Inj 2 Mg/Ml 2 Ml Vial) 4 mg IV Q6H PRN PRN Reason: Nausea Stop: 05/06/25 06:13 PG Care Time/CCT Total # of Minutes Spent Total Time Spent with Patient: Total time spent is greater than 50% in coordination of care (as documented) at patient's floor/unit and/or counseling patient: 40 minutes Coding Level of Care Code 13100 SUB INP/OBS CARE 3/50MIN Diagnoses Rapid atrial fibrillation I48.91 Generalized abdominal pain R10.84 Abdominal location: generalized Elevated troponin I level R74.8 Acute hyperglycemia R73.9 Moderate left ventricular systolic dysfunction (LVSD) I51.89 Tachycardia induced cardiomyopathy I42.8 (2) Abdominal pain Abdominal location: generalized Qualified Code(s): R10.84 - Generalized abdominal pain
[2025-04-07] MEDS: ATORVASTATIN 20 MG TAB PO SCH (12:32)
[2025-04-07] MEDS: INSULIN ASPART PER UNIT CHARGE SC SCH (12:33)
--- NOTE | 2025-04-07 13:23 | Gastroenterology Progress Note ---
Date of Service April 07, 2025 Assessment & Plan (1) Abdominal pain: Plan: Patient's abdominal pain has improved. Can have another dose of IV steroids for possible mesenteric panniculitis, but due to atypical presentation we will plan to review imaging studies with the radiologist. Please refer to Dr. Alanis's attending physician statement once available for further details. Admission and Anticipated Discharge Date Admission Date: April 06, 2025 Supervising Physician Co-Signing Physician Notes Patient seems to be feeling better. Reviewed CTA with Dr. Ivey. There is poor delayed visualization of the mesenteric vessels. There appeared to be some edema and swelling around the pancreatic head. Note that his lipase was normal on admission. There was no duodenal wall thickening suggest peptic ulcer disease. As per presentation my previous note not entirely convinced that this is mesenteric panniculitis. Patient has significant diabetes high hemoglobin A1c prednisone may be not in his best interest going forward unless there is a definitive diagnosis. I think we should revisualize the mesenteric vessels with a CTA. With venous phase. Discussed with patient at the bedside. Agreeable. If the repeat CTA looks good. Inclined to stop his prednisone. Reviewed with patient the importance of anticoagulation and atrial fibrillation and/or mesenteric vessel disease if that played a role in his admission. Subjective Patient is a 54 yo male with abdominal pain. He notes improvement of his abdominal pain. He did receive one dose of IV Solumedrol 40 mg on 04/06/25. He denies other GI symptoms. He is very hungry. He denies other issues at present. Review of Systems Gastrointestinal: no abdominal pain (improved) Physical Exam Constitutional: well developed Gastrointestinal (Abdomen): normal bowel sounds, soft, nontender, no hepatosplenomegaly Psychiatric: Orientation: alert and oriented x 3 Results & Data Results & Data Vital Signs (Past 12 Hours) Vital Signs Temp Pulse Pulse Pulse Resp BP BP 04/07/25 11:51 36.4 C L 109 H 18 104/74 04/07/25 09:26 04/07/25 09:25 131 H 04/07/25 06:56 36.7 C 105 H 18 04/07/25 03:30 120 H 133/88 04/07/25 03:15 99 H 22 04/07/25 02:48 36.5 C 122 H 22 04/07/25 02:43 130 H 122/81 04/07/25 01:39 132 H BP Pulse Ox O2 Del Method 04/07/25 11:51 96 Room Air 04/07/25 09:26 Room Air 04/07/25 09:25 04/07/25 06:56 121/86 94 Room Air 04/07/25 03:30 04/07/25 03:15 94 04/07/25 02:48 122/81 96 BiPAP 04/07/25 02:43 04/07/25 01:39 PG Care Time/CCT Total # of Minutes Spent Total Time Spent with Patient: Total time spent is greater than 50% in coordination of care (as documented) at patient's floor/unit and/or counseling patient: Coding Level of Care Code 57423 SUB INP/OBS CARE 2/35MIN Diagnoses Generalized abdominal pain R10.84 Abdominal location: generalized (1) Abdominal pain Abdominal location: generalized Qualified Code(s): R10.84 - Generalized abdominal pain
[2025-04-07 14:28] LABS: ANTI-Xa, UFH(UnfractionatedHep 0.26 IU/ml (0.3-0.7)
[2025-04-07] MEDS: ACETAMINOPHEN 325 MG TAB PO PRN (14:49)
[2025-04-07] MEDS: OPTIRAY 320 125ml IV ONE (16:16)
--- NOTE | 2025-04-07 16:24 | Hospitalist Progress Note ---
Date of Service April 07, 2025 Assessment & Plan (1) Rapid atrial fibrillation: Plan: 54-year-old male with past medical history significant for hypertension, depression, ongoing tobacco use, history of atrial fibrillation, history of kidney stones comes because of abdominal pain and also in the ER found to be in rapid A-fib. Patient says since last Saturday is having abdominal pain mostly in the right upper side. Associated with nausea. Tonight he had episode of vomiting.. He was also sweating, feeling hot and cold which made him come to the hospital. In the ER he went into rapid A-fib. received IV Lopressor and Currently started on Cardizem drip. Denies any chest pain. Yesterday was feeling short of breath but currently no shortness of breath. No headache. No runny nose or sore throat. Since last 1 week he is having cough. In May 2024 was admitted for new onset rapid A-fib and left ureteral stone. He was discharged on metoprolol succinate and Eliquis. Patient says he no longer taking Eliquis and didn't followed up with cardiology. Atrial fibrillation with rapid ventricular response --ECHO: Borderline concentric LVH. Mild to moderate global hypokinesis of left ventricle. EF 35 to 40%. Left atrium moderately dilated. Moderate mitral regurgitation. Trace tricuspid regurgitation. 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 Stable right renal calculus. Stable fatty hepatomegaly and splenomegaly. -- Received IV Solu-Medrol Diet as tolerated Appreciate GI input Repeat CT abdomen pending Uncontrolled diabetes mellitus HbA1c 10.2 Hold metformin Continue sliding scale Appreciate glycemic pharmacy consult Monitor blood glucose levels Obstructive sleep apnea CPAP nightly Hypertension On hydrochlorothiazide, amlodipine, losartan and metoprolol succinate Monitor and adjust medications as needed Obesity BMI 40.8 DVT Px: IV heparin CODE STATUS Full code Disposition Expect to discharge home when stable Scripts needed on discharge: 1.) Lantus Solostar Pen. (Likely 25-30 units daily) 2.) Pen Needle 32 gauge x 5/32- to inject 1x/day. Admission and Anticipated Discharge Date Admission Date: April 06, 2025 Subjective Patient is seen and examined at bedside Abdominal pain slightly better Palpitations improved Also states that chest congestion slowly improving No other new complaints today Tolerating current diet Review of Systems Review of Systems: All systems reviewed & are unremarkable except as noted in Subjective Physical Exam Physical Exam: Physical Exam: Vitals signs as noted above General Appearance:Obese, no apparent distress Head: normocephalic, Atraumatic Eyes: normal inspection, EOMI Neck: supple, Trachea midline Respiratory/Chest: Normal breath sounds, CTA, No accessory muscle use Cardiovascular: Irregularly irregular, tachycardic, No murmur Abdomen/GI:Soft, mild tender, Bowel sounds present Extremities/Musculoskeletal:normal inspection, Trace edema Neurologic/Psych:AAOX3, grossly no focal neurological deficits Skin: normal color, warm Results & Data Results & Data Vital Signs (Past 12 Hours) Vital Signs Temp Pulse Pulse Pulse Resp BP BP 04/07/25 15:00 114 H 04/07/25 11:51 36.4 C L 109 H 18 104/74 04/07/25 09:26 04/07/25 09:25 131 H 04/07/25 06:56 36.7 C 105 H 18 121/86 Pulse Ox O2 Del Method 04/07/25 15:00 04/07/25 11:51 96 Room Air 04/07/25 09:26 Room Air 04/07/25 09:25 04/07/25 06:56 94 Room Air Laboratory Results Short CBC 04/07/25 04/07/25 04/07/25 Range/Units 06:38 06:38 06:38 WBC Cancelled 12.43 H Hgb Cancelled 15.4 Hct Cancelled Plt Count 04/07/25 04/07/25 Range/Units 06:38 06:38 WBC Hgb Hct 43.0 Plt Count Cancelled 279 BMP 04/06/25 04/07/25 22:52 06:38 Sodium 133 L Potassium 3.9 4.2 Chloride 102 Carbon Dioxide 23 BUN 18 Creatinine 0.79 Glucose 310 H* Calcium 9.0 Liver Function 04/07/25 Range/Units 06:38 Total Bilirubin 0.8 (0.2-1.0) mg/dl AST 22 (13-39) U/L ALT 45 (7-52) U/L Alkaline Phosphatase 56 (34-104) U/L Albumin 3.9 (3.4-5.0) gm/dl
--- NOTE | 2025-04-07 16:57 | CT Scan Report ---
EXAMINATION: CT angiogram of the abdomen and pelvis performed after the administration of IV contrast TECHNIQUE: Helical CT images from the lung bases through the symphysis pubis were obtained with contrast. Coronal and sagittal reformatted images were generated at a workstation for further assessment. Dose reduction techniques were achieved by using automatic exposure control and/or adjustment of mA and/or kV according to patient size and/or use of iterative reconstruction technique. COMPARISON: 04/06/2025 HISTORY: Abdominal pain FINDINGS: Normal abdominal aorta and iliac arteries. The major branch vessels and, including the celiac and mesenteric arteries as well as the renal arteries are all widely patent without evidence for thrombosis. The liver is normal in size and attenuation. No focal liver lesions are seen. There is no intrahepatic or extrahepatic biliary ductal dilatation. Hepatic vasculature is patent. The gallbladder is surgically absent, with mild prominence of the common bile duct, which is stable. The spleen, pancreas, and adrenal glands are unremarkable. There is a 12 mm nodule near the splenic hilum, likely a splenule, which is stable. The kidneys are normal in size and attenuation. There is no hydronephrosis or perinephric fat stranding. Renal contrast excretion, which further limits evaluation. The bladder is normal in contour. No evidence of focal or diffuse bowel wall thickening or evidence of bowel obstruction is seen. The appendix is visualized in the right lower quadrant and appears within normal limits. No adenopathy. Minimal free fluid in the pelvis. The aorta is normal in caliber. Increased free fluid and mesenteric fat stranding seen in the right quadrants, starting near the duodenum, along the right paraaortic area, and continuing to the aortic bifurcation. No duodenal thickening. Ascites is seen in all 4 quadrants, some of which is new from prior. No aggressive-appearing osseous lesions are identified. A small right pleural effusion has increased. IMPRESSION: No evidence for mesenteric vein thrombosis. Interval increase in mesenteric fat stranding, as well as ascites, again possibly related to mesenteric panniculitis Electronically signed by Jagdish Carmichael 04-07-2025 4:57 PM
[2025-04-07] MEDS: METOPROLOL TARTRATE 1 MG/ML VIAL IV STA (18:15)
--- NOTE | 2025-04-07 18:25 | Electrocardiogram Report ---
Test Reason : Blood Pressure : */* mmHG Vent. Rate : 130 BPM Atrial Rate : * BPM P-R Int : * ms QRS Dur : 110 ms QT Int : 348 ms P-R-T Axes : * 17 58 degrees QTcB Int : 512 ms Atrial fibrillation with rapid ventricular response with premature ventricular or aberrantly conducte d complexes Low voltage QRS Nonspecific T wave abnormality Abnormal ECG When compared with ECG of 06-Apr-2025 01:00, Nonspecific T wave abnormality, worse in Lateral leads Confirmed by Jagdish Coley ([id number] on 04/07/2025 6:25:33 PM Referred By: REFERRED SELF Confirmed By: Jagdish Coley
[2025-04-07 21:13] LABS: ANTI-Xa, UFH(UnfractionatedHep 0.29 IU/ml (0.3-0.7)
[2025-04-07] MEDS: ONDANSETRON INJ 2 MG/ML 2 ML VIAL IV PRN (21:13)
[2025-04-08 03:48] LABS: Hematocrit (blood only) 41.4 % (42.0-52.0); Hemoglobin 14.5 g/dl (14.0-18.0); Mean Corpuscular Hemoglobin 30.6 pg (25.0-34.0); Mean Corpuscular Volume 87.3 fL (80.0-100.0); Platelet Count 265 K/uL (130-400); RDW Standard Deviation 40.2 fL (36.4-46.3); Red Blood Count 4.74 M/uL (4.70-6.10); White Blood Count 15.80 K/ul (4.8-10.8)
[2025-04-08 04:05] LABS: Anion Gap 7.0 (3-11); Blood Urea Nitrogen 19.0 mg/dl (6-23); Calcium 9.0 mg/dl (8.6-10.3); Carbon Dioxide 26.0 mmol/L (21-32); Chloride 101.0 mmol/L (98-107); Creatinine Clr Calc Pharmacy 115.5 ml/min; Glucose 170.0 mg/dl (70-99(Fasting)); Magnesium 2.1 mg/dl (1.7-2.4); Potassium 3.9 mmol/L (3.5-5.1); Sodium 134.0 mmol/L (136-145)
[2025-04-08 04:26] LABS: ANTI-Xa, UFH(UnfractionatedHep 0.40 IU/ml (0.3-0.7)
--- NOTE | 2025-04-08 07:40 | Anesthesiology Consultation ---
Date of Service April 08, 2025 Assessment & Plan Chart Review Chart Review: Acceptable Risk for Surgery and Patient NOT seen in Pre Admission Testing Consults Requested none History Surgery Operation Date: 04/08/25 07:30 Proposed Procedures p Transesophageal Echo w/Anesthesia - Yobani Abreu MD s Cardioversion w/Anesthesia Sedation - Yobani Abreu MD Height/Weight Height: 5 ft 8 in Weight: 120 kg Allergies Allergy/AdvReac Type Severity Reaction Status Date / Time No Known Allergies Allergy Unverified 04/06/25 00:58 Medications Home Medications Medication Instructions Recorded Confirmed Last Taken losartan 100 mg tablet 100 mg PO QPM 05/25/24 04/06/25 04/04/25 metformin 1,000 mg tablet 1,000 mg PO BID 05/25/24 04/06/25 04/05/25 amlodipine 5 mg tablet 5 mg PO QAM 04/06/25 04/06/25 04/05/25 benzonatate 200 mg capsule 200 mg PO TID PRN Cough 04/06/25 04/06/25 Unknown hydrochlorothiazide 12.5 mg tablet 12.5 mg PO QAM 04/06/25 04/06/25 04/05/25 metoprolol succinate 50 mg 50 mg PO AMHS 04/06/25 04/06/25 04/05/25 tablet,extended release 24 hr am dose only sildenafil 100 mg tablet 100 mg PO DAILY PRN Erectile 04/06/25 04/06/25 Unknown Dysfunction Active Medications Generic Name Dose Route Start Last Admin Trade Name Freq PRN Reason Stop Dose Admin Acetaminophen 650 mg 04/06/25 06:14 04/07/25 14:49 Acetaminophen 325 Mg Tab PO 05/06/25 06:13 650 mg Q4H PRN Administration Pain or Fever Amlodipine Besylate 5 mg 04/06/25 09:00 04/07/25 08:43 Amlodipine Besylate 5 Mg Tab PO 05/06/25 08:59 5 mg QAM JADEN Administration Atorvastatin Calcium 20 mg 04/07/25 11:00 04/07/25 12:32 Atorvastatin 20 Mg Tab PO 05/07/25 10:59 20 mg QAM JADEN Administration Benzonatate 200 mg 04/06/25 06:14 04/07/25 21:06 Benzonatate 100 Mg Capsule PO 05/06/25 06:13 200 mg TID PRN Administration Cough Hydrochlorothiazide 12.5 mg 04/06/25 09:00 04/07/25 08:43 Hydrochlorothiazide 25 Mg Tab PO 05/06/25 08:59 12.5 mg QAM JADEN Administration Hydromorphone HCl 0.5 mg 04/06/25 06:14 04/07/25 21:06 Hydromorphone Inj 0.5 Mg/0.5 Ml Syr IV 04/20/25 06:13 0.5 mg Q4H PRN Administration Severe Pain (Scale 7, 8, 9,10) Heparin Sodium/Dextrose 25,000 units in 500 mls @ 44 mls/hr 04/06/25 06:14 04/08/25 07:07 Heparin 71543 Unit/500 Ml D5w IV 05/06/25 06:13 2,200 units/hr .[id number] JADEN 44 mls/hr Titration Protocol 2,200 UNITS/HR Pantoprazole Sodium 40 mg in 10 mls @ 5 mls/min 04/06/25 09:00 04/07/25 21:07 Protonix IV 05/06/25 08:59 5 mls/min BID JADEN Administration Insulin Aspart 0 units 04/07/25 11:30 04/08/25 06:48 Insulin Aspart Per Unit Charge SC 05/07/25 11:29 4 units ACHS JADNE Administration Insulin Glargine 0 units 04/06/25 21:00 04/07/25 21:10 Lantus Per Unit Charge SC 05/06/25 20:59 10 units HS JADEN Administration Protocol Losartan Potassium 100 mg 04/06/25 21:00 04/07/25 21:08 Losartan Potassium 50 Mg Tab PO 05/06/25 20:59 100 mg QPM JADEN Administration Metoprolol Succinate 75 mg 04/06/25 21:00 04/07/25 21:07 Metoprolol Succ 25mg Ext Rel Tab PO 05/06/25 20:59 75 mg AMHS JADEN Administration Metoprolol Tartrate 5 mg 04/06/25 06:14 04/07/25 17:04 Metoprolol Tartrate 1 Mg/Ml Vial IV 05/06/25 06:13 5 mg Q6 PRN Administration Tachycardia Miscellaneous 1 each 04/06/25 08:59 04/07/25 08:43 Remove Nicoderm Patch N/A 05/06/25 08:58 1 each DAILY@0859 JADEN Administration Nicotine 1 patch 04/06/25 09:00 04/07/25 08:42 Nicotine 14 Mg/24 Hr Patch TD 05/06/25 08:59 1 patch QAM JADEN Administration Ondansetron HCl 4 mg 04/06/25 06:14 04/07/25 21:13 Ondansetron Inj 2 Mg/Ml 2 Ml Vial IV 05/06/25 06:13 4 mg Q6H PRN Administration Nausea Past Medical History Medical History Coronary atherosclerosis of [place] coronary artery Atrial fibrillation with rapid ventricular response CHF (congestive heart failure) Mood disorder Depression Left ureteral stone Hypertension Past Surgical History Surgical History History of cholecystectomy Social History Smoking Status: Current every day smoker Smoking cigarettes per day: 1/2 pack day Do You Dip or Chew Tobacco: No Hx Alcohol Use: Yes Alcohol type: beer and hard liquor alcohol intake frequency: a few times a week Hx Substance Use: Yes substance use type: marijuana Physical Exam Vital Signs Last Vital Signs Temp 36.4 C L 04/08/25 03:33 Pulse 79 04/08/25 03:33 Resp 16 04/08/25 03:33 BP 119/95 04/08/25 03:33 Pulse Ox 96 04/08/25 03:33 O2 Del Method CPAP 04/08/25 03:33 Testing Laboratory Results 04/08/25 03:27 04/08/25 03:27 PT 11.8 Seconds (9.0-12.0) 04/06/25 06:58 INR 1.1 (0.9-1.1) 04/06/25 06:58 APTT 27 Seconds (21-31) 04/06/25 06:58 Hemoglobin A1c 10.2 % (4.5-5.6) H 04/07/25 06:38 04/08/25 04/07/25 06:39 20:32 POC Glucose 178 H 295 H
--- NOTE | 2025-04-08 08:14 | Cardioversion ---
Date of Service April 08, 2025 PG Electrical Cardioversion Rp Electrical Cardioversion Report KATERYNA guided synchronized electrical cardioversion procedure and risks explained in detail, informed consent obtained. Patient sedated via anesthesia consult with continuos O2, HR, BP, endtidal CO2 monitoring Transesophageal echo performed ( report) No contraindications to cardioversion Synchronized biphasic cardioversion performed using single 200J shock with successful conversion to sinus rhythm. Transient hypotension, hypoventilation with sedation Aroused without complaint Coding Level of Care Code 19234 CARDIOVERSION, ELECTIVE Additional Codes Electrical Cardioversion Report ([id number])
--- NOTE | 2025-04-08 08:17 | Anesthesiology Progress Note ---
Date of Service April 08, 2025 Anesthesia Post Procedure Vital Signs Vital Signs: Temp Pulse Pulse Pulse Pulse Resp BP 04/08/25 08:15 53 L 16 04/08/25 08:01 57 L 18 115/84 04/08/25 07:49 103 H 14 66/39 L 04/08/25 07:38 105 H 14 04/08/25 03:33 36.4 C L 79 16 04/08/25 03:06 20 04/07/25 23:16 04/07/25 22:24 36.5 C 115 H 18 04/07/25 22:04 131 H 04/07/25 19:33 159 H 04/07/25 19:15 36.4 C L 125 H 18 04/07/25 18:45 120 H 97/78 L 04/07/25 18:15 142 H 101/62 04/07/25 17:49 110 H 04/07/25 17:20 132 H 101/62 04/07/25 17:04 138 H 101/70 04/07/25 16:00 36.7 C 102 H 102 H 18 04/07/25 15:00 114 H 04/07/25 11:51 36.4 C L 109 H 18 04/07/25 09:26 04/07/25 09:25 131 H BP BP Pulse Ox O2 Del Method O2 Flow Rate 04/08/25 08:15 116/89 95 Room Air 04/08/25 08:01 95 Room Air 0 04/08/25 07:49 98 Oxymask 8 04/08/25 07:38 95/81 L 94 Room Air 04/08/25 03:33 119/95 96 CPAP 04/08/25 03:06 95 04/07/25 23:16 Nasal CPAP 04/07/25 22:24 127/98 96 Room Air 04/07/25 22:04 04/07/25 19:33 04/07/25 19:15 130/95 95 Room Air 04/07/25 18:45 04/07/25 18:15 04/07/25 17:49 101/62 04/07/25 17:20 04/07/25 17:04 04/07/25 16:00 101/70 95 Room Air 04/07/25 15:00 04/07/25 11:51 104/74 96 Room Air 04/07/25 09:26 Room Air 04/07/25 09:25 Pain Intensity Right Abdomen: Pain Intensity: 4 Transfer of Care Handoff Completed per policy Notes Mental Status: alert / awake / arousable Patient Amnestic to Procedure: Yes Nausea / Vomiting: adequately controlled Pain: adequately controlled Airway Patency, RR, SpO2: stable & adequate BP & HR: stable & adequate Hydration State: stable & adequate Anesthetic Complications: no major complications apparent and Pt Satisfied with anesthetic care
[2025-04-08] MEDS ORDERED: PROPOFOL IV EMULSION 10 MG/ML 20 ML VIAL IV ONE (08:47)
[2025-04-08] MEDS ORDERED: PHENYLEPHRINE 100MCG/ML 5ML SYR ONE (08:47)
[2025-04-08] MEDS ORDERED: LIDOCAINE 2% 2 ML VIAL/AMP(20MG/ML) INFIL ONE (08:47)
[2025-04-08] MEDS: ATROPINE SULFATE 0.1 MG/ML 10ML SYR IV ONE ×2 (09:30→11:31)
[2025-04-08] MEDS: PHENYLEPHRINE 100MCG/ML 5ML SYR ONE (09:34)
[2025-04-08] MEDS: NOREPINEPHRINE/D5W 4 MG/250 ML IV ONE (09:40)
[2025-04-08] MEDS: DOPamine 400MG / 250ML D5W IV ONE (09:43)
[2025-04-08] MEDS: PROPOFOL IV EMULSION 10 MG/ML 100 ML VIAL (CATH LAB USE ONLY) IV ONE (10:13)
[2025-04-08] MEDS: MIDAZOLAM HCL 5 MG/ML 1 ML VIAL ONE (10:17)
[2025-04-08] MEDS: FUROSEMIDE 40 MG/4 ML VIAL IV ONE (10:20)
[2025-04-08] MEDS ORDERED: STAT IV Infusion **Titration per Protocol STA ×5 (10:23→14:04)
[2025-04-08] MEDS ORDERED: PROPOFOL BOLUS FROM BAG IV PRN (10:23)
[2025-04-08] MEDS ORDERED: FUROSEMIDE 40 MG/4 ML VIAL IV ONE (10:24)
[2025-04-08] MEDS: fentaNYL citrate 2,500 MCG/250 ML BAG IV ONE (10:30)
--- NOTE | 2025-04-08 10:34 | Cardiology Progress Note ---
Date of Service April 08, 2025 Assessment & Plan (1) Rapid atrial fibrillation: (2) Abdominal pain: (3) Elevated troponin I level: (4) Acute hyperglycemia: (5) Moderate left ventricular systolic dysfunction (LVSD): (6) Tachycardia induced cardiomyopathy: Plan Patient is a 54 year old male who was admitted for acute abdominal pain, starting yesterday with associated nausea and vomting. 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 Also found to have recurrent afib RVR in the 160's on admission. Afib RVR -Duration unknown but given moderate LV dysfunciton and moderately dilated LA, likely present for several weeks/months. -initially started on IV diltiazem with mildly improved rates -Metoprolol succinate increased to 75 mg BID -Continue IV heparin for anticoagulation/stroke prophylaxis, will then transition to oral anticoagulation with Eliquis 5 mg BID -Once abdominal pain/GI status has improved - will consider KATERYNA/CV, possible 04/08 -Supplement magnesium and potassium - improved this morning Mildly elevated troponin in setting afib RVR -73 on admission - Peaked at 79 and then 61 this morning -Type II demand ischemia secondary to afib and acute GI illness. -EKG on admission without ischemic changes -No chest pain/SOB reported -Echo with global hypokinesis - LVEF 35-40%, likely tachyinduced cardiomyopathy -continue IV heparin and beta jaime -add statin given DM and cardiac risk factors - LDL goal is < 70. atorvastatin 20 mg daily added Likely Tachy induced cardiomyopathy with LV systolic dysfunction -EF 35% with global hypokinesis -Continue GDMT - losartan and metoprolol succinate -would benefit from KATERYNA/CV prior to discharge - keep NPO at midnight. -May benefit from outpatient nuclear stress test as well Hypertension -Continue home dose amlodipine, losartan, and hctz -Metoprolol added at 75 mg BID Mesenteric Panniculitis and ongoing abdominal pain. -GI consulted -Corticosteroids added. SOLO - continue CPAP 04/08/2025 Complex patient underwent synchronized electrical cardioversion for atrial fibrillation with rapid response, reduced ejection fraction. Post procedure had hemodynamic compromise with nausea vomiting hypotension and moderate hypoxia suspect significant volume overload as component. Was referred for diagnostic coronary angiography without obstructive disease after intubation and hemodynamic stabilization with pressors. 1. Diffuse cardiomyopathy nonischemic question tachycardia mediated 2. Atrial fibrillation with rapid response currently maintaining sinus rhythm post cardioversion 3. Acute systolic heart failure, hypotension post cardioversion 4. Presenting complaint of abdominal pain: Consider abdominal CT follow-up Patient referred for ICU management will continue to follow and aid. If no clinical response with new onset cardiomyopathy borderline hemodynamics consider tertiary referral Admission and Anticipated Discharge Date Admission Date: April 06, 2025 Subjective Patient referred for KATERYNA guided cardioversion this am. Procedure notable for hypotension hypoxia, decreased EF on KATERYNA Cardioversion successful to sinus Initial post procedure followed by nausea, retching persistent hypotension transient bradycardia. Patient uncomfortable diaphoretic, nauseated Pressor support initiated with IV norepinephrine, dopamine. Referred for intubation for airway control. Patient sedation IV Diprivan, Fentanyl Ekg Sinus w IVCD t wave inversion laterally Stabilized for planned emergent cath/coronary angiography Review of Systems Review of Systems: All systems reviewed & are unremarkable except as noted in Subjective and Unobtainable due to endotracheal tube Physical Exam Constitutional: + ill appearing and + obese Eyes: PERRL, conjunctivae normal, anicteric sclerae ENMT: external ear and nose normal, oropharynx normal Neck: trachea midline, no thyromegaly Respiratory: symmetric chest movement Auscultation: + crackles Cardiovascular: Rate/Rhythm: regular rate and regular rhythm (Post cardioversion) Vessels: + JVD Extremities: + edema (1+) Gastrointestinal (Abdomen): Inspection/Auscultation: + abdomen distended Percussion/Palpation: + abdomen tender (Left upper quad) and abdomen soft Musculoskeletal: no cyanosis or clubbing, extremities motor strength 5/5 Results & Data Vital Signs (Past 12 Hours) Vital Signs Temp Pulse Pulse Pulse Resp BP BP 04/08/25 09:15 51 L 18 79/57 L 04/08/25 09:00 53 L 18 84/68 L 04/08/25 08:56 52 L 18 83/66 L 04/08/25 08:41 53 L 16 04/08/25 08:15 53 L 16 116/89 04/08/25 08:01 57 L 18 115/84 04/08/25 07:49 103 H 14 66/39 L 04/08/25 07:38 105 H 14 04/08/25 03:33 36.4 C L 79 16 04/08/25 03:06 20 04/07/25 23:16 BP Pulse Ox O2 Del Method O2 Flow Rate 04/08/25 09:15 97 Oxymask 2 04/08/25 09:00 97 Oxymask 2 04/08/25 08:56 96 Oxymask 6 04/08/25 08:41 82/67 L 98 Room Air 04/08/25 08:15 95 Room Air 04/08/25 08:01 95 Room Air 0 04/08/25 07:49 98 Oxymask 8 04/08/25 07:38 95/81 L 94 Room Air 04/08/25 03:33 119/95 96 CPAP 04/08/25 03:06 95 04/07/25 23:16 Nasal CPAP Laboratory Results Laboratory Results - last 24 hr 04/07/25 04/07/25 04/07/25 11:45 12:03 16:35 WBC RBC Hgb Hct MCV MCH MCHC RDW Std Deviation RDW Coeff of Katherine Plt Count MPV Heparin Anti-Xa, Unfract 0.26 L Sodium Potassium Chloride Carbon Dioxide Anion Gap BUN Creatinine Est Cr Clr Drug Dosing eGFR BUN/Creatinine Ratio Glucose POC Glucose 139 H 256 H Calcium Magnesium 04/07/25 04/07/25 04/08/25 20:20 20:32 03:27 WBC 15.80 H RBC 4.74 Hgb 14.5 Hct 41.4 L MCV 87.3 MCH 30.6 MCHC 35.0 RDW Std Deviation 40.2 RDW Coeff of Katherine 12.9 Plt Count 265 MPV 10.7 Heparin Anti-Xa, Unfract 0.29 L 0.40 Sodium 134 L Potassium 3.9 Chloride 101 Carbon Dioxide 26 Anion Gap 7 BUN 19 Creatinine 0.95 Est Cr Clr Drug Dosing 115.5 eGFR 96.31 BUN/Creatinine Ratio 20.0 Glucose 170 H POC Glucose 295 H Calcium 9.0 Magnesium 2.1 04/08/25 06:39 WBC RBC Hgb Hct MCV MCH MCHC RDW Std Deviation RDW Coeff of Katherine Plt Count MPV Heparin Anti-Xa, Unfract Sodium Potassium Chloride Carbon Dioxide Anion Gap BUN Creatinine Est Cr Clr Drug Dosing eGFR BUN/Creatinine Ratio Glucose POC Glucose 178 H Calcium Magnesium PG Care Time/CCT Total # of Minutes Spent Total Time Spent with Patient: Total time spent is greater than 50% in coordination of care (as documented) at patient's floor/unit and/or counseling patient: Coding Level of Care Code 68550 SUB INP/OBS CARE 3/50MIN Diagnoses Rapid atrial fibrillation I48.91 Generalized abdominal pain R10.84 Abdominal location: generalized Elevated troponin I level R74.8 Acute hyperglycemia R73.9 Moderate left ventricular systolic dysfunction (LVSD) I51.89 Tachycardia induced cardiomyopathy I42.8 (2) Abdominal pain Abdominal location: generalized Qualified Code(s): R10.84 - Generalized abdominal pain
--- NOTE | 2025-04-08 10:37 | Procedure Note ---
Procedure Note Date of Service April 08, 2025 Note Called from the ER to the cardiac Computer Peripheral Equipment Operator holding area to evaluate the patient. Patient holding bed 6 Dr. Abreu at bedside as well as nursing staff. Patient evidently had a KATERYNA and cardioversion for rapid A-fib this morning with Dr. Abreu. Is been in the hospital several days and having some abdominal discomfort as well. After his KATERYNA/cardioversion with depressed EF to noted worsened today, started on Levophed and dopamine and was having respiratory problems and desaturating. Patient was given some Zofran and placed on oxygen. Advised that they wish for the patient to be intubated so they can proceed with further care here given his nausea and diaphoresis and respiratory issues. Discussed with the patient is agreeable with this plan. Denies significant pulmonary history or dental history. Respiratory was at bedside. ED Intubation Indication hypoxia, cardiogenic shock Before perception verbal consent from the patient and discussion with the bedside cardiology care team. The patient was on 100% oxygen via NRB prior to the procedure. Suction, airway equipment, RSI drugs, respiratory equipment, and appropriate personnel were prepared prior to the initiation of the procedure. A time out was taken. Induction was performed with 20 mg of etomidate 100 mg succinylcholine. After observing the clinical benefit of the medications, the airway was easily visualized utilizing a S4 glide scope. A 7.5 size ETT tube was placed atraumatically to 25 cm using standard technique. The cuff inflated without signs of malfunction. There were bilateral breath sounds, positive colormetric change, and no gastric sounds. No hypotension or significant arrhythmia. Did have transient desaturation into the 70s with pulse ox and then improved into the low 90s. Post intubation sedation was administered using propofol drip, fentanyl drip, IV Versed and he was somewhat initially difficult to maintain appropriate sedation. Intubated on ventilator and left in care of cardiology team with plan for card iac catheterization and ICU care. Coding
[2025-04-08] MEDS ORDERED: SUCCINYLCHOLINE CHLORIDE 20 MG/ML 10 ML VIAL IV ONE (11:01)
[2025-04-08] MEDS ORDERED: ETOMIDATE 2 MG/ML 20 ML VIAL IV ONE (11:01)
--- NOTE | 2025-04-08 11:24 | XRay Report ---
XR chest 1V portable CLINICAL HISTORY: Post intubation,NG COMPARISON STUDY: 04/06/2025 FINDINGS: Endotracheal tube tip is just below the thoracic inlet. Nasogastric tube tip is in the prox imal stomach. There is stable cardiomegaly with increased pulmonary vascular congestion. There is inc reased pulmonary interstitial prominence and faint patchy pulmonary opacities. No pleural effusion or pneumothorax. IMPRESSION: 1. Endotracheal tube tip is just below the thoracic inlet. 2. CHF. 3. Increased pulmonary opacities could represent pulmonary edema or early pneumonia. ACT 112: Negative or not required by law. Electronically signed by: Mikael Ivey M.D. 04/08/2025 11:23 AM
[2025-04-08] MEDS: FUROSEMIDE INJ 20 MG/2 ML VIAL IV ONE (11:31)
[2025-04-08] MEDS: RAPID SEQUENCE INDUCTION BAG ONE (11:36)
[2025-04-08] MEDS: NOREPINEPHRINE/D5W 4 MG/250 ML PLCT IV SCH (11:38)
[2025-04-08] MEDS: fentaNYL citrate 2,500 MCG/250 ML BAG IV SCH (11:38)
--- NOTE | 2025-04-08 11:58 | Gastroenterology Progress Note ---
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 Would not advise ongoing steroid use for this issue (HA1C >10). Would advise repeat CT abd/pelvis in 2-3 months as an outpatient. He can follow- up in our office after discharge to arrange for this. Refer to Dr. Alanis's attending physician statement after rounds this afternoon for further recommendations. Admission and Anticipated Discharge Date Admission Date: April 06, 2025 Supervising Physician Co-Signing Physician Notes Reviewed events of today. Patient with hypotension nausea vomiting retching following cardioversion KATERYNA. Patient had cath. Reviewing notes from last night. His abdominal pain was reported as improved by nursing staff. Patient also been eating better. The radiology reports reads mesenteric panniculitis though this presentation is atypical for that. He also has some fluid or ascites. This is quite uncommon and I would say rare for mesenteric panniculitis. More concerning with this picture was potential for vascular event prompting the repeat CT scan (was to look for mesenteric vein thrombosis which was not present). From the original presentation there was some fluid around the pancreatic head but without duodenal wall thickening. Lipase is always been normal. Patient CMP from 2:00 in the morning did show normal BUN and creatinine normal lactate. He did have a slight elevation in his white count though this may reflect that the prednisone given on admission for mesenteric panniculitis. On exam he is intubated in the ICU. Pressures 95 on 64. His abdomen is fairly benign. Soft nondistended not tympanic. No guarding or rebound no rigidity. Bowel sounds are decreased. Not clear that he is abdomen is a cause for his deterioration. However I think we need to look into this abdominal ascites. Potentially an EGD to evaluate the duodenum and area of fluid and stranding. Exclude a process such as peptic ulcer disease lymphoma or neoplasm. This would probably be best done with him intubated. Reviewed with at the bedside. Plan reassess tomorrow. Potential EGD based on clinical stability. Continue IV Protonix. Subjective Patient off floor for cardioversion during my rounds this morning. CTA a/p returned negative for mesenteric ischemia and again questioned mesenteric panniculitis. Results & Data Results & Data Vital Signs (Past 12 Hours) Vital Signs Temp Pulse Pulse Pulse Resp BP BP 04/08/25 11:40 53 L 19 04/08/25 10:15 22 04/08/25 09:15 51 L 18 79/57 L 04/08/25 09:00 53 L 18 84/68 L 04/08/25 08:56 52 L 18 83/66 L 04/08/25 08:41 53 L 16 04/08/25 08:15 53 L 16 116/89 04/08/25 08:01 57 L 18 115/84 04/08/25 07:49 103 H 14 66/39 L 04/08/25 07:38 105 H 14 04/08/25 03:33 36.4 C L 79 16 04/08/25 03:06 20 BP Pulse Ox O2 Del Method O2 Flow Rate FiO2 04/08/25 11:40 97 60 04/08/25 10:15 100 04/08/25 09:15 97 Oxymask 2 04/08/25 09:00 97 Oxymask 2 04/08/25 08:56 96 Oxymask 6 04/08/25 08:41 82/67 L 98 Room Air 04/08/25 08:15 95 Room Air 04/08/25 08:01 95 Room Air 0 04/08/25 07:49 98 Oxymask 8 04/08/25 07:38 95/81 L 94 Room Air 04/08/25 03:33 119/95 96 CPAP 04/08/25 03:06 95 PG Care Time/CCT Total # of Minutes Spent Total Time Spent with Patient: Total time spent is greater than 50% in coordination of care (as documented) at patient's floor/unit and/or counseling patient: Coding Level of Care Code 26131 SUB INP/OBS CARE 08/01MIN Diagnoses Generalized abdominal pain R10.84 Abdominal location: generalized (1) Abdominal pain Abdominal location: generalized Qualified Code(s): R10.84 - Generalized abdominal pain
[2025-04-08] MEDS: EPINEPHrine/NSS 4 MG/254 ML BAG IV SCH (12:18)
[2025-04-08 12:23] LABS: Hematocrit (blood only) 40.5 % (42.0-52.0); Hemoglobin 14.1 g/dl (14.0-18.0); Immature Granulocytes # (auto) 0.14 K/uL (0.01-0.20); Immature Granulocytes % (auto) 0.9 %; Mean Corpuscular Hemoglobin 30.3 pg (25.0-34.0); Mean Corpuscular Volume 86.9 fL (80.0-100.0); Platelet Count 307 K/uL (130-400); RDW Standard Deviation 40.4 fL (36.4-46.3); Red Blood Count 4.66 M/uL (4.70-6.10); White Blood Count 14.92 K/ul (4.8-10.8)
--- NOTE | 2025-04-08 12:30 | Procedure Note ---
Procedure Note Date of Service April 08, 2025 CENTRAL LINE PROCEDURE NOTE: Procedure: Central Line Placement Provider: Marcelo Parra MD Indication: Central Drug Administration, Poor Venous Access, Multiple Lab Draws Necessary, etc. Anesthesia: 5 cc 1% lidocaine locally Site: Left subclavian Procedure was emergent. Patient unable to provide consent. No family immediately available A time-out was completed verifying correct patient, procedure, site, positioning, and implants(s) or special equipment if applicable. Patients left neck was cleansed and draped in the typical sterile fashion using Chloraprep. Skin and subcutaneous tissues were anesthetized using 1% lidocaine. Using an 18-gauge needle, the left subclavian vein was accessed on the first attempt. Good venous blood return was maintained prior to removal of syringe from introducer needle. Using Seldinger Technique, a guide wire was advanced through the introducer needle without resistance. The introducer needle was removed. A small incision was made in penetrating fashion at the guide wire insertion site utilizing an 11 blade scalpel. The dilator was advanced to the vessel without resistance. The dilator was exchanged for the triple lumen catheter which was advanced into the vessel without resistance. The guide wire was removed intact from the catheter without issue. Claves were placed on each catheter tip with confirmation of good blood flow from each lumen. Each port was easily flushed with sterile saline. The catheter was placed at the hub and sutured in place. BioPatch was applied to the catheter and a sterile Tegaderm dressing was applied over the catheter with careful attention to sterility. Patient tolerated procedure well. No immediate complications were met. Post procedure x-ray was ordered [facility] [place] Procedure Codes (Charges) Tubes, Drains, and Vasc Access Procedure 1: Tubes, Drains, and Vasc Access: [id number] Place catheter in vein superior or inferior vena cava Coding CPT Codes Tubes, Drains, and Vasc Access - Tubes, Drains, and Vasc Access: [id number] Place catheter in vein superior or inferior vena cava ([id number]) Additional Codes Date of Service ([facility].SURGERY)
[2025-04-08 12:41] LABS: Alanine Aminotransferase 50.0 U/L (7-52); Albumin Globulin Ratio 1.3 (0.9-2); Albumin Level 3.3 gm/dl (3.4-5.0); Alkaline Phosphatase 47.0 U/L (34-104); Anion Gap 9.0 (3-11); Bilirubin,Total 1.0 mg/dl (0.2-1.0); Blood Urea Nitrogen 21.0 mg/dl (6-23); Calcium 8.5 mg/dl (8.6-10.3); Carbon Dioxide 20.0 mmol/L (21-32); Chloride 104.0 mmol/L (98-107); Creatinine Clr Calc Pharmacy 82.4 ml/min; Globulin 2.5 gm/dl (2.5-4.0); Glucose 203.0 mg/dl (70-99(Fasting)); Lipase 7.0 U/L (11-82); Potassium 4.3 mmol/L (3.5-5.1); Sodium 133.0 mmol/L (136-145); Total Protein 5.8 gm/dl (6.0-8.3)
--- NOTE | 2025-04-08 12:43 | XRay Report ---
XR chest 1V portable CLINICAL HISTORY: cxr ett placement COMPARISON STUDY: 04/08/2025 FINDINGS: Endotracheal tube tip is at the thoracic inlet. Nasogastric tube tip is in the proximal sto mach. Left central catheter tip is in the SVC. There is no pneumothorax. Stable cardiomegaly with pul monary vascular congestion. Stable pulmonary interstitial prominence. IMPRESSION: No pneumothorax. ACT 112: Negative or not required by law. Electronically signed by: Mikael Ivey M.D. 04/08/2025 12:42 PM
[2025-04-08] MEDS ORDERED: LANTUS PER UNIT CHARGE SC ONE (13:00)
--- NOTE | 2025-04-08 13:06 | Pharmacy Report ---
Pharmacy Glycemic Short Note 2 - Date of Service April 08, 2025 - Glycemic Short BSG Results (Last 24 hours): 04/07/25 04/07/25 04/08/25 16:35 20:32 03:27 Glucose 170 H POC Glucose 256 H 295 H 04/08/25 04/08/25 06:39 12:10 Glucose 203 H POC Glucose 178 H OUTPATIENT ANTIDIABETIC REGIMEN: * metformin 1 gm bid ASSESSMENT: 04/08 * Patient received total of 87 units of insulin yesterday, of which 35 units were basal insulin. * Fasting BSG 170 mg/dL - did receive another dose of iv solumedrol yesterday morning. NPO this AM for cardioversion. Patient hypotensive/hypoxic post procedure and was transferred to ICU and intubated. Did not receive any Lantus this AM for NPO status, lunch BSG trending upward 203 mg/dL - will give ~50% of Lantus dose x 1 now and start novolog q6 checks 04/07 * Patient received total of 67 units of insulin yesterday, of which 25 units were basal insulin. BSGs trending up last evening, however was ordered a one time dose of solumedrol last evening. Continues NPO status this AM, will give Lantus 25 units x 1 now and tighten novolog scale 04/06 * 54 year old admitted with afib/abdominal pain. NPO this AM - pending GI workup. Started on heparin drip. BSGs>300 this AM - will start novolog SSI for now and 0.2 units/kg (adj bw) Lantus - 15 units x 1. A1c ordered for tomorrow AM. If diet started, may consider additional Lantus this evening. PLAN FOR INPATIENT GLYCEMIC CONTROL: * Hold outpatient oral diabetes medications * Basal insulin * Lantus 15 units x 1 * Bolus insulin * NovoLog per scale ACHS or Q6hrs while NPO * Goal Range: Low 110 mg/dL - High 140 mg/dL * Correction Factor: 15 mg/dL/unit * Nutritional / Prandial insulin per carb ratio of 1 unit per 5 grams CHO consumed
[2025-04-08 13:09] LABS: INR 1.2 (0.9-1.1); Prothrombin Time 12.3 Seconds (9.0-12.0)
--- NOTE | 2025-04-08 13:09 | Critical Care Consultation ---
Date of Consultation April 08, 2025 Assessment & Plan (1) Abdominal pain: (2) New onset atrial fibrillation: (3) Lactic acidosis: (4) Sepsis with encephalopathy and septic shock: (5) Renal insufficiency, mild: Plan Impression: 54-year-old male with obesity diabetes admitted with abdominal pain. He developed A-fib with RVR and required cardioversion. During the course that he developed nausea vomiting abdominal pain and retching and required intubation. Cardiac catheterization showed no significant coronary disease but his ejection fraction was reduced. He was transferred to the ICU on norepinephrine and mechanical ventilator. Recommendations: 1. Neurologic: Patient currently sedated with fentanyl and propofol. Continue for now. Sedation break in AM. 2. Cardiovascular: A-fib with RVR status post cardioversion. Now mildly hypotensive and bradycardic. Holding antihypertensives and beta-jaime. Anticoagulated on heparin. Currently on epinephrine and appears to be responding appropriately. Lactic acid level is elevated and will be trended. Appears adequately volume resuscitated currently and will hold on additional fluids. Unclear if the current episode could have been related to medications for his cardioversion or potential microaspiration. 3. Pulmonary: Intubated due to retching and hemodynamic instability. Minimal vent settings currently. Continue for now. Probable SBT in a.m. patient with likely sleep disordered breathing and may need to be extubated to BiPAP. Outpatient polysomnography may be recommended. 4. GI: Patient presented with abdominal pain. He has been given an presumptive diagnosis of mesenteric panniculitis although there seems to be some question about that diagnosis given his clinical presentation. He did have fat stranding in the abdomen. Discussed with GI and will hold off on additional imaging st udies at this point in time pending their recommendations. Lipase is normal. LFTs unremarkable. Transient mesenteric ischemia would be on the differential 5. Endocrine: Reported history of diabetes: Pharmacy consult for glycemic management. 6. Renal: Patient had increase in serum creatinine this morning from baseline. Acid-base status demonstrates compensated mixed picture. Electrolytes are stable. Will continue to follow and hopefully serum creatinine will improve over time. 7. Heme-onc: No current issues. DVT prophylaxis warranted. 8. ID: Mild leukocytosis of unclear etiology. The patient did receive steroids empirically. Will check procalcitonin. Patient is critically ill at this point in time with multiorgan system dysfunction and significant possibility of clinical decline and/or . A total of 55 minutes in critical care time exclusive of procedures was spent in evaluation management stabilization of this patient including discussion with subspecialist. Family was updated at bedside History of Present Illness Attending Physician: Cisco Bradley MD History of Present Illness Asked by cardiology and the hospitalist to assist in evaluation management this patient intubated in the [facility] for airway protection and hypotension with bradycardia. History is obtained from discussion with the girlfriend at the bedside, discussion with cardiology, and review the electronic medical record. The patient is a 54-year-old obese male with a history of chronic alcohol use who presented to the emergency room with a several day history of abdominal pain and diarrhea. He had CT scans performed which were possibly suggestive of mesenteric panniculitis. He was seen in consultation by GI. He developed atrial fibrillation with a rapid ventricular response as well and cardiology consultation was obtained. He was taken to the [facility] today for a KATERYNA and with sedation became hypotensive and bradycardic. He also had episodes of retching and increasing abdominal pain. He was intubated for respiratory protection and had to be initiated on norepinephrine. He was taken to the [facility] and had coronary angiography performed which demonstrated no acute occlusions, only some chronic disease. He was brought to the ICU intubated and hypotensive on norepinephrine. I assessed the patient on arrival to the ICU. A central line was rapidly placed. We transition his norepinephrine to epinephrine given his bradycardia and hypotension. This was effective in improving his heart rate and blood pressure. He is making some urine. His exam reveals a relatively soft abdomen. No rigidity rebound or guarding although he is sedated on propofol and fentanyl. Additional history is obtained from his girlfriend at the bedside. She reports that he does drink alcohol both whiskey and beer on a fairly regular basis. He works at [employer]. No occupational exposures. He works in the IT department. She believes that there may have been a few other coworkers with similar GI issues. He did complete a course of antibiotics recently for bronchitis. Allergies Allergy/AdvReac Type Severity Reaction Status Date / Time No Known Allergies Allergy Unverified 04/06/25 00:58 Home Medications Medication Instructions Recorded Confirmed Type losartan 100 mg tablet 100 mg PO QPM 05/25/24 04/06/25 History metformin 1,000 mg tablet 1,000 mg PO BID 05/25/24 04/06/25 History amlodipine 5 mg tablet 5 mg PO QAM 04/06/25 04/06/25 History benzonatate 200 mg capsule 200 mg PO TID PRN Cough 04/06/25 04/06/25 History hydrochlorothiazide 12.5 mg tablet 12.5 mg PO QAM 04/06/25 04/06/25 History metoprolol succinate 50 mg 50 mg PO AMHS 04/06/25 04/06/25 History tablet,extended release 24 hr sildenafil 100 mg tablet 100 mg PO DAILY PRN Erectile 04/06/25 04/06/25 History Dysfunction Patient History Medical History Coronary atherosclerosis of [place] coronary artery Atrial fibrillation with rapid ventricular response CHF (congestive heart failure) Mood disorder Depression Left ureteral stone Hypertension Surgical History History of cholecystectomy Social History Smoking Status: Current every day smoker Tobacco Type: Cigarettes Cigarettes Per Day: 1/2 pack day; Second Hand Exposure: No; Do You Dip or Chew Tobacco: No; Hx Alcohol Use: Yes Alcohol type: beer and hard liquor Hx Substance Use: Yes Preferred Language: Chinese Communication Ability: Effective Pizza Delivery Driver Required: No Beliefs That Will Affect Care: None Current Living Situation: Alone Current Living Situation Comment: lives at home alone Feels Safe at Home: Yes Safety Concerns: Feels Safe At This Time Assistive Devices: CPAP Review of Systems Review of Systems: Unobtainable due to endotracheal tube Physical Exam Constitutional: + obese and + mechanically ventilated; n o acute distress Neck: trachea midline, no thyromegaly Respiratory: normal respiratory effort, lungs clear to auscultation Cardiovascular: RRR, no murmur, no edema Gastrointestinal (Abdomen): normal bowel sounds, soft, nontender, no hepatosplenomegaly Musculoskeletal: Extremities: extremities normal to inspection Skin: no rashes, warm and dry Neurologic: Sedated on propofol and fentanyl Lymphatic: no cervical lymphadenopathy Results & Data Results & Data Vital Signs (Past 12 Hours) Vital Signs Temp Pulse Pulse Pulse Resp BP BP 04/08/25 12:14 16 04/08/25 11:40 53 L 19 04/08/25 10:15 22 04/08/25 10:00 57 L 18 133/97 04/08/25 09:45 60 18 78/57 L 04/08/25 09:30 26 L 18 93/67 L 04/08/25 09:15 51 L 18 79/57 L 04/08/25 09:00 53 L 18 84/68 L 04/08/25 08:56 52 L 18 83/66 L 04/08/25 08:41 53 L 16 04/08/25 08:15 53 L 16 116/89 04/08/25 08:01 57 L 18 115/84 04/08/25 07:49 103 H 14 66/39 L 04/08/25 07:38 105 H 14 04/08/25 03:33 36.4 C L 79 16 04/08/25 03:06 20 BP Pulse Ox O2 Del Method O2 Flow Rate FiO2 04/08/25 12:14 50 04/08/25 11:40 97 60 04/08/25 10:15 100 04/08/25 10:00 89 L Oxymask 6 04/08/25 09:45 94 Oxymask 2 04/08/25 09:30 95 Oxymask 2 04/08/25 09:15 97 Oxymask 2 04/08/25 09:00 97 Oxymask 2 04/08/25 08:56 96 Oxymask 6 04/08/25 08:41 82/67 L 98 Room Air 04/08/25 08:15 95 Room Air 04/08/25 08:01 95 Room Air 0 04/08/25 07:49 98 Oxymask 8 04/08/25 07:38 95/81 L 94 Room Air 04/08/25 03:33 119/95 96 CPAP 04/08/25 03:06 95 Critical Care Results & Data Vital Signs (Past 12 Hours) Vital Signs Temp Pulse Pulse Pulse Resp BP BP 04/08/25 12:14 16 04/08/25 11:40 53 L 19 04/08/25 10:15 22 04/08/25 10:00 57 L 18 133/97 04/08/25 09:45 60 18 78/57 L 04/08/25 09:30 26 L 18 93/67 L 04/08/25 09:15 51 L 18 79/57 L 04/08/25 09:00 53 L 18 84/68 L 04/08/25 08:56 52 L 18 83/66 L 04/08/25 08:41 53 L 16 04/08/25 08:15 53 L 16 116/89 04/08/25 08:01 57 L 18 115/84 04/08/25 07:49 103 H 14 66/39 L 04/08/25 07:38 105 H 14 04/08/25 03:33 36.4 C L 79 16 04/08/25 03:06 20 BP Pulse Ox O2 Del Method O2 Flow Rate FiO2 04/08/25 12:14 50 04/08/25 11:40 97 60 04/08/25 10:15 100 04/08/25 10:00 89 L Oxymask 6 04/08/25 09:45 94 Oxymask 2 04/08/25 09:30 95 Oxymask 2 04/08/25 09:15 97 Oxymask 2 04/08/25 09:00 97 Oxymask 2 04/08/25 08:56 96 Oxymask 6 04/08/25 08:41 82/67 L 98 Room Air 04/08/25 08:15 95 Room Air 04/08/25 08:01 95 Room Air 0 04/08/25 07:49 98 Oxymask 8 04/08/25 07:38 95/81 L 94 Room Air 04/08/25 03:33 119/95 96 CPAP 04/08/25 03:06 95 Lab & Micro Results (Past 24 Hours) RBC 4.66 M/uL (4.70-6.10) L 04/08/25 WBC 14.92 K/ul (4.8-10.8) H 04/08/25 Hgb 14.1 g/dl (14.0-18.0) 04/08/25 Hct 40.5 % (42.0-52.0) L 04/08/25 MCV 86.9 fL (80.0-100.0) 04/08/25 MCH 30.3 pg (25.0-34.0) 04/08/25 MCHC 34.8 g/dL (32.0-36.0) 04/08/25 RDW Standard Deviation 40.4 fL (36.4-46.3) 04/08/25 RDW Coefficient of Variation 13.2 % (11.5-14.5) 04/08/25 Plt Count 307 K/uL (130-400) 04/08/25 MPV 10.7 fL (9.4-12.4) 04/08/25 Neutrophils (%) (Auto) 78.3 % 04/08/25 Lymphocytes (%) (Auto) 15.1 % 04/08/25 Monocytes # (Auto) 0.79 K/uL (0.11-0.59) H 04/08/25 Eosinophils # (Auto) 0.02 K/uL (0.00-0.50) 04/08/25 Immature Granulocyte % (Auto) 0.9 % 04/08/25 Neutrophils # (Auto) 11.67 K/uL (1.40-6.50) H 04/08/25 Lymphocytes # (Auto) 2.26 K/uL (1.20-3.40) 04/08/25 Monocytes # (Auto) 0.79 K/uL (0.11-0.59) H 04/08/25 Eosinophils # (Auto) 0.02 K/uL (0.00-0.50) 04/08/25 Basophils # (Auto) 0.04 K/uL (0.00-0.20) 04/08/25 Immature Granulocyte # (Auto) 0.14 K/uL (0.01-0.20) 5 Na 133 mmol/L (136-145) L 04/08/25 K 4.3 mmol/L (3.5-5.1) 04/08/25 Cl 104 mmol/L (98-107) 04/08/25 CO2 20 mmol/L (21-32) L 04/08/25 Anion Gap 9 (3-11) 04/08/25 BUN 21 mg/dl (6-23) 04/08/25 Creatinine 1.32 mg/dl (0.6-1.4) 04/08/25 BUN/Creatinine Ratio 15.9 (10-20) 04/08/25 Glu 203 mg/dl (70-99(Fasting)) H 04/08/25 Ca 8.5 mg/dl (8.6-10.3) L 04/08/25 Total Bilirubin 1.0 mg/dl (0.2-1.0) 04/08/25 AST 31 U/L (13-39) 04/08/25 ALT 50 U/L (7-52) 04/08/25 Alkaline Phosphatase 47 U/L (34-104) 04/08/25 TP 5.8 gm/dl (6.0-8.3) L 04/08/25 Albumin 3.3 gm/dl (3.4-5.0) L 04/08/25 Globulin 2.5 gm/dl (2.5-4.0) 04/08/25 Albumin/Globulin Ratio 1.3 (0.9-2) 04/08/25 Mg 2.1 mg/dl (1.7-2.4) 04/08/25 03:27 Calcium Level 8.5 mg/dl (8.6-10.3) L 04/08/25 12:10 Prothromb Time International Ratio 1.2 (0.9-1.1) H 04/08/25 12 :22 Diagnostic Findings (Past 24 Hours) Abdomen/Pelvis CTA 04/07/25 15:05 EXAMINATION: CT angiogram of the abdomen and pelvis performed after the administration of IV contrast TECHNIQUE: Helical CT images from the lung bases through the symphysis pubis were obtained with contrast. Coronal and sagittal reformatted images were generated at a workstation for further assessment. Dose reduction techniques were achieved by using automatic exposure control and/or adjustment of mA and/or kV according to patient size and/or use of iterative reconstruction technique. COMPARISON: 04/06/2025 HISTORY: Abdominal pain FINDINGS: Normal abdominal aorta and iliac arteries. The major branch vessels and, including the celiac and mesenteric arteries as well as the renal arteries are all widely patent without evidence for thrombosis. The liver is normal in size and attenuation. No focal liver lesions are seen. There is no intrahepatic or extrahepatic biliary ductal dilatation. Hepatic vasculature is patent. The gallbladder is surgically absent, with mild prominence of the common bile duct, which is stable. The spleen, pancreas, and adrenal glands are unremarkable. There is a 12 mm nodule near the splenic hilum, likely a splenule, which is stable. The kidneys are normal in size and attenuation. There is no hydronephrosis or perinephric fat stranding. Renal contrast excretion, which further limits evaluation. The bladder is normal in contour. No evidence of focal or diffuse bowel wall thickening or evidence of bowel obstruction is seen. The appendix is visualized in the right lower quadrant and appears within normal limits. No adenopathy. Minimal free fluid in the pelvis. The aorta is normal in caliber. Increased free fluid and mesenteric fat stranding seen in the right quadrants, starting near the duodenum, along the right paraaortic area, and continuing to the aortic bifurcation. No duodenal thickening. Ascites is seen in all 4 quadrants, some of which is new from prior. No aggressive-appearing osseous lesions are identified. A small right pleural effusion has increased. IMPRESSION: No evidence for mesenteric vein thrombosis. Interval increase in mesenteric fat stranding, as well as ascites, again possibly related to mesenteric panniculitis Electronically signed by Jagdish Carmichael 04-07-2025 4:57 PM Chest X-Ray 04/08/25 10:27 XR chest 1V portable CLINICAL HISTORY: Post intubation,NG COMPARISON STUDY: 04/06/2025 FINDINGS: Endotracheal tube tip is just below the thoracic inlet. Nasogastric tube tip is in the proximal stomach. There is stable cardiomegaly with increased pulmonary vascular congestion. There is increased pulmonary interstitial prominence and faint patchy pulmonary opacities. No pleural effusion or pneumothorax. IMPRESSION: 1. Endotracheal tube tip is just below the thoracic inlet. 2. CHF. 3. Increased pulmonary opacities could represent pulmonary edema or early pneumonia. ACT 112: Negative or not required by law. Electronically signed by: Mikael Ivey M.D. 04/08/2025 11:23 AM Chest X-Ray 04/08/25 12:31 XR chest 1V portable CLINICAL HISTORY: cxr ett placement COMPARISON STUDY: 04/08/2025 FINDINGS: Endotracheal tube tip is at the thoracic inlet. Nasogastric tube tip is in the proximal stomach. Left central catheter tip is in the SVC. There is no pneumothorax. Stable cardiomegaly with pulmonary vascular congestion. Stable pulmonary interstitial prominence. IMPRESSION: No pneumothorax. ACT 112: Negative or not required by law. Electronically signed by: Mikael Ivey M.D. 04/08/2025 12:42 PM I & O Totals 24 Hours 04/07/25 04/08/25 04/09/25 06:59 06:59 06:59 Intake Total 2845.467 / 2845.467 1211.200 / 1211.200 321.158 / 321.158 Balance 2845.467 / 2845.467 1211.200 / 1211.200 321.158 / 321.158 Cumulative 04/06/25 00:18 thru 04/08/25 12:48 Intake Total 5510.491 Balance 5510.491 RT Ventilator Mngmt (Last Documented) Ventilator Ordered Settings Ventilator Support Mode Assist Control 04/08/25 12:14 Respiratory Rate 16 04/08/25 12:14 Ventilator Tidal Volume 480 04/08/25 11:40 Setting Minute Ventilation 8 04/08/25 11:40 Positive End Expiratory 10 04/08/25 11:40 Pressure Fraction of Inspired Oxygen 50 04/08/25 12:14 Ventilator - PT Measurements Respiratory Rate 16 Exhaled Tidal Volume 425 Minute Ventilation 8 Peak Inspiratory Airway 34 Pressure Respiratory Cycle Inspiratory: 1:3.8 Expiratory Ratio Inspiratory Phase Time 0.7 End-Tidal CO2 35 Dynamic Lung Compliance 17.71 Normal Static Lung Compliance 45.00 Patient Measurements Comment RR decreased to [address] Parra and FiO2 decreased to 50% at this time. RN made aware. Coding Level of Care Code 45769 CRITICAL CARE 1ST 30-74M Diagnoses Generalized abdominal pain R10.84 Abdominal location: generalized New onset atrial fibrillation I48.91 Lactic acidosis E87.20 Sepsis with encephalopathy and septic shock A41.9; R65.21; G93.41 Renal insufficiency, mild N28.9 (1) Abdominal pain Abdominal location: generalized Qualified Code(s): R10.84 - Generalized abdominal pain
--- NOTE | 2025-04-08 13:36 | Hospitalist Progress Note ---
Date of Service April 08, 2025 Assessment & Plan (1) Rapid atrial fibrillation: Plan: 54-year-old male with past medical history significant for hypertension, depression, ongoing tobacco use, history of atrial fibrillation, history of kidney stones comes because of abdominal pain and also in the ER found to be in rapid A-fib. Patient says since last Saturday is having abdominal pain mostly in the right upper side. Associated with nausea. Tonight he had episode of vomiting.. He was also sweating, feeling hot and cold which made him come to the hospital. In the ER he went into rapid A-fib. received IV Lopressor and Currently started on Cardizem drip. Denies any chest pain. Yesterday was feeling short of breath but currently no shortness of breath. No headache. No runny nose or sore throat. Since last 1 week he is having cough. In May 2024 was admitted for new onset rapid A-fib and left ureteral stone. He was discharged on metoprolol succinate and Eliquis. Patient says he no longer taking Eliquis and didn't followed up with cardiology. Atrial fibrillation with rapid ventricular response Bradycardia --ECHO: Borderline concentric LVH. Mild to moderate global hypokinesis of left ventricle. EF 35 to 40%. Left atrium moderately dilated. Moderate mitral regurgitation. Trace tricuspid regurgitation. --Normal TSH --S/P KATERYNA Cardioversion on 04/08/25 Developed bradycardia post cardioversion Hold metoprolol Currently on dopamine drip Appreciate cardiology, critical care input On IV heparin for anticoagulation>> eventually transition to Eliquis as able Monitor and replete electrolytes as needed Shock Likely multifactorial due to sepsis/cardiogenic S/P Intubation on 04/08/25 for airway protection ? Fluid overload/aspiration KATERYNA ECHO: No evidence of left atrial or left atrial appendage thrombus. Left atrium mildly dilated. LV systolic function with global hypokinesis. 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 Stable right renal calculus. Stable fatty hepatomegaly and splenomegaly. --ABD CTA:No evidence for mesenteric vein thrombosis. Interval increase in mesenteric fat stranding, as well as ascites, again possibly related to mesenteric panniculitis -- Received IV Solu-Medrol Appreciate GI input Uncontrolled diabetes mellitus HbA1c 10.2 Hold metformin Continue sliding scale Appreciate glycemic pharmacy consult Monitor blood glucose levels Obstructive sleep apnea CPAP nightly Hypertension Currently hypotensive Hold hydrochlorothiazide, amlodipine, losartan and metoprolol succinate for now Monitor blood pressure close Obesity BMI 40.8 DVT Px: IV heparin CODE STATUS Full code Admission and Anticipated Discharge Date Admission Date: April 06, 2025 Subjective Patient is seen and examined at bedside Patient had KATERYNA cardioversion this morning Postprocedure, patient developed hypotension, bradycardia and was intubated for airway protection Patient had cardiac cath which did not show any blockages Currently patient is sedated and intubated, unable to obtain any history Updated patient's significant other at bedside Also discussed with immigration manager today Patient is transferred to ICU for further management. Review of Systems Review of Systems: Unobtainable due to endotracheal tube Physical Exam Physical Exam: Physical Exam: Vitals signs as noted above General Appearance:Obese, no apparent distress,+ intubated Head: normocephalic, Atraumatic Eyes: normal inspection, EOMI Neck: supple, Trachea midline Respiratory/Chest: Coarse breath sounds, No accessory muscle use Cardiovascular: S1, S2, bradycardia, No murmur Abdomen/GI:Soft, mild tender, Bowel sounds present Extremities/Musculoskeletal:normal inspection, Trace edema Neurologic/Psych: Sedated and intubated Skin: normal color, warm Results & Data Results & Data Vital Signs (Past 12 Hours) Vital Signs Temp Pulse Pulse Pulse Resp BP BP 04/08/25 12:14 16 04/08/25 11:40 53 L 19 04/08/25 10:15 22 04/08/25 10:00 57 L 18 133/97 04/08/25 09:45 60 18 78/57 L 04/08/25 09:30 26 L 18 93/67 L 04/08/25 09:15 51 L 18 79/57 L 04/08/25 09:00 53 L 18 84/68 L 04/08/25 08:56 52 L 18 83/66 L 04/08/25 08:41 53 L 16 04/08/25 08:15 53 L 16 116/89 04/08/25 08:01 57 L 18 115/84 04/08/25 07:49 103 H 14 66/39 L 04/08/25 07:38 105 H 14 04/08/25 03:33 36.4 C L 79 16 04/08/25 03:06 20 BP Pulse Ox O2 Del Method O2 Flow Rate FiO2 04/08/25 12:14 50 04/08/25 11:40 97 60 04/08/25 10:15 100 04/08/25 10:00 89 L Oxymask 6 04/08/25 09:45 94 Oxymask 2 04/08/25 09:30 95 Oxymask 2 04/08/25 09:15 97 Oxymask 2 04/08/25 09:00 97 Oxymask 2 04/08/25 08:56 96 Oxymask 6 04/08/25 08:41 82/67 L 98 Room Air 04/08/25 08:15 95 Room Air 04/08/25 08:01 95 Room Air 0 04/08/25 07:49 98 Oxymask 8 04/08/25 07:38 95/81 L 94 Room Air 04/08/25 03:33 119/95 96 CPAP 04/08/25 03:06 95 Laboratory Results Short CBC 04/08/25 04/08/25 Range/Units 03:27 12:10 WBC 15.80 H 14.92 H (4.8-10.8) K/ul Hgb 14.5 14.1 (14.0-18.0) g/dl Hct 41.4 L 40.5 L (42.0-52.0) % Plt Count 265 307 (130-400) K/uL BMP 04/08/25 04/08/25 03:27 12:10 Sodium 134 L 133 L Potassium 3.9 4.3 Chloride 101 104 Carbon Dioxide 26 20 L BUN 19 21 Creatinine 0.95 1.32 D Glucose 170 H 203 H Calcium 9.0 8.5 L Liver Function 04/08/25 Range/Units 12:10 Total Bilirubin 1.0 (0.2-1.0) mg/dl AST 31 (13-39) U/L ALT 50 (7-52) U/L Alkaline Phosphatase 47 (34-104) U/L Albumin 3.3 L (3.4-5.0) gm/dl
[2025-04-08] MEDS: INSULIN ASPART PER UNIT CHARGE SC SCH (13:55)
[2025-04-08] MEDS: LANTUS PER UNIT CHARGE SC ONE (13:55)
[2025-04-08] MEDS: BENZOCAINE/TETRACAIN/BUTAM 50 APPLN/5 GM CAN EXT ONE (13:57)
[2025-04-08] MEDS: HEPARIN (PORCINE) 1000 UNIT/ML 10 ML (CATH LAB USE ONLY) ONE (14:00)
[2025-04-08] MEDS: OPTIRAY 350 ONE (14:01)
[2025-04-08] MEDS: NITROGLYCERIN/D5W 100MCG/ML 20ML SYR ONE (14:01)
[2025-04-08 15:27] LABS: iSTAT Art Bld Gas Base Excess -7.0 mmol/L (-9-1.8); iSTAT Art Bld Gas pCO2 Correct 26 mmHg (35-46); iSTAT Art Bld Gas pH Corrected 7.435 (7.35-7.45); iSTAT Arterial Blood Gas pO2 C 141
--- NOTE | 2025-04-08 18:09 | Electrocardiogram Report ---
Test Reason : Blood Pressure : */* mmHG Vent. Rate : 89 BPM Atrial Rate : * BPM P-R Int : * ms QRS Dur : 120 ms QT Int : 386 ms P-R-T Axes : * 12 32 degrees QTcB Int : 469 ms Atrial fibrillation with premature ventricular or aberrantly conducted complexes Nonspecific T wave abnormality Abnormal ECG When compared with ECG of 07-Apr-2025 06:10, Nonspecific T wave abnormality now evident in Inferior leads Confirmed by Jagdish Coley ([id number]) on 04/08/2025 6:09:14 PM Referred By: REFERRED SELF Confirmed By: Jagdish Coley
--- NOTE | 2025-04-08 18:09 | Electrocardiogram Report ---
Test Reason : Blood Pressure : */* mmHG Vent. Rate : 52 BPM Atrial Rate : 52 BPM P-R Int : 212 ms QRS Dur : 124 ms QT Int : 454 ms P-R-T Axes : 60 25 118 degrees QTcB Int : 422 ms Sinus bradycardia with 1st degree A-V block Non-specific intra-ventricular conduction delay T wave abnormality, consider lateral ischemia Abnormal ECG When compared with ECG of 08-Apr-2025 06:38, (unconfirmed) Sinus rhythm has replaced Atrial fibrillation Vent. rate has decreased by 37 bpm Nonspecific T wave abnormality, improved in Inferior leads Confirmed by Jagdish Coley ([id number]) on 04/08/2025 6:09:26 PM Referred By: REFERRED SELF Confirmed By: Jagdish Coley
--- NOTE | 2025-04-08 18:12 | Electrocardiogram Report ---
Test Reason : Blood Pressure : */* mmHG Vent. Rate : 52 BPM Atrial Rate : 52 BPM P-R Int : 218 ms QRS Dur : 120 ms QT Int : 484 ms P-R-T Axes : 59 35 155 degrees QTcB Int : 450 ms Poor data quality, interpretation may be adversely affected Sinus bradycardia with 1st degree A-V block T wave abnormality, consider anterolateral ischemia Abnormal ECG When compared with ECG of 08-Apr-2025 08:31, (unconfirmed) No significant change was found Confirmed by Jagdish Coley ([id number]) on 04/08/2025 6:12:17 PM Referred By: REFERRED SELF Confirmed By: Jagdish Coley
--- NOTE | 2025-04-08 18:19 | Electrocardiogram Report ---
Test Reason : Blood Pressure : */* mmHG Vent. Rate : 53 BPM Atrial Rate : 53 BPM P-R Int : 208 ms QRS Dur : 128 ms QT Int : 472 ms P-R-T Axes : 86 54 121 degrees QTcB Int : 442 ms Sinus bradycardia Non-specific intra-ventricular conduction block T wave abnormality, consider lateral ischemia Abnormal ECG When compared with ECG of 08-Apr-2025 08:30, (unconfirmed) No significant change was found Confirmed by Jagdish Coley ([id number]) on 04/08/2025 6:19:32 PM Referred By: REFERRED SELF Confirmed By: Jagdish Coley
[2025-04-08] MEDS: METOPROLOL SUCC 25MG EXT REL TAB PO SCH (19:18)
[2025-04-08 20:05] LABS: Anion Gap 18.0 (3-11); Blood Urea Nitrogen 23.0 mg/dl (6-23); Calcium 8.4 mg/dl (8.6-10.3); Carbon Dioxide 17.0 mmol/L (21-32); Chloride 101.0 mmol/L (98-107); Creatinine Clr Calc Pharmacy 75.1 ml/min; Glucose 300.0 mg/dl (70-99(Fasting)); Magnesium 1.8 mg/dl (1.7-2.4); Potassium 2.8 mmol/L (3.5-5.1); Sodium 136.0 mmol/L (136-145)
[2025-04-08 20:20] LABS: ANTI-Xa, UFH(UnfractionatedHep 0.30 IU/ml (0.3-0.7)
[2025-04-08 20:25] LABS: iSTAT Art Bld Gas Base Excess -13.0 mmol/L (-9-1.8); iSTAT Art Bld Gas pCO2 Correct 32 mmHg (35-46); iSTAT Art Bld Gas pH Corrected 7.264 (7.35-7.45); iSTAT Arterial Blood Gas pO2 C 120
[2025-04-08] MEDS: POTASSIUM CHLORIDE / WTR 20 MEQ/100 ML PLCT IV SCH (20:37)
[2025-04-08] MEDS: MAGNESIUM SULFATE / D5W 1 GM/100 ML BAG IV SCH (20:37)
[2025-04-08] MEDS: POTASSIUM CHLORIDE 20 MEQ/15 ML UDC PO STA (20:37)
[2025-04-08] MEDS ORDERED: LOSARTAN POTASSIUM 50 MG TAB PO SCH (21:00)
[2025-04-08] MEDS: OPTIRAY 320 125ml IV ONE (22:15)
--- NOTE | 2025-04-08 23:47 | CT Scan Report ---
Exam(s): CTA ABDOMEN + PELVIS With Contrast IV Amt: 115 ml [id number] EXAM: CT Angiography Abdomen and Pelvis With Intravenous Contrast CLINICAL HISTORY: Reason for exam: Rule out mesenteric ischemia. TECHNIQUE: Axial computed tomographic angiography images of the abdomen and pelvis with intravenous contrast. Arterial and venous phase imaging is performed. CTDI is 236.86 mGy and DLP is 1722.63 mGy-cm. Automated exposure control was utilized for the study. A dose lowering technique was utilized adhering to the principles of ALARA. MIP reconstructed images were created and reviewed. CONTRAST: Patient received 115 ml [id number] of IV contrast COMPARISON: CT abdomen and pelvis 04/07/2025 FINDINGS: VASCULATURE: Aorta: No acute findings. No aortic aneurysm or dissection. Celiac trunk and mesenteric arteries: No acute findings. No occlusion or significant stenosis. Renal arteries: No occlusion or stenosis in the renal arteries. Duplication of the right renal artery. Iliac arteries: No acute findings. No occlusion or significant stenosis. Portal veins: Portal vein, superior mesenteric vein are patent. Lung bases: Bibasilar consolidations increased from prior, with enhancement characteristics of atelectasis. Pleural space: Small right and trace left pleural effusions, increased from prior. ABDOMEN: Liver: Hepatomegaly. Gallbladder and bile ducts: Cholecystectomy. No ductal dilation. Pancreas: Unremarkable. No ductal dilation. No mass. Spleen: Unremarkable. No splenomegaly. Adrenals: Unremarkable. No mass. Kidneys and ureters: No hydronephrosis. Small nonobstructing right kidney lower pole stone. Stomach and bowel: Unremarkable. No mucosal thickening. No bowel obstruction. PELVIS: Appendix: No evidence of appendicitis. Bladder: Urinary bladder decompressed around a Witt catheter. Reproductive: Unremarkable as visualized. ABDOMEN and PELVIS: Intraperitoneal space: Mild ascites. Mesenteric edema. No free air. Bones/joints: L4-L5 disc degeneration. Lower lumbar facet degeneration. No acute fracture or dislocation. Soft tissues: Unremarkable. Lymph nodes: Unremarkable. No enlarged lymph nodes. Tubes, lines and devices: Enteric tube extends to the stomach. Rectal catheter in place. IMPRESSION: 1. Increasing pleural effusions and bibasilar atelectasis. 2. Mild ascites. Mesenteric edema. No free air. These findings are similar to prior. 3. No mesenteric arterial occlusion or significant stenosis. Electronically signed by: Eleazar Díaz M.D. 04/08/25 23:46 PM
[2025-04-09 01:42] LABS: Anion Gap 15.0 (3-11); Blood Urea Nitrogen 18.0 mg/dl (6-23); Calcium 8.6 mg/dl (8.6-10.3); Carbon Dioxide 17.0 mmol/L (21-32); Chloride 102.0 mmol/L (98-107); Creatinine Clr Calc Pharmacy 81.2 ml/min; Glucose 362.0 mg/dl (70-99(Fasting)); Potassium 3.8 mmol/L (3.5-5.1); Sodium 134.0 mmol/L (136-145)
[2025-04-09 03:05] LABS: Appearance Urine Clear (Clear); Bacteria Urine Automated None Seen (None Seen); Cast Urine Automated 0-2 /lpf (0-2); Epithelial Cell Urine Auto 0-2 /hpf (0-2); Glucose Urine UA 3+ (Negative); RBC Urine Automated 0-2 /hpf (0-2); WBC Urine Automated 0-5 /hpf (0-5)
[2025-04-09] MEDS ORDERED: PHARMACY GLYCEMIC MGMT CONSULT PRN (04:12)
[2025-04-09] MEDS ORDERED: STAT IV Infusion **Titration per Protocol STA (04:14)
[2025-04-09] MEDS: INSULIN REGULAR 250 UNITS in SODIUM CHLORIDE 0.9% 247.5 ML IV SCH (04:45)
[2025-04-09] MEDS: NovoLIN-R BOLUS FROM BAG IV ONE (04:48)
[2025-04-09 05:00] LABS: Hematocrit (blood only) 38.5 % (42.0-52.0); Hemoglobin 14.0 g/dl (14.0-18.0); Mean Corpuscular Hemoglobin 31.7 pg (25.0-34.0); Mean Corpuscular Volume 87.1 fL (80.0-100.0); Platelet Count 279 K/uL (130-400); RDW Standard Deviation 40.7 fL (36.4-46.3); Red Blood Count 4.42 M/uL (4.70-6.10); White Blood Count 14.80 K/ul (4.8-10.8)
[2025-04-09 05:17] LABS: Anion Gap 9.0 (3-11); Blood Urea Nitrogen 16.0 mg/dl (6-23); Calcium 8.7 mg/dl (8.6-10.3); Carbon Dioxide 23.0 mmol/L (21-32); Chloride 104.0 mmol/L (98-107); Creatinine Clr Calc Pharmacy 102.7 ml/min; Glucose 264.0 mg/dl (70-99(Fasting)); Magnesium 2.0 mg/dl (1.7-2.4); Potassium 3.6 mmol/L (3.5-5.1); Sodium 136.0 mmol/L (136-145); Triglycerides 113.0 mg/dl (0-150)
[2025-04-09] MEDS: INSULIN PROTOCOL GOAL RANGE ONE (05:19)
[2025-04-09] MEDS: MODERATE STRESS LEVEL ONE (05:19)
[2025-04-09 05:33] LABS: ANTI-Xa, UFH(UnfractionatedHep 0.30 IU/ml (0.3-0.7)
[2025-04-09] MEDS: POTASSIUM CHLORIDE / WTR 20 MEQ/100 ML PLCT IV ONE (05:53)
[2025-04-09] MEDS: INSULIN ASPART PER UNIT CHARGE SC SCH ×3 (07:11→17:08)
--- NOTE | 2025-04-09 08:46 | Critical Care Progress Note ---
Date of Service April 09, 2025 Assessment & Plan (1) Abdominal pain: (2) New onset atrial fibrillation: (3) Lactic acidosis: (4) Sepsis with encephalopathy and septic shock: (5) Renal insufficiency, mild: Plan Impression: 54-year-old male with obesity diabetes admitted with abdominal pain. He developed A-fib with RVR and required cardioversion. During the course that he developed nausea vomiting abdominal pain and retching and required intubation. Cardiac catheterization showed no significant coronary disease but his ejection fraction was reduced. He was transferred to the ICU on norepinephrine and mechanical ventilator. 24-hour events: Patient taken to the [facility] and cardioversion completed. Shortly thereafter he developed nausea vomiting and retching. Was intubated for respiratory protection and vasopressor agents added. Underwent cardiac catheterization revealing nonobstructive coronary disease and brought to the ICU. Central line was placed. He was initiated on epinephrine which has been now been weaned off. Last evening for reasons that are not entirely clear his lactate bumped to 11 but is now back down to 3. He is clinically improved. EGD performed this morning with GI demonstrating only Hunt's esophagus but no other pathology identified. Recommendations: 1. Neurologic: Given his hemodynamic improvement, we will proceed with sedation break and potential SBT. Given his alcohol use, will need to monitor for alcohol withdrawal. Will place on high-dose thiamine and folate. 2. Cardiovascular: A-fib with RVR status post cardioversion. Unclear etiology for his profound shock. Could be related to cardioversion or potential transient intestinal ischemia but no sequela identified and appears to have spontaneously improved. Discussed with cardiology this morning. May consider repeating echocardiogram to evaluate LV function. He remains in sinus rhythm. Continue anticoagulation. Restart metoprolol once hemodynamics allow 3. Pulmonary: Intubated due to retching and hemodynamic instability. Minimal vent settings currently. Will place on SBT for potential vent liberation with sedation break today. Significant sleep apnea and will need CPAP/BiPAP when extubated and as needed when sleeping 4. GI: Patient presented with abdominal pain. Discussed with GI. Unclear etiology at this point in time. Continue to follow clinically. No evidence of mesenteric arterial or venous ischemic changes. Unclear significance of the mesenteric stranding. GI may recommend follow-up CT scan in 6 to 8 weeks. 5. Endocrine: Poorly controlled diabetes: Pharmacy consult for glycemic management. 6. Renal: Creatinine back to normal. Electrolytes and volume status reasonable. 7. Heme-onc: No current issues. DVT prophylaxis warranted. 8. ID: White blood cell count elevated and mild fever however procalcitonin unremarkable. Unclear etiology - GI remains possible no obvious source identified will recheck procalcitonin in a.m. and initiate intra-abdominal coverage Will observe in ICU to ensure hemodynamic stability The patient is critically ill with significant possibility of clinical decline and/or . A total of 42 minutes in critical care time was spent in evaluation management stabilization this patient Admission and Anticipated Discharge Date Admission Date: April 06, 2025 Subjective Patient seen and examined. EMR reviewed. Discussed with overnight critical care MILANA as well as with bedside critical care nurse in a multidisciplinary rounds. Patient is intubated and sedated. He is at significant improvement in his hemodynamics and is now off pressor agents. His lactate cleared. Imaging of the abdomen was unrevealing last night. Review of Systems Review of Systems: Unobtainable due to endotracheal tube Physical Exam Constitutional: + obese and + mechanically ventilated; n o acute distress Neck: trachea midline, no thyromegaly Respiratory: normal respiratory effort, lungs clear to auscultation Cardiovascular: RRR, no murmur, no edema Gastrointestinal (Abdomen): normal bowel sounds, soft, nontender, no hepatosplenomegaly Musculoskeletal: Extremities: extremities normal to inspection Skin: no rashes, warm and dry Lymphatic: no cervical lymphadenopathy Results & Data Results & Data Vital Signs (Past 12 Hours) Vital Signs Temp Pulse Resp BP Pulse Ox FiO2 04/09/25 08:36 38.0 C H 61 19 100 04/09/25 08:18 38.0 C H 64 18 100 04/09/25 08:12 38.0 C H 66 18 100 04/09/25 08:00 104/71 04/09/25 07:42 38.1 C H 62 18 100 04/09/25 07:25 66 18 100 40 04/09/25 07:00 38.2 C H 63 18 100 04/09/25 07:00 96/71 L 04/09/25 06:14 40 04/09/25 06:03 38.2 C H 65 18 100 50 04/09/25 06:00 110/72 04/09/25 05:36 38.2 C H 65 18 100 50 04/09/25 05:03 38.2 C H 66 18 99 50 04/09/25 05:00 111/71 04/09/25 04:57 38.2 C H 63 18 99 50 04/09/25 04:00 103/74 04/09/25 04:00 38.2 C H 61 18 99 50 04/09/25 04:00 61 114/63 04/09/25 03:12 65 19 100 40 04/09/25 03:00 38.2 C H 63 18 100 50 04/09/25 03:00 118/75 04/09/25 02:36 38.2 C H 62 18 98 50 04/09/25 02:14 50 04/09/25 02:00 102/69 04/09/25 01:57 38.1 C H 62 18 99 50 04/09/25 01:50 98/66 L 04/09/25 01:48 38.1 C H 67 18 99 50 04/09/25 01:01 83 19 97 50 04/09/25 01:00 38.1 C H 64 18 98 04/09/25 00:03 38.0 C H 69 18 98 04/09/25 00:00 65 04/09/25 00:00 65 113/57 L 04/08/25 23:12 38.0 C H 79 18 97 04/08/25 23:01 132/73 04/08/25 22:54 38.0 C H 83 21 97 04/08/25 22:00 131/72 04/08/25 22:00 38.0 C H 79 18 96 04/08/25 21:00 135/77 04/08/25 21:00 37.8 C H 79 18 97 Critical Care Results & Data Vital Signs (Past 12 Hours) Vital Signs Temp Pulse Resp BP Pulse Ox FiO2 04/09/25 08:36 38.0 C H 61 19 100 04/09/25 08:18 38.0 C H 64 18 100 04/09/25 08:12 38.0 C H 66 18 100 04/09/25 08:00 104/71 04/09/25 07:42 38.1 C H 62 18 100 04/09/25 07:25 66 18 100 40 04/09/25 07:00 38.2 C H 63 18 100 04/09/25 07:00 96/71 L 04/09/25 06:14 40 04/09/25 06:03 38.2 C H 65 18 100 50 04/09/25 06:00 110/72 04/09/25 05:36 38.2 C H 65 18 100 50 04/09/25 05:03 38.2 C H 66 18 99 50 04/09/25 05:00 111/71 04/09/25 04:57 38.2 C H 63 18 99 50 04/09/25 04:00 103/74 04/09/25 04:00 38.2 C H 61 18 99 50 04/09/25 04:00 61 114/63 04/09/25 03:12 65 19 100 40 04/09/25 03:00 38.2 C H 63 18 100 50 04/09/25 03:00 118/75 04/09/25 02:36 38.2 C H 62 18 98 50 04/09/25 02:14 50 04/09/25 02:00 102/69 04/09/25 01:57 38.1 C H 62 18 99 50 04/09/25 01:50 98/66 L 04/09/25 01:48 38.1 C H 67 18 99 50 04/09/25 01:01 83 19 97 50 04/09/25 01:00 38.1 C H 64 18 98 04/09/25 00:03 38.0 C H 69 18 98 04/09/25 00:00 65 04/09/25 00:00 65 113/57 L 04/08/25 23:12 38.0 C H 79 18 97 04/08/25 23:01 132/73 04/08/25 22:54 38.0 C H 83 21 97 04/08/25 22:00 131/72 04/08/25 22:00 38.0 C H 79 18 96 04/08/25 21:00 135/77 04/08/25 21:00 37.8 C H 79 18 97 Lab & Micro Results (Past 24 Hours) RBC 4.42 M/uL (4.70-6.10) L 04/09/25 WBC 14.80 K/ul (4.8-10.8) H 04/09/25 Hgb 14.0 g/dl (14.0-18.0) 04/09/25 Hct 38.5 % (42.0-52.0) L 04/09/25 MCV 87.1 fL (80.0-100.0) 04/09/25 MCH 31.7 pg (25.0-34.0) 04/09/25 MCHC 36.4 g/dL (32.0-36.0) H 04/09/25 RDW Standard Deviation 40.7 fL (36.4-46.3) 04/09/25 RDW Coefficient of Variation 13.2 % (11.5-14.5) 04/09/25 Plt Count 279 K/uL (130-400) 04/09/25 MPV 10.8 fL (9.4-12.4) 04/09/25 Neutrophils (%) (Auto) 78.3 % 04/08/25 Lymphocytes (%) (Auto) 15.1 % 04/08/25 Monocytes # (Auto) 0.79 K/uL (0.11-0.59) H 04/08/25 Eosinophils # (Auto) 0.02 K/uL (0.00-0.50) 04/08/25 Immature Granulocyte % (Auto) 0.9 % 04/08/25 Neutrophils # (Auto) 11.67 K/uL (1.40-6.50) H 04/08/25 Lymphocytes # (Auto) 2.26 K/uL (1.20-3.40) 04/08/25 Monocytes # (Auto) 0.79 K/uL (0.11-0.59) H 04/08/25 Eosinophils # (Auto) 0.02 K/uL (0.00-0.50) 04/08/25 Basophils # (Auto) 0.04 K/uL (0.00-0.20) 04/08/25 Immature Granulocyte # (Auto) 0.14 K/uL (0.01-0.20) 5 Na 136 mmol/L (136-145) 04/09/25 K 3.6 mmol/L (3.5-5.1) 04/09/25 Cl 104 mmol/L (98-107) 04/09/25 CO2 23 mmol/L (21-32) 04/09/25 Anion Gap 9 (3-11) 04/09/25 BUN 16 mg/dl (6-23) 04/09/25 Creatinine 1.06 mg/dl (0.6-1.4) 04/09/25 BUN/Creatinine Ratio 15.1 (10-20) 04/09/25 Glu 264 mg/dl (70-99(Fasting)) H 04/09/25 Ca 8.7 mg/dl (8.6-10.3) 04/09/25 Phosphorus Level 3.4 mg/dl (2.5-4.9) 04/09/25 Total Bilirubin 1.0 mg/dl (0.2-1.0) 04/08/25 AST 31 U/L (13-39) 04/08/25 ALT 50 U/L (7-52) 04/08/25 Alkaline Phosphatase 47 U/L (34-104) 04/08/25 TP 5.8 gm/dl (6.0-8.3) L 04/08/25 Albumin 3.3 gm/dl (3.4-5.0) L 04/08/25 Globulin 2.5 gm/dl (2.5-4.0) 04/08/25 Albumin/Globulin Ratio 1.3 (0.9-2) 04/08/25 Mg 2.0 mg/dl (1.7-2.4) 04/09/25 04:38 Calcium Level 8.7 mg/dl (8.6-10.3) 04/09/25 04:38 Prothromb Time International Ratio 1.2 (0.9-1.1) H 04/08/25 12 :22 Nash Test NA 04/08/25 20:12 Diagnostic Findings (Past 24 Hours) Chest X-Ray 04/08/25 10:27 XR chest 1V portable CLINICAL HISTORY: Post intubation,NG COMPARISON STUDY: 04/06/2025 FINDINGS: Endotracheal tube tip is just below the thoracic inlet. Nasogastric tube tip is in the proximal stomach. There is stable cardiomegaly with increased pulmonary vascular congestion. There is increased pulmonary interstitial prominence and faint patchy pulmonary opacities. No pleural effusion or pneumothorax. IMPRESSION: 1. Endotracheal tube tip is just below the thoracic inlet. 2. CHF. 3. Increased pulmonary opacities could represent pulmonary edema or early pneumonia. ACT 112: Negative or not required by law. Electronically signed by: Mikael Ivey M.D. 04/08/2025 11:23 AM Chest X-Ray 04/08/25 12:31 XR chest 1V portable CLINICAL HISTORY: cxr ett placement COMPARISON STUDY: 04/08/2025 FINDINGS: Endotracheal tube tip is at the thoracic inlet. Nasogastric tube tip is in the proximal stomach. Left central catheter tip is in the SVC. There is no pneumothorax. Stable cardiomegaly with pulmonary vascular congestion. Stable pulmonary interstitial prominence. IMPRESSION: No pneumothorax. ACT 112: Negative or not required by law. Electronically signed by: Mikael Ivey M.D. 04/08/2025 12:42 PM Abdomen/Pelvis CTA 04/08/25 20:20 Exam(s): CTA ABDOMEN + PELVIS With Contrast IV Amt: 115 ml [id number] EXAM: CT Angiography Abdomen and Pelvis With Intravenous Contrast CLINICAL HISTORY: Reason for exam: Rule out mesenteric ischemia. TECHNIQUE: Axial computed tomographic angiography images of the abdomen and pelvis with intravenous contrast. Arterial and venous phase imaging is performed. CTDI is 236.86 mGy and DLP is 1722.63 mGy-cm. Automated exposure control was utilized for the study. A dose lowering technique was utilized adhering to the principles of ALARA. MIP reconstructed images were created and reviewed. CONTRAST: Patient received 115 ml of IV contrast COMPARISON: CT abdomen and pelvis 04/07/2025 FINDINGS: VASCULATURE: Aorta: No acute findings. No aortic aneurysm or dissection. Celiac trunk and mesenteric arteries: No acute findings. No occlusion or significant stenosis. Renal arteries: No occlusion or stenosis in the renal arteries. Duplication of the right renal artery. Iliac arteries: No acute findings. No occlusion or significant stenosis. Portal veins: Portal vein, superior mesenteric vein are patent. Lung bases: Bibasilar consolidations increased from prior, with enhancement characteristics of atelectasis. Pleural space: Small right and trace left pleural effusions, increased from prior. ABDOMEN: Liver: Hepatomegaly. Gallbladder and bile ducts: Cholecystectomy. No ductal dilation. Pancreas: Unremarkable. No ductal dilation. No mass. Spleen: Unremarkable. No splenomegaly. Adrenals: Unremarkable. No mass. Kidneys and ureters: No hydronephrosis. Small nonobstructing right kidney lower pole stone. Stomach and bowel: Unremarkable. No mucosal thickening. No bowel obstruction. PELVIS: Appendix: No evidence of appendicitis. Bladder: Urinary bladder decompressed around a Witt catheter. Reproductive: Unremarkable as visualized. ABDOMEN and PELVIS: Intraperitoneal space: Mild ascites. Mesenteric edema. No free air. Bones/joints: L4-L5 disc degeneration. Lower lumbar facet degeneration. No acute fracture or dislocation. Soft tissues: Unremarkable. Lymph nodes: Unremarkable. No enlarged lymph nodes. Tubes, lines and devices: Enteric tube extends to the stomach. Rectal catheter in place. IMPRESSION: 1. Increasing pleural effusions and bibasilar atelectasis. 2. Mild ascites. Mesenteric edema. No free air. These findings are similar to prior. 3. No mesenteric arterial occlusion or significant stenosis. Electronically signed by: Eleazar Díaz M.D. 04/08/25 23:46 PM I & O Totals 24 Hours 04/08/25 04/09/25 04/10/25 06:59 06:59 06:59 Intake Total 1211.200 / 1622.640 9817.997 / 3339.997 268.364 / 268.364 Output Total 3390 / 3390 Balance 1211.200 / 1211.200 -50.003 / -50.003 268.364 / 268.364 Cumulative 04/06/25 00:18 thru 04/09/25 08:33 Intake Total 8797.694 Output Total 3390 Balance 5407.694 RT Ventilator Mngmt (Last Documented) Ventilator Ordered Settings Ventilator Support Mode Assist Control 04/09/25 07:25 Respiratory Rate 19 04/09/25 08:36 Ventilator Tidal Volume 450 04/09/25 07:25 Setting Minute Ventilation 7.7 04/09/25 07:25 Positive End Expiratory 8 04/09/25 07:25 Pressure Fraction of Inspired Oxygen 40 04/09/25 07:25 Ventilator - PT Measurements Respiratory Rate 19 Exhaled Tidal Volume 428 Minute Ventilation 7.7 Peak Inspiratory Airway 31 Pressure Plateau Pressure 22 Respiratory Cycle Inspiratory: 1:3.8 Expiratory Ratio Inspiratory Phase Time 0.7 End-Tidal CO2 23 Static Lung Compliance 30.57 Dynamic Lung Compliance 18.61 Normal Static Lung Compliance 45.00 Patient Measurements Comment fio2 decreased to 40% at this time. Coding Level of Care Code 47061 CRITICAL CARE 1ST 30-74M Diagnoses Generalized abdominal pain R10.84 Abdominal location: generalized New onset atrial fibrillation I48.91 Lactic acidosis E87.20 Sepsis with encephalopathy and septic shock A41.9; R65.21; G93.41 Renal insufficiency, mild N28.9 (1) Abdominal pain Abdominal location: generalized Qualified Code(s): R10.84 - Generalized ab dominal pain
[2025-04-09] MEDS: DEXTROSE 50% 50 ML SYRINGE IV PRN (09:26)
--- NOTE | 2025-04-09 09:29 | History & Physical Bridge Note ---
Date of Service April 09, 2025 History & Physical Bridge Note I have examined the patient, reviewed the History & Physical and in the interval since the performance of the History & Physical I have noted the following changes of clinical significance: no changes noted Patient is currently in the ICU intubated and sedated. His deterioration yesterday remains unexplained. Our plan is to move forward with an EGD to evaluate the duodenum and area of fluid and stranding. Exclude a process such as peptic ulcer disease, lymphoma, or neoplasm. This would probably be best done with him intubated so we will proceed at bedside in the ICU this morning. Discussed this with patient's who is agreeable.
--- NOTE | 2025-04-09 10:22 | Cardiology Progress Note ---
Date of Service April 09, 2025 Assessment & Plan (1) Rapid atrial fibrillation: (2) Abdominal pain: (3) Elevated troponin I level: (4) Acute hyperglycemia: (5) Moderate left ventricular systolic dysfunction (LVSD): (6) Tachycardia induced cardiomyopathy: Plan Patient is a 54 year old male who was admitted for acute abdominal pain, starting yesterday with associated nausea and vomting. 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 Also found to have recurrent afib RVR in the 160's on admission. Afib RVR -Duration unknown but given moderate LV dysfunciton and moderately dilated LA, likely present for several weeks/months. -initially started on IV diltiazem with mildly improved rates -Metoprolol succinate increased to 75 mg BID -Continue IV heparin for anticoagulation/stroke prophylaxis, will then transition to oral anticoagulation with Eliquis 5 mg BID -Once abdominal pain/GI status has improved - will consider KATERYNA/CV, possible 04/08 -Supplement magnesium and potassium - improved this morning Mildly elevated troponin in setting afib RVR -73 on admission - Peaked at 79 and then 61 this morning -Type II demand ischemia secondary to afib and acute GI illness. -EKG on admission without ischemic changes -No chest pain/SOB reported -Echo with global hypokinesis - LVEF 35-40%, likely tachyinduced cardiomyopathy -continue IV heparin and beta jaime -add statin given DM and cardiac risk factors - LDL goal is < 70. atorvastatin 20 mg daily added Likely Tachy induced cardiomyopathy with LV systolic dysfunction -EF 35% with global hypokinesis -Continue GDMT - losartan and metoprolol succinate -would benefit from KATERYNA/CV prior to discharge - keep NPO at midnight. -May benefit from outpatient nuclear stress test as well Hypertension -Continue home dose amlodipine, losartan, and hctz -Metoprolol added at 75 mg BID Mesenteric Panniculitis and ongoing abdominal pain. -GI consulted -Corticosteroids added. SOLO - continue CPAP 04/08/2025 Complex patient underwent synchronized electrical cardioversion for atrial fibrillation with rapid response, reduced ejection fraction. Post procedure had hemodynamic compromise with nausea vomiting hypotension and moderate hypoxia suspect significant volume overload as component. Was referred for diagnostic coronary angiography without obstructive disease after intubation and hemodynamic stabilization with pressors. 1. Diffuse cardiomyopathy nonischemic question tachycardia mediated 2. Atrial fibrillation with rapid response currently maintaining sinus rhythm post cardioversion 3. Acute systolic heart failure, hypotension post cardioversion 4. Presenting complaint of abdominal pain: Consider abdominal CT follow-up Patient referred for ICU management will continue to follow and aid. If no clinical response with new onset cardiomyopathy borderline hemodynamics consider tertiary referral 04/09/2025 54-year-old male presenting initially with abdominal pain and newly observed atrial fibrillation with rapid response prior history of atrial fibrillation with rapid response May 2024. Due to persistent elevated heart rates and reduced ejection fraction on echocardiogram possible tachycardia mediated cardiomyopathy patient underwent synchronized electrical cardioversion on 04/08/2025. Post procedure with profound hypotension mixed etiology shock requiring pressors, intubation and ICU transfer. Urgent coronary angiography without obstructive coronary disease Remains mechanically ventilated this morning though hemodynamically stable with pressors being weaned. 1. Profound hypotension with shock. Possible myocardial stunning post synchronized cardioversion. Additional causes under investigation 2. Atrial fibrillation with rapid response status post successful conversion to sinus rhythm 3. Diffuse cardiomyopathy, nonischemic: Question etiology tachycardia versus underlying pathology, EtOH use Recommendations: Repeat echocardiogram limited today to reassess LV systolic function Additional laboratory studies ordered due to cardiomyopathy concerns including iron studies, serum immunoelectrophoresis. Continue anticoagulation Will follow as clinical course progresses, ventilatory weaning Admission and Anticipated Discharge Date Admission Date: April 06, 2025 Subjective Patient was seen and personally examined. Chart medications telemetry reviewed. Care and management discussed with ICU staff and significant other Hemodynamically stable this morning remains sedated and intubated with though with plans for ventricular weaning. Low-grade fever overnight. No atrial fibrillation or further arrhythmias Review of Systems Review of Systems: Unobtainable due to endotracheal tube Physical Exam Constitutional: + obese and + mechanically ventilated Eyes: PERRL, conjunctivae normal, anicteric sclerae ENMT: external ear and nose normal, oropharynx normal Neck: trachea midline, no thyromegaly + thick neck Respiratory: symmetric chest movement Cardiovascular: Rate/Rhythm: regular rate and regular rhythm (Post cardioversion) Extremities: + edema (1+) Gastrointestinal (Abdomen): Inspection/Auscultation: + abdomen distended Percussion/Palpation: + abdomen tender (Left upper quad) and abdomen soft Musculoskeletal: no cyanosis or clubbing, extremities motor strength 5/5 Psychiatric: Sedated, intubated Results & Data Vital Signs (Past 12 Hours) Vital Signs Temp Pulse Pulse Resp BP BP Pulse Ox 04/09/25 09:39 37.8 C H 59 L 18 110/76 97 04/09/25 08:50 65 04/09/25 08:36 38.0 C H 61 19 100 04/09/25 08:18 38.0 C H 64 18 100 04/09/25 08:12 38.0 C H 66 18 100 04/09/25 08:00 104/71 04/09/25 07:42 38.1 C H 62 18 100 04/09/25 07:25 66 18 100 04/09/25 07:00 38.2 C H 63 18 100 04/09/25 07:00 96/71 L 04/09/25 06:14 04/09/25 06:03 38.2 C H 65 18 100 04/09/25 06:00 110/72 04/09/25 05:36 38.2 C H 65 18 100 04/09/25 05:03 38.2 C H 66 18 99 04/09/25 05:00 111/71 04/09/25 04:57 38.2 C H 63 18 99 04/09/25 04:00 103/74 04/09/25 04:00 38.2 C H 61 18 99 04/09/25 04:00 61 114/63 04/09/25 03:12 65 19 100 04/09/25 03:00 38.2 C H 63 18 100 04/09/25 03:00 118/75 04/09/25 02:36 38.2 C H 62 18 98 04/09/25 02:14 04/09/25 02:00 102/69 04/09/25 01:57 38.1 C H 62 18 99 04/09/25 01:50 98/66 L 04/09/25 01:48 38.1 C H 67 18 99 04/09/25 01:01 83 19 97 04/09/25 01:00 38.1 C H 64 18 98 04/09/25 00:03 38.0 C H 69 18 98 04/09/25 00:00 65 04/09/25 00:00 65 113/57 L 04/08/25 23:12 38.0 C H 79 18 97 04/08/25 23:01 132/73 04/08/25 22:54 38.0 C H 83 21 97 O2 Del Method FiO2 04/09/25 09:39 Mechanical Vent 04/09/25 08:50 04/09/25 08:36 04/09/25 08:18 04/09/25 08:12 04/09/25 08:00 04/09/25 07:42 04/09/25 07:25 40 04/09/25 07:00 04/09/25 07:00 04/09/25 06:14 40 04/09/25 06:03 50 04/09/25 06:00 04/09/25 05:36 50 04/09/25 05:03 50 04/09/25 05:00 04/09/25 04:57 50 04/09/25 04:00 04/09/25 04:00 50 04/09/25 04:00 04/09/25 03:12 40 04/09/25 03:00 50 04/09/25 03:00 04/09/25 02:36 50 04/09/25 02:14 50 04/09/25 02:00 04/09/25 01:57 50 04/09/25 01:50 04/09/25 01:48 50 04/09/25 01:01 50 04/09/25 01:00 04/09/25 00:03 04/09/25 00:00 04/09/25 00:00 04/08/25 23:12 04/08/25 23:01 04/08/25 22:54 Laboratory Results Laboratory Results - last 24 hr 04/08/25 04/08/25 04/08/25 12:10 12:11 12:22 WBC 14.92 H RBC 4.66 L Hgb 14.1 POC Hgb 13.3 L Hct 40.5 L POC Hct 39 L MCV 86.9 MCH 30.3 MCHC 34.8 RDW Std Deviation 40.4 RDW Coeff of Katherine 13.2 Plt Count 307 MPV 10.7 Immature Gran % (Auto) 0.9 Neut % (Auto) 78.3 Lymph % (Auto) 15.1 [place] % (Auto) 5.3 Eos % (Auto) 0.1 Baso % (Auto) 0.3 Neut # (Auto) 11.67 H Lymph # (Auto) 2.26 [place] # (Auto) 0.79 H Eos # (Auto) 0.02 Baso # (Auto) 0.04 Immature Gran # (Auto) 0.14 PT 12.3 H INR 1.2 H Heparin Anti-Xa, Unfract Specimen Type Arterial Sample Site Art Line POC pH 7.44 POC pCO2 26 L POC pO2 141 H POC HCO3 18 L POC Total CO2 18 L POC Base Excess -7.0 O2 Sat Pulse Oximetry 100 ABG pH (Temp Correct) 7.435 ABG pCO2 (Temp Corrct 26 L POC ABG pO2 at Pt Temp 141 POC ABG O2 Sat 99.0 H Nash Test NA O2 Delivery Device Ventilator Vent Mode AC POC FiO2 60 End Tidal CO2 POC Sodium 134 L Sodium 133 L POC Potassium 4.2 Potassium 4.3 Chloride 104 Carbon Dioxide 20 L Anion Gap 9 BUN 21 Creatinine 1.32 D Est Cr Clr Drug Dosing 82.4 eGFR 64.90 BUN/Creatinine Ratio 15.9 Glucose 203 H POC Glucose POC Glucose (other) Lactate 2.4 H* Calcium 8.5 L Phosphorus Magnesium Total Bilirubin 1.0 AST 31 ALT 50 Alkaline Phosphatase 47 Total Creatine Kinase Troponin I High Sens 42.9 H C-Reactive Protein Total Protein 5.8 L Albumin 3.3 L Globulin 2.5 Albumin/Globulin Ratio 1.3 Triglycerides Lipase 7 L Procalcitonin 0.18 Urine Color Urine Appearance Urine pH Ur Specific [place] Urine Protein Urine Glucose (UA) Urine Ketones Urine Blood Urine Nitrite Urine Bilirubin Urine Urobilinogen Ur Leukocyte Esterase Urine WBC (Auto) Urine RBC (Auto) U Hyaline Cast (Auto) U Epithel Cells (Auto) Urine Bacteria (Auto) Urine Comment 04/08/25 04/08/25 04/08/25 13:32 18:16 19:25 WBC RBC Hgb POC Hgb Hct POC Hct MCV MCH MCHC RDW Std Deviation RDW Coeff of Katherine Plt Count MPV Immature Gran % (Auto) Neut % (Auto) Lymph % (Auto) [place] % (Auto) Eos % (Auto) Baso % (Auto) Neut # (Auto) Lymph # (Auto) [place] # (Auto) Eos # (Auto) Baso # (Auto) Immature Gran # (Auto) PT INR Heparin Anti-Xa, Unfract 0.30 Specimen Type Sample Site POC pH POC pCO2 POC pO2 POC HCO3 POC Total CO2 POC Base Excess O2 Sat Pulse Oximetry ABG pH (Temp Correct) ABG pCO2 (Temp Corrct POC ABG pO2 at Pt Temp POC ABG O2 Sat Nash Test O2 Delivery Device Vent Mode POC FiO2 End Tidal CO2 POC Sodium Sodium POC Potassium Potassium Chloride Carbon Dioxide Anion Gap BUN Creatinine Est Cr Clr Drug Dosing eGFR BUN/Creatinine Ratio Glucose POC Glucose 178 H 249 H POC Glucose (other) Lactate Calcium Phosphorus Magnesium Total Bilirubin AST ALT Alkaline Phosphatase Total Creatine Kinase Troponin I High Sens C-Reactive Protein Total Protein Albumin Globulin Albumin/Globulin Ratio Triglycerides Lipase Procalcitonin Urine Color Urine Appearance Urine pH Ur Specific [place] Urine Protein Urine Glucose (UA) Urine Ketones Urine Blood Urine Nitrite Urine Bilirubin Urine Urobilinogen Ur Leukocyte Esterase Urine WBC (Auto) Urine RBC (Auto) U Hyaline Cast (Auto) U Epithel Cells (Auto) Urine Bacteria (Auto) Urine Comment 04/08/25 04/08/25 04/08/25 19:29 20:12 21:34 WBC RBC Hgb POC Hgb 13.3 L Hct POC Hct 39 L MCV MCH MCHC RDW Std Deviation RDW Coeff of Katherine Plt Count MPV Immature Gran % (Auto) Neut % (Auto) Lymph % (Auto) [place] % (Auto) Eos % (Auto) Baso % (Auto) Neut # (Auto) Lymph # (Auto) [place] # (Auto) Eos # (Auto) Baso # (Auto) Immature Gran # (Auto) PT INR Heparin Anti-Xa, Unfract Specimen Type Arterial Sample Site R Radial POC pH 7.27 L POC pCO2 31 L POC pO2 116 H POC HCO3 14 L POC Total CO2 15 L POC Base Excess -13.0 L O2 Sat Pulse Oximetry 97 ABG pH (Temp Correct) 7.264 L ABG pCO2 (Temp Corrct 32 L POC ABG pO2 at Pt Temp 120 POC ABG O2 Sat 98.0 H Nash Test NA O2 Delivery Device Ventilator Vent Mode AC POC FiO2 50 End Tidal CO2 31 POC Sodium 138 Sodium 136 POC Potassium 2.6 L Potassium 2.8 L D Chloride 101 Carbon Dioxide 17 L Anion Gap 18 H BUN 23 Creatinine 1.45 H Est Cr Clr Drug Dosing 75.1 eGFR 57.98 BUN/Creatinine Ratio 15.9 Glucose 300 H POC Glucose POC Glucose (other) Lactate 10.3 H* 11.5 H* Calcium 8.4 L Phosphorus Magnesium 1.8 Total Bilirubin AST ALT Alkaline Phosphatase Total Creatine Kinase 19 L Troponin I High Sens C-Reactive Protein 0.76 H Total Protein Albumin Globulin Albumin/Globulin Ratio Triglycerides Lipase Procalcitonin Urine Color Urine Appearance Urine pH Ur Specific [place] Urine Protein Urine Glucose (UA) Urine Ketones Urine Blood Urine Nitrite Urine Bilirubin Urine Urobilinogen Ur Leukocyte Esterase Urine WBC (Auto) Urine RBC (Auto) U Hyaline Cast (Auto) U Epithel Cells (Auto) Urine Bacteria (Auto) Urine Comment 04/09/25 04/09/25 04/09/25 00:03 00:59 02:43 WBC RBC Hgb POC Hgb Hct POC Hct MCV MCH MCHC RDW Std Deviation RDW Coeff of Katherine Plt Count MPV Immature Gran % (Auto) Neut % (Auto) Lymph % (Auto) [place] % (Auto) Eos % (Auto) Baso % (Auto) Neut # (Auto) Lymph # (Auto) [place] # (Auto) Eos # (Auto) Baso # (Auto) Immature Gran # (Auto) PT INR Heparin Anti-Xa, Unfract Specimen Type Sample Site POC pH POC pCO2 POC pO2 POC HCO3 POC Total CO2 POC Base Excess O2 Sat Pulse Oximetry ABG pH (Temp Correct) ABG pCO2 (Temp Corrct POC ABG pO2 at Pt Temp POC ABG O2 Sat Nash Test O2 Delivery Device Vent Mode POC FiO2 End Tidal CO2 POC Sodium Sodium 134 L POC Potassium Potassium 3.8 D Chloride 102 Carbon Dioxide 17 L Anion Gap 15 H BUN 18 Creatinine 1.34 Est Cr Clr Drug Dosing 81.2 eGFR 63.74 BUN/Creatinine Ratio 13.4 Glucose 362 H* POC Glucose POC Glucose (other) 355 H* Lactate 8.7 H* Calcium 8.6 Phosphorus Magnesium Total Bilirubin AST ALT Alkaline Phosphatase Total Creatine Kinase Troponin I High Sens C-Reactive Protein Total Protein Albumin Globulin Albumin/Globulin Ratio Triglycerides Lipase Procalcitonin Urine Color Yellow Urine Appearance Clear Urine pH 5.5 Ur Specific [place] > 1.045 H Urine Protein Trace H Urine Glucose (UA) 3+ H Urine Ketones Negative Urine Blood Negative Urine Nitrite Negative Urine Bilirubin Negative Urine Urobilinogen Negative Ur Leukocyte Esterase Negative Urine WBC (Auto) 0-5 Urine RBC (Auto) 0-2 U Hyaline Cast (Auto) 0-2 U Epithel Cells (Auto) 0-2 Urine Bacteria (Auto) None Seen Urine Comment 04/09/25 04/09/25 04/09/25 04:01 04:38 06:10 WBC 14.80 H RBC 4.42 L Hgb 14.0 POC Hgb Hct 38.5 L POC Hct MCV 87.1 MCH 31.7 MCHC 36.4 H RDW Std Deviation 40.7 RDW Coeff of Katherine 13.2 Plt Count 279 MPV 10.8 Immature Gran % (Auto) Neut % (Auto) Lymph % (Auto) [place] % (Auto) Eos % (Auto) Baso % (Auto) Neut # (Auto) Lymph # (Auto) [place] # (Auto) Eos # (Auto) Baso # (Auto) Immature Gran # (Auto) PT INR Heparin Anti-Xa, Unfract 0.30 Specimen Type Sample Site POC pH POC pCO2 POC pO2 POC HCO3 POC Total CO2 POC Base Excess O2 Sat Pulse Oximetry ABG pH (Temp Correct) ABG pCO2 (Temp Corrct POC ABG pO2 at Pt Temp POC ABG O2 Sat Nash Test O2 Delivery Device Vent Mode POC FiO2 End Tidal CO2 POC Sodium Sodium 136 POC Potassium Potassium 3.6 Chloride 104 Carbon Dioxide 23 Anion Gap 9 BUN 16 Creatinine 1.06 Est Cr Clr Drug Dosing 102.7 eGFR 84.44 BUN/Creatinine Ratio 15.1 Glucose 264 H POC Glucose POC Glucose (other) 279 H 171 H Lactate 3.0 H* Calcium 8.7 Phosphorus 3.4 Magnesium 2.0 Total Bilirubin AST ALT Alkaline Phosphatase Total Creatine Kinase Troponin I High Sens C-Reactive Protein Total Protein Albumin Globulin Albumin/Globulin Ratio Triglycerides 113 Lipase Procalcitonin Urine Color Urine Appearance Urine pH Ur Specific [place] Urine Protein Urine Glucose (UA) Urine Ketones Urine Blood Urine Nitrite Urine Bilirubin Urine Urobilinogen Ur Leukocyte Esterase Urine WBC (Auto) Urine RBC (Auto) U Hyaline Cast (Auto) U Epithel Cells (Auto) Urine Bacteria (Auto) Urine Comment PG Care Time/CCT Total # of Minutes Spent Total Time Spent with Patient: Total time spent is greater than 50% in coordination of care (as documented) at patient's floor/unit and/or counseling patient: Coding Level of Care Code 57796 SUB INP/OBS CARE 3/50MIN Diagnoses Rapid atrial fibrillation I48.91 Generalized abdominal pain R10.84 Abdominal location: generalized Elevated troponin I level R74.8 Acute hyperglycemia R73.9 Moderate left ventricular systolic dysfunction (LVSD) I51.89 Tachycardia induced cardiomyopathy I42.8 (2) Abdominal pain Abdominal location: generalized Qualified Code(s): R10.84 - Generalized abdominal pain
--- NOTE | 2025-04-09 10:42 | Electrocardiogram Report ---
Test Reason : Blood Pressure : */* mmHG Vent. Rate : 80 BPM Atrial Rate : 80 BPM P-R Int : 202 ms QRS Dur : 138 ms QT Int : 382 ms P-R-T Axes : 37 44 -9 degrees QTcB Int : 440 ms Sinus rhythm with Premature supraventricular complexes and with occasional Premature ventricular comp lexes Non-specific intra-ventricular conduction block Nonspecific T wave abnormality Abnormal ECG When compared with ECG of 08-Apr-2025 09:45, Premature ventricular complexes are now Present Premature supraventricular complexes are now Present Vent. rate has increased by 28 bpm Nonspecific T wave abnormality, worse in Inferior leads T wave inversion no longer evident in Anterior leads Confirmed by Jagdish Coley ([id number] on 04/09/2025 10:42:16 AM Referred By: REFERRED SELF Confirmed By: Jagdish Coley
[2025-04-09] MEDS: MULTI VIT W/MINERALS LIQUID 15 ML UDC PO SCH (10:45)
[2025-04-09] MEDS: cefTRIAXone SODIUM 2,000 MG/50 ML BAG IV SCH (11:15)
[2025-04-09] MEDS: metroNIDAZOLE 500 MG/100 ML BAG IV SCH (11:15)
[2025-04-09] MEDS ORDERED: Nursing to Pharmacy Communication SCH (11:15)
[2025-04-09 11:56] LABS: Iron 27 mcg/dl (35-175); Total Iron Binding Cap Calc 342 mcg/dl (250-450); Transferrin 244 mg/dl (200-360); Transferrin (FE) Percent Satur 8 % (20-50)
[2025-04-09] MEDS: THIAMINE HCL 200 MG in SODIUM CHLORIDE 0.9% 50 ML IV SCH (12:07)
[2025-04-09] MEDS: LANTUS PER UNIT CHARGE SC ONE ×2 (12:44→20:05)
--- NOTE | 2025-04-09 14:57 | Hospitalist Progress Note ---
Date of Service April 09, 2025 Assessment & Plan (1) Rapid atrial fibrillation: Plan: 54-year-old male with past medical history significant for hypertension, depression, ongoing tobacco use, history of atrial fibrillation, history of kidney stones comes because of abdominal pain and also in the ER found to be in rapid A-fib. Patient says since last Saturday is having abdominal pain mostly in the right upper side. Associated with nausea. Tonight he had episode of vomiting.. He was also sweating, feeling hot and cold which made him come to the hospital. In the ER he went into rapid A-fib. received IV Lopressor and Currently started on Cardizem drip. Denies any chest pain. Yesterday was feeling short of breath but currently no shortness of breath. No headache. No runny nose or sore throat. Since last 1 week he is having cough. In May 2024 was admitted for new onset rapid A-fib and left ureteral stone. He was discharged on metoprolol succinate and Eliquis. Patient says he no longer taking Eliquis and didn't followed up with cardiology. Atrial fibrillation with rapid ventricular response Bradycardia --ECHO: Borderline concentric LVH. Mild to moderate global hypokinesis of left ventricle. EF 35 to 40%. Left atrium moderately dilated. Moderate mitral regurgitation. Trace tricuspid regurgitation. --Normal TSH --S/P KATERYNA Cardioversion on 04/08/25 --Repeat ECHO: Rhythm sinus. Left ventricle normal in size. Mild concentric LVH. Moderate global hypokinesis of left ventricle. EF 43%. Mild to moderate mitral regurgitation. Developed bradycardia/Hypotension post cardioversion Amiodarone, metoprolol discontinued Appreciate cardiology, critical care input On IV heparin for anticoagulation>> eventually transition to Eliquis as able Monitor and replete electrolytes as needed Plan to resume metoprolol when hemodynamically stable Shock Possible myocardial stunning post synchronized cardioversion Diffuse cardiomyopathy ?? Tachycardia versus alcohol use Rule out sepsis S/P Intubation on 04/08/25 for airway protection ? Fluid overload/aspiration KATERYNA ECHO: No evidence of left atrial or left atrial appendage thrombus. Left atrium mildly dilated. LV systolic function with global hypokinesis. 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 Stable right renal calculus. Stable fatty hepatomegaly and splenomegaly. --ABD CTA:No evidence for mesenteric vein thrombosis. Interval increase in mesenteric fat stranding, as well as ascites, again possibly related to mesenteric panniculitis -- Received IV Solu-Medrol Appreciate GI input Will need repeat CT scan in 6 to 8 weeks Uncontrolled diabetes mellitus HbA1c 10.2 Hold metformin Continue sliding scale Appreciate glycemic pharmacy consult Monitor blood glucose levels Obstructive sleep apnea CPAP nightly Hypertension Hold hydrochlorothiazide, amlodipine, losartan and metoprolol succinate for now Monitor adjust medications as needed Obesity BMI 40.8 DVT Px: IV heparin CODE STATUS Full code Admission and Anticipated Discharge Date Admission Date: April 06, 2025 Subjective Patient is seen and examined at bedside Was having spontaneous breathing trial during my encounter Plan to be extubated today Family at bedside Febrile overnight Discussed with cardiology today No distress on exam Weaned off of pressors Review of Systems Review of Systems: Unobtainable due to endotracheal tube Physical Exam Physical Exam: Physical Exam: Vitals signs as noted above General Appearance:Obese, no apparent distress Head: normocephalic, Atraumatic Eyes: normal inspection, EOMI Neck: supple, Trachea midline Respiratory/Chest: Coarse breath sounds, No accessory muscle use Cardiovascular: S1, S2, No murmur Abdomen/GI:Soft, non tender, Bowel sounds present Extremities/Musculoskeletal:normal inspection, Trace edema Neurologic/Psych: Grossly no focal deficits Skin: normal color, warm Results & Data Results & Data Vital Signs (Past 12 Hours) Vital Signs Temp Pulse Pulse Resp BP BP Pulse Ox 04/09/25 14:33 92 04/09/25 14:03 37.3 C 77 17 95 04/09/25 14:00 117/75 04/09/25 13:48 37.4 C 70 16 92 04/09/25 13:33 37.5 C 77 17 92 04/09/25 13:30 118/71 04/09/25 13:30 118/71 04/09/25 13:30 118/71 04/09/25 13:18 37.4 C 63 25 H 90 04/09/25 13:15 37.4 C 63 24 92 04/09/25 12:33 37.4 C 67 19 94 04/09/25 12:30 106/79 04/09/25 12:21 37.4 C 72 22 94 04/09/25 11:54 37.7 C H 74 23 94 04/09/25 11:54 115/77 04/09/25 11:36 37.7 C H 75 21 95 04/09/25 11:30 120/80 04/09/25 11:30 120/80 04/09/25 11:27 37.8 C H 70 21 94 04/09/25 11:06 37.8 C H 71 22 89 L 04/09/25 11:03 04/09/25 11:00 128/85 04/09/25 11:00 128/85 04/09/25 11:00 76 16 98 04/09/25 10:54 37.8 C H 71 21 96 04/09/25 10:39 37.7 C H 70 15 97 04/09/25 10:30 70 18 99 04/09/25 10:24 37.7 C H 64 18 100 04/09/25 10:15 37.7 C H 59 L 18 98 04/09/25 10:00 37.7 C H 61 18 100 04/09/25 10:00 126/84 04/09/25 10:00 126/84 04/09/25 09:51 37.7 C H 58 L 22 100 04/09/25 09:39 37.8 C H 57 L 22 97 04/09/25 09:39 37.8 C H 59 L 18 110/76 97 04/09/25 09:21 37.8 C H 56 L 19 97 04/09/25 09:12 37.9 C H 57 L 19 98 04/09/25 09:09 37.9 C H 66 19 98 04/09/25 09:00 04/09/25 09:00 110/76 04/09/25 09:00 110/76 04/09/25 08:57 37.9 C H 61 18 98 04/09/25 08:54 37.9 C H 61 18 100 04/09/25 08:50 65 04/09/25 08:42 38.0 C H 60 18 99 04/09/25 08:36 38.0 C H 61 19 100 04/09/25 08:18 38.0 C H 64 18 100 04/09/25 08:12 38.0 C H 66 18 100 04/09/25 08:00 104/71 04/09/25 07:42 38.1 C H 62 18 100 04/09/25 07:25 66 18 100 04/09/25 07:00 38.2 C H 63 18 100 04/09/25 07:00 96/71 L 04/09/25 06:14 04/09/25 06:03 38.2 C H 65 18 100 04/09/25 06:00 110/72 04/09/25 05:36 38.2 C H 65 18 100 04/09/25 05:03 38.2 C H 66 18 99 04/09/25 05:00 111/71 04/09/25 04:57 38.2 C H 63 18 99 04/09/25 04:00 103/74 04/09/25 04:00 38.2 C H 61 18 99 04/09/25 04:00 61 114/63 04/09/25 03:12 65 19 100 04/09/25 03:00 38.2 C H 63 18 100 04/09/25 03:00 118/75 O2 Del Method O2 Flow Rate FiO2 04/09/25 14:33 Nasal Cannula 3 04/09/25 14:03 04/09/25 14:00 04/09/25 13:48 04/09/25 13:33 04/09/25 13:30 04/09/25 13:30 04/09/25 13:30 04/09/25 13:18 04/09/25 13:15 04/09/25 12:33 04/09/25 12:30 04/09/25 12:21 04/09/25 11:54 04/09/25 11:54 04/09/25 11:36 04/09/25 11:30 04/09/25 11:30 04/09/25 11:27 04/09/25 11:06 04/09/25 11:03 40 04/09/25 11:00 04/09/25 11:00 04/09/25 11:00 40 04/09/25 10:54 04/09/25 10:39 04/09/25 10:30 40 04/09/25 10:24 04/09/25 10:15 04/09/25 10:00 04/09/25 10:00 04/09/25 10:00 04/09/25 09:51 04/09/25 09:39 04/09/25 09:39 Mechanical Vent 04/09/25 09:21 04/09/25 09:12 04/09/25 09:09 04/09/25 09:00 Mechanical Vent 50 04/09/25 09:00 04/09/25 09:00 04/09/25 08:57 04/09/25 08:54 04/09/25 08:50 04/09/25 08:42 04/09/25 08:36 04/09/25 08:18 04/09/25 08:12 04/09/25 08:00 04/09/25 07:42 04/09/25 07:25 40 04/09/25 07:00 04/09/25 07:00 04/09/25 06:14 40 04/09/25 06:03 50 04/09/25 06:00 04/09/25 05:36 50 04/09/25 05:03 50 04/09/25 05:00 04/09/25 04:57 50 04/09/25 04:00 04/09/25 04:00 50 04/09/25 04:00 04/09/25 03:12 40 04/09/25 03:00 50 04/09/25 03:00 Laboratory Results Short CBC 04/09/25 Range/Units 04:38 WBC 14.80 H (4.8-10.8) K/ul Hgb 14.0 (14.0-18.0) g/dl Hct 38.5 L (42.0-52.0) % Plt Count 279 (130-400) K/uL BMP 04/08/25 04/09/25 04/09/25 19:29 00:59 04:38 Sodium 136 134 L 136 Potassium 2.8 L D 3.8 D 3.6 Chloride 101 102 104 Carbon Dioxide 17 L 17 L 23 BUN 23 18 16 Creatinine 1.45 H 1.34 1.06 Glucose 300 H 362 H* 264 H Calcium 8.4 L 8.6 8.7 Cardiac Enzymes 04/08/25 Range/Units 21:34 Total Creatine Kinase 19 L (30-223) U/L Urine 04/09/25 Range/Units 02:43 Urine Color Yellow Urine Appearance Clear (Clear) Urine pH 5.5 (4.5-7.5) Ur Specific Ballinger > 1.045 H (1.000-1.030) Urine Protein Trace H (Negative) Urine Glucose (UA) 3+ H (Negative)
--- NOTE | 2025-04-09 15:09 | Communication Note ---
Date of Service: April 09, 2025 Patient seen postextubation. Hoarse but conversant without acute complaint. Respiratory status substantially improved. Maintaining sinus rhythm. Hemodynamically stable currently 1. Paroxysmal atrial fibrillation 2. Newly observed cardiomyopathy with moderate left ventricular dysfunction, nonischemic 3. Acute hypotensive shock multifactorial 4. Obstructive sleep apnea on CPAP Currently stable Recommendations: As blood pressure allows would add Entresto 20/26 mg 1/2 tablet twice per day. Stop losartan Resume low-dose beta-jaime with metoprolol succinate 12.5 mg daily Transition heparin to Eliquis Continue CPAP Tobacco and alcohol cessation CHF instruction
--- NOTE | 2025-04-09 15:16 | Pharmacy Report ---
Pharmacy Glycemic Short Note 2 - Date of Service April 09, 2025 - Glycemic Short BSG Results (Last 24 hours): 04/08/25 04/08/25 04/08/25 13:32 18:16 19:29 Glucose 300 H POC Glucose 178 H 249 H POC Glucose (other) 04/09/25 04/09/25 04/09/25 00:03 00:59 04:01 Glucose 362 H* POC Glucose POC Glucose (other) 355 H* 279 H 04/09/25 04/09/25 04/09/25 04:38 06:10 07:22 Glucose 264 H POC Glucose POC Glucose (other) 171 H 113 H 04/09/25 04/09/25 04/09/25 08:10 09:12 09:16 Glucose POC Glucose 68 L* 79 POC Glucose (other) 92 04/09/25 04/09/25 10:32 12:03 Glucose POC Glucose 85 123 H POC Glucose (other) OUTPATIENT ANTIDIABETIC REGIMEN: * metformin 1 gm bid ASSESSMENT: 04/09 * Patient's BSGs trended upward following cardioversion with complication requiring intubation. No additional steroids. Insulin infusion started overnight. * BSGs trended downward with addition of infusion and insulin infusion was discontinued ~ 0930 when BSGs dropped below 80 mg/dL. Patient had received 15 units of lantus yesterday ~1400 which would still be active at time the infusion was stopped. * Patient was extubated ~1100. Will give conservative lantus dose considering patient will likely remain NPO. Could consider additional dose tonight if BSGs trend upward significantly. * Loosened Novolog coverage as no steroids were given yesterday,expect them to be wearing off. * Continues on heparin infusion. 04/08 * Patient received total of 87 units of insulin yesterday, of which 35 units were basal insulin. * Fasting BSG 170 mg/dL - did receive another dose of iv solumedrol yesterday morning. NPO this AM for cardioversion. Patient hypotensive/hypoxic post procedure and was transferred to ICU and intubated. Did not receive any Lantus this AM for NPO status, lunch BSG trending upward 203 mg/dL - will give ~50% of Lantus dose x 1 now and start novolog q6 checks 04/07 * Patient received total of 67 units of insulin yesterday, of which 25 units were basal insulin. BSGs trending up last evening, however was ordered a one time dose of solumedrol last evening. Continues NPO status this AM, will give Lantus 25 units x 1 now and tighten novolog scale 04/06 * 54 year old admitted with afib/abdominal pain. NPO this AM - pending GI workup. Started on heparin drip. BSGs>300 this AM - will start novolog SSI for now and 0.2 units/kg (adj bw) Lantus - 15 units x 1. A1c ordered for tomorrow AM. If diet started, may consider additional Lantus this evening. PLAN FOR INPATIENT GLYCEMIC CONTROL: * Hold outpatient oral diabetes medications * Basal insulin * Lantus 10 units x 1, scale for additional 5-10 units HS * Bolus insulin * NovoLog per scale ACHS or Q6hrs while NPO * Goal Range: Low 110 mg/dL - High 140 mg/dL * Correction Factor: 20 mg/dL/unit * Nutritional / Prandial insulin per carb ratio of 1 unit per 8 grams CHO consumed
--- NOTE | 2025-04-09 15:18 | Communication Note ---
Date of Service: April 09, 2025 EGD Formed at the bedside but patient intubated. Esophagus appeared to be normal. The stomach had some erythema but not biopsy in this gentleman on heparin. Though does not appear to be significant or likely cause for any symptoms. The duodenum for second of the third part was normal. No explanation for this patient's symptoms found. No evidence of neoplasia peptic ulcer disease. Continue PPI. Observe clinical course. Potential repeat CT scan in 1 to 2 weeks. Would like to see that the fluid and peritoneal stranding is resolved. I would not treat this gentleman with prednisone at this time.
--- NOTE | 2025-04-09 15:22 | GI REPORT ---
[facility] Patient: CORDELL WINCHESTER : 1970 Sex at : Male Age: 54 Years Procedure: Upper GI endoscopy Date: 04/09/2025 Attending Physician: Zay Alanis MD Referring MD: Referred Self Indications: - Epigastric abdominal pain - Abnormal imaging Medications: - Patient intubated and sedated in the intensive care Complications: - No immediate complications. Estimated Blood Loss: - Estimated blood loss: None. Procedure: - The egd scope was introduced through the mouth and advanced to the second part of the duodenum. - The upper GI endoscopy was accomplished without difficulty. - The patient tolerated the procedure well. Findings: - 2 cm segment short segment Hunt's. Not biopsied in this gentleman on heparin - Mild to moderate gastric erythema linear erosions. No blood no obstruction. Some of the changes are related to his NG. - Duodenum normal first second into the proximal aspect of the third part of the duodenum. No obstruction no blockage no neoplasia bile duct opening seen and normal. Impression: - Mild to moderate gastric erythema linear erosions. No blood no obstruction. Some of the changes are related to his NG. - Duodenum normal first second into the proximal aspect of the third part of the duodenum. No obstruction no blockage no neoplasia bile duct opening seen and normal. - Barretts esophagus - No specimens collected. Recommendation: - No cause in the upper GI tract for this patient's presentation or symptoms - EGD in 3 to 6 months for biopsies of Hunt's. Procedure Code(s): - 95110, Esophagogastroduodenoscopy, flexible, transoral; diagnostic, including collection of specimen(s) by brushing or washing, when performed (separate procedure) Diagnosis Code(s): - R10.13, Epigastric pain CPT(R) - 2022 copyright [employer]. All Rights Reserved. The CPT codes, CCI edits and ICD codes generated are intended as suggestions and were generated based on input data. These codes are preliminary and upon oiler helper review may be revised to meet current compliance and payer requirements. The provider is responsible for the final determination of appropriate codes, and modifiers. Zay Alanis MD This document has been electronically signed. Note Initiated:04/09/2025 Note Completed:04/09/2025 3:21 PM [id number]
[2025-04-09] MEDS: ICU ELECTROLYTE REPLACEMENT PROTOCOL SCH (16:23)
--- NOTE | 2025-04-09 18:59 | Electrocardiogram Report ---
Test Reason : Blood Pressure : */* mmHG Vent. Rate : 67 BPM Atrial Rate : 67 BPM P-R Int : 200 ms QRS Dur : 136 ms QT Int : 478 ms P-R-T Axes : 90 60 161 degrees QTcB Int : 505 ms Sinus rhythm with Premature atrial complexes Non-specific intra-ventricular conduction block Minimal voltage criteria for LVH, may be normal variant T wave abnormality, consider lateral ischemia Abnormal ECG When compared with ECG of 08-Apr-2025 09:45, Premature atrial complexes are now Present QT has lengthened Confirmed by Jagdish Coley ([id number] on 04/09/2025 6:59:09 PM Referred By: REFERRED SELF Confirmed By: Jagdish Coley
[2025-04-10 04:28] LABS: Hematocrit (blood only) 38.3 % (42.0-52.0); Hemoglobin 13.1 g/dl (14.0-18.0); Mean Corpuscular Hemoglobin 30.7 pg (25.0-34.0); Mean Corpuscular Volume 89.7 fL (80.0-100.0); Platelet Count 189 K/uL (130-400); RDW Standard Deviation 43.6 fL (36.4-46.3); Red Blood Count 4.27 M/uL (4.70-6.10); White Blood Count 9.68 K/ul (4.8-10.8)
[2025-04-10 04:45] LABS: Anion Gap 7.0 (3-11); Blood Urea Nitrogen 11.0 mg/dl (6-23); Calcium 8.4 mg/dl (8.6-10.3); Carbon Dioxide 27.0 mmol/L (21-32); Chloride 104.0 mmol/L (98-107); Creatinine Clr Calc Pharmacy 129.7 ml/min; Glucose 97.0 mg/dl (70-99(Fasting)); Magnesium 1.9 mg/dl (1.7-2.4); Potassium 3.5 mmol/L (3.5-5.1); Sodium 138.0 mmol/L (136-145)
[2025-04-10 04:59] LABS: ANTI-Xa, UFH(UnfractionatedHep 0.30 IU/ml (0.3-0.7)
[2025-04-10] MEDS: MAGNESIUM OXIDE 400 MG TAB PO SCH (05:59)
[2025-04-10] MEDS: POTASSIUM CHLORIDE CRTAB 20 MEQ TABCR PO SCH ×2 (06:00→14:07)
--- NOTE | 2025-04-10 07:07 | Critical Care Progress Note ---
Date of Service April 10, 2025 Assessment & Plan (1) Abdominal pain: (2) New onset atrial fibrillation: (3) Lactic acidosis: (4) Sepsis with encephalopathy and septic shock: (5) Renal insufficiency, mild: Plan Impression: 54-year-old male with obesity diabetes admitted with abdominal pain. He developed A-fib with RVR and required cardioversion. During the course that he developed nausea vomiting abdominal pain and retching and required intubation. Cardiac catheterization showed no significant coronary disease but his ejection fraction was reduced. He was transferred to the ICU on norepinephrine and mechanical ventilator. 24-hour events: Extubated. Out of bed to chair. Tolerating a diet. Off pressors. Hemodynamically stable. Recommendations: 1. Neurologic: Continue high-dose thiamine and folate. 2. Cardiovascular: A-fib with RVR status post cardioversion. Limited echo yesterday showed EF of about 43%. Resume losartan. Okay to discontinue heparin and start Eliquis 3. Pulmonary: Extubated and doing well. Incentive spirometry and wean oxygen as tolerated. Significant sleep apnea and will need CPAP/BiPAP when extubated and as needed when sleeping 4. GI: Patient presented with abdominal pain. Discussed with GI. Unclear etiology at this point in time. Continue to follow clinically. No evidence of mesenteric arterial or venous ischemic changes. Unclear significance of the mesenteric stranding. GI may recommend follow-up CT scan in 6 to 8 weeks. 5. Endocrine: Poorly controlled diabetes: Pharmacy consult for glycemic management. 6. Renal: Creatinine back to normal. Electrolytes and volume status reasonable. 7. Heme-onc: No current issues. DVT prophylaxis warranted. 8. ID: White blood cell count normalized today and fever resolved. Unclear etiology -complete empiric course of Rocephin and Flagyl for potential GI etiology Patient's critical care issues have resolved. Critical care services will sign off. He can transfer out of the ICU under the care of the hospitalist Admission and Anticipated Discharge Date Admission Date: April 06, 2025 Subjective Patient seen and examined. EMR reviewed. The patient is show just waking up. He is on his BiPAP and used it all night. States he is feeling okay. He is ready to pursue solid foods. He had no nausea, vomiting, or abdominal pain with liquids. He denies chest pain or palpitations. No fevers chills or night sweats. He overall feels that he is doing well. He was up to the chair yesterday without any dizziness or lightheadedness. He has been hemodynamically stable and actually now on the hypertensive side. Review of Systems Review of Systems: All systems reviewed & are unremarkable except as noted in Subjective Physical Exam Constitutional: + obese; no acute distress Neck: trachea midline, no thyromegaly Respiratory: normal respiratory effort, lungs clear to auscultation Cardiovascular: RRR, no murmur, no edema Gastrointestinal (Abdomen): normal bowel sounds, soft, nontender, no hepatosplenomegaly Musculoskeletal: Extremities: extremities normal to inspection Skin: no rashes, warm and dry Lymphatic: no cervical lymphadenopathy Results & Data Results & Data Vital Signs (Past 12 Hours) Vital Signs Temp Pulse Resp BP Pulse Ox O2 Del Method O2 Flow Rate 04/10/25 06:00 146/103 H 04/10/25 06:00 84 15 92 3 04/10/25 06:00 36.5 C 04/10/25 05:00 164/108 H 04/10/25 05:00 85 14 93 3 04/10/25 04:03 101 H 25 H 92 3 04/10/25 04:00 131/93 04/10/25 03:54 83 13 93 3 04/10/25 03:43 82 14 93 3 04/10/25 03:27 81 14 93 3 04/10/25 03:16 151/108 H 04/10/25 03:05 85 13 92 04/10/25 03:02 87 13 94 04/10/25 03:00 146/111 H 04/10/25 02:50 82 14 93 04/10/25 02:14 84 13 92 04/10/25 02:00 138/103 H 04/10/25 01:56 85 13 92 04/10/25 01:14 84 15 95 04/10/25 00:10 146/104 H 04/10/25 00:05 82 14 92 04/10/25 00:00 36.7 C 04/10/25 00:00 81 04/09/25 23:00 139/99 04/09/25 23:00 139/99 04/09/25 23:00 78 16 96 3 04/09/25 22:12 77 19 91 3 04/09/25 22:08 80 16 93 3 04/09/25 22:01 125/92 04/09/25 21:42 81 17 91 3 04/09/25 21:00 76 21 93 3 04/09/25 21:00 105/81 04/09/25 20:15 78 24 90 04/09/25 20:00 36.6 C 04/09/25 20:00 122/84 04/09/25 20:00 Nasal Cannula 3 04/09/25 19:48 74 21 92 FiO2 04/10/25 06:00 04/10/25 06:00 04/10/25 06:00 04/10/25 05:00 04/10/25 05:00 04/10/25 04:03 04/10/25 04:00 04/10/25 03:54 04/10/25 03:43 04/10/25 03:27 04/10/25 03:16 04/10/25 03:05 3 04/10/25 03:02 3 04/10/25 03:00 04/10/25 02:50 3 04/10/25 02:14 3 04/10/25 02:00 04/10/25 01:56 3 04/10/25 01:14 3 04/10/25 00:10 04/10/25 00:05 3 04/10/25 00:00 04/10/25 00:00 04/09/25 23:00 04/09/25 23:00 04/09/25 23:00 04/09/25 22:12 04/09/25 22:08 04/09/25 22:01 04/09/25 21:42 04/09/25 21:00 04/09/25 21:00 04/09/25 20:15 04/09/25 20:00 04/09/25 20:00 04/09/25 20:00 04/09/25 19:48 Critical Care Results & Data Vital Signs (Past 12 Hours) Vital Signs Temp Pulse Resp BP Pulse Ox O2 Del Method O2 Flow Rate 04/10/25 06:00 146/103 H 04/10/25 06:00 84 15 92 3 04/10/25 06:00 36.5 C 04/10/25 05:00 164/108 H 04/10/25 05:00 85 14 93 3 04/10/25 04:03 101 H 25 H 92 3 04/10/25 04:00 131/93 04/10/25 03:54 83 13 93 3 04/10/25 03:43 82 14 93 3 04/10/25 03:27 81 14 93 3 04/10/25 03:16 151/108 H 04/10/25 03:05 85 13 92 04/10/25 03:02 87 13 94 04/10/25 03:00 146/111 H 04/10/25 02:50 82 14 93 04/10/25 02:14 84 13 92 04/10/25 02:00 138/103 H 04/10/25 01:56 85 13 92 04/10/25 01:14 84 15 95 04/10/25 00:10 146/104 H 04/10/25 00:05 82 14 92 04/10/25 00:00 36.7 C 04/10/25 00:00 81 04/09/25 23:00 139/99 04/09/25 23:00 139/99 04/09/25 23:00 78 16 96 3 04/09/25 22:12 77 19 91 3 04/09/25 22:08 80 16 93 3 04/09/25 22:01 125/92 04/09/25 21:42 81 17 91 3 04/09/25 21:00 76 21 93 3 04/09/25 21:00 105/81 04/09/25 20:15 78 24 90 04/09/25 20:00 36.6 C 04/09/25 20:00 122/84 04/09/25 20:00 Nasal Cannula 3 04/09/25 19:48 74 21 92 FiO2 04/10/25 06:00 04/10/25 06:00 04/10/25 06:00 04/10/25 05:00 04/10/25 05:00 04/10/25 04:03 04/10/25 04:00 04/10/25 03:54 04/10/25 03:43 04/10/25 03:27 04/10/25 03:16 04/10/25 03:05 3 04/10/25 03:02 3 04/10/25 03:00 04/10/25 02:50 3 04/10/25 02:14 3 04/10/25 02:00 04/10/25 01:56 3 04/10/25 01:14 3 04/10/25 00:10 04/10/25 00:05 3 04/10/25 00:00 04/10/25 00:00 04/09/25 23:00 04/09/25 23:00 04/09/25 23:00 04/09/25 22:12 04/09/25 22:08 04/09/25 22:01 04/09/25 21:42 04/09/25 21:00 04/09/25 21:00 04/09/25 20:15 04/09/25 20:00 04/09/25 20:00 04/09/25 20:00 04/09/25 19:48 Lab & Micro Results (Past 24 Hours) RBC 4.27 M/uL (4.70-6.10) L 04/10/25 WBC 9.68 K/ul (4.8-10.8) 04/10/25 Hgb 13.1 g/dl (14.0-18.0) L 04/10/25 Hct 38.3 % (42.0-52.0) L 04/10/25 MCV 89.7 fL (80.0-100.0) 04/10/25 MCH 30.7 pg (25.0-34.0) 04/10/25 MCHC 34.2 g/dL (32.0-36.0) 04/10/25 RDW Standard Deviation 43.6 fL (36.4-46.3) 04/10/25 RDW Coefficient of Variation 13.6 % (11.5-14.5) 04/10/25 Plt Count 189 K/uL (130-400) 04/10/25 MPV 10.3 fL (9.4-12.4) 04/10/25 Na 138 mmol/L (136-145) 04/10/25 K 3.5 mmol/L (3.5-5.1) 04/10/25 Cl 104 mmol/L (98-107) 04/10/25 CO2 27 mmol/L (21-32) 04/10/25 Anion Gap 7 (3-11) 04/10/25 BUN 11 mg/dl (6-23) 04/10/25 Creatinine 0.86 mg/dl (0.6-1.4) 04/10/25 BUN/Creatinine Ratio 12.8 (10-20) 04/10/25 Glu 97 mg/dl (70-99(Fasting)) 04/10/25 Ca 8.4 mg/dl (8.6-10.3) L 04/10/25 Phosphorus Level 4.1 mg/dl (2.5-4.9) 04/10/25 Mg 1.9 mg/dl (1.7-2.4) 04/10/25 04:05 Calcium Level 8.4 mg/dl (8.6-10.3) L 04/10/25 04:05 I & O Totals 24 Hours 04/09/25 04/10/25 04/11/25 06:59 06:59 06:59 Intake Total 3339.997 / 3339.997 3161.853 / 3161.853 Output Total 3390 / 3390 1485 / 1485 Balance -50.003 / -50.003 1676.853 / 1676.853 Cumulative 04/06/25 00:18 thru 04/10/25 06:00 Intake Total 20056.183 Output Total 4875 Balance 6816.183 RT Ventilator Mngmt (Last Documented) Ventilator Ordered Settings Ventilator Support Mode CPAP 04/09/25 11:03 Respiratory Rate 15 04/10/25 06:00 Ventilator Tidal Volume 450 04/09/25 10:30 Setting Minute Ventilation 4.8 04/09/25 11:00 Ventilator Positive Pressure 6 04/09/25 11:03 Support Setting Positive End Expiratory 6 04/09/25 11:03 Pressure Fraction of Inspired Oxygen 3 04/10/25 03:05 Machine Comment Patient placed on SBT per 04/09/25 10:30 Fidel. PS 6, PEEP +6 Ventilator - PT Measurements Respiratory Rate 15 Exhaled Tidal Volume 245 Minute Ventilation 4.8 Peak Inspiratory Airway 18 Pressure Plateau Pressure 22 Respiratory Cycle Inspiratory: 1:3.8 Expiratory Ratio Inspiratory Phase Time 0.7 End-Tidal CO2 32 Static Lung Compliance 30.07 Dynamic Lung Compliance 20.42 Normal Static Lung Compliance 46.00 Patient Measurements Comment patient extubated per Dr. Parra. Patient tolerated extubation well. and nurse at bedside. Patient placed on a 10 L/m oxymask. Will continue to monitor and wean as appropriate. Coding Level of Care Code 53756 SUB INP/OBS CARE 2/35MIN Diagnoses Generalized abdominal pain R10.84 Abdominal location: generalized New onset atrial fibrillation I48.91 Lactic acidosis E87.20 Sepsis with encephalopathy and septic shock A41.9; R65.21; G93.41 Renal insufficiency, mild N28.9 (1) Abdominal pain Abdominal location: generalized Qualified Code(s): R10.84 - Generalized abdominal pain
[2025-04-10] MEDS: LOSARTAN POTASSIUM 50 MG TAB PO SCH (07:36)
[2025-04-10] MEDS: METOPROLOL TARTRATE 25 MG TAB PO SCH (07:36)
--- NOTE | 2025-04-10 07:45 | Hospitalist Progress Note ---
Date of Service April 10, 2025 Assessment & Plan (1) Rapid atrial fibrillation: Plan: 54-year-old male with past medical history significant for hypertension, depression, ongoing tobacco use, history of atrial fibrillation, history of kidney stones comes because of abdominal pain and also in the ER found to be in rapid A-fib. Patient says since last Saturday is having abdominal pain mostly in the right upper side. Associated with nausea. Tonight he had episode of vomiting.. He was also sweating, feeling hot and cold which made him come to the hospital. In the ER he went into rapid A-fib. received IV Lopressor and Currently started on Cardizem drip. Denies any chest pain. Yesterday was feeling short of breath but currently no shortness of breath. No headache. No runny nose or sore throat. Since last 1 week he is having cough. In May 2024 was admitted for new onset rapid A-fib and left ureteral stone. He was discharged on metoprolol succinate and Eliquis. Patient says he no longer taking Eliquis and didn't followed up with cardiology. Atrial fibrillation with rapid ventricular response Bradycardia (post cardioversion)--resolved --ECHO: Borderline concentric LVH. Mild to moderate global hypokinesis of left ventricle. EF 35 to 40%. Left atrium moderately dilated. Moderate mitral regurgitation. Trace tricuspid regurgitation. --Normal TSH --S/P KATERYNA Cardioversion on 04/08/25 --Repeat ECHO: Rhythm sinus. Left ventricle normal in size. Mild concentric LVH. Moderate global hypokinesis of left ventricle. EF 43%. Mild to moderate mitral regurgitation. Developed bradycardia/Hypotension post cardioversion Amiodarone discontinued Continue metoprolol tartrate 25 mg twice a day Appreciate cardiology, critical care input On IV heparin for anticoagulation>> transitioned to Eliquis Monitor and replete electrolytes as needed Shock Possible myocardial stunning post synchronized cardioversion Nonischemic cardiomyopathy --?? Due to tachycardia versus alcohol use Rule out sepsis S/P Intubation on 04/08/25 for airway protection ? Fluid overload/aspiration KATERYNA ECHO: No evidence of left atrial or left atrial appendage thrombus. Left atrium mildly dilated. LV systolic function with global hypokinesis. 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 Stable right renal calculus. Stable fatty hepatomegaly and splenomegaly. --ABD CTA:No evidence for mesenteric vein thrombosis. Interval increase in mesenteric fat stranding, as well as ascites, again possibly related to mesenteric panniculitis --EGD: Mild to moderate gastric erythema linear erosions. Hunt's esophagus. No specimens collected -- IV Solu-Medrol discontinued No plan for any further steroid course Appreciate GI input Needs repeat EGD in 3 to 6 months for biopsies of Hunt's Also needs repeat CT scan in 1 to 2 weeks per GI Uncontrolled diabetes mellitus HbA1c 10.2 Hold metformin Continue sliding scale Appreciate glycemic pharmacy consult Monitor blood glucose levels Obstructive sleep apnea CPAP nightly Hypoxia Wean supplemental oxygen as able May need 2 step prior to discharge Hypertension Continue amlodipine, metoprolol, losartan May benefit from transitioning HCTZ to Lasix given cardiomyopathy Monitor adjust medications as needed Obesity BMI 40.8 DVT Px: Eliquis CODE STATUS Full code Admission and Anticipated Discharge Date Admission Date: April 06, 2025 Subjective Patient is seen and examined at bedside Admits to have minimal cough with expectoration and some throat discomfort which he attributes to intubation Denies any chest pain, abdominal pain, dizziness, nausea, vomiting Saturating well on 4 L supplemental oxygen Review of Systems Review of Systems: All systems reviewed & are unremarkable except as noted in Subjective Physical Exam Physical Exam: Physical Exam: Vitals signs as noted above General Appearance:Obese, well-nourished, no apparent distress Head: normocephalic, Atraumatic Eyes: normal inspection, EOMI Neck: supple, Trachea midline Respiratory/Chest: Decreased breath sounds, No accessory muscle use Cardiovascular: S1, S2, No murmur Abdomen/GI:Soft, non tender, Bowel sounds present Extremities/Musculoskeletal:normal inspection, Trace edema Neurologic/Psych: Alert, awake, oriented, no focal deficits Skin: normal color, warm Results & Data Results & Data Vital Signs (Past 12 Hours) Vital Signs Temp Pulse Resp BP Pulse Ox O2 Del Method O2 Flow Rate 04/10/25 06:00 146/103 H 04/10/25 06:00 84 15 92 3 04/10/25 06:00 36.5 C 04/10/25 05:00 164/108 H 04/10/25 05:00 85 14 93 3 04/10/25 04:03 101 H 25 H 92 3 04/10/25 04:00 131/93 04/10/25 03:54 83 13 93 3 04/10/25 03:43 82 14 93 3 04/10/25 03:27 81 14 93 3 04/10/25 03:16 151/108 H 04/10/25 03:05 85 13 92 04/10/25 03:02 87 13 94 04/10/25 03:00 146/111 H 04/10/25 02:50 82 14 93 04/10/25 02:14 84 13 92 04/10/25 02:00 138/103 H 04/10/25 01:56 85 13 92 04/10/25 01:14 84 15 95 04/10/25 00:10 146/104 H 04/10/25 00:05 82 14 92 04/10/25 00:00 36.7 C 04/10/25 00:00 81 04/09/25 23:00 139/99 04/09/25 23:00 139/99 04/09/25 23:00 78 16 96 3 04/09/25 22:12 77 19 91 3 04/09/25 22:08 80 16 93 3 04/09/25 22:01 125/92 04/09/25 21:42 81 17 91 3 04/09/25 21:00 76 21 93 3 04/09/25 21:00 105/81 04/09/25 20:15 78 24 90 04/09/25 20:00 36.6 C 04/09/25 20:00 122/84 04/09/25 20:00 Nasal Cannula 3 04/09/25 19:48 74 21 92 FiO2 04/10/25 06:00 04/10/25 06:00 04/10/25 06:00 04/10/25 05:00 04/10/25 05:00 04/10/25 04:03 04/10/25 04:00 04/10/25 03:54 04/10/25 03:43 04/10/25 03:27 04/10/25 03:16 04/10/25 03:05 3 04/10/25 03:02 3 04/10/25 03:00 04/10/25 02:50 3 04/10/25 02:14 3 04/10/25 02:00 04/10/25 01:56 3 04/10/25 01:14 3 04/10/25 00:10 04/10/25 00:05 3 04/10/25 00:00 04/10/25 00:00 04/09/25 23:00 04/09/25 23:00 04/09/25 23:00 04/09/25 22:12 04/09/25 22:08 04/09/25 22:01 04/09/25 21:42 04/09/25 21:00 04/09/25 21:00 04/09/25 20:15 04/09/25 20:00 04/09/25 20:00 04/09/25 20:00 04/09/25 19:48 Laboratory Results Short CBC 04/10/25 Range/Units 04:05 WBC 9.68 (4.8-10.8) K/ul Hgb 13.1 L (14.0-18.0) g/dl Hct 38.3 L (42.0-52.0) % Plt Count 189 (130-400) K/uL BMP 04/10/25 04:05 Sodium 138 Potassium 3.5 Chloride 104 Carbon Dioxide 27 BUN 11 Creatinine 0.86 Glucose 97 Calcium 8.4 L
[2025-04-10] MEDS: APIXABAN 5 MG TABLET PO SCH (07:48)
--- NOTE | 2025-04-10 11:21 | Cardiology Progress Note ---
<Statement entered by Lora Gutierrez, - 04/10/25 14:08> I have reviewed the advanced practitioner's documentation and agree with the plan of care. I accept the responsibility for the associated risk. pt seen in cardiology f/u due to newly diagnosed NICM EF 30% when in AF RVR; improved to 40% in SR, AV RVR s/p KATERYNA guided DCCV with post conversion hydrodynamic and respiratory compromise-extubated yesterday he is overall doing well today; he is significantly volume overloaded-recommend starting IV lasix; give 80mg dose now with potassium and then start 60mg BID tomorrow stop losartan, start entresto switch lopressor to toprol 25mg daily he will need outpatient cardiac MRI and genetic testing Date of Service April 10, 2025 Assessment & Plan (1) Atrial fibrillation: (2) Tachycardia induced cardiomyopathy: (3) Elevated troponin I level: (4) Moderate left ventricular systolic dysfunction (LVSD): Plan - Heart rate and Blood pressure currently well-controlled - Echocardiogram completed yesterday indicated mild improvement of his ejection fraction however it still remains moderately reduced - Will work on further uptitration of medications - Given the reduced ejection fraction he should actually be on metoprolol succinate which I will transition today as well - Stop losartan;start Entresto - Does appear to have some abdominal distention with 7 L + since admission will start IV furosemide for diuresis - Recommend startingwith Lasix 80 mg IV x 1 today and then will start 60 mg IV twice daily tomorrow - Case discussed with Dr. Gutierrez. Please see attestation for additional recommendations. I spent a total of 40 minutes on the date of service in preparation, delivery, and documentation of the care provided to the patient excluding any time spent in the performance of separately billed services. BONI Oliveira Department of Cardiology, [facility] This chart was completed in part utilizing Speech Voice Recognition Software. Grammatical errors, random word insertions, pronoun errors, and incomplete sent ences are an occasional consequence of this system due to software limitations, ambient noise, and hardware issues. Any formal questions or concerns about the content, text, or information contained within the body of this dictation should be directly addressed to the provider for clarification. Admission and Anticipated Discharge Date Admission Date: April 06, 2025 Subjective 54-year-old male seen in cardiology follow-up in regard to new onset atrial fibrillation and nonischemic cardiomyopathy. He continues to improve medically. Was extubated yesterday and has been maintaining oxygen saturations. Still feeling somewhat fatigued on exertion but is improving. Physical Exam Constitutional: WD/WN, vitals as above well developed and well nourished; no acute distress Eyes: PERRL, conjunctivae normal, anicteric sclerae Neck: trachea midline, no thyromegaly Respiratory: normal respiratory effort, lungs clear to auscultation Cardiovascular: Rate/Rhythm: regular rate and regular rhythm Heart Sounds: normal S1 and normal S2 Vessels: normal peripheral pulses Gastrointestinal (Abdomen): normal bowel sounds, soft, nontender, no hepatosplenomegaly Musculoskeletal: no cyanosis or clubbing, extremities motor strength 5/5 Skin: no rashes, warm and dry Psychiatric: A+Ox3, euthymic affect Results & Data Vital Signs (Past 12 Hours) Vital Signs Temp Pulse Pulse Resp BP BP Pulse Ox 04/10/25 10:27 04/10/25 09:54 63 04/10/25 09:38 36.7 C 74 16 127/88 95 04/10/25 08:00 142/96 H 04/10/25 08:00 83 04/10/25 07:55 04/10/25 07:54 89 19 93 04/10/25 06:00 146/103 H 04/10/25 06:00 84 15 92 04/10/25 06:00 36.5 C 04/10/25 05:00 164/108 H 04/10/25 05:00 85 14 93 04/10/25 04:03 101 H 25 H 92 04/10/25 04:00 131/93 04/10/25 03:54 83 13 93 04/10/25 03:43 82 14 93 04/10/25 03:27 81 14 93 04/10/25 03:16 151/108 H 04/10/25 03:05 85 13 92 04/10/25 03:02 87 13 94 04/10/25 03:00 146/111 H 04/10/25 02:50 82 14 93 04/10/25 02:14 84 13 92 04/10/25 02:00 138/103 H 04/10/25 01:56 85 13 92 04/10/25 01:14 84 15 95 04/10/25 00:10 146/104 H 04/10/25 00:05 82 14 92 04/10/25 00:00 36.7 C 04/10/25 00:00 81 O2 Del Method O2 Flow Rate FiO2 04/10/25 10:27 Nasal Cannula 4 04/10/25 09:54 04/10/25 09:38 Nasal Cannula 4 04/10/25 08:00 04/10/25 08:00 04/10/25 07:55 Oxymask 4 04/10/25 07:54 4 04/10/25 06:00 04/10/25 06:00 3 04/10/25 06:00 04/10/25 05:00 04/10/25 05:00 3 04/10/25 04:03 3 04/10/25 04:00 04/10/25 03:54 3 04/10/25 03:43 3 04/10/25 03:27 3 04/10/25 03:16 04/10/25 03:05 3 04/10/25 03:02 3 04/10/25 03:00 04/10/25 02:50 3 04/10/25 02:14 3 04/10/25 02:00 04/10/25 01:56 3 04/10/25 01:14 3 04/10/25 00:10 04/10/25 00:05 3 04/10/25 00:00 04/10/25 00:00 Laboratory Results CBC 04/10/25 Range/Units 04:05 WBC 9.68 (4.8-10.8) K/ul RBC 4.27 L (4.70-6.10) M/uL Hgb 13.1 L (14.0-18.0) g/dl Hct 38.3 L (42.0-52.0) % Plt Count 189 (130-400) K/uL Comprehensive Metabolic Panel 04/10/25 Range/Units 04:05 Sodium 138 (136-145) mmol/L Potassium 3.5 (3.5-5.1) mmol/L Chloride 104 (98-107) mmol/L Carbon Dioxide 27 (21-32) mmol/L BUN 11 (6-23) mg/dl Creatinine 0.86 (0.6-1.4) mg/dl Glucose 97 (70-99(Fasting)) mg/dl Calcium 8.4 L (8.6-10.3) mg/dl Intake and Output 04/09/25 04/10/25 04/10/25 22:59 06:59 14:59 Intake Total 876.533 / 3161.853 1414.667 / 3161.853 205.4 / 205.4 Output Total 500 / 1485 725 / 1485 Balance 376.533 / 1676.853 689.667 / 1676.853 205.4 / 205.4 Intake: IV 436.533 / 1811.853 504.667 / 1811.853 205.4 / 205.4 Heparin 26373 Unit/500 ml D5w 284.533 / 945.000 404.667 / 945.000 103.4 / 103.4 25,000 units In 500 ml @ 2,200 UNITS/HR 44 mls/hr IV .[id number] JADEN Rx#:[id number] Thiamine HCl 200 mg In Sodium 52 / 104 52 / 52 Chloride 0.9% 50 ml @ 210 mls/ hr IV BID JADEN Rx#:[id number] cefTRIAXone SODIUM 2,000 mg In 50 / 50 50 ml @ 100 mls/hr IV DAILY JADEN Rx#:[id number] metroNIDAZOLE 500 mg In 100 ml 100 / 300 100 / 300 @ 100 mls/hr IV Q8H JADEN Rx#: [id number] Oral 440 / 1350 910 / 1350 Output: Urine 500 / 500 Urine Amount (Catheter) 725 / 985 Witt/Indwelling 725 / 985 Other: Weight 129.3 kg Weight Measurement Method Built in [facility] Diagnostic Findings Laboratory Results WBC 9.68 K/ul (4.8-10.8) 04/10/25 04:05 RBC 4.27 M/uL (4.70-6.10) L 04/10/25 04:05 Hgb 13.1 g/dl (14.0-18.0) L 04/10/25 04:05 POC Hgb 13.3 g/dl (14.0-18.0) L 04/08/25 20:12 Hct 38.3 % (42.0-52.0) L 04/10/25 04:05 POC Hct 39 % (42-52) L 04/08/25 20:12 MCV 89.7 fL (80.0-100.0) 04/10/25 04:05 MCH 30.7 pg (25.0-34.0) 04/10/25 04:05 MCHC 34.2 g/dL (32.0-36.0) 04/10/25 04:05 RDW Std Deviation 43.6 fL (36.4-46.3) 04/10/25 04:05 RDW Coeff of Katherine 13.6 % (11.5-14.5) 04/10/25 04:05 Plt Count 189 K/uL (130-400) 04/10/25 04:05 MPV 10.3 fL (9.4-12.4) 04/10/25 04:05 Immature Gran % (Auto) 0.9 % 04/08/25 12:10 Neut % (Auto) 78.3 % 04/08/25 12:10 Lymph % (Auto) 15.1 % 04/08/25 12:10 Potter % (Auto) 5.3 % 04/08/25 12:10 Eos % (Auto) 0.1 % 04/08/25 12:10 Baso % (Auto) 0.3 % 04/08/25 12:10 Neut # (Auto) 11.67 K/uL (1.40-6.50) H 04/08/25 12:10 Lymph # (Auto) 2.26 K/uL (1.20-3.40) 04/08/25 12:10 Potter # (Auto) 0.79 K/uL (0.11-0.59) H 04/08/25 12:10 Eos # (Auto) 0.02 K/uL (0.00-0.50) 04/08/25 12:10 Baso # (Auto) 0.04 K/uL (0.00-0.20) 04/08/25 12:10 Immature Gran # (Auto) 0.14 K/uL (0.01-0.20) 04/08/25 12:10 Absolute Nucleated RBC Cancelled 04/07/25 06:38 Nucleated RBC % (auto) Cancelled 04/07/25 06:38 Neutrophils % (Manual) Cancelled 04/07/25 06:38 Band Neutrophils % Cancelled 04/07/25 06:38 Lymphocytes % (Manual) Cancelled 04/07/25 06:38 Prolymphocyte % Cancelled 04/07/25 06:38 Reactive Lymphs % (Man) Cancelled 04/07/25 06:38 Monocytes % (Manual) Cancelled 04/07/25 06:38 Eosinophils % (Manual) Cancelled 04/07/25 06:38 Basophils % (Manual) Cancelled 04/07/25 06:38 Metamyelocytes % (Man) Cancelled 04/07/25 06:38 Myelocytes % (Man) Cancelled 04/07/25 06:38 Promyelocytes % (Man) Cancelled 04/07/25 06:38 Blast Cells % (Manual) Cancelled 04/07/25 06:38 Plasma Cell % (Manual) Cancelled 04/07/25 06:38 Other Cells % Cancelled 04/07/25 06:38 Nucleated RBC % Cancelled 04/07/25 06:38 Neutrophils # (Manual) Cancelled 04/07/25 06:38 Band Neutrophils # Cancelled 04/07/25 06:38 Total Absolute Neuts Cancelled 04/07/25 06:38 Lymphocytes # (Manual) Cancelled 04/07/25 06:38 Prolymphocyte # Cancelled 04/07/25 06:38 Reactive Lymphs # Cancelled 04/07/25 06:38 Total Abs Lymphocytes Cancelled 04/07/25 06:38 Monocytes # (Manual) Cancelled 04/07/25 06:38 Eosinophils # (Manual) Cancelled 04/07/25 06:38 Basophils # (Manual) Cancelled 04/07/25 06:38 Metamyelocytes # (Man) Cancelled 04/07/25 06:38 Myelocytes # (Manual) Cancelled 04/07/25 06:38 Promyelocytes # (Man) Cancelled 04/07/25 06:38 Blast Cells # (Man) Cancelled 04/07/25 06:38 Plasma Cell # (Manual) Cancelled 04/07/25 06:38 Other Cells # Cancelled 04/07/25 06:38 Nucleated RBCs # (Man) Cancelled 04/07/25 06:38 Hypersegmented Neuts Cancelled 04/07/25 06:38 Hyposegmented Neuts Cancelled 04/07/25 06:38 Hypogranular Neuts Cancelled 04/07/25 06:38 Large Granular Lymphs Cancelled 04/07/25 06:38 # Lrg Granular Lymphs Cancelled 04/07/25 06:38 Hairy Cells Cancelled 04/07/25 06:38 Smudge Cells Cancelled 04/07/25 06:38 Toxic Granulation Cancelled 04/07/25 06:38 Toxic Vacuolation Cancelled 04/07/25 06:38 Dohle Bodies Cancelled 04/07/25 06:38 Robin Rods Cancelled 04/07/25 06:38 Platelet Estimate Cancelled 04/07/25 06:38 Hypogranular Platelets Cancelled 04/07/25 06:38 Giant Platelets Cancelled 04/07/25 06:38 Platelet Satelliting Cancelled 04/07/25 06:38 RBC Morphology Cancelled 04/07/25 06:38 Polychromasia Cancelled 04/07/25 06:38 Hypochromasia Cancelled 04/07/25 06:38 Poikilocytosis Cancelled 04/07/25 06:38 Basophilic Stippling Cancelled 04/07/25 06:38 Anisocytosis Cancelled 04/07/25 06:38 Microcytosis Cancelled 04/07/25 06:38 Macrocytosis Cancelled 04/07/25 06:38 Spherocytes Cancelled 04/07/25 06:38 Pappenheimer Bodies Cancelled 04/07/25 06:38 Sickle Cells Cancelled 04/07/25 06:38 Target Cells Cancelled 04/07/25 06:38 Tear Drop Cells Cancelled 04/07/25 06:38 Ovalocytes Cancelled 04/07/25 06:38 Stomatocytes Cancelled 04/07/25 06:38 [place] Bodies Cancelled 04/07/25 06:38 Echinocytes Cancelled 04/07/25 06:38 Acanthocytes (Spur) Cancelled 04/07/25 06:38 Rouleaux Cancelled 04/07/25 06:38 RBC Agglutinates Cancelled 04/07/25 06:38 Schistocytes Cancelled 04/07/25 06:38 Sezary Cell Cancelled 04/07/25 06:38 PT 12.3 Seconds (9.0-12.0) H 04/08/25 12:22 INR 1.2 (0.9-1.1) H 04/08/25 12:22 APTT 27 Seconds (21-31) 04/06/25 06:58 PTT Ratio 1.0 04/06/25 06:58 Heparin Anti-Xa, Unfract 0.30 IU/ml (0.3-0.7) 04/10/25 04:05 Specimen Type Arterial 04/08/25 20:12 Sample Site R Radial 04/08/25 20:12 POC pH 7.27 (7.35-7.45) L 04/08/25 20:12 POC pCO2 31 mmHg (35-46) L 04/08/25 20:12 POC pO2 116 mmHg (80-95) H 04/08/25 20:12 POC HCO3 14 mmol/L (19-24) L 04/08/25 20:12 POC Total CO2 15 mmol/L (24-31) L 04/08/25 20:12 POC Base Excess -13.0 mmol/L (-9-1.8) L 04/08/25 20:12 O2 Sat Pulse Oximetry 97 04/08/25 20:12 ABG pH (Temp Correct) 7.264 (7.35-7.45) L 04/08/25 20:12 ABG pCO2 (Temp Corrct 32 mmHg (35-46) L 04/08/25 20:12 POC ABG pO2 at Pt Temp 120 04/08/25 20:12 POC ABG O2 Sat 98.0 % (90-95) H 04/08/25 20:12 Nash Test NA 04/08/25 20:12 O2 Delivery Device Ventilator 04/08/25 20:12 Vent Mode AC 04/08/25 20:12 POC FiO2 50 % 04/08/25 20:12 End Tidal CO2 31 04/08/25 20:12 POC Sodium 138 mmol/L (135-144) 04/08/25 20:12 Sodium 138 mmol/L (136-145) 04/10/25 04:05 POC Potassium 2.6 mmol/L (3.3-5.0) L 04/08/25 20:12 Potassium 3.5 mmol/L (3.5-5.1) 04/10/25 04:05 POC Chloride 97 mmol/L (101-112) L 04/06/25 01:07 Chloride 104 mmol/L (98-107) 04/10/25 04:05 Carbon Dioxide 27 mmol/L (21-32) 04/10/25 04:05 POC Total CO2 24 mmol/L (24-31) 04/06/25 01:07 Anion Gap 7 (3-11) 04/10/25 04:05 POC Anion Gap 17.0 mmol/L (16-25) 04/06/25 01:07 POC BUN 15 mg/dl (7-18) 04/06/25 01:07 BUN 11 mg/dl (6-23) 04/10/25 04:05 Creatinine 0.86 mg/dl (0.6-1.4) 04/10/25 04:05 POC Creatinine 0.8 mg/dl (0.6-1.3) 04/06/25 01:07 Est Cr Clr Drug Dosing 129.7 ml/min 04/10/25 04:05 eGFR 104.18 04/10/25 04:05 BUN/Creatinine Ratio 12.8 (10-20) 04/10/25 04:05 Glucose 97 mg/dl (70-99(Fasting)) 04/10/25 04:05 POC Glucose 118 mg/dl (70-99) H 04/10/25 07:22 POC Glucose (other) 92 mg/dl (70-99) 04/09/25 08:10 Estimat Average Glucose 246 mg/dl 04/07/25 06:38 Hemoglobin A1c 10.2 % (4.5-5.6) H 04/07/25 06:38 Lactate 3.0 mmol/L (0.4-2.0) H* 04/09/25 04:38 Calcium 8.4 mg/dl (8.6-10.3) L 04/10/25 04:05 POC Ioniz Calcium Trang 1.12 mmol/l (1.12-1.32) 04/06/25 01:07 Phosphorus 4.1 mg/dl (2.5-4.9) 04/10/25 04:05 Magnesium 1.9 mg/dl (1.7-2.4) 04/10/25 04:05 Iron 27 mcg/dl (35-175) L 04/09/25 11:21 TIBC 342 mcg/dl (250-450) 04/09/25 11:21 Transferrin 244 mg/dl (200-360) 04/09/25 11:21 Transferrin % Sat 8 % (20-50) L 04/09/25 11:21 Total Bilirubin 1.0 mg/dl (0.2-1.0) 04/08/25 12:10 AST 31 U/L (13-39) 04/08/25 12:10 ALT 50 U/L (7-52) 04/08/25 12:10 Alkaline Phosphatase 47 U/L (34-104) 04/08/25 12:10 Total Creatine Kinase 19 U/L (30-223) L 04/08/25 21:34 Troponin I High Sens 42.9 pg/ml (0-20) H 04/08/25 12:10 C-Reactive Protein 0.76 mg/dl (0-0.5) H 04/08/25 19:29 Total Protein 5.8 gm/dl (6.0-8.3) L 04/08/25 12:10 Albumin 3.3 gm/dl (3.4-5.0) L 04/08/25 12:10 Globulin 2.5 gm/dl (2.5-4.0) 04/08/25 12:10 Albumin/Globulin Ratio 1.3 (0.9-2) 04/08/25 12:10 Triglycerides 113 mg/dl (0-150) 04/09/25 04:38 Cholesterol 162 mg/dl (0-200) 04/07/25 06:38 LDL Cholesterol, Calc 96 mg/dl 04/07/25 06:38 VLDL Cholesterol, Calc 22 mg/dl (0-30) 04/07/25 06:38 HDL Cholesterol 44 mg/dl 04/07/25 06:38 Cholesterol/HDL Ratio 3.7 (0-5) 04/07/25 06:38 Lipase 7 U/L (11-82) L 04/08/25 12:10 Procalcitonin 0.46 ng/ml (0-0.5) 04/10/25 04:05 TSH 2.122 uIu/ml (0.300-4.500) 04/06/25 01:04 Urine Color Yellow 04/09/25 02:43 Urine Appearance Clear (Clear) 04/09/25 02:43 Urine pH 5.5 (4.5-7.5) 04/09/25 02:43 Ur Specific [place] > 1.045 (1.000-1.030) H 04/09/25 02:43 Urine Protein Trace (Negative) H 04/09/25 02:43 Urine Glucose (UA) 3+ (Negative) H 04/09/25 02:43 Urine Ketones Negative (Negative) 04/09/25 02:43 Urine Blood Negative (Negative) 04/09/25 02:43 Urine Nitrite Negative (Negative) 04/09/25 02:43 Urine Bilirubin Negative (Negative) 04/09/25 02:43 Urine Urobilinogen Negative (Negative) 04/09/25 02:43 Ur Leukocyte Esterase Negative (Negative) 04/09/25 02:43 Urine WBC (Auto) 0-5 /hpf (0-5) 04/09/25 02:43 Urine RBC (Auto) 0-2 /hpf (0-2) 04/09/25 02:43 U Hyaline Cast (Auto) 0-2 /lpf (0-2) 04/09/25 02:43 U Epithel Cells (Auto) 0-2 /hpf (0-2) 04/09/25 02:43 Urine Bacteria (Auto) None Seen (None Seen) 04/09/25 02:43 Urine Comment 04/09/25 02:43 Adenovirus (PCR) Not Detected (NotDetected) 04/06/25 03:02 B. pertussis DNA (PCR) Not Detected (NotDetected) 04/06/25 03:02 B.parapertussis DNA PCR Not Detected (NotDetected) 04/06/25 03:02 C. pneumoniae DNA (PCR) Not Detected (NotDetected) 04/06/25 03:02 Coronavirus OC43 (PCR) Not Detected (NotDetected) 04/06/25 03:02 Coronavirus HKU1 (PCR) Not Detected (NotDetected) 04/06/25 03:02 Coronavirus 229E (PCR) Not Detected (NotDetected) 04/06/25 03:02 SARS-CoV-2 (PCR) Not Detected (NotDetected) 04/06/25 03:02 Coronavirus NL63 (PCR) Not Detected (NotDetected) 04/06/25 03:02 Human Metapneumovir PCR Not Detected (NotDetected) 04/06/25 03:02 Influenza Type A (PCR) Not Detected (NotDetected) 04/06/25 03:02 Influenza Type B (PCR) Not Detected (NotDetected) 04/06/25 03:02 M. pneumoniae (PCR) Not Detected (NotDetected) 04/06/25 03:02 Parainfluenza 1 (PCR) Not Detected (NotDetected) 04/06/25 03:02 Parainfluenza 2 (PCR) Not Detected (NotDetected) 04/06/25 03:02 Parainfluenza 3 (PCR) Not Detected (NotDetected) 04/06/25 03:02 Parainfluenza 4 (PCR) Not Detected (NotDetected) 04/06/25 03:02 RSV (PCR) Not Detected (NotDetected) 04/06/25 03:02 Entero/Rhino (PCR) Not Detected (NotDetected) 04/06/25 03:02 Blood Parasites ID Cancelled 04/07/25 06:38 Impressions Abdomen/Pelvis CT 04/06/25 01:13 EXAM: CT abd pelvis IV con only CLINICAL HISTORY: mid abd pain. TECHNIQUE: Multiple contiguous axial images were obtained from the level of the diaphragm to the pubic symphysis. This study was acquired after the IV administration of iodinated contrast material, given the patient's indications for the examination. If IV contrast material had not been administered, the likelihood of detecting abnormalities relevant to the patient's condition would have been substantially decreased. Coronal and sagittal reformatted images were generated and reviewed to improve anatomic localization and optimize lesion detection. CT scan was performed according to ALARA (as low as reasonably achievable). COMPARISON: 06/07/2024. FINDINGS: ABDOMEN/PELVIS: The liver is normal in size and attenuation. No focal liver lesions are seen. There is no intrahepatic or extrahepatic biliary ductal dilatation. Hepatic vasculature is patent. The gallbladder is surgically absent, with mild prominence of the common bile duct, which is stable. The spleen, pancreas, and adrenal glands are unremarkable. There is a 12 mm nodule near the splenic hilum, likely a splenule, which is stable. The kidneys are normal in size and attenuation. There is no hydronephrosis or perinephric fat stranding. There is a stable right lower pole microlith. The ureters are normal in caliber, and no ureteral calculi are seen. The bladder is normal in contour. No evidence of focal or diffuse bowel wall thickening or evidence of bowel obstruction is seen. The appendix is visualized in the right lower quadrant and appears within normal limits. No adenopathy. Minimal free fluid in the pelvis. The aorta is normal in caliber. Mesenteric fat stranding is seen in the right quadrants, starting near the duodenum, along the right paraaortic area, and continuing to the aortic bifurcation. No duodenal thickening. No aggressive-appearing osseous lesions are identified. Minimal right pleural effusion. IMPRESSION: 1. Mesenteric fat stranding is seen in the right upper quadrant, around the duodenum, along the right paraaortic area, continuing to the aortic bifurcation; new onset, likely mesenteric panniculitis. 2. Stable right renal calculus. 3. Stable fatty hepatomegaly and splenomegaly. 4. Minimal right pleural effusion; new onset. Electronically signed by Juan Daniel Morse 04-06-2025 02:47 AM Chest X-Ray 04/08/25 12:31 XR chest 1V portable CLINICAL HISTORY: cxr ett placement COMPARISON STUDY: 04/08/2025 FINDINGS: Endotracheal tube tip is at the thoracic inlet. Nasogastric tube tip is in the proximal stomach. Left central catheter tip is in the SVC. There is no pneumothorax. Stable cardiomegaly with pulmonary vascular congestion. Stable pulmonary interstitial prominence. IMPRESSION: No pneumothorax. ACT 112: Negative or not required by law. Electronically signed by: Mikael Ivey M.D. 04/08/2025 12:42 PM Abdomen/Pelvis CTA 04/08/25 20:20 Exam(s): CTA ABDOMEN + PELVIS With Contrast IV Amt: 115 ml [id number] EXAM: CT Angiography Abdomen and Pelvis With Intravenous Contrast CLINICAL HISTORY: Reason for exam: Rule out mesenteric ischemia. TECHNIQUE: Axial computed tomographic angiography images of the abdomen and pelvis with intravenous contrast. Arterial and venous phase imaging is performed. CTDI is 236.86 mGy and DLP is 1722.63 mGy-cm. Automated exposure control was utilized for the study. A dose lowering technique was utilized adhering to the principles of ALARA. MIP reconstructed images were created and reviewed. CONTRAST: Patient received 115 ml [id number] of IV contrast COMPARISON: CT abdomen and pelvis 04/07/2025 FINDINGS: VASCULATURE: Aorta: No acute findings. No aortic aneurysm or dissection. Celiac trunk and mesenteric arteries: No acute findings. No occlusion or significant stenosis. Renal arteries: No occlusion or stenosis in the renal arteries. Duplication of the right renal artery. Iliac arteries: No acute findings. No occlusion or significant stenosis. Portal veins: Portal vein, superior mesenteric vein are patent. Lung bases: Bibasilar consolidations increased from prior, with enhancement characteristics of atelectasis. Pleural space: Small right and trace left pleural effusions, increased from prior. ABDOMEN: Liver: Hepatomegaly. Gallbladder and bile ducts: Cholecystectomy. No ductal dilation. Pancreas: Unremarkable. No ductal dilation. No mass. Spleen: Unremarkable. No splenomegaly. Adrenals: Unremarkable. No mass. Kidneys and ureters: No hydronephrosis. Small nonobstructing right kidney lower pole stone. Stomach and bowel: Unremarkable. No mucosal thickening. No bowel obstruction. PELVIS: Appendix: No evidence of appendicitis. Bladder: Urinary bladder decompressed around a Witt catheter. Reproductive: Unremarkable as visualized. ABDOMEN and PELVIS: Intraperitoneal space: Mild ascites. Mesenteric edema. No free air. Bones/joints: L4-L5 disc degeneration. Lower lumbar facet degeneration. No acute fracture or dislocation. Soft tissues: Unremarkable. Lymph nodes: Unremarkable. No enlarged lymph nodes. Tubes, lines and devices: Enteric tube extends to the stomach. Rectal catheter in place. IMPRESSION: 1. Increasing pleural effusions and bibasilar atelectasis. 2. Mild ascites. Mesenteric edema. No free air. These findings are similar to prior. 3. No mesenteric arterial occlusion or significant stenosis. Electronically signed by: Eleazar Díaz M.D. 04/08/25 23:46 PM Medications Administered Current Inpatient Medications Acetaminophen (Acetaminophen 325 Mg Tab) 650 mg PO Q4H PRN PRN Reason: Pain or Fever Stop: 05/06/25 06:13 Last Admin: 04/09/25 13:13 Dose: 650 mg Amlodipine Besylate (Amlodipine Besylate 5 Mg Tab) 5 mg PO QAM [facility] Stop: 05/11/25 08:59 Apixaban (Apixaban 5 Mg Tablet) 5 mg PO BID [facility] Stop: 05/10/25 08:59 Last Admin: 04/10/25 07:48 Dose: 5 mg Atorvastatin Calcium (Atorvastatin 20 Mg Tab) 20 mg PO QAM [facility] Stop: 05/07/25 10:59 Last Admin: 04/10/25 08:24 Dose: 20 mg Dextrose (Dextrose 50% 50 Ml Syringe) 25 - 50 ml IV UD PRN; Protocol PRN Reason: Hypoglycemia Protocol Stop: 05/06/25 06:13 Last Admin: 04/09/25 09:26 Dose: 25 ml Glucagon (Glucagon For Inj 1 Mg Vial) 1 mg SQ UD PRN; Protocol PRN Reason: Hypoglycemia Protocol Stop: 05/06/25 06:13 Glucose (Glucose 40% Gel 15 Gm Tube) 15 - 30 gm PO UD PRN; Protocol PRN Reason: Hypoglycemia Protocol Stop: 05/06/25 06:13 Glucose (Glucose 10 Tab/Tube) 4 - 8 tab PO UD PRN; Protocol PRN Reason: Hypoglycemia Protocol Stop: 05/06/25 06:13 Pantoprazole Sodium (Protonix) 40 mg in 10 mls @ 5 mls/min IV BID JADEN Stop: 05/06/25 08:59 Last Admin: 04/10/25 08:25 Dose: 5 mls/min Thiamine HCl 200 mg/ Sodium (Chloride) 52 mls @ 210 mls/hr IV BID JADEN Stop: 05/09/25 10:14 Last Infusion: 04/10/25 09:49 Dose: Infused Ceftriaxone Sodium (Rocephin) 2,000 mg in 50 mls @ 100 mls/hr IV DAILY JADEN Stop: 04/11/25 10:59 Last Infusion: 04/10/25 09:16 Dose: Infused Metronidazole (Flagyl) 500 mg in 100 mls @ 100 mls/hr IV Q8H [facility]; Protocol Stop: 04/11/25 10:59 Last Infusion: 04/10/25 05:20 Dose: Infused Insulin Aspart (Insulin Aspart Per Unit Charge) 0 units SC ACHS JADEN Stop: 05/09/25 16:29 Last Admin: 04/10/25 08:23 Dose: 12 units Losartan Potassium (Losartan Potassium 50 Mg Tab) 50 mg PO QAM JADEN Stop: 05/10/25 08:59 Last Admin: 04/10/25 07:36 Dose: 50 mg Metoprolol Tartrate (Metoprolol Tartrate 25 Mg Tab) 25 mg PO BID JADEN Stop: 05/10/25 08:59 Last Admin: 04/10/25 07:36 Dose: 25 mg Miscellaneous (Carbohydrates For Hypoglycemia ) 15 - 30 gm PO UD PRN PRN Reason: Hypoglycemia Protocol Stop: 05/06/25 06:13 Miscellaneous Information (Pharmacy Glycemic Mgmt Consult) 1 each N/A UD PRN PRN Reason: Consult Stop: 05/06/25 06:13 Multivitamins/Minerals (Multi Vit W/Minerals Liquid 15 Ml Udc) 15 ml PO QAM JADEN Stop: 05/09/25 10:14 Last Admin: 04/10/25 08:24 Dose: 15 ml Ondansetron HCl (Ondansetron Inj 2 Mg/Ml 2 Ml Vial) 4 mg IV Q6H PRN PRN Reason: Nausea Stop: 05/06/25 06:13 Last Admin: 04/08/25 09:53 Dose: 4 mg PG Care Time/CCT Total # of Minutes Spent Total Time Spent with Patient: Total time spent is greater than 50% in coordination of care (as documented) at patient's floor/unit and/or counseling patient: Coding Level of Care Code 96726 SUB INP/OBS CARE 3/50MIN Diagnoses Atrial fibrillation I48.91 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
[2025-04-10] MEDS: LANTUS PER UNIT CHARGE SC SCH (13:26)
[2025-04-10] MEDS: FUROSEMIDE 40 MG/4 ML VIAL IV ONE (13:53)
[2025-04-10] MEDS: VALSARTAN/SACUBITRIL 26/24MG TAB PO SCH (20:04)
[2025-04-11] MEDS: METOPROLOL SUCC 25MG EXT REL TAB PO STA (03:48)
[2025-04-11 06:26] LABS: Hematocrit (blood only) 39.6 % (42.0-52.0); Hemoglobin 14.2 g/dl (14.0-18.0); Mean Corpuscular Hemoglobin 32.0 pg (25.0-34.0); Mean Corpuscular Volume 89.2 fL (80.0-100.0); Platelet Count 196 K/uL (130-400); RDW Standard Deviation 41.5 fL (36.4-46.3); Red Blood Count 4.44 M/uL (4.70-6.10); White Blood Count 9.26 K/ul (4.8-10.8)
[2025-04-11] MEDS: FUROSEMIDE 40 MG/4 ML VIAL IV SCH (06:29)
[2025-04-11 06:50] LABS: Anion Gap 5.0 (3-11); Blood Urea Nitrogen 12.0 mg/dl (6-23); Calcium 8.5 mg/dl (8.6-10.3); Carbon Dioxide 28.0 mmol/L (21-32); Chloride 104.0 mmol/L (98-107); Creatinine Clr Calc Pharmacy 154.0 ml/min; Glucose 135.0 mg/dl (70-99(Fasting)); Magnesium 1.9 mg/dl (1.7-2.4); Potassium 3.9 mmol/L (3.5-5.1); Sodium 137.0 mmol/L (136-145)
[2025-04-11 07:09] LABS: ANTI-Xa, UFH(UnfractionatedHep 0.18 IU/ml (0.3-0.7)
[2025-04-11] MEDS ORDERED: METOPROLOL SUCC 25MG EXT REL TAB PO SCH (09:00)
--- NOTE | 2025-04-11 10:59 | Cardiology Progress Note ---
<Statement entered by Lora Gutierrez, - 04/11/25 13:22> I have reviewed the advanced practitioner's documentation and agree with the plan of care. I accept the responsibility for the associated risk. pt seen in cardiology f/u due to newly found NICM and AF with RVR s/p KATERYNA guided DCCV he is responding to the IV lasix but is still 7 liters up from his admission-wou ld continue IV lasix for today and into tomorrow; ideally hopefully he will be back to volume status tomorrow or saturday and can be discharged then; he probably would benefit from lasix 20mg daily upon discharge recommend starting aldactone rather than norvasc continue toprol and entresto we will continue to follow with you Date of Service April 11, 2025 Assessment & Plan (1) Atrial fibrillation: (2) Tachycardia induced cardiomyopathy: (3) Elevated troponin I level: (4) Moderate left ventricular systolic dysfunction (LVSD): Plan - Heart rate and Blood pressure currently well-controlled - responding well to IV lasix, will continue - please monitor daily weights, please use a standing scale - strict I&O monitoring - monitor and replace electrolytes as needed, recommend K >4 and Mg >2 - renal function stable - continue Toprol, Entresto, apixaban, atorvastatin - would optimize Entresto dosing instead of adding back his home amlodipine dose - can consider addition of Aldactone as well for optimization of GDMT, but will hold off for now to allow aggressive IV diuresis - Case discussed with Dr. Gutierrez. Please see attestation for additional recommendations. BONI Oliveira Department of Cardiology, [facility] This chart was completed in part utilizing Speech Voice Recognition Software. Grammatical errors, random word insertions, pronoun errors, and incomplete sentences are an occasional consequence of this system due to software limita tions, ambient noise, and hardware issues. Any formal questions or concerns about the content, text, or information contained within the body of this dictation should be directly addressed to the provider for clarification. Admission and Anticipated Discharge Date Admission Date: April 06, 2025 Subjective 54-year-old male seen in cardiology follow-up in regard to new onset atrial fibrillation and nonischemic cardiomyopathy. He continues to improve medically. Was extubated yesterday and has been maintaining oxygen saturations. Still feeling somewhat fatigued on exertion but is improving. Physical Exam Constitutional: WD/WN, vitals as above well developed and well nourished; no acute distress Eyes: PERRL, conjunctivae normal, anicteric sclerae Neck: trachea midline, no thyromegaly Respiratory: normal respiratory effort, lungs clear to auscultation Cardiovascular: Rate/Rhythm: regular rate and regular rhythm Heart Sounds: normal S1 and normal S2 Vessels: normal peripheral pulses Gastrointestinal (Abdomen): normal bowel sounds, soft, nontender, no hepatosplenomegaly Musculoskeletal: no cyanosis or clubbing, extremities motor strength 5/5 Skin: no rashes, warm and dry Psychiatric: A+Ox3, euthymic affect Results & Data Vital Signs (Past 12 Hours) Vital Signs Temp Pulse Pulse Resp BP Pulse Ox O2 Del Method 04/11/25 07:56 37 C 65 20 135/90 95 Nasal CPAP 04/11/25 05:30 77 04/11/25 04:12 80 14 92 04/11/25 03:46 36.7 C 80 20 150/102 H 92 CPAP 04/10/25 23:28 81 26 H 92 04/10/25 23:21 37.3 C 80 20 148/94 H 94 CPAP O2 Flow Rate 04/11/25 07:56 04/11/25 05:30 04/11/25 04:12 2 04/11/25 03:46 04/10/25 23:28 2 04/10/25 23:21 Laboratory Results CBC 04/11/25 Range/Units 05:56 WBC 9.26 (4.8-10.8) K/ul RBC 4.44 L (4.70-6.10) M/uL Hgb 14.2 (14.0-18.0) g/dl Hct 39.6 L (42.0-52.0) % Plt Count 196 (130-400) K/uL Comprehensive Metabolic Panel 04/11/25 Range/Units 05:56 Sodium 137 (136-145) mmol/L Potassium 3.9 (3.5-5.1) mmol/L Chloride 104 (98-107) mmol/L Carbon Dioxide 28 (21-32) mmol/L BUN 12 (6-23) mg/dl Creatinine 0.73 (0.6-1.4) mg/dl Glucose 135 H (70-99(Fasting)) mg/dl Calcium 8.5 L (8.6-10.3) mg/dl Intake and Output 04/10/25 04/11/25 04/11/25 22:59 06:59 14:59 Intake Total 652 / 1857.4 900 / 1857.4 102 / 102 Output Total 1500 / 1500 Balance 652 / 1857.4 900 / 1857.4 -1398 / -1398 Intake: IV 152 / 557.4 100 / 557.4 102 / 102 Thiamine HCl 200 mg In Sodium 52 / 104 52 / 52 Chloride 0.9% 50 ml @ 210 mls/ hr IV BID JADEN Rx#:[id number] cefTRIAXone SODIUM 2,000 mg In 50 / 50 50 ml @ 100 mls/hr IV DAILY JADEN Rx#:[id number] metroNIDAZOLE 500 mg In 100 ml 100 / 300 100 / 300 @ 100 mls/hr IV Q8H JADEN Rx#: [id number] Oral 500 / 1300 800 / 1300 Output: Urine 1500 / 1500 Other: # Unmeasured Voids 1 Weight 127.3 kg Weight Measurement Method Built in [facility] Diagnostic Findings Laboratory Results WBC 9.26 K/ul (4.8-10.8) 04/11/25 05:56 RBC 4.44 M/uL (4.70-6.10) L 04/11/25 05:56 Hgb 14.2 g/dl (14.0-18.0) 04/11/25 05:56 POC Hgb 13.3 g/dl (14.0-18.0) L 04/08/25 20:12 Hct 39.6 % (42.0-52.0) L 04/11/25 05:56 POC Hct 39 % (42-52) L 04/08/25 20:12 MCV 89.2 fL (80.0-100.0) 04/11/25 05:56 MCH 32.0 pg (25.0-34.0) 04/11/25 05:56 MCHC 35.9 g/dL (32.0-36.0) 04/11/25 05:56 RDW Std Deviation 41.5 fL (36.4-46.3) 04/11/25 05:56 RDW Coeff of Katherine 12.9 % (11.5-14.5) 04/11/25 05:56 Plt Count 196 K/uL (130-400) 04/11/25 05:56 MPV 10.2 fL (9.4-12.4) 04/11/25 05:56 Immature Gran % (Auto) 0.9 % 04/08/25 12:10 Neut % (Auto) 78.3 % 04/08/25 12:10 Lymph % (Auto) 15.1 % 04/08/25 12:10 Lamar % (Auto) 5.3 % 04/08/25 12:10 Eos % (Auto) 0.1 % 04/08/25 12:10 Baso % (Auto) 0.3 % 04/08/25 12:10 Neut # (Auto) 11.67 K/uL (1.40-6.50) H 04/08/25 12:10 Lymph # (Auto) 2.26 K/uL (1.20-3.40) 04/08/25 12:10 Lamar # (Auto) 0.79 K/uL (0.11-0.59) H 04/08/25 12:10 Eos # (Auto) 0.02 K/uL (0.00-0.50) 04/08/25 12:10 Baso # (Auto) 0.04 K/uL (0.00-0.20) 04/08/25 12:10 Immature Gran # (Auto) 0.14 K/uL (0.01-0.20) 04/08/25 12:10 Absolute Nucleated RBC Cancelled 04/07/25 06:38 Nucleated RBC % (auto) Cancelled 04/07/25 06:38 Neutrophils % (Manual) Cancelled 04/07/25 06:38 Band Neutrophils % Cancelled 04/07/25 06:38 Lymphocytes % (Manual) Cancelled 04/07/25 06:38 Prolymphocyte % Cancelled 04/07/25 06:38 Reactive Lymphs % (Man) Cancelled 04/07/25 06:38 Monocytes % (Manual) Cancelled 04/07/25 06:38 Eosinophils % (Manual) Cancelled 04/07/25 06:38 Basophils % (Manual) Cancelled 04/07/25 06:38 Metamyelocytes % (Man) Cancelled 04/07/25 06:38 Myelocytes % (Man) Cancelled 04/07/25 06:38 Promyelocytes % (Man) Cancelled 04/07/25 06:38 Blast Cells % (Manual) Cancelled 04/07/25 06:38 Plasma Cell % (Manual) Cancelled 04/07/25 06:38 Other Cells % Cancelled 04/07/25 06:38 Nucleated RBC % Cancelled 04/07/25 06:38 Neutrophils # (Manual) Cancelled 04/07/25 06:38 Band Neutrophils # Cancelled 04/07/25 06:38 Total Absolute Neuts Cancelled 04/07/25 06:38 Lymphocytes # (Manual) Cancelled 04/07/25 06:38 Prolymphocyte # Cancelled 04/07/25 06:38 Reactive Lymphs # Cancelled 04/07/25 06:38 Total Abs Lymphocytes Cancelled 04/07/25 06:38 Monocytes # (Manual) Cancelled 04/07/25 06:38 Eosinophils # (Manual) Cancelled 04/07/25 06:38 Basophils # (Manual) Cancelled 04/07/25 06:38 Metamyelocytes # (Man) Cancelled 04/07/25 06:38 Myelocytes # (Manual) Cancelled 04/07/25 06:38 Promyelocytes # (Man) Cancelled 04/07/25 06:38 Blast Cells # (Man) Cancelled 04/07/25 06:38 Plasma Cell # (Manual) Cancelled 04/07/25 06:38 Other Cells # Cancelled 04/07/25 06:38 Nucleated RBCs # (Man) Cancelled 04/07/25 06:38 Hypersegmented Neuts Cancelled 04/07/25 06:38 Hyposegmented Neuts Cancelled 04/07/25 06:38 Hypogranular Neuts Cancelled 04/07/25 06:38 Large Granular Lymphs Cancelled 04/07/25 06:38 # Lrg Granular Lymphs Cancelled 04/07/25 06:38 Hairy Cells Cancelled 04/07/25 06:38 Smudge Cells Cancelled 04/07/25 06:38 Toxic Granulation Cancelled 04/07/25 06:38 Toxic Vacuolation Cancelled 04/07/25 06:38 Dohle Bodies Cancelled 04/07/25 06:38 Robin Rods Cancelled 04/07/25 06:38 Platelet Estimate Cancelled 04/07/25 06:38 Hypogranular Platelets Cancelled 04/07/25 06:38 Giant Platelets Cancelled 04/07/25 06:38 Platelet Satelliting Cancelled 04/07/25 06:38 RBC Morphology Cancelled 04/07/25 06:38 Polychromasia Cancelled 04/07/25 06:38 Hypochromasia Cancelled 04/07/25 06:38 Poikilocytosis Cancelled 04/07/25 06:38 Basophilic Stippling Cancelled 04/07/25 06:38 Anisocytosis Cancelled 04/07/25 06:38 Microcytosis Cancelled 04/07/25 06:38 Macrocytosis Cancelled 04/07/25 06:38 Spherocytes Cancelled 04/07/25 06:38 Pappenheimer Bodies Cancelled 04/07/25 06:38 Sickle Cells Cancelled 04/07/25 06:38 Target Cells Cancelled 04/07/25 06:38 Tear Drop Cells Cancelled 04/07/25 06:38 Ovalocytes Cancelled 04/07/25 06:38 Stomatocytes Cancelled 04/07/25 06:38 [place]ujano[place] Bodies Cancelled 04/07/25 06:38 Echinocytes Cancelled 04/07/25 06:38 Acanthocytes (Spur) Cancelled 04/07/25 06:38 Rouleaux Cancelled 04/07/25 06:38 RBC Agglutinates Cancelled 04/07/25 06:38 Schistocytes Cancelled 04/07/25 06:38 Sezary Cell Cancelled 04/07/25 06:38 PT 12.3 Seconds (9.0-12.0) H 04/08/25 12:22 INR 1.2 (0.9-1.1) H 04/08/25 12:22 APTT 27 Seconds (21-31) 04/06/25 06:58 PTT Ratio 1.0 04/06/25 06:58 Heparin Anti-Xa, Unfract 0.18 IU/ml (0.3-0.7) L 04/11/25 05:56 Specimen Type Arterial 04/08/25 20:12 Sample Site R Radial 04/08/25 20:12 POC pH 7.27 (7.35-7.45) L 04/08/25 20:12 POC pCO2 31 mmHg (35-46) L 04/08/25 20:12 POC pO2 116 mmHg (80-95) H 04/08/25 20:12 POC HCO3 14 mmol/L (19-24) L 04/08/25 20:12 POC Total CO2 15 mmol/L (24-31) L 04/08/25 20:12 POC Base Excess -13.0 mmol/L (-9-1.8) L 04/08/25 20:12 O2 Sat Pulse Oximetry 97 04/08/25 20:12 ABG pH (Temp Correct) 7.264 (7.35-7.45) L 04/08/25 20:12 ABG pCO2 (Temp Corrct 32 mmHg (35-46) L 04/08/25 20:12 POC ABG pO2 at Pt Temp 120 04/08/25 20:12 POC ABG O2 Sat 98.0 % (90-95) H 04/08/25 20:12 Nash Test NA 04/08/25 20:12 O2 Delivery Device Ventilator 04/08/25 20:12 Vent Mode AC 04/08/25 20:12 POC FiO2 50 % 04/08/25 20:12 End Tidal CO2 31 04/08/25 20:12 POC Sodium 138 mmol/L (135-144) 04/08/25 20:12 Sodium 137 mmol/L (136-145) 04/11/25 05:56 POC Potassium 2.6 mmol/L (3.3-5.0) L 04/08/25 20:12 Potassium 3.9 mmol/L (3.5-5.1) 04/11/25 05:56 POC Chloride 97 mmol/L (101-112) L 04/06/25 01:07 Chloride 104 mmol/L (98-107) 04/11/25 05:56 Carbon Dioxide 28 mmol/L (21-32) 04/11/25 05:56 POC Total CO2 24 mmol/L (24-31) 04/06/25 01:07 Anion Gap 5 (3-11) 04/11/25 05:56 POC Anion Gap 17.0 mmol/L (16-25) 04/06/25 01:07 POC BUN 15 mg/dl (7-18) 04/06/25 01:07 BUN 12 mg/dl (6-23) 04/11/25 05:56 Creatinine 0.73 mg/dl (0.6-1.4) 04/11/25 05:56 POC Creatinine 0.8 mg/dl (0.6-1.3) 04/06/25 01:07 Est Cr Clr Drug Dosing 154.0 ml/min 04/11/25 05:56 eGFR 109.47 04/11/25 05:56 BUN/Creatinine Ratio 16.4 (10-20) 04/11/25 05:56 Glucose 135 mg/dl (70-99(Fasting)) H 04/11/25 05:56 POC Glucose 148 mg/dl (70-99) H 04/11/25 08:22 POC Glucose (other) 92 mg/dl (70-99) 04/09/25 08:10 Estimat Average Glucose 246 mg/dl 04/07/25 06:38 Hemoglobin A1c 10.2 % (4.5-5.6) H 04/07/25 06:38 Lactate 3.0 mmol/L (0.4-2.0) H* 04/09/25 04:38 Calcium 8.5 mg/dl (8.6-10.3) L 04/11/25 05:56 POC Ioniz Calcium Trang 1.12 mmol/l (1.12-1.32) 04/06/25 01:07 Phosphorus 3.1 mg/dl (2.5-4.9) D 04/11/25 05:56 Magnesium 1.9 mg/dl (1.7-2.4) 04/11/25 05:56 Iron 27 mcg/dl (35-175) L 04/09/25 11:21 TIBC 342 mcg/dl (250-450) 04/09/25 11:21 Transferrin 244 mg/dl (200-360) 04/09/25 11:21 Transferrin % Sat 8 % (20-50) L 04/09/25 11:21 Total Bilirubin 1.0 mg/dl (0.2-1.0) 04/08/25 12:10 AST 31 U/L (13-39) 04/08/25 12:10 ALT 50 U/L (7-52) 04/08/25 12:10 Alkaline Phosphatase 47 U/L (34-104) 04/08/25 12:10 Total Creatine Kinase 19 U/L (30-223) L 04/08/25 21:34 Troponin I High Sens 42.9 pg/ml (0-20) H 04/08/25 12:10 C-Reactive Protein 0.76 mg/dl (0-0.5) H 04/08/25 19:29 Total Protein 5.8 gm/dl (6.0-8.3) L 04/08/25 12:10 Albumin 3.3 gm/dl (3.4-5.0) L 04/08/25 12:10 Globulin 2.5 gm/dl (2.5-4.0) 04/08/25 12:10 Albumin/Globulin Ratio 1.3 (0.9-2) 04/08/25 12:10 Triglycerides 113 mg/dl (0-150) 04/09/25 04:38 Cholesterol 162 mg/dl (0-200) 04/07/25 06:38 LDL Cholesterol, Calc 96 mg/dl 04/07/25 06:38 VLDL Cholesterol, Calc 22 mg/dl (0-30) 04/07/25 06:38 HDL Cholesterol 44 mg/dl 04/07/25 06:38 Cholesterol/HDL Ratio 3.7 (0-5) 04/07/25 06:38 Lipase 7 U/L (11-82) L 04/08/25 12:10 Procalcitonin 0.46 ng/ml (0-0.5) 04/10/25 04:05 TSH 2.122 uIu/ml (0.300-4.500) 04/06/25 01:04 Urine Color Yellow 04/09/25 02:43 Urine Appearance Clear (Clear) 04/09/25 02:43 Urine pH 5.5 (4.5-7.5) 04/09/25 02:43 Ur Specific [place] > 1.045 (1.000-1.030) H 04/09/25 02:43 Urine Protein Trace (Negative) H 04/09/25 02:43 Urine Glucose (UA) 3+ (Negative) H 04/09/25 02:43 Urine Ketones Negative (Negative) 04/09/25 02:43 Urine Blood Negative (Negative) 04/09/25 02:43 Urine Nitrite Negative (Negative) 04/09/25 02:43 Urine Bilirubin Negative (Negative) 04/09/25 02:43 Urine Urobilinogen Negative (Negative) 04/09/25 02:43 Ur Leukocyte Esterase Negative (Negative) 04/09/25 02:43 Urine WBC (Auto) 0-5 /hpf (0-5) 04/09/25 02:43 Urine RBC (Auto) 0-2 /hpf (0-2) 04/09/25 02:43 U Hyaline Cast (Auto) 0-2 /lpf (0-2) 04/09/25 02:43 U Epithel Cells (Auto) 0-2 /hpf (0-2) 04/09/25 02:43 Urine Bacteria (Auto) None Seen (None Seen) 04/09/25 02:43 Urine Comment 04/09/25 02:43 Adenovirus (PCR) Not Detected (NotDetected) 04/06/25 03:02 B. pertussis DNA (PCR) Not Detected (NotDetected) 04/06/25 03:02 B.parapertussis DNA PCR Not Detected (NotDetected) 04/06/25 03:02 C. pneumoniae DNA (PCR) Not Detected (NotDetected) 04/06/25 03:02 Coronavirus OC43 (PCR) Not Detected (NotDetected) 04/06/25 03:02 Coronavirus HKU1 (PCR) Not Detected (NotDetected) 04/06/25 03:02 Coronavirus 229E (PCR) Not Detected (NotDetected) 04/06/25 03:02 SARS-CoV-2 (PCR) Not Detected (NotDetected) 04/06/25 03:02 Coronavirus NL63 (PCR) Not Detected (NotDetected) 04/06/25 03:02 Human Metapneumovir PCR Not Detected (NotDetected) 04/06/25 03:02 Influenza Type A (PCR) Not Detected (NotDetected) 04/06/25 03:02 Influenza Type B (PCR) Not Detected (NotDetected) 04/06/25 03:02 M. pneumoniae (PCR) Not Detected (NotDetected) 04/06/25 03:02 Parainfluenza 1 (PCR) Not Detected (NotDetected) 04/06/25 03:02 Parainfluenza 2 (PCR) Not Detected (NotDetected) 04/06/25 03:02 Parainfluenza 3 (PCR) Not Detected (NotDetected) 04/06/25 03:02 Parainfluenza 4 (PCR) Not Detected (NotDetected) 04/06/25 03:02 RSV (PCR) Not Detected (NotDetected) 04/06/25 03:02 Entero/Rhino (PCR) Not Detected (NotDetected) 04/06/25 03:02 Blood Parasites ID Cancelled 04/07/25 06:38 Impressions Abdomen/Pelvis CT 04/06/25 01:13 EXAM: CT abd pelvis IV con only CLINICAL HISTORY: mid abd pain. TECHNIQUE: Multiple contiguous axial images were obtained from the level of the diaphragm to the pubic symphysis. This study was acquired after the IV administration of iodinated contrast material, given the patient's indications for the examination. If IV contrast material had not been administered, the likelihood of detecting abnormalities relevant to the patient's condition would have been substantially decreased. Coronal and sagittal reformatted images were generated and reviewed to improve anatomic localization and optimize lesion detection. CT scan was performed according to ALARA (as low as reasonably achievable). COMPARISON: 06/07/2024. FINDINGS: ABDOMEN/PELVIS: The liver is normal in size and attenuation. No focal liver lesions are seen. There is no intrahepatic or extrahepatic biliary ductal dilatation. Hepatic vasculature is patent. The gallbladder is surgically absent, with mild prominence of the common bile duct, which is stable. The spleen, pancreas, and adrenal glands are unremarkable. There is a 12 mm nodule near the splenic hilum, likely a splenule, which is stable. The kidneys are normal in size and attenuation. There is no hydronephrosis or perinephric fat stranding. There is a stable right lower pole microlith. The ureters are normal in caliber, and no ureteral calculi are seen. The bladder is normal in contour. No evidence of focal or diffuse bowel wall thickening or evidence of bowel obstruction is seen. The appendix is visualized in the right lower quadrant and appears within normal limits. No adenopathy. Minimal free fluid in the pelvis. The aorta is normal in caliber. Mesenteric fat stranding is seen in the right quadrants, starting near the duodenum, along the right paraaortic area, and continuing to the aortic bifurcation. No duodenal thickening. No aggressive-appearing osseous lesions are identified. Minimal right pleural effusion. IMPRESSION: 1. Mesenteric fat stranding is seen in the right upper quadrant, around the duodenum, along the right paraaortic area, continuing to the aortic bifurcation; new onset, likely mesenteric panniculitis. 2. Stable right renal calculus. 3. Stable fatty hepatomegaly and splenomegaly. 4. Minimal right pleural effusion; new onset. Electronically signed by Juan Daniel Morse 04-06-2025 02:47 AM Chest X-Ray 04/08/25 12:31 XR chest 1V portable CLINICAL HISTORY: cxr ett placement COMPARISON STUDY: 04/08/2025 FINDINGS: Endotracheal tube tip is at the thoracic inlet. Nasogastric tube tip is in the proximal stomach. Left central catheter tip is in the SVC. There is no pneumothorax. Stable cardiomegaly with pulmonary vascular congestion. Stable pulmonary interstitial prominence. IMPRESSION: No pneumothorax. ACT 112: Negative or not required by law. Electronically signed by: Mikael Ivey M.D. 04/08/2025 12:42 PM Abdomen/Pelvis CTA 04/08/25 20:20 Exam(s): CTA ABDOMEN + PELVIS With Contrast IV Amt: 115 ml [id number] EXAM: CT Angiography Abdomen and Pelvis With Intravenous Contrast CLINICAL HISTORY: Reason for exam: Rule out mesenteric ischemia. TECHNIQUE: Axial computed tomographic angiography images of the abdomen and pelvis with intravenous contrast. Arterial and venous phase imaging is performed. CTDI is 236.86 mGy and DLP is 1722.63 mGy-cm. Automated exposure control was utilized for the study. A dose lowering technique was utilized adhering to the principles of ALARA. MIP reconstructed images were created and reviewed. CONTRAST: Patient received 115 ml [id number] of IV contrast COMPARISON: CT abdomen and pelvis 04/07/2025 FINDINGS: VASCULATURE: Aorta: No acute findings. No aortic aneurysm or dissection. Celiac trunk and mesenteric arteries: No acute findings. No occlusion or significant stenosis. Renal arteries: No occlusion or stenosis in the renal arteries. Duplication of the right renal artery. Iliac arteries: No acute findings. No occlusion or significant stenosis. Portal veins: Portal vein, superior mesenteric vein are patent. Lung bases: Bibasilar consolidations increased from prior, with enhancement characteristics of atelectasis. Pleural space: Small right and trace left pleural effusions, increased from prior. ABDOMEN: Liver: Hepatomegaly. Gallbladder and bile ducts: Cholecystectomy. No ductal dilation. Pancreas: Unremarkable. No ductal dilation. No mass. Spleen: Unremarkable. No splenomegaly. Adrenals: Unremarkable. No mass. Kidneys and ureters: No hydronephrosis. Small nonobstructing right kidney lower pole stone. Stomach and bowel: Unremarkable. No mucosal thickening. No bowel obstruction. PELVIS: Appendix: No evidence of appendicitis. Bladder: Urinary bladder decompressed around a Witt catheter. Reproductive: Unremarkable as visualized. ABDOMEN and PELVIS: Intraperitoneal space: Mild ascites. Mesenteric edema. No free air. Bones/joints: L4-L5 disc degeneration. Lower lumbar facet degeneration. No acute fracture or dislocation. Soft tissues: Unremarkable. Lymph nodes: Unremarkable. No enlarged lymph nodes. Tubes, lines and devices: Enteric tube extends to the stomach. Rectal catheter in place. IMPRESSION: 1. Increasing pleural effusions and bibasilar atelectasis. 2. Mild ascites. Mesenteric edema. No free air. These findings are similar to prior. 3. No mesenteric arterial occlusion or significant stenosis. Electronically signed by: Eleazar Díaz M.D. 04/08/25 23:46 PM Medications Administered Current Inpatient Medications Acetaminophen (Acetaminophen 325 Mg Tab) 650 mg PO Q4H PRN PRN Reason: Pain or Fever Stop: 05/06/25 06:13 Last Admin: 04/09/25 13:13 Dose: 650 mg Amlodipine Besylate (Amlodipine Besylate 5 Mg Tab) 5 mg PO QAM [facility] Stop: 05/11/25 08:59 Last Admin: 04/11/25 08:44 Dose: 5 mg Apixaban (Apixaban 5 Mg Tablet) 5 mg PO BID [facility] Stop: 05/10/25 08:59 Last Admin: 04/11/25 08:44 Dose: 5 mg Atorvastatin Calcium (Atorvastatin 20 Mg Tab) 20 mg PO QAM [facility] Stop: 05/07/25 10:59 Last Admin: 04/11/25 08:59 Dose: 20 mg Dextrose (Dextrose 50% 50 Ml Syringe) 25 - 50 ml IV UD PRN; Protocol PRN Reason: Hypoglycemia Protocol Stop: 05/06/25 06:13 Last Admin: 04/09/25 09:26 Dose: 25 ml Furosemide (Furosemide 40 Mg/4 Ml Vial) 60 mg IV [id number] [facility] Stop: 05/11/25 06:59 Last Admin: 04/11/25 06:29 Dose: 60 mg Glucagon (Glucagon For Inj 1 Mg Vial) 1 mg SQ UD PRN; Protocol PRN Reason: Hypoglycemia Protocol Stop: 05/06/25 06:13 Glucose (Glucose 40% Gel 15 Gm Tube) 15 - 30 gm PO UD PRN; Protocol PRN Reason: Hypoglycemia Protocol Stop: 05/06/25 06:13 Glucose (Glucose 10 Tab/Tube) 4 - 8 tab PO UD PRN; Protocol PRN Reason: Hypoglycemia Protocol Stop: 05/06/25 06:13 Pantoprazole Sodium (Protonix) 40 mg in 10 mls @ 5 mls/min IV BID JADEN Stop: 05/06/25 08:59 Last Admin: 04/11/25 08:45 Dose: 5 mls/min Thiamine HCl 200 mg/ Sodium (Chloride) 52 mls @ 210 mls/hr IV BID [facility] Stop: 05/09/25 10:14 Last Infusion: 04/11/25 09:20 Dose: Infused Ceftriaxone Sodium (Rocephin) 2,000 mg in 50 mls @ 100 mls/hr IV DAILY JADEN Stop: 04/11/25 10:59 Last Infusion: 04/11/25 09:51 Dose: Infused Metronidazole (Flagyl) 500 mg in 100 mls @ 100 mls/hr IV Q8H JADEN; Protocol Stop: 04/11/25 10:59 Last Infusion: 04/11/25 05:33 Dose: Infused Insulin Aspart (Insulin Aspart Per Unit Charge) 0 units SC ACHS [facility] Stop: 05/09/25 16:29 Last Admin: 04/11/25 09:11 Dose: 5 units Insulin Glargine (Lantus Per Unit Charge) 10 units SC DAILY JADEN Stop: 05/10/25 11:59 Last Admin: 04/11/25 08:43 Dose: 10 units Metoprolol Succinate (Metoprolol Succ 25mg Ext Rel Tab) 25 mg PO QAM [facility] Stop: 05/12/25 08:59 Miscellaneous (Carbohydrates For Hypoglycemia ) 15 - 30 gm PO UD PRN PRN Reason: Hypoglycemia Protocol Stop: 05/06/25 06:13 Miscellaneous Information (Pharmacy Glycemic Mgmt Consult) 1 each N/A UD PRN PRN Reason: Consult Stop: 05/06/25 06:13 Multivitamins/Minerals (Multi Vit W/Minerals Liquid 15 Ml Udc) 15 ml PO QAM JADEN Stop: 05/09/25 10:14 Last Admin: 04/11/25 08:44 Dose: 15 ml Ondansetron HCl (Ondansetron Inj 2 Mg/Ml 2 Ml Vial) 4 mg IV Q6H PRN PRN Reason: Nausea Stop: 05/06/25 06:13 Last Admin: 04/08/25 09:53 Dose: 4 mg Potassium Chloride (Potassium Chloride Crtab 20 Meq Tabcr) 40 meq PO BID [facility] Stop: 05/10/25 14:14 Last Admin: 04/11/25 08:44 Dose: 40 meq Sacubitril/Valsartan (Valsartan/Sacubitril 26/24mg Tab) 1 tab PO BID [facility] Stop: 05/10/25 20:59 Last Admin: 04/11/25 08:44 Dose: 1 tab PG Care Time/CCT Total # of Minutes Spent Total Time Spent with Patient: Total time spent is greater than 50% in coordination of care (as documented) at patient's floor/unit and/or counseling patient: Coding [place] [address] SUB INP/OBS CARE 3/50MIN Patient Type Established Medical Decision Making High Complexity Diagnoses Atrial fibrillation I48.91 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
--- NOTE | 2025-04-11 11:26 | Hospitalist Progress Note ---
Date of Service April 11, 2025 Assessment & Plan (1) Rapid atrial fibrillation: Plan: 54-year-old male with past medical history significant for hypertension, depression, ongoing tobacco use, history of atrial fibrillation, history of kidney stones comes because of abdominal pain and also in the ER found to be in rapid A-fib. Patient says since last Saturday is having abdominal pain mostly in the right upper side. Associated with nausea. Tonight he had episode of vomiting.. He was also sweating, feeling hot and cold which made him come to the hospital. In the ER he went into rapid A-fib. received IV Lopressor and Currently started on Cardizem drip. Denies any chest pain. Yesterday was feeling short of breath but currently no shortness of breath. No headache. No runny nose or sore throat. Since last 1 week he is having cough. In May 2024 was admitted for new onset rapid A-fib and left ureteral stone. He was discharged on metoprolol succinate and Eliquis. Patient says he no longer taking Eliquis and didn't followed up with cardiology. Atrial fibrillation with rapid ventricular response Bradycardia (post cardioversion)--resolved --ECHO: Borderline concentric LVH. Mild to moderate global hypokinesis of left ventricle. EF 35 to 40%. Left atrium moderately dilated. Moderate mitral regurgitation. Trace tricuspid regurgitation. --Normal TSH --S/P KATERYNA Cardioversion on 04/08/25 --Repeat ECHO: Rhythm sinus. Left ventricle normal in size. Mild concentric LVH. Moderate global hypokinesis of left ventricle. EF 43%. Mild to moderate mitral regurgitation. Developed bradycardia/Hypotension post cardioversion Amiodarone discontinued Continue metoprolol tartrate 25 mg twice a day Appreciate cardiology, critical care input On IV heparin for anticoagulation>> transitioned to Eliquis Monitor and replete electrolytes as needed Remains in sinus, rate controlled Shock--resolved Possible myocardial stunning post synchronized cardioversion Nonischemic cardiomyopathy --?? Due to tachycardia versus alcohol use Rule out sepsis S/P Intubation on 04/08/25 for airway protection ? Fluid overload/aspiration KATERYNA ECHO: No evidence of left atrial or left atrial appendage thrombus. Left atrium mildly dilated. LV systolic function with global hypokinesis. 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 Stable right renal calculus. Stable fatty hepatomegaly and splenomegaly. --ABD CTA:No evidence for mesenteric vein thrombosis. Interval increase in mesenteric fat stranding, as well as ascites, again possibly related to mesenteric panniculitis --EGD: Mild to moderate gastric erythema linear erosions. Hunt's esophagus. No specimens collected -- IV Solu-Medrol discontinued No plan for any further steroid course Appreciate GI input Needs repeat EGD in 3 to 6 months for biopsies of Hunt's Also needs repeat CT scan in 1 to 2 weeks per GI Uncontrolled diabetes mellitus HbA1c 10.2 Hold metformin Continue sliding scale Appreciate glycemic pharmacy consult Monitor blood glucose levels Obstructive sleep apnea CPAP nightly Hypoxia Wean supplemental oxygen as able May need 2 step prior to discharge Hypertension Continue Entresto, metoprolol succinate May benefit from transitioning HCTZ to Lasix on discharge Monitor adjust medications as needed Obesity BMI 40.8 DVT Px: Eliquis CODE STATUS Full code Admission and Anticipated Discharge Date Admission Date: April 06, 2025 Subjective Patient is seen and examined at bedside States feeling a lot better today Still has some soreness of the throat but otherwise no other complaints Denies any chest pain, dyspnea, abdominal pain, dizziness, nausea, vomiting Review of Systems Review of Systems: All systems reviewed & are unremarkable except as noted in Subjective Physical Exam Physical Exam: Physical Exam: Vitals signs as noted above General Appearance:Obese, well-nourished, no apparent distress Head: normocephalic, Atraumatic Eyes: normal inspection, EOMI Neck: supple, Trachea midline Respiratory/Chest: Decreased breath sounds, No accessory muscle use Cardiovascular: S1, S2, No murmur Abdomen/GI:Soft, non tender, Bowel sounds present Extremities/Musculoskeletal:normal inspection, Trace edema Neurologic/Psych: Alert, awake, oriented, no focal deficits Skin: normal color, warm Results & Data Results & Data Vital Signs (Past 12 Hours) Vital Signs Temp Pulse Pulse Resp BP Pulse Ox O2 Del Method 04/11/25 07:56 37 C 65 20 135/90 95 Nasal CPAP 04/11/25 05:30 77 04/11/25 04:12 80 14 92 04/11/25 03:46 36.7 C 80 20 150/102 H 92 CPAP 04/10/25 23:28 81 26 H 92 04/10/25 23:21 37.3 C 80 20 148/94 H 94 CPAP O2 Flow Rate 04/11/25 07:56 04/11/25 05:30 04/11/25 04:12 2 04/11/25 03:46 04/10/25 23:28 2 04/10/25 23:21 Laboratory Results Short CBC 04/11/25 Range/Units 05:56 WBC 9.26 (4.8-10.8) K/ul Hgb 14.2 (14.0-18.0) g/dl Hct 39.6 L (42.0-52.0) % Plt Count 196 (130-400) K/uL BMP 04/11/25 05:56 Sodium 137 Potassium 3.9 Chloride 104 Carbon Dioxide 28 BUN 12 Creatinine 0.73 Glucose 135 H Calcium 8.5 L
[2025-04-11] MEDS: LANTUS PER UNIT CHARGE SC SCH (21:23)
[2025-04-12 04:00] VITALS: O2SAT 94
[2025-04-12 06:54] LABS: Anion Gap 7.0 (3-11); Blood Urea Nitrogen 12.0 mg/dl (6-23); Calcium 8.8 mg/dl (8.6-10.3); Carbon Dioxide 28.0 mmol/L (21-32); Chloride 102.0 mmol/L (98-107); Creatinine Clr Calc Pharmacy 154.2 ml/min; Glucose 150.0 mg/dl (70-99(Fasting)); Magnesium 1.9 mg/dl (1.7-2.4); Potassium 4.0 mmol/L (3.5-5.1); Sodium 137.0 mmol/L (136-145)
[2025-04-12] MEDS: METOPROLOL SUCC 25MG EXT REL TAB PO SCH (09:04)
--- NOTE | 2025-04-12 10:32 | Cardiology Progress Note ---
Date of Service April 12, 2025 Assessment & Plan (1) Atrial fibrillation: (2) Tachycardia induced cardiomyopathy: (3) Elevated troponin I level: (4) Moderate left ventricular systolic dysfunction (LVSD): Plan continue Toprol, Entresto, apixaban, atorvastatin DC IV Lasix start Torsemide PO start Aldactone f/u electrolytes and renal function in 1 week post discharge f/u in cardiology clinic in 2 weeks stable from cardiac standpoint for discharge Admission and Anticipated Discharge Date Admission Date: April 06, 2025 Subjective Patient on exam is sitting in chair in NAD; no c/o cp, sob, palpitations, dizziness Review of Systems Review of Systems: no c/o cp, sob, palpitations, dizziness, LOC, cough, fever, nausea, vomiting, abdominal pain, urinary or bowel problem problems, melena, hematemesis, hemoptysis, hematochezia, leg swelling, seizures Physical Exam Constitutional: WD/WN, vitals as above well developed, well nourished and + obese; no acute distress Eyes: PERRL, conjunctivae normal, anicteric sclerae ENMT: external ear and nose normal, oropharynx normal Neck: trachea midline, no thyromegaly + thick neck Respiratory: normal respiratory effort, lungs clear to auscultation symmetric chest movement Cardiovascular: Rate/Rhythm: regular rate and regular rhythm Heart Sounds: normal S1 and normal S2; no murmur Vessels: + JVD and normal peripheral pulses Extremities: + edema (1+) Gastrointestinal (Abdomen): normal bowel sounds, soft, nontender, no hepatosplenomegaly Inspection/Auscultation: + abdomen distended and normal bowel sounds Percussion/Palpation: + abdomen tender (Left upper quad) and abdomen soft Musculoskeletal: no cyanosis or clubbing, extremities motor strength 5/5 Skin: no rashes, warm and dry Neurologic: PERRL, EOMI, accommodation nl, no face palsy, no dysarthria Psychiatric: A+Ox3, euthymic affect Results & Data Vital Signs (Past 12 Hours) Vital Signs Temp 36.6 C 04/12/25 08:16 Pulse 75 04/12/25 08:16 Resp 19 04/12/25 08:16 BP 144/100 H 04/12/25 08:16 Pulse Ox 94 04/12/25 08:16 O2 Del Method Room Air 04/12/25 08:16 O2 Flow Rate 4 04/11/25 12:00 FiO2 3 04/10/25 03:05 Intake & Output 04/11/25 04/12/25 04/12/25 18:59 06:59 18:59 Intake Total 502 / 1854 1352 / 1854 52 / 52 Output Total 1500 / 1500 Balance -998 / 354 1352 / 354 52 / 52 Weight 124.5 kg Intake: IV 102 / 154 52 / 154 52 / 52 Thiamine HCl 200 mg In Sodium 52 / 104 52 / 104 52 / 52 Chloride 0.9% 50 ml @ 210 mls/ hr IV BID JADEN Rx#:[id number] cefTRIAXone SODIUM 2,000 mg In 50 / 50 50 ml @ 100 mls/hr IV DAILY [facility] Rx#:[id number] Oral 400 / 1700 1300 / 1700 Output: Urine 1500 / 1500 Other: # Unmeasured Voids 2 Weight Measurement Method Built in [facility] Vital Signs Temp Pulse Pulse Resp BP Pulse Ox O2 Del Method 04/12/25 08:16 36.6 C 75 19 144/100 H 94 Room Air 04/12/25 07:00 71 04/12/25 03:58 36.4 C L 72 20 154/108 H 94 Room Air 04/12/25 02:29 67 15 96 04/11/25 23:50 36.7 C 67 20 136/99 96 Room Air 04/11/25 23:23 70 19 95 Laboratory Results Laboratory Results - last 48 hr 04/10/25 04/10/25 04/10/25 11:42 17:06 19:59 WBC RBC Hgb Hct MCV MCH MCHC RDW Std Deviation RDW Coeff of Katherine Plt Count MPV Heparin Anti-Xa, Unfract Sodium Potassium Chloride Carbon Dioxide Anion Gap BUN Creatinine Est Cr Clr Drug Dosing eGFR BUN/Creatinine Ratio Glucose POC Glucose 147 H 157 H 167 H Calcium Phosphorus Magnesium 04/11/25 04/11/25 04/11/25 05:56 08:22 12:23 WBC 9.26 RBC 4.44 L Hgb 14.2 Hct 39.6 L MCV 89.2 MCH 32.0 MCHC 35.9 RDW Std Deviation 41.5 RDW Coeff of Katherine 12.9 Plt Count 196 MPV 10.2 Heparin Anti-Xa, Unfract 0.18 L Sodium 137 Potassium 3.9 Chloride 104 Carbon Dioxide 28 Anion Gap 5 BUN 12 Creatinine 0.73 Est Cr Clr Drug Dosing 154.0 eGFR 109.47 BUN/Creatinine Ratio 16.4 Glucose 135 H POC Glucose 148 H 168 H Calcium 8.5 L Phosphorus 3.1 D Magnesium 1.9 04/11/25 04/11/25 04/12/25 17:05 20:40 05:25 WBC RBC Hgb Hct MCV MCH MCHC RDW Std Deviation RDW Coeff of Katherine Plt Count MPV Heparin Anti-Xa, Unfract Sodium 137 Potassium 4.0 Chloride 102 Carbon Dioxide 28 Anion Gap 7 BUN 12 Creatinine 0.72 Est Cr Clr Drug Dosing 154.2 eGFR 109.93 BUN/Creatinine Ratio 16.7 Glucose 150 H POC Glucose 137 H 166 H Calcium 8.8 Phosphorus Magnesium 1.9 04/12/25 08:07 WBC RBC Hgb Hct MCV MCH MCHC RDW Std Deviation RDW Coeff of Katherine Plt Count MPV Heparin Anti-Xa, Unfract Sodium Potassium Chloride Carbon Dioxide Anion Gap BUN Creatinine Est Cr Clr Drug Dosing eGFR BUN/Creatinine Ratio Glucose POC Glucose 147 H Calcium Phosphorus Magnesium Diagnostic Findings Comprehensive Metabolic Panel 04/12/25 Range/Units 05:25 Sodium 137 (136-145) mmol/L Potassium 4.0 (3.5-5.1) mmol/L Chloride 102 (98-107) mmol/L Carbon Dioxide 28 (21-32) mmol/L BUN 12 (6-23) mg/dl Creatinine 0.72 (0.6-1.4) mg/dl Glucose 150 H (70-99(Fasting)) mg/dl Calcium 8.8 (8.6-10.3) mg/dl Intake and Output 04/11/25 04/12/25 04/12/25 22:59 06:59 14:59 Intake Total 752 / 1854 1000 / 1854 52 / 52 Balance 752 / 354 1000 / 354 52 / 52 Intake: IV 52 / 154 52 / 52 Thiamine HCl 200 mg In Sodium / 104 52 / 52 Chloride 0.9% 50 ml @ 210 mls/ hr IV BID JADEN Rx#:[id number] Oral 700 / 1700 1000 / 1700 Other: # Unmeasured Voids 2 Weight 124.5 kg Weight Measurement Method Built in [facility] Medications Administered Home Medications Medication Instructions Recorded Confirmed Last Taken losartan 100 mg tablet 100 mg PO QPM 05/25/24 04/06/25 04/04/25 metformin 1,000 mg tablet 1,000 mg PO BID 05/25/24 04/06/25 04/05/25 amlodipine 5 mg tablet 5 mg PO QAM 04/06/25 04/06/25 04/05/25 benzonatate 200 mg capsule 200 mg PO TID PRN Cough 04/06/25 04/06/25 Unknown hydrochlorothiazide 12.5 mg tablet 12.5 mg PO QAM 04/06/25 04/06/25 04/05/25 metoprolol succinate 50 mg 50 mg PO AMHS 04/06/25 04/06/25 04/05/25 tablet,extended release 24 hr am dose only sildenafil 100 mg tablet 100 mg PO DAILY PRN Erectile 04/06/25 04/06/25 Unknown Dysfunction Active Medications Generic Name Dose Route Start Last Admin Trade Name Freq PRN Reason Stop Dose Admin Acetaminophen 650 mg 04/06/25 06:14 04/09/25 13:13 Acetaminophen 325 Mg Tab PO 05/06/25 06:13 650 mg Q4H PRN Administration Pain or Fever Apixaban 5 mg 04/10/25 09:00 04/12/25 09:03 Apixaban 5 Mg Tablet PO 05/10/25 08:59 5 mg BID JADEN Administration Atorvastatin Calcium 20 mg 04/07/25 11:00 04/12/25 09:03 Atorvastatin 20 Mg Tab PO 05/07/25 10:59 20 mg QAM JADEN Administration Dextrose 25 - 50 ml 04/06/25 06:14 04/09/25 09:26 Dextrose 50% 50 Ml Syringe IV 05/06/25 06:13 25 ml UD PRN Administration Hypoglycemia Protocol Protocol Thiamine HCl 200 mg/ Sodium 52 mls @ 210 mls/hr 04/09/25 10:15 04/12/25 10:06 Chloride IV 05/09/25 10:14 Infused BID JADEN Infusion Insulin Aspart 0 units 04/09/25 16:30 04/12/25 08:58 Insulin Aspart Per Unit Charge SC 05/09/25 16:29 5 units ACHS JADEN Administration Insulin Glargine 10 units 04/10/25 12:00 04/12/25 09:03 Lantus Per Unit Charge SC 05/10/25 11:59 10 units DAILY JADEN Administration Insulin Glargine 0 units 04/11/25 21:00 04/11/25 21:23 Lantus Per Unit Charge SC 05/11/25 20:59 5 units HS JADEN Administration Protocol Metoprolol Succinate 25 mg 04/12/25 09:00 04/12/25 09:04 Metoprolol Succ 25mg Ext Rel Tab PO 05/12/25 08:59 25 mg QAM JADEN Administration Multivitamins/Minerals 15 ml 04/09/25 10:15 04/12/25 09:04 Multi Vit W/Minerals Liquid 15 Ml Udc PO 05/09/25 10:14 15 ml QAM JADEN Administration Ondansetron HCl 4 mg 04/06/25 06:14 04/08/25 09:53 Ondansetron Inj 2 Mg/Ml 2 Ml Vial IV 05/06/25 06:13 4 mg Q6H PRN Administration Nausea Pantoprazole Sodium 40 mg 04/11/25 21:00 04/12/25 09:04 Pantoprazole 40 Mg Tab PO 05/11/25 20:59 40 mg BID JADEN Administration Sacubitril/Valsartan 1 tab 04/10/25 21:00 04/12/25 09:05 Valsartan/Sacubitril 26/24mg Tab PO 05/10/25 20:59 1 tab BID JADEN Administration PG Care Time/CCT Total # of Minutes Spent Total Time Spent with Patient: Total time spent is greater than 50% in coordination of care (as documented) at patient's floor/unit and/or counseling patient: Coding Level of Care Code 78335 SUB INP/OBS CARE 3/50MIN Diagnoses Atrial fibrillation I48.91 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
[2025-04-12 11:24] VITALS: PULSE 63; RESP 18; TEMP 98.4
--- NOTE | 2025-04-12 11:31 | Hospitalist Progress Note ---
Date of Service April 12, 2025 Assessment & Plan (1) Rapid atrial fibrillation: Plan: 54-year-old male with past medical history significant for hypertension, depression, ongoing tobacco use, history of atrial fibrillation, history of kidney stones comes because of abdominal pain and also in the ER found to be in rapid A-fib. Patient says since last Saturday is having abdominal pain mostly in the right upper side. Associated with nausea. Tonight he had episode of vomiting.. He was also sweating, feeling hot and cold which made him come to the hospital. In the ER he went into rapid A-fib. received IV Lopressor and Currently started on Cardizem drip. Denies any chest pain. Yesterday was feeling short of breath but currently no shortness of breath. No headache. No runny nose or sore throat. Since last 1 week he is having cough. In May 2024 was admitted for new onset rapid A-fib and left ureteral stone. He was discharged on metoprolol succinate and Eliquis. Patient says he no longer taking Eliquis and didn't followed up with cardiology. Atrial fibrillation with rapid ventricular response Bradycardia (post cardioversion)--resolved --ECHO: Borderline concentric LVH. Mild to moderate global hypokinesis of left ventricle. EF 35 to 40%. Left atrium moderately dilated. Moderate mitral regurgitation. Trace tricuspid regurgitation. --Normal TSH --S/P KATERYNA Cardioversion on 04/08/25 --Repeat ECHO: Rhythm sinus. Left ventricle normal in size. Mild concentric LVH. Moderate global hypokinesis of left ventricle. EF 43%. Mild to moderate mitral regurgitation. Developed bradycardia/Hypotension post cardioversion Amiodarone discontinued Continue metoprolol succinate 25 mg daily Appreciate cardiology, critical care input On IV heparin for anticoagulation>> transitioned to Eliquis Monitor and replete electrolytes as needed Remains in sinus, rate controlled Plan to be discharged home today Needs follow-up with cardiology Shock--resolved Possible myocardial stunning post synchronized cardioversion Nonischemic cardiomyopathy --?? Due to tachycardia versus alcohol use Rule out sepsis S/P Intubation on 04/08/25 for airway protection ? Fluid overload/aspiration KATERYNA ECHO: No evidence of left atrial or left atrial appendage thrombus. Left atrium mildly dilated. LV systolic function with global hypokinesis. Mild mitral insufficiency --S/O Cardiac Cath: No obstructive coronary disease --Immunoelectrophoresis pending --Blood cultures: Negative to date --Extubated on 04/09/2025 Appreciate critical care, cardiology input Pressors discontinued Continue metoprolol titrate 25 mg twice a day Started on Entresto Also started on Aldactone 25 mg daily Needs updated polysomnography as outpatient Continue thiamine, folic acid Unclear infectious source--empirically received Rocephin, Flagyl--discontinued Continue IV Lasix >> transition to torsemide 10 mg daily Monitor I's and O's, daily weight, volume status Weaned off of supplemental oxygen Volume status much improved 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 Stable right renal calculus. Stable fatty hepatomegaly and splenomegaly. --ABD CTA:No evidence for mesenteric vein thrombosis. Interval increase in mesenteric fat stranding, as well as ascites, again possibly related to mesenteric panniculitis --EGD: Mild to moderate gastric erythema linear erosions. Hunt's esophagus. No specimens collected -- IV Solu-Medrol discontinued No plan for any further steroid course Appreciate GI input Needs repeat EGD in 3 to 6 months for biopsies of Hunt's Also needs repeat CT scan in 1 to 2 weeks per GI Uncontrolled diabetes mellitus HbA1c 10.2 Hold metformin Continue sliding scale Appreciate glycemic pharmacy consult Monitor blood glucose levels Obstructive sleep apnea CPAP nightly Hypoxia Wean supplemental oxygen as able May need 2 step prior to discharge Hypertension Continue Entresto, metoprolol succinate Also on torsemide, Aldactone Monitor adjust medications as needed Obesity BMI 40.8 DVT Px: Eliquis CODE STATUS Full code Disposition Home Admission and Anticipated Discharge Date Admission Date: April 06, 2025 Subjective Patient is seen and examined at bedside States feeling better today Prefers to be discharged home today Offers no new complaints Denies any chest pain, dyspnea, abdominal pain, dizziness, nausea, vomiting Plan to be discharged home today Review of Systems Review of Systems: All systems reviewed & are unremarkable except as noted in Subjective Physical Exam 2 Physical Exam: Physical Exam: Vitals signs as noted above General Appearance:Obese, well-nourished, no apparent distress Head: normocephalic, Atraumatic Eyes: normal inspection, EOMI Neck: supple, Trachea midline Respiratory/Chest: Decreased breath sounds, No accessory muscle use Cardiovascular: S1, S2, No murmur Abdomen/GI:Soft, non tender, Bowel sounds present Extremities/Musculoskeletal:normal inspection, Trace edema Neurologic/Psych: Alert, awake, oriented, no focal deficits Skin: normal color, warm Results & Data Results & Data Vital Signs (Past 12 Hours) Vital Signs Temp Pulse Pulse Resp BP Pulse Ox O2 Del Method 04/12/25 11:23 36.9 C 63 18 141/69 H 94 Room Air 04/12/25 08:16 36.6 C 75 19 144/100 H 94 Room Air 04/12/25 07:00 71 04/12/25 03:58 36.4 C L 72 20 154/108 H 94 Room Air 04/12/25 02:29 67 15 96 04/11/25 23:50 36.7 C 67 20 136/99 96 Room Air Laboratory Results [facility] 04/12/25 05:25 Sodium 137 Potassium 4.0 Chloride 102 Carbon Dioxide 28 BUN 12 Creatinine 0.72 Glucose 150 H Calcium 8.8
--- NOTE | 2025-04-12 11:42 | Discharge Summary ---
Date of Service April 12, 2025 Admission HPI Per Admitting Provider 54-year-old male with past medical history significant for hypertension, depression, ongoing tobacco use, history of atrial fibrillation, history of kidney stones comes because of abdominal pain and also in the ER found to be in rapid A-fib. Patient says since last Saturday is having abdominal pain mostly in the right upper side. Associated with nausea. Tonight he had episode of vomiting.. He was also sweating, feeling hot and cold which made him come to the hospital. In the ER he went into rapid A-fib. received IV Lopressor and Currently started on Cardizem drip. Denies any chest pain. Yesterday was feel ing short of breath but currently no shortness of breath. No headache. No runny nose or sore throat. Since last 1 week he is having cough. In May 2024 was admitted for new onset rapid A-fib and left ureteral stone. He was discharged on metoprolol succinate and Eliquis. Patient says he no longer taking Eliquis and didn't followed up with cardiology. Past medical history. As mentioned above Past surgical history. Cholecystectomy. Knee repair. Social history. Smokes half pack a day for many years. Alcohol occasional. Occasional marijuana. Family history. Significant for diabetes, heart disease and cancer Admission Exam Per Admitting Provider General- Not in distress Head- atraumatic Eyes- PERRL. ENT- oropharynx clear Neck- supple, no JVD. Lungs- clear to auscultation no wheezing or crackles Heart- irregular rhythm;tachycardia, no murmur, no gallop. Abdomen- normal bowel sounds, soft, diffuse tenderness and guarding present, no distension Extremities- no pretibial edema, no erythema seen. 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's esophagus Discharge Data Allergies Allergy/AdvReac Type Severity Reaction Status Date / Time No Known Allergies Allergy Unverified 04/06/25 00:58 Consultations 04/06/25 03:05 ED Decision to Admit Stat 04/06/25 08:00 Consult Cardiology Routine Consult Gastroenterology Routine 04/07/25 18:37 Consult Anesthesiology Routine 04/08/25 10:10 Consult Super[employer] Routine Procedures Performed Operation Date: 04/09/25 16:45 Actual Procedures p Esophagogastroduodenoscopy - Zay Alanis MD Laboratory Results WBC 9.26 K/ul (4.8-10.8) 04/11/25 05:56 RBC 4.44 M/uL (4.70-6.10) L 04/11/25 05:56 Hgb 14.2 g/dl (14.0-18.0) 04/11/25 05:56 POC Hgb 13.3 g/dl (14.0-18.0) L 04/08/25 20:12 Hct 39.6 % (42.0-52.0) L 04/11/25 05:56 POC Hct 39 % (42-52) L 04/08/25 20:12 MCV 89.2 fL (80.0-100.0) 04/11/25 05:56 MCH 32.0 pg (25.0-34.0) 04/11/25 05:56 MCHC 35.9 g/dL (32.0-36.0) 04/11/25 05:56 RDW Std Deviation 41.5 fL (36.4-46.3) 04/11/25 05:56 RDW Coeff of Katherine 12.9 % (11.5-14.5) 04/11/25 05:56 Plt Count 196 K/uL (130-400) 04/11/25 05:56 MPV 10.2 fL (9.4-12.4) 04/11/25 05:56 Immature Gran % (Auto) 0.9 % 04/08/25 12:10 Neut % (Auto) 78.3 % 04/08/25 12:10 Lymph % (Auto) 15.1 % 04/08/25 12:10 [place] % (Auto) 5.3 % 04/08/25 12:10 Eos % (Auto) 0.1 % 04/08/25 12:10 Baso % (Auto) 0.3 % 04/08/25 12:10 Neut # (Auto) 11.67 K/uL (1.40-6.50) H 04/08/25 12:10 Lymph # (Auto) 2.26 K/uL (1.20-3.40) 04/08/25 12:10 [place] # (Auto) 0.79 K/uL (0.11-0.59) H 04/08/25 12:10 Eos # (Auto) 0.02 K/uL (0.00-0.50) 04/08/25 12:10 Baso # (Auto) 0.04 K/uL (0.00-0.20) 04/08/25 12:10 Immature Gran # (Auto) 0.14 K/uL (0.01-0.20) 04/08/25 12:10 Absolute Nucleated RBC Cancelled 04/07/25 06:38 Nucleated RBC % (auto) Cancelled 04/07/25 06:38 Neutrophils % (Manual) Cancelled 04/07/25 06:38 Band Neutrophils % Cancelled 04/07/25 06:38 Lymphocytes % (Manual) Cancelled 04/07/25 06:38 Prolymphocyte % Cancelled 04/07/25 06:38 Reactive Lymphs % (Man) Cancelled 04/07/25 06:38 Monocytes % (Manual) Cancelled 04/07/25 06:38 Eosinophils % (Manual) Cancelled 04/07/25 06:38 Basophils % (Manual) Cancelled 04/07/25 06:38 Metamyelocytes % (Man) Cancelled 04/07/25 06:38 Myelocytes % (Man) Cancelled 04/07/25 06:38 Promyelocytes % (Man) Cancelled 04/07/25 06:38 Blast Cells % (Manual) Cancelled 04/07/25 06:38 Plasma Cell % (Manual) Cancelled 04/07/25 06:38 Other Cells % Cancelled 04/07/25 06:38 Nucleated RBC % Cancelled 04/07/25 06:38 Neutrophils # (Manual) Cancelled 04/07/25 06:38 Band Neutrophils # Cancelled 04/07/25 06:38 Total Absolute Neuts Cancelled 04/07/25 06:38 Lymphocytes # (Manual) Cancelled 04/07/25 06:38 Prolymphocyte # Cancelled 04/07/25 06:38 Reactive Lymphs # Cancelled 04/07/25 06:38 Total Abs Lymphocytes Cancelled 04/07/25 06:38 Monocytes # (Manual) Cancelled 04/07/25 06:38 Eosinophils # (Manual) Cancelled 04/07/25 06:38 Basophils # (Manual) Cancelled 04/07/25 06:38 Metamyelocytes # (Man) Cancelled 04/07/25 06:38 Myelocytes # (Manual) Cancelled 04/07/25 06:38 Promyelocytes # (Man) Cancelled 04/07/25 06:38 Blast Cells # (Man) Cancelled 04/07/25 06:38 Plasma Cell # (Manual) Cancelled 04/07/25 06:38 Other Cells # Cancelled 04/07/25 06:38 Nucleated RBCs # (Man) Cancelled 04/07/25 06:38 Hypersegmented Neuts Cancelled 04/07/25 06:38 Hyposegmented Neuts Cancelled 04/07/25 06:38 Hypogranular Neuts Cancelled 04/07/25 06:38 Large Granular Lymphs Cancelled 04/07/25 06:38 # Lrg Granular Lymphs Cancelled 04/07/25 06:38 Hairy Cells Cancelled 04/07/25 06:38 Smudge Cells Cancelled 04/07/25 06:38 Toxic Granulation Cancelled 04/07/25 06:38 Toxic Vacuolation Cancelled 04/07/25 06:38 Dohle Bodies Cancelled 04/07/25 06:38 Robin Rods Cancelled 04/07/25 06:38 Platelet Estimate Cancelled 04/07/25 06:38 Hypogranular Platelets Cancelled 04/07/25 06:38 Giant Platelets Cancelled 04/07/25 06:38 Platelet Satelliting Cancelled 04/07/25 06:38 RBC Morphology Cancelled 04/07/25 06:38 Polychromasia Cancelled 04/07/25 06:38 Hypochromasia Cancelled 04/07/25 06:38 Poikilocytosis Cancelled 04/07/25 06:38 Basophilic Stippling Cancelled 04/07/25 06:38 Anisocytosis Cancelled 04/07/25 06:38 Microcytosis Cancelled 04/07/25 06:38 Macrocytosis Cancelled 04/07/25 06:38 Spherocytes Cancelled 04/07/25 06:38 Pappenheimer Bodies Cancelled 04/07/25 06:38 Sickle Cells Cancelled 04/07/25 06:38 Target Cells Cancelled 04/07/25 06:38 Tear Drop Cells Cancelled 04/07/25 06:38 Ovalocytes Cancelled 04/07/25 06:38 Stomatocytes Cancelled 04/07/25 06:38 Mandujano-Volente Bodies Cancelled 04/07/25 06:38 Echinocytes Cancelled 04/07/25 06:38 Acanthocytes (Spur) Cancelled 04/07/25 06:38 Rouleaux Cancelled 04/07/25 06:38 RBC Agglutinates Cancelled 04/07/25 06:38 Schistocytes Cancelled 04/07/25 06:38 Sezary Cell Cancelled 04/07/25 06:38 PT 12.3 Seconds (9.0-12.0) H 04/08/25 12:22 INR 1.2 (0.9-1.1) H 04/08/25 12:22 APTT 27 Seconds (21-31) 04/06/25 06:58 PTT Ratio 1.0 04/06/25 06:58 Heparin Anti-Xa, Unfract 0.18 IU/ml (0.3-0.7) L 04/11/25 05:56 Specimen Type Arterial 04/08/25 20:12 Sample Site R Radial 04/08/25 20:12 POC pH 7.27 (7.35-7.45) L 04/08/25 20:12 POC pCO2 31 mmHg (35-46) L 04/08/25 20:12 POC pO2 116 mmHg (80-95) H 04/08/25 20:12 POC HCO3 14 mmol/L (19-24) L 04/08/25 20:12 POC Total CO2 15 mmol/L (24-31) L 04/08/25 20:12 POC Base Excess -13.0 mmol/L (-9-1.8) L 04/08/25 20:12 O2 Sat Pulse Oximetry 97 04/08/25 20:12 ABG pH (Temp Correct) 7.264 (7.35-7.45) L 04/08/25 20:12 ABG pCO2 (Temp Corrct 32 mmHg (35-46) L 04/08/25 20:12 POC ABG pO2 at Pt Temp 120 04/08/25 20:12 POC ABG O2 Sat 98.0 % (90-95) H 04/08/25 20:12 Nash Test NA 04/08/25 20:12 O2 Delivery Device Ventilator 04/08/25 20:12 Vent Mode AC 04/08/25 20:12 POC FiO2 50 % 04/08/25 20:12 End Tidal CO2 31 04/08/25 20:12 POC Sodium 138 mmol/L (135-144) 04/08/25 20:12 Sodium 137 mmol/L (136-145) 04/12/25 05:25 POC Potassium 2.6 mmol/L (3.3-5.0) L 04/08/25 20:12 Potassium 4.0 mmol/L (3.5-5.1) 04/12/25 05:25 POC Chloride 97 mmol/L (101-112) L 04/06/25 01:07 Chloride 102 mmol/L (98-107) 04/12/25 05:25 Carbon Dioxide 28 mmol/L (21-32) 04/12/25 05:25 POC Total CO2 24 mmol/L (24-31) 04/06/25 01:07 Anion Gap 7 (3-11) 04/12/25 05:25 POC Anion Gap 17.0 mmol/L (16-25) 04/06/25 01:07 POC BUN 15 mg/dl (7-18) 04/06/25 01:07 BUN 12 mg/dl (6-23) 04/12/25 05:25 Creatinine 0.72 mg/dl (0.6-1.4) 04/12/25 05:25 POC Creatinine 0.8 mg/dl (0.6-1.3) 04/06/25 01:07 Est Cr Clr Drug Dosing 154.2 ml/min 04/12/25 05:25 eGFR 109.93 04/12/25 05:25 BUN/Creatinine Ratio 16.7 (10-20) 04/12/25 05:25 Glucose 150 mg/dl (70-99(Fasting)) H 04/12/25 05:25 POC Glucose 147 mg/dl (70-99) H 04/12/25 08:07 POC Glucose (other) 92 mg/dl (70-99) 04/09/25 08:10 Estimat Average Glucose 246 mg/dl 04/07/25 06:38 Hemoglobin A1c 10.2 % (4.5-5.6) H 04/07/25 06:38 Lactate 3.0 mmol/L (0.4-2.0) H* 04/09/25 04:38 Calcium 8.8 mg/dl (8.6-10.3) 04/12/25 05:25 POC Ioniz Calcium Trang 1.12 mmol/l (1.12-1.32) 04/06/25 01:07 Phosphorus 3.1 mg/dl (2.5-4.9) D 04/11/25 05:56 Magnesium 1.9 mg/dl (1.7-2.4) 04/12/25 05:25 Iron 27 mcg/dl (35-175) L 04/09/25 11:21 TIBC 342 mcg/dl (250-450) 04/09/25 11:21 Transferrin 244 mg/dl (200-360) 04/09/25 11:21 Transferrin % Sat 8 % (20-50) L 04/09/25 11:21 Total Bilirubin 1.0 mg/dl (0.2-1.0) 04/08/25 12:10 AST 31 U/L (13-39) 04/08/25 12:10 ALT 50 U/L (7-52) 04/08/25 12:10 Alkaline Phosphatase 47 U/L (34-104) 04/08/25 12:10 Total Creatine Kinase 19 U/L (30-223) L 04/08/25 21:34 Troponin I High Sens 42.9 pg/ml (0-20) H 04/08/25 12:10 C-Reactive Protein 0.76 mg/dl (0-0.5) H 04/08/25 19:29 Total Protein 5.8 gm/dl (6.0-8.3) L 04/08/25 12:10 Albumin 3.3 gm/dl (3.4-5.0) L 04/08/25 12:10 Globulin 2.5 gm/dl (2.5-4.0) 04/08/25 12:10 Albumin/Globulin Ratio 1.3 (0.9-2) 04/08/25 12:10 Triglycerides 113 mg/dl (0-150) 04/09/25 04:38 Cholesterol 162 mg/dl (0-200) 04/07/25 06:38 LDL Cholesterol, Calc 96 mg/dl 04/07/25 06:38 VLDL Cholesterol, Calc 22 mg/dl (0-30) 04/07/25 06:38 HDL Cholesterol 44 mg/dl 04/07/25 06:38 Cholesterol/HDL Ratio 3.7 (0-5) 04/07/25 06:38 Lipase 7 U/L (11-82) L 04/08/25 12:10 Procalcitonin 0.46 ng/ml (0-0.5) 04/10/25 04:05 TSH 2.122 uIu/ml (0.300-4.500) 04/06/25 01:04 Urine Color Yellow 04/09/25 02:43 Urine Appearance Clear (Clear) 04/09/25 02:43 Urine pH 5.5 (4.5-7.5) 04/09/25 02:43 Ur Specific [place] > 1.045 (1.000-1.030) H 04/09/25 02:43 Urine Protein Trace (Negative) H 04/09/25 02:43 Urine Glucose (UA) 3+ (Negative) H 04/09/25 02:43 Urine Ketones Negative (Negative) 04/09/25 02:43 Urine Blood Negative (Negative) 04/09/25 02:43 Urine Nitrite Negative (Negative) 04/09/25 02:43 Urine Bilirubin Negative (Negative) 04/09/25 02:43 Urine Urobilinogen Negative (Negative) 04/09/25 02:43 Ur Leukocyte Esterase Negative (Negative) 04/09/25 02:43 Urine WBC (Auto) 0-5 /hpf (0-5) 04/09/25 02:43 Urine RBC (Auto) 0-2 /hpf (0-2) 04/09/25 02:43 U Hyaline Cast (Auto) 0-2 /lpf (0-2) 04/09/25 02:43 U Epithel Cells (Auto) 0-2 /hpf (0-2) 04/09/25 02:43 Urine Bacteria (Auto) None Seen (None Seen) 04/09/25 02:43 Urine Comment 04/09/25 02:43 Adenovirus (PCR) Not Detected (NotDetected) 04/06/25 03:02 B. pertussis DNA (PCR) Not Detected (NotDetected) 04/06/25 03:02 B.parapertussis DNA PCR Not Detected (NotDetected) 04/06/25 03:02 C. pneumoniae DNA (PCR) Not Detected (NotDetected) 04/06/25 03:02 Coronavirus OC43 (PCR) Not Detected (NotDetected) 04/06/25 03:02 Coronavirus HKU1 (PCR) Not Detected (NotDetected) 04/06/25 03:02 Coronavirus 229E (PCR) Not Detected (NotDetected) 04/06/25 03:02 SARS-CoV-2 (PCR) Not Detected (NotDetected) 04/06/25 03:02 Coronavirus NL63 (PCR) Not Detected (NotDetected) 04/06/25 03:02 Human Metapneumovir PCR Not Detected (NotDetected) 04/06/25 03:02 Influenza Type A (PCR) Not Detected (NotDetected) 04/06/25 03:02 Influenza Type B (PCR) Not Detected (NotDetected) 04/06/25 03:02 M. pneumoniae (PCR) Not Detected (NotDetected) 04/06/25 03:02 Parainfluenza 1 (PCR) Not Detected (NotDetected) 04/06/25 03:02 Parainfluenza 2 (PCR) Not Detected (NotDetected) 04/06/25 03:02 Parainfluenza 3 (PCR) Not Detected (NotDetected) 04/06/25 03:02 Parainfluenza 4 (PCR) Not Detected (NotDetected) 04/06/25 03:02 RSV (PCR) Not Detected (NotDetected) 04/06/25 03:02 Entero/Rhino (PCR) Not Detected (NotDetected) 04/06/25 03:02 Blood Parasites ID Cancelled 04/07/25 06:38 Impressions Abdomen/Pelvis CT 04/06/25 01:13 EXAM: CT abd pelvis IV con only CLINICAL HISTORY: mid abd pain. TECHNIQUE: Multiple contiguous axial images were obtained from the level of the diaphragm to the pubic symphysis. This study was acquired after the IV administration of iodinated contrast material, given the patient's indications for the examination. If IV contrast material had not been administered, the likelihood of detecting abnormalities relevant to the patient's condition would have been substantially decreased. Coronal and sagittal reformatted images were generated and reviewed to improve anatomic localization and optimize lesion detection. CT scan was performed according to ALARA (as low as reasonably achievable). COMPARISON: 06/07/2024. FINDINGS: ABDOMEN/PELVIS: The liver is normal in size and attenuation. No focal liver lesions are seen. There is no intrahepatic or extrahepatic biliary ductal dilatation. Hepatic vasculature is patent. The gallbladder is surgically absent, with mild prominence of the common bile duct, which is stable. The spleen, pancreas, and adrenal glands are unremarkable. There is a 12 mm nodule near the splenic hilum, likely a splenule, which is stable. The kidneys are normal in size and attenuation. There is no hydronephrosis or perinephric fat stranding. There is a stable right lower pole microlith. The ureters are normal in caliber, and no ureteral calculi are seen. The bladder is normal in contour. No evidence of focal or diffuse bowel wall thickening or evidence of bowel obstruction is seen. The appendix is visualized in the right lower quadrant and appears within normal limits. No adenopathy. Minimal free fluid in the pelvis. The aorta is normal in caliber. Mesenteric fat stranding is seen in the right quadrants, starting near the duodenum, along the right paraaortic area, and continuing to the aortic bifurcation. No duodenal thickening. No aggressive-appearing osseous lesions are identified. Minimal right pleural effusion. IMPRESSION: 1. Mesenteric fat stranding is seen in the right upper quadrant, around the duodenum, along the right paraaortic area, continuing to the aortic bifurcation; new onset, likely mesenteric panniculitis. 2. Stable right renal calculus. 3. Stable fatty hepatomegaly and splenomegaly. 4. Minimal right pleural effusion; new onset. Electronically signed by Juan Daniel Morse 04-06-2025 02:47 AM Chest X-Ray 04/08/25 12:31 XR chest 1V portable CLINICAL HISTORY: cxr ett placement COMPARISON STUDY: 04/08/2025 FINDINGS: Endotracheal tube tip is at the thoracic inlet. Nasogastric tube tip is in the proximal stomach. Left central catheter tip is in the SVC. There is no pneumothorax. Stable cardiomegaly with pulmonary vascular congestion. Stable pulmonary interstitial prominence. IMPRESSION: No pneumothorax. ACT 112: Negative or not required by law. Electronically signed by: Mikael Ivey M.D. 04/08/2025 12:42 PM Abdomen/Pelvis CTA 04/08/25 20:20 Exam(s): CTA ABDOMEN + PELVIS With Contrast IV Amt: 115 ml [id number] EXAM: CT Angiography Abdomen and Pelvis With Intravenous Contrast CLINICAL HISTORY: Reason for exam: Rule out mesenteric ischemia. TECHNIQUE: Axial computed tomographic angiography images of the abdomen and pelvis with intravenous contrast. Arterial and venous phase imaging is performed. CTDI is 236.86 mGy and DLP is 1722.63 mGy-cm. Automated exposure control was utilized for the study. A dose lowering technique was utilized adhering to the principles of ALARA. MIP reconstructed images were created and reviewed. CONTRAST: Patient received 115 ml [id number] of IV contrast COMPARISON: CT abdomen and pelvis 04/07/2025 FINDINGS: VASCULATURE: Aorta: No acute findings. No aortic aneurysm or dissection. Celiac trunk and mesenteric arteries: No acute findings. No occlusion or significant stenosis. Renal arteries: No occlusion or stenosis in the renal arteries. Duplication of the right renal artery. Iliac arteries: No acute findings. No occlusion or significant stenosis. Portal veins: Portal vein, superior mesenteric vein are patent. Lung bases: Bibasilar consolidations increased from prior, with enhancement characteristics of atelectasis. Pleural space: Small right and trace left pleural effusions, increased from prior. ABDOMEN: Liver: Hepatomegaly. Gallbladder and bile ducts: Cholecystectomy. No ductal dilation. Pancreas: Unremarkable. No ductal dilation. No mass. Spleen: Unremarkable. No splenomegaly. Adrenals: Unremarkable. No mass. Kidneys and ureters: No hydronephrosis. Small nonobstructing right kidney lower pole stone. Stomach and bowel: Unremarkable. No mucosal thickening. No bowel obstruction. PELVIS: Appendix: No evidence of appendicitis. Bladder: Urinary bladder decompressed around a Witt catheter. Reproductive: Unremarkable as visualized. ABDOMEN and PELVIS: Intraperitoneal space: Mild ascites. Mesenteric edema. No free air. Bones/joints: L4-L5 disc degeneration. Lower lumbar facet degeneration. No acute fracture or dislocation. Soft tissues: Unremarkable. Lymph nodes: Unremarkable. No enlarged lymph nodes. Tubes, lines and devices: Enteric tube extends to the stomach. Rectal catheter in place. IMPRESSION: 1. Increasing pleural effusions and bibasilar atelectasis. 2. Mild ascites. Mesenteric edema. No free air. These findings are similar to prior. 3. No mesenteric arterial occlusion or significant stenosis. Electronically signed by: Eleazar Díaz M.D. 04/08/25 23:46 PM Ordered Studies 04/06/25 01:13 CT Abd and Pelvis [CT abd pelvis IV con only] Stat 04/07/25 15:05 CTA abdomen pelvis w con [CT angio abdomen pelvis w con] Routine 04/08/25 10:51 CL Cath Imgs for PACS use only Stat 04/08/25 20:20 CTA abdomen pelvis w con [CT angio abdomen pelvis w con] Stat Diabetes Follow up Diabetes Follow-up Needed for HgbA1c >9% Hospital Course (1) Rapid atrial fibrillation: 54-year-old male with past medical history significant for hypertension, depression, ongoing tobacco use, history of atrial fibrillation, history of kidney stones comes because of abdominal pain and also in the ER found to be in rapid A-fib. Patient says since last Saturday is having abdominal pain mostly in the right upper side. Associated with nausea. Tonight he had episode of vomiting.. He was also sweating, feeling hot and cold which made him come to the hospital. In the ER he went into rapid A-fib. received IV Lopressor and Currently started on Cardizem drip. Denies any chest pain. Yesterday was feeling short of breath but currently no shortness of breath. No headache. No runny nose or sore throat. Since last 1 week he is having cough. In May 2024 was admitted for new onset rapid A-fib and left ureteral stone. He was discharged on metoprolol succinate and Eliquis. Patient says he no longer taking Eliquis and didn't followed up with cardiology. Atrial fibrillation with rapid ventricular response Bradycardia (post cardioversion)--resolved --ECHO: Borderline concentric LVH. Mild to moderate global hypokinesis of left ventricle. EF 35 to 40%. Left atrium moderately dilated. Moderate mitral regurgitation. Trace tricuspid regurgitation. --Normal TSH --S/P KATERYNA Cardioversion on 04/08/25 --Repeat ECHO: Rhythm sinus. Left ventricle normal in size. Mild concentric LVH. Moderate global hypokinesis of left ventricle. EF 43%. Mild to moderate mitral regurgitation. Developed bradycardia/Hypotension post cardioversion Amiodarone discontinued Continue metoprolol succinate 25 mg daily Appreciate cardiology, critical care input On IV heparin for anticoagulation>> transitioned to Eliquis Monitor and replete electrolytes as needed Remains in sinus, rate controlled Plan to be discharged home today Needs follow-up with cardiology Shock--resolved Possible myocardial stunning post synchronized cardioversion Nonischemic cardiomyopathy --?? Due to tachycardia versus alcohol use Rule out sepsis S/P Intubation on 04/08/25 for airway protection ? Fluid overload/aspiration KATERYNA ECHO: No evidence of left atrial or left atrial appendage thrombus. Left atrium mildly dilated. LV systolic function with global hypokinesis. Mild mitral insufficiency --S/O Cardiac Cath: No obstructive coronary disease --Immunoelectrophoresis pending --Blood cultures: Negative to date --Extubated on 04/09/2025 Appreciate critical care, cardiology input Pressors discontinued Continue metoprolol titrate 25 mg twice a day Started on Entresto Also started on Aldactone 25 mg daily Needs updated polysomnography as outpatient Continue thiamine, folic acid Unclear infectious source--empirically received Rocephin, Flagyl--discontinued Continue IV Lasix >> transition to torsemide 10 mg daily Monitor I's and O's, daily weight, volume status Weaned off of supplemental oxygen Volume status much improved 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 Stable right renal calculus. Stable fatty hepatomegaly and splenomegaly. --ABD CTA:No evidence for mesenteric vein thrombosis. Interval increase in mesenteric fat stranding, as well as ascites, again possibly related to mesenteric panniculitis --EGD: Mild to moderate gastric erythema linear erosions. Hunt's esophagus. No specimens collected -- IV Solu-Medrol discontinued No plan for any further steroid course Appreciate GI input Needs repeat EGD in 3 to 6 months for biopsies of Hunt's Also needs repeat CT scan in 1 to 2 weeks per GI Uncontrolled diabetes mellitus HbA1c 10.2 Hold metformin Continue sliding scale Appreciate glycemic pharmacy consult Monitor blood glucose levels Obstructive sleep apnea CPAP nightly Hypoxia Wean supplemental oxygen as able May need 2 step prior to discharge Hypertension Continue Entresto, metoprolol succinate Also on torsemide, Aldactone Monitor adjust medications as needed Obesity BMI 40.8 DVT Px: Eliquis CODE STATUS Full code Disposition Home Total Time Total Time Spent Total Time Spent (In Minutes): 52 minutes Discharge Plan Discharge Items Patient Disposition: Home - Self-Care Reason For Visit: RAPID A FIB, ABDOMINAL PAIN Discharge Diagnosis: Atrial fibrillation with rapid ventricular response Shock Nonischemic cardiomyopathy 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 [Primary Care Provider] - 04/15/25 11:00 am Diet: Carb Consistent or DM2 and Heart Healthy [facility] Attending Provider Instructions: -- Follow-up with your primary care physician Dr. Payne on 04/15/2025 at 11 AM as scheduled --Follow-up with your engineering research manager in 2 weeks with repeat blood work as recommended -- Follow-up with your rehab technician Dr.Ernest Alanis in 2 weeks --Obtain blood work (basic metabolic panel, magnesium level) in 1 week and follow-up with your engineering research manager/primary care physician for further recommendations -- your rehab technician recommends upper endoscopy in 3 to 6 months for biopsies of Hunt's esophagus and also to obtain repeat CT abdomen in 1 to 2 weeks. Follow-up with your rehab technician for further recommendations. -- Quit smoking tobacco and drinking alcohol as advised. --Your blood test (Immunoelectrophoresis ) is pending at the time of discharge. Follow-up with your physician for results. -- Your diabetes is uncontrolled. Discuss with your primary care physician for further adjustment of medications as needed. Seek immediate medical attention if your symptoms reoccur or worsen Please review medication list provided on discharge for any medication changes as instructed. Please call if you have any questions or problems. You can reach a [facility] hospitalist on duty at [facility] 24 hours a day by calling [phone] [facility] [employer] Main[employer] Developer Provider Instructions: Call your Primary Care doctor if any of the following symptoms or problems start or get worse: * Shortness of breath or difficulty breathing * Wake up at night short of breath * Chest pain * Cough * Swelling of your hands, feet, or legs * More fatigued or tired with your normal activity * Palpitations - sudden fast heart beats WEIGHT * Weigh yourself every morning after using the bathroom. * Use the same scale. * Wear the same amount of clothing. * Write your weight down on a chart. * Call your Primary Care doctor if you gain more than 2-3 pounds in 1-2 days. MEDICATIONS * Use this discharge instruction sheet for medication instructions. * Take your medications at the time your doctor ordered. * Do not skip a dose of your medicines. * If you miss a dose of medicine, take it as soon as possible, but DO NOT DOUBLE A DOSE. * Read your medicine information when you get home. * Know all of the side effects of your medicine. If in doubt, ask your pharmacist * Call your Primary Care doctor's office if you have any side effects. * Be sure all of your doctors know what medicine and herbs you take (including cold, flu, and herbal medicine). Take the following with you to your follow-up doctor appointments: * Weight Chart * Medication List * List of questions Do not drink excessive alcohol, beer or wine. Pending Studies at Discharge: Yes Studies:: Immunoelectrophoresis Stand-Alone Forms: My [facility], Smoking Cessation Medications and DC Order Prescriptions: New atorvastatin 20 mg Tablet 20 mg PO QAM Qty: 30 1RF torsemide 10 mg Tablet 10 mg PO QAM Qty: 30 1RF spironolactone 25 mg Tablet 25 mg PO QAM Qty: 30 1RF pantoprazole 40 mg Tablet,Delayed Release (Dr/Ec) 40 mg PO BID Qty: 60 1RF metoprolol succinate 25 mg Tablet Extended Release 24 Hr 25 mg PO QAM Qty: 30 2RF Eliquis 5 mg Tablet 5 mg PO BID Qty: 60 2RF sacubitril-valsartan [Entresto] 24-26 mg Tablet 1 tab PO BID Qty: 60 2RF Continued metformin 1,000 mg Tablet 1,000 mg PO BID benzonatate 200 mg capsule 200 mg PO TID PRN (Reason: Cough) Held sildenafil 100 mg tablet 100 mg PO DAILY PRN (Reason: Erectile Dysfunction) Hold Instructions: Hold taking it until further recommendations from your engineering research manager Discontinued losartan 100 mg Tablet 100 mg PO QPM amlodipine 5 mg tablet 5 mg PO QAM Rx Instructions: ordered 7.5mg but pt take only 5mg hydrochlorothiazide 12.5 mg tablet 12.5 mg PO QAM metoprolol succinate 50 mg tablet extended release 24 hr 50 mg PO AMHS Discharge Orders: Discharge Order (Routine); Ordered 04/12/25 Ordered By: Cisco Cerrato/Other Patient Handouts: Managing Type 2 Diabetes Admission Data Admit Date/Time: 04/06/25 04:05 Attending Provider: Cisco Bradley Admit Provider: Honorio Osorio Primary Care Provider: Monster Payne Other Providers: Honorio Osorio; Yobani Abreu; Bill Severino; Sharri Haque; Denise Anand; Nancy Pena; Kassandra Patrick; Deyvi West; Alhaji Everett; Omer Wolfe; Edil Arzola; Glenna Saunders; Jude Varela; Berry Chavez; Henrik Sherman; Lorrie Jesus; Jaison Mackenzie; Paula Mackenzie; José Rice; Leida Boyd; Raman Gray; Mel Molina; Nicole Trejo; Mikael Joseph; Any Hopper; Deneen Cespedes; Pam Hendrix; Yaz De La Garza; Tevin De La Garza V; Pablo Felix; Denise Montanez; Kody Forte; Carie Clemons; Tevin Rice; Yuriy Jesus; Wisam Sanchez; Mary Lundberg; Gloria Qureshi; Tevin Jovel; Ruddy Bhatti; Corie Gore; Reynold Brandt; Manju Evans; Kaylin Murguia; Blane Kingston; Laci Danielle; Lona Carias; Omer Tinoco; Marylou Nguyen; Sam Suazo; Rogelio Pederson; Deyvi Bailey Jr; Janice Mcdaniel; Moriah Balbuena; Bianca Rahman; Mikael Mcmillan; Joseph Hammond; Moriah Vargas; Christiano Aguirre; Maciej Tillman; Giancarlo Guerrero; Tejas Sarabia; Ruel Kendall; Anel Benito; Patricia Malone; Natalia River; Feli Nye; Jerald Wilhelm Jr; Kaykay Hoffmann; Any Robert; Genaro Coe; Isabel Ghosh; Lora Servin; Shelbie Rojsa; Glenna Perez; Parris Jesus; Juan Rodríguez; Edil Johnson; Jaylon Billy; Marcelo Parra; Kenyetta Wright; Leon Schulz; Radha Sams.; Gianluca Edwards.; Dontrell Amador; Kait Powers
[2025-04-12] MEDS: SPIRONOLACTONE 25 MG TAB PO SCH (11:43)
[2025-04-12 12:12] VITALS: BP 81/59
[2025-04-13] MEDS ORDERED: TORSEMIDE 10 MG TAB PO SCH (09:00)
--- NOTE | 2025-04-17 08:29 | Cardiac Catheterization ---
[facility] Data: Skiver Counter Cardiac Status Clinical evaluation leading to the procedure CAD Presenation: Sx unlikely to be ischemic (Shock of unknown etiology) Heart Failure: NYHA Class: CCS IV Imaging Studies Past 6 Months: Yes Coronary Anatomy Dominant: Right Left Main (% Stenosis): Mid (20 to 30%) LAD (% Stenosis): Mid (Less than 30%) and Distal (50 to 70%) D1 (% Stenosis): Ostial D2 (% Stenosis): Normal Circumflex (% Stenosis): Distal (30%) OM1 (% Stenosis): Normal OM2 (% Stenosis): Normal L PL1 (% Stenosis): Normal RCA (% Stenosis): Proximal (30 to 40%), Mid (30 to 40%) and Distal (30 to 40%) R PDA (% Stenosis): Normal R PL1 (% Stenosis): Normal Diagnostic Physicians Name: Blane Orr MD, PhD Closure Device Percutaneous Entry Location: Radial Closure Device: None-Manual Hold Recommendations: Medical Therapy and/or Counseling Cardiac Cath Procedure Full Procedure Date April 08, 2025 Pre-Procedure Diagnosis Pre-Procedure Diagnosis: Arrhythmia and Cardiothoracic Symptom (hypotension) AUC Score AUC Score: NA Post-Procedure Diagnosis Post-Procedure Diagnosis: Moderate CAD Procedure(s) Performed Procedure(s) Performed: Coronary Angiography and Ultrasound Guided Vascular Access Central Office Installer Blane Orr MD, PhD Estimated Blood Loss Estimated Blood Loss: 5 cc Medication(s) Medication(s): Heparin and Lidocaine 1% Summary of Findings Brief description: Patient was brought to the cardiac catheterization suite where he was shaved and prepped in a sterile fashion. He had already been intubated for airway protection and he was on vasopressor support. Also already on sedatives. Soft tissues of the right wrist were anesthetized using 2 mL of 1% Xylocaine. Right radial artery was accessed using the ultrasound for guidance and a 6 [place] radial artery sheath was placed. Patient was provided anticoagulation with IV heparin. All catheters were advanced and exchanged over a 0.035 J-tip wire. Left coronary angiography in orthogonal views with a 5 [place] 4 diagnostic catheter. Right coronary angiography in orthogonal views with a 5 [place] 4 diagnostic catheter. Diagnostic catheters were removed. Radial artery sheath was left in place for hemodynamic monitoring. Decision to remove sheath will be left to the ICU team. Patient was stable and was therefor e transported to the ICU for further workup and management. This ended the case. Coronary angiography findings: [id number] vessel bifurcating into LAD and circumflex. Mid vessel has 20 to 30% narrowing. LAD-this is large caliber. There is a septal trunk and first diagonal arising at around the same level. The diagonal has ostial to proximal 40% stenosis. More distally there is a large branching second diagonal which has luminal irregularities. Proximal LAD without significant disease. Mid vessel has d iffuse mild less than 30% stenosis. Distally, there is diffuse mild disease and then focal 50 to 70% stenosis. [id number]-[id number]-trdnowh and nondominant. Travels in the AV groove. There is an OM1, OM 2, and distally a posterolateral branch. The distal AV groove circumflex has 30% stenosis. The remainder of the circumflex and its branches have luminal irregularities. RCA-this is large and dominant. There are scattered less than 30 to 40% stenoses. Provides a posterolateral branch and a PDA branch. These vessels have no more than mild less than 30% diffuse disease. Summary: 1. Mild to at most moderate multivessel CAD. This is not the etiology of his hypotension. 2. Continue workup and management for his acute medical issues per ICU. 3. Once he has recovered hemodynamically then he needs to be on guideline directed medical therapy for secondary prevention of coronary disease as determined by his primary document management consultant. Hemodynamics Rest Ao:: 79/55 mmHg Final Ao: 83/64 mmHg LV: Not performed Recommendations Recommendations: Medical Therapy and/or Counseling Radiation Exposure (mGy) 955 mGy, fluoroscopy time 1.1 minutes Contrast (mls) 70 cc Procedural Complication(s) None Disposition ICU I attest to the content of the Intraoperative Record and any orders documented therein. Any exceptions are noted below. [facility] Card Cath Procedure Codes Cardiac Catheterization Procedure 1: Cardiovascular Cath Procedures: 72710 Coronaries Therapeutic Services & Ancillary Procedure 1: Cardiovascular Tx and Anc Procedures: 24988 Ultrasonic Guidance Vascular Access PG Care Time/CCT Total # of Minutes Spent Total Time Spent with Patient: Total time spent is greater than 50% in coordination of care (as documented) at patient's floor/unit and/or counseling patient:
== END 2025-04-12 13:33 | disposition home or self-care (01) | DRG 286 ==
LOC: ED 00:18 → 2S 04:05 → SUATTDRO 04:05 → 2S 05:53 → 1E 04-08 11:38 → 2N 04-10 09:52
PROC: CLB.CCO (2025-04-08 11:00)